=== PATIENT | female | born 2000 | race Caucasian/White ===

== ENCOUNTER 2024-01-19 11:20 | Outpatient (OUT) | payer MEDICAID, SELFPAY ==
--- NOTE | 2024-01-19 11:36 | XR_ITS ---
The [address] [address] Patient Name: ZAID MELLO MRN: [id number] date: 2000 Sex: F Assigned Patient Location: [facility] Current Patient Location: Accession/Order Number: [id number] Exam Date: 01/19/2024 11:40 Report Date: 01/20/2024 08:47 At the request of: ARABELLA FALK Procedure: XR tibia fibula RT 2V PROCEDURE: XR tibia fibula RT 2V HISTORY: Dunne Splints S86.899A COMPARISON: None. FINDINGS: BONES:No fracture, acute abnormality, or significant arthropathy. SOFT TISSUES:No visible soft tissue swelling. EFFUSION:None visible. OTHER: Negative. XR/XR tibia fibula RT 2V IMPRESSION: 1. No fracture or findings to suggest stress fracture. 2. No periosteal reaction or radiographic evidence of dunne splints. Electronically authenticated by: SANDHYA THOMAS Date: 01/20/2024 08:47
== END 2024-01-19 11:21 | disposition home or self-care (01) ==
LOC: RAD 11:25
PROVIDERS: PCP Family Medicine; Visit Provider Family Medicine
DX: S86.899A Other injury of other muscle(s) and tendon(s) at lower leg level, unspecified leg, initial encounter (principal)
CPT/HCPCS: 73590

== ENCOUNTER 2024-07-18 11:55 | Outpatient (OUT) | payer OTHER, MEDICAID, SELFPAY ==
--- NOTE | 2024-07-18 12:12 | XR_ITS ---
The [address] [address] Patient Name: ZAID MELLO MRN: [id number] date: 2000 Sex: F Assigned Patient Location: LAB Current Patient Location: Accession/Order Number: [id number] Exam Date: 07/18/2024 12:15 Report Date: 07/19/2024 10:23 At the request of: ARABELLA FALK Procedure: XR foot RT 2V PROCEDURE: XR foot RT 2V HISTORY: Right Foot Pain M79.671 COMPARISON: None. FINDINGS: BONES:No fracture, acute abnormality, or significant arthropathy. SOFT TISSUES:No visible soft tissue swelling. EFFUSION:None visible. OTHER: Negative. XR/XR foot RT 2V IMPRESSION: 1. No acute bone abnormality, or suspicious lesion, or significant degenerative joint disease. Electronically authenticated by: SANDHYA THOMAS Date: 07/19/2024 10:23
[2024-07-18 12:31] LABS: C Reactive Protein <0.50 mg/dL (<=0.50); Uric Acid 4.7 mg/dL (2.6-6.0)
[2024-07-18 12:38] LABS: Erythrocyte Sedimentation Rate 4 mm/hr (<=20)
[2024-07-19 04:08] LABS: Antistreptolysin O Ab 213.6 IU/mL (0.0-200.0); Rheumatoid Factor (RF) <10.0 IU/mL (<14.0)
[2024-07-20 11:09] LABS: Antinuclear Antibodies, IFA Negative (.)
== END 2024-07-18 11:56 | disposition home or self-care (01) ==
LOC: LAB 11:59
PROVIDERS: PCP Family Medicine; Visit Provider Family Medicine
DX: M79.671 Pain in right foot (principal)
CPT/HCPCS: 36415; 73620; 84550; 85652; 86038; 86060; 86140; 86431

== ENCOUNTER 2024-09-01 10:18 | Outpatient (OUT) | payer OTHER, MEDICAID, SELFPAY ==
--- OUTSIDE RECORDS SUMMARY | 2024-09-01 10:27 | XMS_ITS | CCD ---
Author Organization [facility] Care Team Providers Care Chief Librarian Branch Name Role Phone Unavailable Unavailable Unavailable Arabella Falk Primary Care Provider Alisia Gross Primary Care Provider [phone] CARIDAD KAPADIA Admitting UnavailCARIDAD Coats Attending UnavailALISIA Valdez Primary Care Unavailable Unavailable Primary Care Provider Unavailalexis villa Unavailable Primary Care Provider UnavailArabella Hart MD Primary Care Provider DR ARABELLA FALK Consulting Unavailable DEYA, DR BELL Primary Care Unavailable DEYA, DR BELL Admitting Unavailable DEYA, DR BELL Attending Unavailable HOUSTON, DR STEFAN Nagel Consulting Unavailable DEYA, DR BELL Primary Care Unavailable DEYA, DR BELL Admitting Unavailable DEYA, DR BELL Attending Unavailable DEYA, DR BELL Consulting Unavailable DEYA, DR BELL Consulting Unavailable DEYA, DR BELL Primary Care Unavailable DEYA, DR BELL Admitting Unavailable DEYA, DR BELL Attending Unavailable WILLIAM, DR SANDHYA Arango Consulting Unavailable Arabella Falk MD Primary Care Provider Arabella Falk Primary Care Physician Arabella Falk MD Primary Care Provider Arabella Falk MD Primary Care Provider Arabella Falk MD Primary Care Provider ARABELLA FALK Primary Care Unavailable ARABELLA FALK Primary Care Unavailable KALYN SHIN Attending Unavailable OSCAR US Referring Unavailable ARABELLA FALK Primary Care Unavailable ARABELLA FALK Primary Care Unavailable OSCAR US Attending Unavailable ARABELLA FALK Primary Care Unavailable KARLENE WESTFALL Attending Unavailable RAUL PINTO Referring Unavailable ARABELLA FALK Primary Care Unavailable Etienne THURMAN, Mary Joseph Attending Erickson Alexis PA-C, Sylvie Blake Attending Dread le Allergies Allergy Classification Reported Allergen(s) Allergy Type Date of Onset Reaction(s) Facility Nitroimidazoles (antibiotic) (6 sources) metroNIDAZOLE Drug Allergy 06-27-20 [facility] Penicillins (antibiotic) (12 sources) Amoxicillin Drug Allergy 01-11-20 Hives, Other (See Comments) [facility] (20 sources) Amoxicillin Drug Allergy 01-11-20 [facility], Other (See Comments) [place], [place] (20 sources) Penicillin G Drug Allergy 06-16-20 [place] (20 sources) metroNIDAZOLE; Translations: [metronidazole] Drug Allergy 06-27-20 Hives, [place]al (disorder) [place] (13 sources) Penicillins Propensity to adverse reactions to drug 07-03-20 [place] (2 sources) metroNIDAZOLE; Translations: [Flagyl] Drug Allergy 06-27-20 [facility] Repository (3 sources) Penicillin; Translations: [penicillin] Drug Allergy 06-27-20 Weal (disorder) [facility] Repository (6 sources) Penicillins Propensity to adverse reactions to drug 07-03-20 AASHISH MARVIN [facility] Work Phone: Medications Current Medications Medication Drug Class(es) Dates Sig (Normalized) Sig (Original) acetaminophen 325 mg / HYDROcodone bitartrate 5 mg oral tablet (3 sources) Opioid Agonist Start: 11-20-2022 End: 11-25-2022 HYDROcodone-acet aminophen (NORCO) 5-325 MG per tablet Indications: Post-op pain Take 1 tablet by mouth every 6 hours as needed for Pain for up to 5 days. Intended supply: 5 days. Take lowest dose possible to manage pain Max Daily Amount: 4 tablets 8 tablet 0 11/20/2022 11/25/2022 Active benzocaine 200 mg/ml / menthol 5 mg/ml topical spray (1 source) Standardized Chemical Allergen Start: 09-20-2020 apply 1 dose topically twice daily Topical, 2 TIMES DAILY, First dose on Wed09/20/20 at 2100 Apply to perineal area. Patient is capable and may self administer at bedside. brexpiprazole 1 mg oral tablet (2 sources) Atypical Antipsychotic Start: 03-26-2021 REXULTI 1 MG TABS tablet Start: 01-02-2021 take 1 tablet by lary th once daily REXULTI 0.5 MG TABS tablet take 1 tablet by mouth once daily 0 01/02/2021 Active Calcium Carbonate Antacid (T UMS PO) (2 sources) Calcium Carbonat e Antacid (TUMS PO) Take by mouth 0 Active calcium chloride 0.0014 meq/ ml / potassium chloride 0.004 meq/ml / sodium chloride 0.103 meq/ml / sodium lactate 0.028 meq/ml injectable solution (2 sources) Start: 11-20-2022 lactated ringe rs infusion Start: 09-20-2020 End: 09-20-2020 lactated ringers infusion 1 ml carboprost 0.25 mg/ml injection (1 source) Prostaglandin Analog Start: 09-20-2020 carboprost (HEMABATE) injection 250 mcg ciprofloxacin 500 mg oral tablet (1 source) Quinolone Antimicrobial Start: 04-09-2021 End: 04-19-2021 take 1 tablet by mouth twice daily ciprofloxacin (CIPRO) 500 MG tablet Take 1 tablet by mouth 2 times daily for 10 days 20 tablet 0 04/09/2021 04/19/2021 Active clindamycin 20 mg/ml vaginal cream (2 sources) Lincosamide Antibacterial Start: 01-01-2022 clindamycin (CLEOCIN) 2 % vaginal cream Indications: Acute vaginitis Place vaginally nightly. For 7 nights 40 g 0 01/01/2022 Active Start: 09-30-2020 End: 10-10-2020 take 2 capsules by mouth four times daily clindamycin (CLEOCIN) 300 MG capsule Indications: Pelvic pain Take 2 capsules by mouth 4 times daily for 10 days 80 capsule 0 09/30/2020 10/10/2020 Active docusate sodium 100 mg oral capsule (1 source) Start: 09-20-2020 take 100 mg by mouth twice daily as needed for constipation 100 mg, Oral, 2 TIMES DAILY PRN, Constipation, Starting Wed09/20/20 at 1907 Do not crush or break. Doxylamine Succinate, Sleep, (UNISOM SLEEPTABS PO) (3 sources) Doxylamine Succinate, Sleep, (UNISOM SLEEPTABS PO) Take by mouth 0 Active hydrocortisone 5 mg/ml topical cream (2 sources) Corticosteroid Start: 06-20-2020 hydrocortisone 0.5 % cream Apply topically 2 times daily for 7 days 15 g 0 06/20/2020 Active ibuprofen 800 mg oral tablet (1 source) Nonsteroidal Anti-inflammatory Drug Start: 09-20-2020 take 800 mg by mouth every eight hours 800 mg, Oral, EVERY 8 HOURS, First dose on Wed09/20/20 at 1930 Do not crush or break. ketorolac tromethamine 10 mg oral tablet (3 sources) Nonsteroidal Anti-inflammatory Drug, Cyclooxygenase Inhibitor Start: 11-20-2022 End: 11-20-2023 take 1 tablet by mouth every six hours as needed for pain ketorolac (TORADOL) 10 MG tablet Take 1 tablet by mouth every 6 hours as needed for Pain 20 tablet 0 11/20/2022 11/20/2023 Active Start: 04-09-2021 End: 04-09-2021 ketorolac (TORADOL) injectio n 15 mg lansinoh lanolin ointment (1 source) Start: 09-20-2020 Topical, PRN, Dry Skin, nipple discomfort, Starting Wed09/20/20 at 1907, 2 ml metoclopramide 5 mg/ml prefilled syringe (1 source) Dopamine-2 Receptor Antagonist Start: 11-20-2022 End: 11-21-2022 10 mg, IntraVENous, ONCE PRN, 1 dose, Starting on Wed11/20/22 at 0923, Until 11/21/22 at 0923, Nausea Initial antiemetic therapy. PACU only miSOPROStol 0.1 mg oral tablet (1 source) Prostaglandin E1 Analog Start: 09-20-2020 miSOPROStol (CYTOTEC) tablet 900 mcg nitrofurantoin, macrocrystals 25 mg / nitrofurantoin, monohydrate 75 mg oral capsule (1 source) Nitrofuran Antibacterial Start: 09-02-2020 End: 09-07-2020 take 1 capsule by mouth twice daily nitrofurantoin, macrocrystal-mono hydrate, (MACROBID) 100 MG capsule Indications: Urgency of urination Take 1 capsule by mouth 2 times daily for 5 days 10 capsule 0 09/02/2020 09/07/2020 Active MV & Min w/FA-DHA ([facility] GUMMY PO) (5 sources) take 1 tablet by mouth once daily MV & Min w/FA-DHA ([facility] GUMMY PO) Take 1 tablet by mouth daily 0 Active Vit-Fe Fumarate-FA ( VITAMIN PO) (10 sources) Vit-Fe Fumarate-FA ( VITAMIN PO) Take by mouth 0 Active traMADol hydrochloride 50 mg oral tablet (1 source) Opioid Agonist Start: 04-09-2021 End: 04-14-2021 take 1 tablet by mouth every four hours as needed for pain traMADol (ULTRAM) 50 MG tablet Indications: Acute cystitis without hematuria Take 1 tablet by mouth every 4 hours as needed for Pain for up to 5 days. 20 tablet 0 04/09/2021 04/14/2021 Active vilazodone hydrochloride 40 mg oral tablet (3 sources) Start: 03-27-2021 VILAZODONE HCL 40 MG Tablet Start: 01-20-2021 take 350-500 tablets by mouth once daily VILAZODONE HCL 20 MG Tablet take 1/2 tablet by mouth daily for 7 days then 1 tablet by mouth daily WITH 350 - 500 CALORIES 0 01/20/2021 Active witch nils 500 mg/ml medicated pad (1 source) Start: 09-20-2020 apply 1 dose topically twice daily Topical, 2 TIMES DAILY, First dose on Wed09/20/20 at 2100 Apply to perineal area. Patient is capable and may self administer at bedside. Completed/Discontinued Medications Medication Drug Class(es) Dates Sig (Normalized) Sig (Original) acetaminophen 325 mg oral tablet (3 sources) Start: 11-20-2022 End: 11-20-2022 acetaminophen (TYLENOL) tablet 650 mg Start: 06-11-2022 End: 06-11-2022 acetaminophen (TYLENOL) tabl et 1,000 mg Start: 09-20-2020 take 650 mg by mouth every four hours as needed for fever, then take 4000 mg by mouth every twenty-four hours as needed for fever 650 mg, Oral, EVERY 4 HOURS PRN, Fever, Fever >100.5 F (38 C) or pain 1-10, Starting Wed09/20/20 at 1907 Maximum dose of acetaminophen is 4000 mg from all sources in 24 hours. ARIPiprazole 10 mg oral tablet (8 sources) Atypical Antipsychotic Start: 05-25-2019 take 10 mg by mouth once daily at bedtime Aripiprazole 10 MG Oral Daily at bedtime May 25, 2019 Active Start: 05-22-2019 End: 05-25-2019 take 5 mg by mouth once daily Aripiprazole 5 MG Oral D aily May 22, 2019 May 25, 2019 Discontinued bebtelovimab 175 mg injection (1 source) Start: 06-12-2022 End: 06-12-2022 bebtelovimab 175 mg injection ceFAZolin (ANCEF) 2000 mg in dextrose 5 % 100 mL IVPB (1 source) Start: 11-20-2022 End: 11-20-2022 ceFAZolin (ANCEF) 2000 mg in dextrose 5 % 100 mL IVPB citalopram 20 mg oral tablet (4 sources) Serotonin Reuptake Inhibitor Start: 05-25-2019 take 20 mg by mouth once daily at bedtime Citalopram 20 MG Oral Daily at bedtime May 25, 2019 Active dimenhyDRINATE 50 mg oral tablet (1 source) Start: 11-20-2022 End: 11-20-2022 dimenhyDRINATE (DRAMAMINE) tablet 50 mg Start: 11-20-2022 End: 11-20-2022 dimenhyDRINATE (DRAMAMINE) t ablet 50 mg Doxylamine Succinate, Sleep, (UNISOM PO) (3 sources) End: 09-21-2020 Doxylamine Succinate, Sleep, (UNISOM PO) Take by mouth 0 09/21/2020 Discontinued (Stop Taking at Discharge) Doxylamine Succi terry, Sleep, (UNISOM PO) Take by mouth 0 Active elagolix 150 mg oral tablet (2 sources) Start: 12-09-2022 End: 04-13-2023 take 1 tablet by mouth once daily Elagolix Sodium 150 MG TABS Take 1 tablet by mouth daily 30 tablet 5 12/09/2022 04/13/2023 Discontinued (LIST CLEANUP) 0.8 ml enoxaparin sodium 100 mg/ml prefilled syringe (1 source) Low Molecular Weight Heparin Start: 04-13-2023 End: 04-13-2023 enoxaparin (LOVENOX) injection 70 mg Start: 04-13-2023 End: 04-13-2023 enoxaparin (LOVENOX) injecti on 70 mg escitalopram 20 mg oral tablet (1 source) Serotonin Reuptake Inhibitor Start: 08-04-2022 End: 11-06-2022 take 1 tablet by mouth once daily escitalopram (LEXAPRO) 20 MG tablet Take 1 tablet by mouth daily 30 tablet 3 08/04/2022 11/06/2022 Discontinued (Therapy completed) Ethinyl Estradiol / norgestimate (4 sources) Progestin, Estrogen Start: 05-22-2019 Norgestimate-Ethiny l Estradiol May 22, 2019 Active 2 ml fentaNYL 0.05 mg/ml injection (1 source) Opioid Agonist Start: 11-20-2022 50 mcg, IntraVENous, EVERY 5 MIN PRN, 2 doses, Starting on Wed11/20/22 at 0923, Until Discontinued, Pain Moderate (4-6), Pain Severe (7-10) For Phase I. If Phase II oral narcotics have been administered in the last 60 minutes, do not administer IV narcotics unless specifically approved by provider. PACU only iopamidol (ISOVUE-370) 76 % injection 75 mL (1 source) Start: 04-09-2021 End: 04-09-2021 iopamidol (ISOVUE-370) 76 % injection 75 mL levonorgestrel [id number] mg/hr intrauterine system (2 sources) Progestin, Progestin-containi ng Intrauterine Device Start: 02-26-2021 Levonorgestrel (KYLEENA) IUD 19.5 mg 1 each by Intrauterine route once for 1 dose Lot [id number] Expires 04/2022 [facility] 83167-547-79 1 each 0 02/26/2021 Active methylergonovine maleate 0.2 mg oral tablet (2 sources) Ergot Derivative Start: 09-20-2020 End: 09-21-2020 take 1 dose by mouth four times daily 200 mcg, Oral, EVERY 6 HOURS SCHEDULED (4 times per day), First dose on Wed09/20/20 at 1930, For 4 doses Start: 09-20-2020 methylergonovi ne (METHERGINE) injection 200 mcg 1 ml morphine sulfate 4 mg/ml cartridge (1 source) Opioid Agonist Start: 04-09-2021 End: 04-09-2021 morphine injection 4 mg 2 ml ondansetron 2 mg/ml injection (2 sources) Serotonin-3 Receptor Antagonist Start: 09-20-2020 End: 09-20-2020 ondansetron (ZOFRAN) injection 4 mg Start: 08-13-2020 End: 08-13-2020 ondansetron (ZOFRAN) tablet 4 mg oxytocin (PITOCIN) 30 Units in sodium chloride 0.9 % 500 mL infusion (1 source) Start: 09-20-2020 End: 09-20-2020 oxytocin (PITOCIN) 30 Units in sodium chloride 0.9 % 500 mL infusion 1 ml promethazine hydrochloride 25 mg/ml injection (1 source) Phenothiazine Start: 04-09-2021 End: 04-09-2021 promethazine (PHENERGAN) injection 12.5 mg 50 ml sodium chloride 9 mg/ml injection (10 sources) Start: 04-01-2024 End: 04-01-2024 sodium chloride 0.9 % bolus 1,000 mL Start: 11-20-2022 IntraVENous, a t 5-250 mL/hr, PRN, if patient receiving piggyback infusions and maintenance fluids are not ordered OR KVO fluids to protect IV site / prevent frequent line interruptions/ long duration, Starting on Wed11/20/22 at 0923 For piggyback infusion, administer at same rate as piggyback for a total of 25 mL. Enter 25 mL into dose field and piggyback rate into rate field of order. If piggyback is infusing at a rate less than 100 mL/hr, enter 25 mL into dose field and 100 mL/hr into rate field of order. For KVO fluids, enter rate of 20 mL/hr or less into rate field of order. PACU only Start: 11-20-2022 take 1 dose intraven ously twice daily 5-40 mL, IntraVENous, EVERY 12 HOURS SCHEDULED (2 times per day), First dose on Wed11/20/22 at 0945, Until Discontinued For Line Patency: Peripheral IV = 5 mL; Midline or Central Line = 10 mL/lumen. If following IV push medication, administer flush at same rate as the IV push. Flush volume is determined by type of infusion therapy being given. For non-viscous solutions use: Peripheral IV = 5 mL Midline or Central Line = 10 mL/lumen For viscous solutions (i.e. blood components, parenteral nutrition, contrast media, or after obtaining blood sample) use: Peripheral IV = 10 mL Midline or Central Line = 20 mL/lumen PACU only Start: 11-20-2022 take 5-40 mL intrave nously once as needed 5-40 mL, IntraVENous, PRN, Starting on Wed11/20/22 at 0923, Until Discontinued, Line Care, After every IV line use For Line Patency: Peripheral IV = 5 mL; Midline or Central Line = 10 mL/lumen. If following IV push medication, administer flush at same rate as the IV push. Flush volume is determined by type of infusion therapy being given. For non-viscous solutions use: Peripheral IV = 5 mL Midline or Central Line = 10 mL/lumen For viscous solutions (i.e. blood components, parenteral nutrition, contrast media, or after obtaining blood sample) use: Peripheral IV = 10 mL Midline or Central Line = 20 mL/lumen PACU only Start: 11-20-2022 0.9 % sodium c hloride infusion Start: 11-20-2022 sodium chlorid e flush 0.9 % injection 5-40 mL Start: 04-09-2021 End: 04-09-2021 0.9 % NaCl bolus Start: 09-20-2020 10 mL, Intrave nous, EVERY 12 HOURS SCHEDULED (2 times per day), First dose on Wed09/20/20 at 2100, Start: 09-20-2020 take 10 mL intravenous route o nce 10 mL, Intravenous, PRN, Line Care, Starting Wed09/20/20 at 1907 After every IV line use Problems Active Problems Problem Classification Problem Date Documented Da te Episodic/Chronic Abdominal pain (11 sources) Abdominal tenderness; Translations: [Pain in pelvis] Onset: 2021 Episodic Cardiac dysrhythmias (1 source) Sinus tachycardia 10-21-2020 Episodic Endometriosis (1 source) Endometriosis (clinical); Translations: [Endometriosis, unspecified] Chronic External cause codes: Fall (8 sources) Fall in home; Translations: [Fall at home, initial encounter] Onset: 06-16-2020 06-16-2020 Fluid and electrolyte disorders (1 source) Dehydration; Translations: [DEHYDRATION] Onset: 09-11-2021 Episodic Gastrointestinal hemorrhage (1 source) Rectal hemorrhage 10-29-2020 Episodic Genitourinary symptoms and ill-defined conditions (5 sources) Urgent desire to urinate; Translations: [Increased frequency of urination] Episodic Immunizations and screening for infectious disease (1 source) Patient encounter status; Translations: [Encounter for screening for infections with a predominantly sexual mode of transmission] Episodic Inflammatory diseases of female pelvic organs (7 sources) Acute vaginitis; Translations: [Subacute vaginitis] Onset: 05-24-2024 Episodic Menstrual disorders (1 source) Secondary amenorrhea; 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] Chronic Mood disorders (20 sources) Major depressive disorder; Translations: [Major depressive disorder, single episode, unspecified] Onset: 07-31-2020 07-31-2020 Chronic Nausea and vomiting (1 source) Vomiting, unspecified; Translations: [VOMITING UNSPECIFIED] Onset: 09-11-2021 Episodic Open wounds of extremities (2 sources) Laceration of wrist Episodic Other connective tissue disease (1 source) Swelling of lower limb; Translations: [Other specified soft tissue disorders] Episodic Other diseases of kidney and ureters (1 source) Unspecified hydronephrosis; Translations: [UNSPECIFIED HYDRONEPHROSIS] Onset: 09-11-2021 Episodic Other female genital disorders (1 source) History of endometriosis; Translations: [Personal history of other diseases of the female genital tract] Episodic Other gastrointestinal disorders (1 source) Alteration in bowel elimination 10-29-2020 Episodic Other gastrointestinal disorders (1 source) Loose stool 10-29-2020 Episodic Other gastrointestinal disorders (1 source) Mucus in stool 10-29-2020 Episodic Other nervous system disorders (1 source) Postoperative pain ; Translations: [Other acute postprocedural pain] Episodic Other upper respiratory disease (1 source) Allergic rhinitis 10-21-2020 Chronic Ovarian cyst (5 sources) Other ovarian cyst, right side; Translations: [Cyst of ovary] Onset: 04-24-2021 Episodic Demetri-; endo-; and myocarditis; cardiomyopathy (except that caused by tuberculosis or sexually transmitted disease) (1 source) 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 Residual codes; unclassified (1 source) Gestation period, 36 weeks; Translations: [36 weeks gestation of ] Episodic Spondylosis; intervertebral disc disorders; other back problems (1 source) Low back pain; Translations: [Bilateral low back pain without sciatica, unspecified chronicity] Episodic Suicide and intentional self-inflicted injury (2 sources) Intentional self-harm by unspecified sharp object, initial encounter Syncope (2 sources) Syncope; Translations: [Syncope and collapse] Onset: 04-01-2024 04-01-2024 Episodic Unclassified (3 sources) Patient encounter status; Translations: [Encounter for induction of labor] Onset: 09-20-2020 09-20-2020 Unclassified (1 source) CONTACT W/AND (SUSP) EXPOS COVID-19; Translations: [CONTACT W/AND (SUSP) EXPOS COVID-19] Onset: 09-11-2021 Urinary tract infections (1 source) Acute cystitis; Translations: [Acute cystitis without hematuria] Episodic Past or Other Problems Problem Classification Problem Date Documented Da te Episodic/Chronic Allergic reactions (5 sources) Contact dermatitis; Translations: [Vesicular eczema] Onset: 04-10-2023 10-21-2020 Episodic E Codes: Fall (17 sources) Fall in home; Translations: [Unspecified fall, initial encounter] Onset: 06-16-2020 06-16-2020 Episodic Other connective tissue disease (1 source) Other specified soft tissue disorders; Translations: [Other specified soft tissue disorders] Onset: 04-13-2023 Episodic Other injuries and conditions due to external causes (20 sources) Self inflicted injury; Translations: [Intentional self-harm by unspecified sharp object, initial encounter] Onset: 07-31-2020 07-31-2020 Episodic Other and delivery including normal (20 sources) Normal ; Translations: [Patient encounter status] Onset: 09-20-2020 Resolved: 06-23-2022 09-20-2020 Episodic Residual codes; unclassified (20 sources) Gestation period, 39 weeks; Translations: [39 weeks gestation of ] Resolved: 06-23-2022 09-20-2020 Episodic Viral infection (10 sources) Disease caused by 2019-nCoV; Translations: [COVID-19] Onset: 06-12-2022 Episodic Results Test Name Value Interpretation Reference Range Facility ED Clinical Summaryon 2023 ED Clinical Summary [address] [address] ED Clinical Summary Person Information [facility] Age: 24 Years : 2000 Sex: Female PCP: Marital Status: Single Phone: Race: White Ethnicity: Not or Language: [place] Visit Reason: Neck pain; medical screening Acuity: 4 Enc Type: Emergency Med Service: Emergency Medicine Arrival: 07/08/2024 20:15:31 Discharge: 07/08/2024 21:50:00 LOS: 000 01:35 Checkin: 07/08/2024 20:15:31 Checkout: 07/08/2024 21:50:00 Dispo Type: Home or Self Care Address: [address] [place] [address] [phone] Provider Notes: Diagnosis: 1:Medication side effect Problems No Problems Documented Smoking Status: Smoking Status Never (less than 100 in lifetime) Functional Status: Sensory Deficits: History of Falls: Mobility Assistance Prior to Admission: ADLs: Current Level of Assistance for Self-Care/Mobility: Cognitive Status: Allergies penicillin (Hives) Flagyl (Hives) Laboratory or Other Results This Visit (last charted value for your 07/08/2024 visit) No Laboratory or Other Results This Visit Measurements: Height: Weight: 79.6 kg Blood Pressure: /87 mmHg BMI: Procedures No Procedures Documented Immunizations No Immunizations Documented This Visit Final Med List: Medications that have not changed Other Medications pantoprazole (Protonix 40 mg oral delayed release tablet) 2 Tabs Oral (given by mouth) every day. Refills: 0. Last Dose: promethazine (Phenergan 25 mg rectal suppository) 1 Suppositories Per rectum (in the rectum) once a day (at bedtime). Refills: 0. Last Dose: promethazine (promethazine 25 mg oral tablet) 1 Tabs Oral (given by mouth) 2 times a day. Refills: 0. Last Dose: sucralfate (Carafate 1 g/10 mL oral suspension) 10 Milliliter Oral (given by mouth) four times a day (before meals and at bedtime). Refills: 0. Last Dose: Other Medications pantoprazole (Protonix 40 mg oral delayed release tablet) 2 Tabs Oral (given by mouth) every day. Refills: 0. promethazine (Phenergan 25 mg rectal suppository) 1 Suppositories Per rectum (in the rectum) once a day (at bedtime). Refills: 0. promethazine (promethazine 25 mg oral tablet) 1 Tabs Oral (given by mouth) 2 times a day. Refills: 0. sucralfate (Carafate 1 g/10 mL oral suspension) 10 Milliliter Oral (given by mouth) four times a day (before meals and at bedtime). Refills: 0. Care Team Members: Attending Physician: Sylvie Alexis PA-C Consulting Physician: Referring Physician: Provider Role Assigned Unassigned Sylvie Alexis PA-C ED MidLevel 07/08/2024 21:01:43 Follow up: With: Address: When: Family Doctor Comments: Please follow-up with your doctor Wednesday morning for continued care and evaluation of your condition. With: Address: When: Emergency Department Comments: Return to emergency department immediately for any new or worsening symptoms or if symptoms last longer than discussed. Discharge Orders: Discharge Patient 07/08/24 21:43:00 EDT, Discharge to Home, Self, Medication side effect Patient Education Information: Amphetamine/Dextroam phetamine Oral Tablet [facility] Poison Help line: . [facility] Hotline: [place] Tobacco Quit Line: [place], [place]) [address]: [phone] [place], [place]) [address]: [phone] [facility] [address] [place], [place]: [phone] Normal [facility] ED Note-Physicianon 07-08-20 ED Note-Physician Chief Complaint neck pain, one side started a few days ago, other side started today, headache started this afternoon. Concerned it has to do with starting Adderall a week ago. History of Present Illness 24-year-old female presenting for concerns of a reaction to her Adderall. Per patient 3 days after she started taking Adderall she started experiencing increased anxiety, headaches and difficulty sleeping. She noticed that approximately half hour after she takes her Adderall she receives mental clarity associated with it but then approximately 30 minutes after that she also gets headache and anxiety. Towards the end of the day when her Adderall wears off her symptoms start to get better. No chest pain or shortness of breath. Review of Systems As reviewed in the HPI. All other systems reviewed are negative or normal. Physical Exam CONSTITUTIONAL: [well appearing in no acute distress] SKIN: [Warm, dry, and intact without rash] EYES: [extraocular movements are grossly intact, clear conjunctiva] HENT: [Normocephalic, atraumatic, moist mucus membranes] NECK: [no obvious swelling, normal range of motion] PULMONARY: [normal chest rise and fall, no respiratory distress or stridor CARDIOVASCULAR: [regular rate, distal extremities are warm and well perfused] GASTROINSTESTINAL: [nondistended, non-tender] GENITOURINARY: [deferred] NEUROLOGIC: [normal speech, moves all extremities] MUSCULOSKELETAL: [no gross deformities, atraumatic] PSYCHIATRIC: [normal mood and affect] Vitals & Measurements T: 37 ?C (Oral) HR: 68 (Peripheral) RR: 16 BP: 124/87 SpO2: 99% HT: 160.0 cm WT: 79.6 kg (Dosing) Additional Vitals No qualifying data available. Procedure No qualifying data available. ASA Documentation Medical Decision Making This report has been created using voice recognition software. It may contain minor errors which are inherent in voice recognition technology. 24-year-old female presenting for concerns of a reaction to her Adderall. Per patient 3 days after she started taking Adderall she started experiencing increased anxiety, headaches and difficulty sleeping. She noticed that approximately half hour after she takes her Adderall she receives mental clarity associated with it but then approximately 30 minutes after that she also gets headache and anxiety. Towards the end of the day when her Adderall wears off her symptoms start to get better. No chest pain or shortness of breath. Vital signs and physical exam reassuring. I did discuss side effects of taking a stimulant with the patient. Patient is currently taking 10 mg of Adderall daily, she will start taking 5 mg and will follow-up with her prescribing physician Wednesday to discuss side effects. Instructed to follow up with PCP. Strict return precautions discussed. Discharged home in stable condition and neurovascularly intact. Differential Diagnosis (including but not limited to): ACS, anxiety attack, medication side effect, intracranial hemorrhage, headache, viral URI Data and analysis: ? Patients chart reviewed historically as needed ED Course / Patient Re-evaluation: ? Time: Resting comfortably, vitals stable, neurovascularly intact, nontoxic ? Social determinants of health that impacts treatment or disposition Disposition ? Shared decision making The results of pertinent diagnostic studies and exam findings were discussed. The patient?s provisional diagnosis and plan of care were discussed with the patient and present family. The patient and/or present family expressed understanding of the diagnosis and plan. The nurse was instructed to provide written instructions and appropriate follow-up information. The patient understands their need and responsibility to obtain additional follow-up as instructed. The risks of medications administered and prescribed were discussed with the patient and family present. Reexamination/Reeval uation Resting comfortably, vitals stable, neurovascularly intact, nontoxic Assessment/Plan 1. Medication side effect Ordered: Discharge Patient Refresh vitals and sections below: Problem List/Past Medical History Ongoing No qualifying data Historical No qualifying data Medications Inpatient No active inpatient medications Home Carafate 1 g/10 mL oral suspension, 1 g= 10 mL, Oral, ACHS Phenergan 25 mg rectal suppository, 25 mg= 1 supp, Rectal, HS (at bedtime) promethazine 25 mg oral tablet, 25 mg= 1 tabs, Oral, BID Protonix 40 mg oral delayed release tablet, 80 mg= 2 tabs, Oral, Daily Allergies penicillin (Hives) Flagyl (Hives) Social History Alcohol Never Substance Abuse Denies All Tobacco Never (less than 100 in lifetime) Use:. Diagnostic Results Electronically signed by Vanesa WHITLOCKSylvie 07/10/24 00:02 EDT Normal [facility] Vaginitis DNA Probeon 2023 Deepti Positive Abnormal NEG [facility] Comment on above: Result Comment: for Deepti sp. Method of testing is a DNA probe intended for detection and identification of Deepti species, Gardnerella vaginalis, and Trichomonas vaginalis nucleic acid in vaginal fluid specimens from patients with symptoms of vaginitis/vaginosis. Performed By: #### V AGP #### [facility] [address] [place] [address] [id number] Computer Methods Analyst: Addison Landeros MD Gardnerella Negative Normal NEG [facility] Comment on above: Result Comment: for Gardnerella vaginalis Performed By: #### V AGP #### [employer] [address] [place] [id number] Computer Methods Analyst: Addison Landeros MD Trichomonas Negative Normal NEG [facility] Comment on above: Result Comment: for Trichomonas Vaginalis Performed By: #### V AGP #### [facility] [employer] [address] [place] [id number] Computer Methods Analyst: Addison Landeros MD Vaginitis DNA Probeon 2023 Source .VAGINAL SWAB Normal [facility] Comment on above: Performed By: #### V AGP #### [employer] [address] [place] [id number] Computer Methods Analyst: Addison Landeros MD Basic Metabolic Panelon 05-2 Anion gap [Moles/Vol] 9 mmol/L 9 - 17 mmol/L [facility] Calcium [Mass/Vol] 9.1 mg/dL 8.6 - 10. 4 mg/dL [facility] Chloride [Moles/Vol] 104 mmol/L 98 - 10 7 mmol/L [facility] CO2 [Moles/Vol] 25 mmol/L 20 - 31 mmol/L [facility] Creatinine [Mass/Vol] 0.7 mg/dL 0.5 - 0.9 mg/dL [facility] Dioni Negrete Rate - PINF [facility] Comment on above: These results are not intended for use in patients <18 years of age. eGFR results are calculated without a race factor using the 2020 CKD-EPI equation. Careful clinical correlation is recommended, particularly when comparing to results calculated using previous equations. The CKD-EPI equation is less accurate in patients with extremes of muscle mass, extra-renal metabolism of creatine, excessive creatine ingestion, or following therapy that affects renal tubular secretion. Glucose [Mass/Vol] 87 mg/dL 70 - 99 mg/dL [facility] Potassium [Moles/Vol] 4.2 mmol/L 3.7 - 5.3 mmol/L [facility] Sodium [Moles/Vol] 138 mmol/L 135 - 144 mmol/L [facility] Urea nitrogen [Mass/Vol] 14 mg/dL 6 - 20 mg/dL [facility] Urea nitrogen/Creatinine [Mass ratio] 20 mg/mg 9 - 20 [facility] Basic Metabolic Profon 04-01 Anion gap [Moles/Vol] 9 mmol/L Normal 9-17 [facility] Comment on above: Performed By: #### T ORTIZ JAIME BMP #### [facility] [address] [place] [address] Computer Methods Analyst: Stefan Mcnair MD BUN/CRE Ratio 20 Normal 9-20 [facility] Comment on above: Performed By: #### T ORTIZ JAIME BMP #### [facility] [address] [place] [address] Computer Methods Analyst: Stefan Mcnair MD Calcium [Mass/Vol] 9.1 mg/dL Normal 8.6-10.4 [facility] Comment on above: Performed By: #### T ORTIZ JAIME, BMP #### [facility] [address] [place], [place] [phone] Computer Methods Analyst: Stefan Mcnair MD Chloride [Moles/Vol] 104 mmol/L Normal 98-107 [facility] Comment on above: Performed By: #### T ORTIZ JAIME, BMP #### [facility] [address] [place], [place] [phone] Computer Methods Analyst: Stefan Mcnair MD CO2 [Moles/Vol] 25 mmol/L Normal 20-31 [facility] Comment on above: Performed By: #### T ORTIZ JAIME, BMP #### [facility] [address] [place], [place] [id number] Computer Methods Analyst: Stefan Mcnair MD Creatinine [Mass/Vol] 0.7 mg/dL Normal 0.5-0.9 [facility] Comment on above: Performed By: #### ORTIZ DURAN, BMP #### [facility] [address] [place], [place] [phone] Computer Methods Analyst: Stefan Mcnair MD GFR/1.73 sq M.predicted among non-blacks MDRD (S/P/Bld) [Vol rate/Area] mL/min/{1.73_m2} Normal >60 [facility] Comment on above: Result Comment: These results are not intended for use in patients <18 years of age. eGFR results are calculated without a race factor using the 2020 CKD-EPI equation. Careful clinical correlation is recommended, particularly when comparing to results calculated using previous equations. The CKD-EPI equation is less accurate in patients with extremes of muscle mass, extra-renal metabolism of creatine, excessive creatine ingestion, or following therapy that affects renal tubular secretion. Performed By: #### T ORTIZ JAIME, BMP #### [facility] [address] [place] [address] Computer Methods Analyst: Stefan Mcnair MD Glucose [Mass/Vol] 87 mg/dL Normal 70-99 [facility] Comment on above: Performed By: #### ORTIZ DURAN, BMP #### [facility] [address] [place] [address] Computer Methods Analyst: Stefan Mcnair MD Potassium [Moles/Vol] 4.2 mmol/L Normal 3.7-5.3 [facility] Comment on above: Performed By: #### ORTIZ DURAN, BMP #### [facility] [address] [place], [place] [id number] Computer Methods Analyst: Stefan Mcnair MD Sodium [Moles/Vol] 138 mmol/L Normal 135-144 [facility] Comment on above: Performed By: #### ORTIZ DURAN, BMP #### [facility] [address] [place], [place] [phone] Computer Methods Analyst: Stefan Mcnair MD Urea nitrogen [Mass/Vol] 14 mg/dL Normal 6-20 [facility] Comment on above: Performed By: #### ORTIZ DURAN, BMP #### [facility] [address] [place] [address] Computer Methods Analyst: Stefan Mcnair MD CBC with Auto Differentialon 04-01-2024 Basophils (Bld) [#/Vol] 0.05 10*3/uL [facility] Basophils/100 WBC (Bld) 1 % 0 - 2 % [facility] Eosinophils (Bld) [#/Vol] 0.13 10*3/uL [facility] Eosinophils/100 WBC (Bld) 2 % 1 - 4 % [facility] Erythrocyte distribution width (RBC) [Ratio] 11.5 % Low 11.8 - 14.4 % [facility] Hematocrit (Bld) [Volume fraction] 42.6 % 36.3 - 47.1 % [facility] Hemoglobin (Bld) [Mass/Vol] 14.6 g/dL 11.9 - 15.1 g/dL [facility] Immature granulocytes (Bld) [#/Vol] [facility] Immature granulocytes/100 WBC (Bld) 0 % 0 [facility] Interpretation and review of laboratory results Abnormal [facility] Lymphocytes/100 WBC (Bld) 27 % 24 - 43 % [facility] Lymphocytes/100 WBC (Bld) 1.99 % [facility] MCH (RBC) [Entitic mass] 30.7 pg 25.2 - 33.5 pg [facility] MCHC (RBC) [Mass/Vol] 34.3 g/dL 28.4 - 34.8 g/dL [facility] MCV (RBC) [Entitic vol] 89.7 fL 82.6 - 102.9 fL [facility] Monocytes/100 WBC (Bld) 7 % 3 - 12 % [facility] Monocytes/100 WBC (Bld) 0.52 % [facility] Neutrophils/100 WBC (Bld) 63 % 36 - 65 % [facility] Nucleated RBC/100 WBC (Bld) [Ratio] 0.0 % 0.0 per 100 WBC [facility] Platelet mean volume (Bld) [Entitic vol] 10.1 fL 8.1 - 13.5 fL [facility] Platelets (Bld) [#/Vol] 271 10*3/uL [facility] RBC (Bld) [#/Vol] 4.75 10*6/uL 3.95 - 5.1 1 m/uL [facility] Segmented neutrophils/100 WBC (Bld) 4.72 % [facility] WBC other (Bld) [#/Vol] 7.4 [facility] CBC with Diffon 04-01-2024 Abs. Basophil 0.05 k/uL Normal 0.00-0.20 [facility] Comment on above: Performed By: #### T ORTIZ JAIME BMP #### [facility] [address] [place] [address] Computer Methods Analyst: Stefan Mcnair MD Abs.Imm.Granulocyte <0.03 Normal 0.00-0.30 [facility] Comment on above: Performed By: #### T ORTIZ JAIME BMP #### [facility] [address] [place], [facility]83 Computer Methods Analyst: Stefan Mcnair MD Abs.Neutrophil (Seg) 4.72 k/uL Normal 1.50-8.10 [facility] Comment on above: Performed By: #### ORTIZ DURAN, BMP #### [address] [place] [id number] Computer Methods Analyst: Stefan Mcnair MD Basophils/100 WBC (Bld) 1 % Normal 0-2 [facility] Comment on above: Performed By: #### ORTIZ DURAN, BMP #### [address] [place] [phone] Computer Methods Analyst: Stefan Mcnair MD Eosinophils (Bld) [#/Vol] 0.13 10*3/uL Normal 0.00-0.44 [facility] Comment on above: Performed By: #### ORTIZ DURAN, BMP #### [address] [place], [facility]83 Computer Methods Analyst: Stefan Mcnair MD Eosinophils/100 WBC (Bld) 2 % Normal 1-4 [facility] Comment on above: Performed By: #### ORTIZ DURAN, BMP #### [address] [place] [phone] Computer Methods Analyst: Stefan Mcnair MD Erythrocyte distribution width (RBC) [Ratio] 11.5 % Low 11.8-14.4 [facility] Comment on above: Performed By: #### ORTIZ DURAN, BMP #### [address] [place] [id number] Computer Methods Analyst: Stefan Mcnair MD Hematocrit (Bld) [Volume fraction] 42.6 % Normal 36.3-47.1 [facility] Comment on above: Performed By: #### ORTIZ DURAN, BMP #### [address] [place] [facility]83 Computer Methods Analyst: Stefan Mcnair MD Hemoglobin (Bld) [Mass/Vol] 14.6 g/dL Normal 11.9-15.1 [facility] Comment on above: Performed By: #### ORTIZ DURAN, BMP #### [facility] [address] [place], [place] [phone] Computer Methods Analyst: Stefan Mcnair MD Immature granulocytes/100 WBC (Bld) 0 % Normal 0 [facility] Comment on above: Performed By: #### ORTIZ DURAN, BMP #### [facility] [address] [place] [address] Computer Methods Analyst: Stefan Mcnair MD Lymphocytes (Bld) [#/Vol] 1.99 10*3/uL Normal 1.10-3.70 [facility] Comment on above: Performed By: #### ORTIZ DURAN, BMP #### [address] [place], [facility]83 Computer Methods Analyst: Stefan Mcnair MD Lymphocytes/100 WBC (Bld) 27 % Normal 24-43 [facility] Comment on above: Performed By: #### ORTIZ DURAN, BMP #### [address] [place], [facility]83 Computer Methods Analyst: Stefan Mcnair MD MCH (RBC) [Entitic mass] 30.7 pg Normal 25.2-33.5 [facility] Comment on above: Performed By: #### ORTIZ DURAN, BMP #### [address] [place], [place] [id number] Computer Methods Analyst: Stefan Mcnair MD MCHC (RBC) [Mass/Vol] 34.3 g/dL Normal 28.4-34.8 [facility] Comment on above: Performed By: #### ORTIZ DURAN, BMP #### [address] [place] [id number] Computer Methods Analyst: Stefan Mcnair MD MCV (RBC) [Entitic vol] 89.7 fL Normal 82.6-102.9 [facility] Comment on above: Performed By: #### ORTIZ DURAN, BMP #### [facility] [address] [place], [facility]83 Computer Methods Analyst: Stefan Mcnair MD Monocytes (Bld) [#/Vol] 0.52 10*3/uL Normal 0.10-1.20 [facility] Comment on above: Performed By: #### ORTIZ DURAN, BMP #### [address] [place] [address] Computer Methods Analyst: Stefan Mcnair MD Monocytes/100 WBC (Bld) 7 % Normal 3-12 [facility] Comment on above: Performed By: #### ORTIZ DURAN, BMP #### [address] [place] [address] Computer Methods Analyst: Stefan Mcnair MD Neutrophil (Seg) 63 % Normal 36-65 [facility] Comment on above: Performed By: #### ORTIZ DURAN, BMP #### [address] [place], [facility]83 Computer Methods Analyst: Stefan Mcnair MD NRBC Automated 0.0 per 100 WBC Normal 0.0 [facility] Comment on above: Performed By: #### ORTIZ DURAN, BMP #### [address] [place], [facility]83 Computer Methods Analyst: Stefan Mcnair MD Platelet mean volume (Bld) [Entitic vol] 10.1 fL Normal 8.1-13.5 [facility] Comment on above: Performed By: #### ORTIZ DURAN, BMP #### [address] [place] [address] Computer Methods Analyst: Stefan Mcnair MD Platelets (Bld) [#/Vol] 271 10*3/uL Normal 138-453 [facility] Comment on above: Performed By: #### T ORTIZ JAIME, BMP #### [facility] [address] [place], [place] [id number] Computer Methods Analyst: Stefan Mcnair MD RBC (Bld) [#/Vol] 4.75 10*6/uL Normal 3.95-5.11 [facility] Comment on above: Performed By: #### T ORTIZ JAIME, BMP #### [facility] [address] [place], [place] [phone] Computer Methods Analyst: Stefan Mcnair MD WBC (Bld) [#/Vol] 7.4 10*3/uL Normal 3.5-11.3 [facility] Comment on above: Performed By: #### T ORTIZ JAIME, BMP #### [facility] [address] [place], [place] [phone] Computer Methods Analyst: Stefan Mcnair MD CT HEAD WO CONTRASTon 2023 CT HEAD WO CONTRAST EXAMINATION: CT OF THE HEAD WITHOUT CONTRAST 04/01/2024 3:20 pm TECHNIQUE: CT of the head was performed without the administration of intravenous contrast. Automated exposure control, iterative reconstruction, and/or weight based adjustment of the mA/kV was utilized to reduce the radiation dose to as low as reasonably achievable. COMPARISON: 24 July 2022 HISTORY: ORDERING SYSTEM PROVIDED HISTORY: syncopal episode TECHNOLOGIST PROVIDED HISTORY: syncopal episode Decision Support Exception - unselect if not a suspected or confirmed emergency medical condition->Emergency Medical Condition (MA) Is the patient ?->Yes FINDINGS: BRAIN/VENTRICLES: There is no acute intracranial hemorrhage, mass effect or midline shift. No abnormal extra-axial fluid collection. The casey-white differentiation is maintained without evidence of an acute infarct. There is no evidence of hydrocephalus. ORBITS: The visualized portion of the orbits demonstrate no acute abnormality. SINUSES: The visualized paranasal sinuses and mastoid air cells demonstrate no acute abnormality. SOFT TISSUES/SKULL: No acute abnormality of the visualized skull or soft tissues. IMPRESSION: No acute intracranial abnormality. Interpreted by: Sylvie Campbell MD Signed by: Sylvie Campbell MD 04/01/24 Final result Normal [facility] CT Head WO contraston 2023 No acute intracranial abnormality. [facility] EXAMINATION: CT OF THE HEAD WITHOUT CONTRAST 04/01/2024 3:20 pm TECHNIQUE: CT of the head was performed without the administration of intravenous contrast. Automated exposure control, iterative reconstruction, and/or weight based adjustment of the mA/kV was utilized to reduce the radiation dose to as low as reasonably achievable. COMPARISON: 24 July 2022 HISTORY: ORDERING SYSTEM PROVIDED HISTORY: syncopal episode TECHNOLOGIST PROVIDED HISTORY: syncopal episode Decision Support Exception - unselect if not a suspected or confirmed emergency medical condition->Emergency Medical Condition (MA) Is the patient ?->Yes FINDINGS: BRAIN/VENTRICLES: There is no acute intracranial hemorrhage, mass effect or midline shift. No abnormal extra-axial fluid collection. The casey-white differentiation is maintained without evidence of an acute infarct. There is no evidence of hydrocephalus. ORBITS: The visualized portion of the orbits demonstrate no acute abnormality. SINUSES: The visualized paranasal sinuses and mastoid air cells demonstrate no acute abnormality. SOFT TISSUES/SKULL: No acute abnormality of the visualized skull or soft tissues. [facility] Sylvie Campbell MD - 04/01/2024 EXAMINATION: CT OF THE HEAD WITHOUT CONTRAST 04/01/2024 3:20 pm TECHNIQUE: CT of the head was performed without the administration of intravenous contrast. Automated exposure control, iterative reconstruction, and/or weight based adjustment of the mA/kV was utilized to reduce the radiation dose to as low as reasonably achievable. COMPARISON: 24 July 2022 HISTORY: ORDERING SYSTEM PROVIDED HISTORY: syncopal episode TECHNOLOGIST PROVIDED HISTORY: syncopal episode Decision Support Exception - unselect if not a suspected or confirmed emergency medical condition->Emergency Medical Condition (MA) Is the patient ?->Yes FINDINGS: BRAIN/VENTRICLES: There is no acute intracranial hemorrhage, mass effect or midline shift. No abnormal extra-axial fluid collection. The casey-white differentiation is maintained without evidence of an acute infarct. There is no evidence of hydrocephalus. ORBITS: The visualized portion of the orbits demonstrate no acute abnormality. SINUSES: The visualized paranasal sinuses and mastoid air cells demonstrate no acute abnormality. SOFT TISSUES/SKULL: No acute abnormality of the visualized skull or soft tissues. IMPRESSION: No acute intracranial abnormality. [facility] Radiology Study observation (narrative) [facility] CT Head WO contrastOrdered B y: Sylvie Campbell on 04-01-2024 [facility] Work Phone: Glucose, Whole Bloodon 04-01 Glucose [Mass/Vol] 81 mg/dL Normal 74-100 [facility] Glucose [Mass/Vol] 81 mg/dL 74 - 100 mg/dL [facility] HCG, ,Urineon 04-01 Beta HCG ( test) Ql (U) Negative Normal NEG [facility] Comment on above: Result Comment: Spec imens with hCG levels near the threshold of the test (25 mIU/mL) may give a negative or indeterminate result. In such cases, another test should be performed with a new specimen in 48-72 hours. If early is suspected clinically in this setting, correlation with quantitative serum b-hCG level is suggested. [facility] [email or web address] has confirmed the use of plasma for this test. This has not been cleared or approved by the U.S. Food and Drug Administration. The FDA has determined that such clearance is not necessary. Performed By: #### U HCG, UAMIC #### [facility] [address] [place] [address] [place] [address] Computer Methods Analyst: Stefan Mcnair MD Portable XR Chest AP single viewon 04-01-2024 EXAMINATION: ONE XRAY VIEW OF THE CHEST 04/01/2024 2:37 pm COMPARISON: 06/11/2022 chest plain film. HISTORY: ORDERING SYSTEM PROVIDED HISTORY: syncope TECHNOLOGIST PROVIDED HISTORY: syncope FINDINGS & IMPRESSION: No significant pleural effusion. No significant pulmonary vascular congestion. No visible pneumothorax. Cardiac silhouette normal in size. [facility] Juan Hernandez MD - 04/01/2024 EXAMINATION: ONE XRAY VIEW OF THE CHEST 04/01/2024 2:37 pm COMPARISON: 06/11/2022 chest plain film. HISTORY: ORDERING SYSTEM PROVIDED HISTORY: syncope TECHNOLOGIST PROVIDED HISTORY: syncope FINDINGS & IMPRESSION: No significant pleural effusion. No significant pulmonary vascular congestion. No visible pneumothorax. Cardiac silhouette normal in size. [facility] Radiology Study observation (narrative) [facility] Portable XR Chest AP single viewOrdered By: Juan Thomas on 04-01-2024 [facility] Work Phone: , Urineon HCG ( test) Ql (U) Negative NEGATIVE [facility] Comment on above: Specimens with hCG l evels near the threshold of the test (25 mIU/mL) may give a negative or indeterminate result. In such cases, another test should be performed with a new specimen in 48-72 hours. If early is suspected clinically in this setting, correlation with quantitative serum b-hCG level is suggested. [facility] has confirmed the use of plasma for this test. This has not been cleared or approved by the U.S. Food and Drug Administration. The FDA has determined that such clearance is not necessary. [facility] Troponinon 04-01-2024 Troponin, High Sens <6 Normal 0-14 [facility] Comment on above: Result Comment: High Sensitivity Troponin values cannot be compared with other Troponin methodologies. Performed By: #### T ADDISON, CDP, BMP #### [facility] [address] [place] [address] Computer Methods Analyst: Stefan Mcnair MD Troponin I.cardiac High sensitivity method [Mass/Vol] ng/L 0 - 14 ng/L [facility] Comment on above: High Sensitivity Tro ponin values cannot be compared with other Troponin methodologies. [facility] Urinalysis w/ Microon 2023 Bacteria 1+ Abnormal NONE [facility] Comment on above: Performed By: #### U HCG, UAMIC #### [facility] [address] [place] [address] Computer Methods Analyst: Stefan Mcnair MD Bilirubin, SemiQt,Ur SMALL Abnormal NEG [facility] Comment on above: Performed By: #### U HCG, UAMIC #### [facility] [address] [place] [address] Computer Methods Analyst: Stefan Mcnair MD Blood, Urine 3+ Abnormal NEG [facility] Comment on above: Performed By: #### U HCG, UAMIC #### [facility] [address] [place], [place] [id number] Computer Methods Analyst: Stefan Mcnair MD Epithelial cells LM Ql (Urine sed) 0 TO 2 Normal 0-25 [facility] Comment on above: Performed By: #### U HCG, UAMIC #### [facility] [address] [place], [place] [id number] Computer Methods Analyst: Stefan Mcnair MD Glucose Ql (U) Negative Normal NEG [facility] in [facility] Comment on above: Performed By: #### U HCG, UAMIC #### [facility] [address] [place], [place] [id number] Computer Methods Analyst: Stefan Mcnair MD Ketones Ql (U) Negative Normal NEG [facility] Comment on above: Performed By: #### U HCG, UAMIC #### [facility] [address] [place], [place] [id number] Computer Methods Analyst: Stefan Mcnair MD Mucus Strands TRACE Abnormal NONE [facility] Comment on above: Performed By: #### U HCG, UAMIC #### [facility] [address] [place], [place] [id number] Computer Methods Analyst: Stefan Mcnair MD Nitrite,Ur Negative Normal NEG [facility] Comment on above: Performed By: #### U HCG, UAMIC #### [facility] [address] [place], [place] [address] Computer Methods Analyst: Stefan Mcnair MD PH,Ur 6.0 Normal 5.0-9.0 [facility] Comment on above: Performed By: #### U HCG, UAMIC #### [facility] [address] [place], [place] [phone] Computer Methods Analyst: Stefan Mcnair MD Protein Ql (U) Negative Normal NEG [facility] Comment on above: Performed By: #### U HCG, UAMIC #### [facility] [address] [place], [place] [phone] Computer Methods Analyst: Stefan Mcnair MD Spec. [place],Ur 1.025 High 1.010-1.020 [facility] Comment on above: Performed By: #### U HCG, UAMIC #### [facility] [address] [place] [address] Computer Methods Analyst: Stefan Mcnair MD Urine RBC's GREATER THAN 100 Normal 0-2 [facility] Comment on above: Performed By: #### U HCG, UAMIC #### [facility] [address] [place], [place] [phone] Computer Methods Analyst: Stefan Mcnair MD Urine WBC's 5 TO 10 Normal 0-5 [facility] Comment on above: Performed By: #### U HCG, UAMIC #### [facility] [address] [place], [place] [id number] Computer Methods Analyst: Stefan Mcnair MD Urobilinogen,Ur Normal Normal 0.0-1.0 [facility] Comment on above: Performed By: #### U HCG, UAMIC #### [facility] [address] [place], [place] [phone] Computer Methods Analyst: Stefan Mcnair MD Clarity (U) SLIGHTLY CLOUDY Abnormal [facility] Comment on above: Performed By: #### U HCG, UAMIC #### [facility] [address] [place], [place] [phone] Computer Methods Analyst: Stefan Mcnair MD Color (U) Yellow Normal [facility] Comment on above: Performed By: #### U HCG, UAMIC #### [facility] [address] [place], [place] [id number] Computer Methods Analyst: Stefan Mcnair MD Leukocyte esterase Test strip Ql (U) TRACE Abnormal NEG [facility] Comment on above: Performed By: #### U HCG, UAMIC #### [facility] [address] [place] [address] Computer Methods Analyst: Stefan Mcnair MD Urinalysis with Microscopico n 04-01-2024 Bacteria LM Ql (Urine sed) 1+ Abnormal None [facility] Bilirubin Ql (U) SMALL Abnormal NEGATIVE [facility] Epithelial cells LM.HPF (Urine sed) [#/Area] 0 TO 2 [facility] Glucose Test strip (U) [Mass/Vol] Negative NEGATIVE mg/dL [facility] Hemoglobin Auto test strip Ql (U) 3+ Abnormal NEGATIVE [facility] Interpretation and review of laboratory results Abnormal [facility] Ketones (U) [Mass/Vol] Negative NEGATIVE mg/d L [facility] Mucus Ql (Urine sed) TRACE Abnormal None [facility] Nitrite Ql (U) Negative NEGATIVE [facility] pH (U) 6.0 [pH] 5.0 - 9.0 [facility] Protein (U) [Mass/Vol] Negative NEGATIVE mg/d L [facility] RBC LM.HPF (Urine sed) [#/Area] 100 /[HPF] [facility] Specific gravity (U) [Rel density] 1.025 High 1.010 - 1.020 [facility] Urobilinogen Qn (U) Normal 0.0 - 1. 0 EU/dL [facility] WBC LM.HPF (Urine sed) [#/Area] 5 TO 10 [facility] XR CHEST PORTABLEon 04-01-20 24 XR CHEST PORTABLE EXAMINATION: ONE XRAY VIEW OF THE CHEST 04/01/2024 2:37 pm COMPARISON: 06/11/2022 chest plain film. HISTORY: ORDERING SYSTEM PROVIDED HISTORY: syncope TECHNOLOGIST PROVIDED HISTORY: syncope FINDINGS AND IMPRESSION: No significant pleural effusion. No significant pulmonary vascular congestion. No visible pneumothorax. Cardiac silhouette normal in size. Interpreted by: Juan Thomas MD Signed by: Juan Thomas MD 04/01/24 Final result Normal [facility] C Urineon 01-11-2024 C Urine ------- Final 20-30,000 cfu/ml Mixed gram positive kayla isolated. . This urine contains 3 or more organisms which is inconsistent with clean catch collection. Consider the possibility of contamination during collection. No identification or susceptibility performed as results would be misleading Normal [facility] Comment on above: Performed By: #### U RC #### [place] [address] .UA Microscp Aon 01-09-2024 UA RBC Quant 2 /HPF Normal 0-5 [facility] Comment on above: Performed By: #### L IVER #### [place] [address] UA Squepi Cells Quant 5 /HPF Normal 0-29 [facility] Comment on above: Performed By: #### L IVER #### [place] [address] UA WBC Quant 0 /HPF Normal 0-5 [facility] Comment on above: Performed By: #### L IVER #### [place] [address] .eGFRon 01-09-2024 GFR/1.73 sq M.predicted MDRD (S/P/Bld) [Vol rate/Area] mL/min/{1.73_m2} Normal >=60 [facility] Comment on above: Result Comment: [facility] have implemented the eGFR calculation approach that does not have a coefficient for race and that conforms to the NKF-ASN Task Force Recommendations. Stages of Chronic Kidney Disease GFR Stage 3a Mild to moderate loss of kidney function 59 to 45 Stage 3b Moderate to severe loss of kidney function 44 to 33 Stage 4 Severe loss of kidney function 29 to 15 Stage 5 Kidney failure Less than 15 GFR calculated using the CKD-Epi Creatinine Equation (2020): eGFR = 142 X min(SCr/?, 1)? X max(SCr /?, 1)-1.200 X 0.9938Age X 1.012 [if female] Abbreviations/Units: eGFR (estimated glomerular filtration rate) = mL/min/1.73 m2 SCr (standardized serum creatinine) = mg/dL ? = 0.7 (females) or 0.9 (males) ? = -0.241 (females) or -0.302 (males) min = indicates the minimum of SCr/? or 1 max = indicates the maximum of SCr/? or 1 Age = years Performed By: #### E GFR #### [address] [address] Basic Metabolic Profileon Anion gap [Moles/Vol] 13 mmol/L Normal 7-17 [facility] Comment on above: Performed By: #### C [id number] #### [address] [address] Calcium [Mass/Vol] 9.4 mg/dL Normal 8.5-10.3 [facility] Comment on above: Performed By: #### C [id number] #### [address] [address] Chloride [Moles/Vol] 105 mmol/L Normal 98-110 [facility] Comment on above: Performed By: #### C [id number] #### [address] [address] CO2 [Moles/Vol] 23 mmol/L Normal 22-32 [facility] Comment on above: Performed By: #### C [id number] #### [address] [address] Creatinine [Mass/Vol] 0.75 mg/dL Normal 0.44-1.03 [facility] Comment on above: Performed By: #### C [id number] #### [address] [address] Glucose [Mass/Vol] 80 mg/dL Normal 70-99 [facility] Comment on above: Performed By: #### C [id number] #### [address] [address] Potassium [Moles/Vol] 3.8 mmol/L Normal 3.4-4.8 [facility] Comment on above: Performed By: #### C [id number] #### [address] [address] Sodium [Moles/Vol] 137 mmol/L Normal 133-142 [facility] Comment on above: Performed By: #### C [id number] #### [address] [address] Urea nitrogen [Mass/Vol] 18 mg/dL Normal 8-26 [facility] Comment on above: Performed By: #### C [id number] #### [address] [address] Urea nitrogen/Creatinine [Mass ratio] 24.0 mg/mg High 10.0-20.0 [facility] Comment on above: Performed By: #### C [id number] #### [address] [address] CBC w/ Diffon 01-09-2024 Erythrocyte distribution width (RBC) [Ratio] 12.6 % Normal 11.6-14.8 [facility] Comment on above: Performed By: #### L IVER #### [address] [address] Hematocrit (Bld) [Volume fraction] 40.8 % Normal 36.0-46.0 [facility] Comment on above: Performed By: #### L IVER #### [address] [address] Hemoglobin (Bld) [Mass/Vol] 14.0 g/dL Normal 12.0-16.0 [facility] Comment on above: Performed By: #### L IVER #### [address] [address] MCH (RBC) [Entitic mass] 30.8 pg Normal 27.0-35.0 [facility] Comment on above: Performed By: #### L IVER #### [place] [id number] MCHC 34.4 % Normal 31.0-37.0 [facility] Comment on above: Performed By: #### L IVER #### [place] [id number] MCV (RBC) [Entitic vol] 89.5 fL Normal 80.0-100.0 [facility] Comment on above: Performed By: #### L IVER #### [place] [id number] Platelet 283 x10*3/mcL Normal 150-450 [facility] Comment on above: Performed By: #### L IVER #### [place] [id number] Platelet mean volume (Bld) [Entitic vol] 8.3 fL Normal 6.7-10.6 [facility] Comment on above: Performed By: #### L IVER #### [place] [id number] RBC 4.56 x10*6/mcL Normal 3.80-5.20 [facility] Comment on above: Performed By: #### L IVER #### [place] [id number] WBC 9.1 x10*3/mcL Normal 4.5-11.0 [facility] Comment on above: Performed By: #### L IVER #### [place] [id number] CT Abdomen Pelvis w/ IV Cont alfred 01-09-2024 CT Abdomen Pelvis w/ IV Contrast EXAM: CT Abdomen Pelvis w/ IV Contrast HISTORY: Abdominal pain, left lower quadrant, COMPARISON: 09/09/2021 TECHNIQUE: Axial CT imaging was performed through the abdomen and pelvis with intravenous contrast. Multiplanar reformats were performed. Dose reduction techniques were achieved by using automated exposure control and/or adjustment of mA and/or kV according to patient size and/or use of iterative reconstruction technique. FINDINGS: Lung bases: Lung bases are clear. No pleural effusion. Pectus excavatum. GI upper: Unremarkable. Liver: Normal size and contour. Gallbladder: No significant abnormality. No cholelithiasis. Biliary system: No intra or extrahepatic biliary ductal dilatation. Spleen: Normal size. Pancreas: Unremarkable. Adrenal glands: Normal adrenal glands. Kidneys/ureters: Normal contours. No hydronephrosis. No nephrolithiasis or ureterolithiasis. Vessels: No aneurysm. Lymph Nodes: No lymphadenopathy. Small bowel: No wall thickening or dilatation. Colon: No wall thickening or dilatation. Appendix: No findings of appendicitis. Peritoneal cavity: No free fluid or pneumoperitoneum. Lower : Unremarkable. Bones: No acute bony abnormality. Soft tissues: No acute finding. Additional findings: None. IMPRESSION: Unremarkable CT of the abdomen and pelvis. No acute abnormality. Final Dictated by: Shasta Lemus MD Dictated DT/TM: 01.09.2024 4:45 pm Signed by: Shasta Lemus MD Signed (Electronic Signature): 01.09.2024 4:47 pm (If Report Is Signed, Electronically Signed in Other Vendor System) Normal [facility] Diff Autoon 01-09-2024 Baso Absolute 0.1 x10*3/mcL Normal 0.0-0.2 [facility] Comment on above: Performed By: #### . Automated Diff #### [address] [address] Basophils/100 WBC (Bld) 0.6 % Normal 0.0-1.5 [facility] Comment on above: Performed By: #### . Automated Diff #### [address] [address] Eos Absolute 0.1 x10*3/mcL Normal 0.0-0.4 [facility] Comment on above: Performed By: #### . Automated Diff #### [address] [address] Eosinophils/100 WBC (Bld) 0.9 % Normal 0.0-5.4 [facility] Comment on above: Performed By: #### . Automated Diff #### [address] [address] Lymph Absolute 2.6 x10*3/mcL Normal 1.0-4.8 [facility] Comment on above: Performed By: #### . Automated Diff #### [place] [id number] Lymphocytes/100 WBC (Bld) 28.0 % Normal 27.2-40.8 [facility] Comment on above: Performed By: #### . Automated Diff #### [place] [id number] Clare Absolute 0.6 x10*3/mcL Normal 0.1-1.1 [facility] Comment on above: Performed By: #### . Automated Diff #### [address] [address] Monocytes/100 WBC (Bld) 6.4 % Normal 3.7-11.9 [facility] Comment on above: Performed By: #### . Automated Diff #### [address] [address] Neutro Absolute 5.8 x10*3/mcL Normal 1.8-7.7 [facility] Comment on above: Performed By: #### . Automated Diff #### [place] [id number] Neutro Auto 64.1 % Normal 47.2-70.8 [facility] Comment on above: Performed By: #### . Automated Diff #### [address] [address] ED Clinical Summaryon 2023 ED Clinical Summary [address] [address] ED Clinical Summary Person Information Name: Gayle Lunaaide Cullen/[facility] Age: 23 Years : 2000 Sex: Female PCP: Marital Status: Single Phone: Race: White Ethnicity: Not or Language: [place] Visit Reason: Flank pain; flank pain Acuity: 3 Enc Type: Emergency Med Service: Emergency Medicine Arrival: 01/09/2024 13:43:34 Discharge: 01/09/2024 19:40:00 LOS: 000 05:57 Checkin: 01/09/2024 13:43:34 Checkout: 01/09/2024 19:40:00 Dispo Type: Home or Self Care Address: [address] [place] [id number] Provider Notes: Diagnosis: 1:Abdominal pain Problems No Problems Documented Smoking Status: Smoking Status Never (less than 100 in lifetime) Functional Status: Sensory Deficits: History of Falls: Mobility Assistance Prior to Admission: ADLs: Current Level of Assistance for Self-Care/Mobility: Cognitive Status: Allergies penicillin (Hives) Flagyl (Hives) Laboratory or Other Results This Visit (last charted value for your 01/09/2024 visit) Hematology 01/09/2024 2:10 PM WBC: 9.1 x10 RBC: 4.56 x10 Neutro Auto: 64.1 % -- Normal range between ( 47.2 and 70.8 ) Lymph Auto: 28.0 % -- Normal range between ( 27.2 and 40.8 ) Clare Auto: 6.4 % -- Normal range between ( 3.7 and 11.9 ) Eos Auto: 0.9 % -- Normal range between ( 0.0 and 5.4 ) Basophil Auto: 0.6 % -- Normal range between ( 0.0 and 1.5 ) Baso Absolute: 0.1 x10 MCV: 89.5 fL -- Normal range between ( 80.0 and 100.0 ) MCHC: 34.4 % -- Normal range between ( 31.0 and 37.0 ) Lymph Absolute: 2.6 x10 Hct: 40.8 % -- Normal range between ( 36.0 and 46.0 ) Clare Absolute: 0.6 x10 MCH: 30.8 pg -- Normal range between ( 27.0 and 35.0 ) Neutro Absolute: 5.8 x10 Hgb: 14.0 g/dL -- Normal range between ( 12.0 and 16.0 ) Mean Platelet Volume: 8.3 fL -- Normal range between ( 6.7 and 10.6 ) Platelet: 283 x10 Eos Absolute: 0.1 x10 RDW: 12.6 % -- Normal range between ( 11.6 and 14.8 ) Urinalysis 01/09/2024 2:10 PM UA Color: Light-Yellow UA Urobilinogen: Normal mg/dL UA Bili: Negative UA Ketones: Negative mg/dL UA Leukocyte Esterase: Negative UA Nitrite: Negative UA Glucose: Normal mg/dL UA Protein: Negative mg/dL UA Blood: Negative UA Spec Grav: 1.023 -- Normal range between ( 1.003 and 1.035 ) UA pH: 5.5 UA Clarity: Clear UA Source: Clean Catch UA WBC Quant: 0 /HPF -- Normal range between ( 0 and 5 ) UA RBC Quant: 2 /HPF -- Normal range between ( 0 and 5 ) UA Squepi Cells Quant: 5 /HPF -- Normal range between ( 0 and 29 ) Chemistry 01/09/2024 2:10 PM Creatinine Lvl: 0.75 mg/dL -- Normal range between ( 0.44 and 1.03 ) BUN: 18 mg/dL -- Normal range between ( 8 and 26 ) Glucose Lvl: 80 mg/dL -- Normal range between ( 70 and 99 ) Potassium Lvl: 3.8 mmol/L -- Normal range between ( 3.4 and 4.8 ) AST: 25 IU/L -- Normal range between ( 15 and 41 ) ALT: 15 IU/L -- Normal range between ( 14 and 54 ) Sodium Lvl: 137 mmol/L -- Normal range between ( 133 and 142 ) Lipase Lvl: 43 IU/L -- Normal range between ( 22 and 51 ) Bili Indirect: 0.8 mg/dL -- Normal range between ( 0.0 and 1.0 ) Calcium Lvl: 9.4 mg/dL -- Normal range between ( 8.5 and 10.3 ) Albumin Lvl: 4.5 g/dL -- Normal range between ( 3.2 and 4.9 ) Total Protein: 7.7 g/dL -- Normal range between ( 6.5 and 8.1 ) Bili Total: 1.0 mg/dL -- Normal range between ( 0.3 and 1.2 ) Alk Phos: 45 IU/L -- Normal range between ( 32 and 91 ) Bili Direct: 0.2 mg/dL -- Normal range between ( 0.1 and 0.5 ) Chloride: 105 mmol/L -- Normal range between ( 98 and 110 ) CO2: 23 mmol/L -- Normal range between ( 22 and 32 ) Anion Gap: 13 -- Normal range between ( 7 and 17 ) Estimated GFR: >60 mL/min/1.73m? BUN Crea Ratio: 24.0 -- Normal range between ( 10.0 and 20.0 ) Serum Preg: Negative Computed Tomography 01/09/2024 4:[address] Abdomen Pelvis w/ IV Contrast: CT Abdomen Pelvis w/ IV Contrast Ultrasound 01/09/2024 6:15 PM US Transvaginal w/ Duplex: US Transvaginal w/ Duplex Measurements: Height: Weight: 80 kg Blood Pressure: /65 mmHg BMI: Procedures No Procedures Documented Immunizations No Immunizations Documented This Visit Final Med List: New Medications [id number], [address], [place] [id number], [phone] ondansetron (Zofran ODT 4 mg oral tablet, disintegrating) 1 Tabs Oral (given by mouth) every 8 hours as needed as needed for nausea/vomiting for 7 Days. Refills: 0. Last Dose: Medications that have not changed Other Medications pantoprazole (Protonix 40 mg oral delayed release tablet) 2 Tabs Oral (given by mouth) every day. Refills: 0. Last Dose: promethazine (Phenergan 25 mg rectal suppository) 1 Suppositories Per rectum (in the rectum) once a day (at bedtime). Refills: 0. Last Do (more content not included)... Normal [facility] ED Note-Physicianon 01-09-20 ED Note-Physician Chief Complaint Patient here with complaints of left flank/lower back pain. History of Present Illness 23 year old presenting with abdominal pain and nausea. The patient reports her symptoms started two days ago with generalized abdominal discomfort and nausea. She had one episode of emesis last night and today the abdominal pain localized to the left lower side. The abdominal pain is now sharp in nature. The patient states she has left lower back pain. She has been taking ibuprofen and tylenol at home with no relief. She has some associated urinary frequency but no hematuria or dysuria. The patient has a history of kidney stones in the past. She had tubal ligation in the past, last menstrual cycle was 12/27. Review of Systems As reviewed in the HPI. All other systems reviewed are negative or normal. Physical Exam CONSTITUTIONAL: [well appearing in no acute distress] SKIN: [Warm, dry, and intact without rash] EYES: [extraocular movements are grossly intact, clear conjunctiva] HENT: [Normocephalic, atraumatic, moist mucus membranes] NECK: [no obvious swelling, normal range of motion] PULMONARY: [normal chest rise and fall, no respiratory distress or stridor CARDIOVASCULAR: [regular rate, distal extremities are warm and well perfused] GASTROINSTESTINAL: [nondistended,signif icant TTP lower left quadrant] GENITOURINARY: [deferred] NEUROLOGIC: [normal speech, moves all extremities] MUSCULOSKELETAL: [no gross deformities, atraumatic] PSYCHIATRIC: [normal mood and affect] Vitals & Measurements T: 37 ?C (Oral) HR: 81 (Peripheral) RR: 16 BP: 110/77 SpO2: 95% WT: 80 kg (Dosing) Additional Vitals No qualifying data available. Procedure No qualifying data available. ASA Documentation Medical Decision Making MEDICAL DECISION MAKING Number and Complexity of Problems Differential Diagnosis: _Pyelonephritis, simple UTI, diverticulitis, nephrolithiasis, ovarian torsion, MDM Data External documents reviewed: _ My EKG interpretation: _ My CT interpretation: _No obvious obstruction or free air My X-ray interpretation: _ My Ultrasound interpretation: _ Decision rules/scores evaluated: _ Discussed with: _ Decision rules/scores evaluated: _ ? HEART Score: Not Completed ? PERC Rule: _ ? NEXUS C-spine Criteria: _ ? [place] Ankle Rule: _ ? [place] Knee Rule: _ ? Wells Criteria for DVT: _ ? [place] Criteria for PE: _ Discussed with: _ Treatment and Disposition ED Course: 23-year-old female presenting with left-sided abdominal pain. Patient was afebrile on arrival, vital signs stable. She was overall nontoxic in appearance. She did have left lower abdominal tenderness to palpation. Patient's lab work showed no significant leukocytosis, electrolytes were within normal limits. Urinalysis negative for any signs of infection, did send for culture. Her CT scan of the abdomen showed no acute pathology. Did order transvaginal ultrasound to assess for possible torsion which was negative. Discussed labwork and imaging with patient. She was instructed to follow-up with her primary care physician for further management. She was given strict return precautions for any worsening symptoms. The patient expressed understanding and she was discharged in stable condition. Shared decision making: _ Code status: _ Assessment/Plan 1. Abdominal pain Ordered: ondansetron, 1 tabs, Oral, q8hr, PRN, X 7 days, # 20 tabs, 0 Refill(s), 01/16/24 18:47:00 EDT, Pharmacy: [id number] Orders: Culture Urine Discharge Patient Refresh vitals and sections below: Problem List/Past Medical History Ongoing No qualifying data Historical No qualifying data Medications Inpatient Normal Saline Flush 0.9% injectable solution, 10 mL, IV Push, As Indicated, PRN Sodium Chloride 0.9% intravenous solution 1,000 mL, 1000 mL, IV Home Carafate 1 g/10 mL oral suspension, 1 g= 10 mL, Oral, ACHS Phenergan 25 mg rectal suppository, 25 mg= 1 supp, Rectal, HS (at bedtime) promethazine 25 mg oral tablet, 25 mg= 1 tabs, Oral, BID Protonix 40 mg oral delayed release tablet, 80 mg= 2 tabs, Oral, Daily Allergies penicillin (Hives) Flagyl (Hives) Social History Alcohol Never Substance Abuse Denies All Tobacco Never (less than 100 in lifetime) Use:. Lab Results Automated Hematology LATEST RESULTS HISTORICAL RESULTS WBC 01/09/24 14:10 9.1 07/17/23 6.1 RBC 01/09/24 14:10 4.56 07/17/23 4.66 Hgb 01/09/24 14:10 14.0 07/17/23 14.3 Hct 01/09/24 14:10 40.8 07/17/23 41.6 MCV 01/09/24 14:10 89.5 07/17/23 89.2 MCH 01/09/24 14:10 30.8 07/17/23 30.8 MCHC 01/09/24 14:10 34.4 07/17/23 34.5 RDW 01/09/24 14:10 12.6 07/17/23 12.3 Platelet 01/09/24 14:10 283 07/17/23 220 Mean Platelet Volume 01/09/24 14:10 8.3 07/17/23 8.5 Neutro Auto 01/09/24 14:10 64.1 07/17/23 60.4 Lymph Auto 01/09/24 14:10 28.0 07/17/23 28.9 Mon (more content not included)... Normal [facility] Hep Func Panelon 01-09-2024 Albumin [Mass/Vol] 4.5 g/dL Normal 3.2-4.9 [facility] Comment on above: Performed By: #### L IVER #### [address] [address] Alk Phos 45 IU/L Normal 32-91 [facility] Comment on above: Performed By: #### L IVER #### [address] [address] ALT [Catalytic activity/Vol] 15 U/L Normal 14-54 [facility] Comment on above: Performed By: #### L IVER #### [address] [address] AST [Catalytic activity/Vol] 25 U/L Normal 15-41 [facility] Comment on above: Performed By: #### L IVER #### [address] [address] Bili Direct 0.2 mg/dL Normal 0.1-0.5 [facility] Comment on above: Performed By: #### L IVER #### [address] [address] Bili Indirect 0.8 mg/dL Normal 0.0-1.0 [facility] Comment on above: Performed By: #### L IVER #### [address] [address] Bili Total 1.0 mg/dL Normal 0.3-1.2 [facility] Comment on above: Performed By: #### L IVER #### [address] [address] Protein [Mass/Vol] 7.7 g/dL Normal 6.5-8.1 [facility] Comment on above: Performed By: #### L IVER #### [address] [address] Lipaseon 01-09-2024 Lipase Lvl 43 IU/L Normal 22-51 [facility] Comment on above: Performed By: #### L IP #### [address] [address] S Preg Qlon 01-09-2024 Serum Preg Negative Normal [facility] Comment on above: Result Comment: The hCG Combo Rapid Test has a sensitivity of 10 mIU/mL in serum and is capable of detecting as early as 1 day after the first missed menses. Performed By: #### S PTQ #### [address] [address] UA w Culture if Indon 2023 Color (U) Light-Yellow Normal Yellow [facility] Comment on above: Performed By: #### U CI #### [address] [address] Ketones Ql (U) Negative Normal Negative [facility] Comment on above: Performed By: #### U CI #### [address] [address] UA Blood Negative Normal Negative [facility] Comment on above: Performed By: #### U CI #### [address] [address] UA Clarity Clear Normal Clear [facility] Comment on above: Performed By: #### U CI #### [address] [address] UA Glucose Normal Normal Negative [facility] Comment on above: Performed By: #### U CI #### [address] [address] UA Leukocyte Esterase Negative Normal Negative [facility] Comment on above: Performed By: #### U CI #### [address] [address] UA Nitrite Negative Normal Negative [facility] Comment on above: Performed By: #### U CI #### [address] [address] UA pH 5.5 Normal 4.5 - 7.8 [facility] Comment on above: Performed By: #### U CI #### [address] [place] [address] UA Protein Negative Normal Negative [facility] Comment on above: Performed By: #### U CI #### [address] [address] UA Source Clean Catch Normal [facility] Comment on above: Performed By: #### U CI #### [address] [address] UA Spec Grav 1.023 Normal 1.003-1.035 [facility] Comment on above: Performed By: #### U CI #### [address] [address] UA Urobilinogen Normal Normal 0.2 - 1.0 [facility] Comment on above: Performed By: #### U CI #### [address] [address] Urobilinogen (U) [Mass/Vol] Negative Normal Negative [facility] Comment on above: Performed By: #### U CI #### [address] [address] D-Dimer Teston 04-13-2023 D-Dimer Test 2.86 ug/mL FEU High 0.00-0.59 [facility] Comment on above: Result Comment: When combined with a low clinical probability, a D dimer value of <0.50 ug/mL FEU is considered negative for DVT and PE (negative predictive value of 98%, sensitivity of 97%). If this test is not being used to help rule out DVT and PE, then the following reference range should be utilized: 0.00 - 0.59 ug/mL FEU. The D-Dimer assay is intended for use as an aid in the diagnosis of venous thromboembolism (DVT and PE) and the results should be interpreted in conjunction with the patient's medical history, clinical presentation, and other findings. Elevated levels of D-dimer activity can be seen in any state of coagulation activation and is not recommended in patients with therapeutic dose anticoagulant therapy for >24 hours, fibrinolytic therapy within the previous 7 days, trauma or surgery within the previous 4 weeks, disseminated malignancies, aortic aneurysm, sepsis, severe infections, pneumonia, severe skin infections, liver cirrhosis, advanced age, coronary disease, diabetes, and . A very low percentage of patients with DVT may yield D-dimer results below the cutoff of 0.5 ug/mL FEU. This is known to be more prevalent in patients with distal DVT. Performed By: #### D LORENA #### [facility] [address] [place] [address] Computer Methods Analyst: Stefan Mcnair MD D-Dimer, Quantitativeon 06-0 Fibrin D-dimer FEU (PPP) [Mass/Vol] 2.86 [facility] Comment on above: When combined with a low clinical probability, a D dimer value of <0.50 ug/mL FEU is considered negative for DVT and PE (negative predictive value of 98%, sensitivity of 97%). If this test is not being used to help rule out DVT and PE, then the following reference range should be utilized: 0.00 - 0.59 ug/mL FEU. The D-Dimer assay is intended for use as an aid in the diagnosis of venous thromboembolism (DVT and PE) and the results should be interpreted in conjunction with the patient's medical history, clinical presentation, and other findings. Elevated levels of D-dimer activity can be seen in any state of coagulation activation and is not recommended in patients with therapeutic dose anticoagulant therapy for >24 hours, fibrinolytic therapy within the previous 7 days, trauma or surgery within the previous 4 weeks, disseminated malignancies, aortic aneurysm, sepsis, severe infections, pneumonia, severe skin infections, liver cirrhosis, advanced age, coronary disease, diabetes, and . A very low percentage of patients with DVT may yield D-dimer results below the cutoff of 0.5 ug/mL FEU. This is known to be more prevalent in patients with distal DVT. Interpretation and review of laboratory results Abnormal [facility] CBC with Auto Differentialon 11-18-2022 Absolute Eos # 0.10 [facility] SECOUR S [facility] Absolute Immature Granulocyte [facility] Absolute Lymph # 1.92 [facility] SECO URS [facility] Absolute Clare # 0.50 [facility] Basophils (Bld) [#/Vol] 0.04 10*3/uL [facility] Basophils/100 WBC (Bld) 1 % 0 - 2 % [facility] Eosinophils/100 WBC (Bld) 2 % 1 - 4 % [facility] Hematocrit (Bld) [Volume fraction] 44.8 % 36.3 - 47.1 % [facility] Hemoglobin (Bld) [Mass/Vol] 14.4 g/dL 11.9 - 15.1 g/dL [facility] Immature granulocytes/100 WBC (Bld) 0 % 0 [facility] Lymphocytes/100 WBC (Bld) 28 % 25 - 45 % [facility] MCH (RBC) [Entitic mass] 29.4 pg 25.2 - 33.5 pg [facility] MCHC (RBC) [Mass/Vol] 32.1 g/dL 28.4 - 34.8 g/dL [facility] MCV (RBC) [Entitic vol] 91.6 fL 82.6 - 102.9 fL [facility] Monocytes/100 WBC (Bld) 7 % 2 - 8 % [facility] NRBC Automated 0.0 0.0 per 100 WBC [facility] Platelet distribution width (Bld) [Ratio] 12.3 % 11.8 - 14.4 % [facility] Platelet mean volume (Bld) [Entitic vol] 10.7 fL 8.1 - 13.5 fL [facility] Platelets (Bld) [#/Vol] 278 10*3/uL [facility] RBC (Bld) [#/Vol] 4.89 10*6/uL 3.95 - 5.1 1 m/uL [facility] Segmented neutrophils/100 WBC (Bld) 62 % 34 - 64 % [facility] Segs Absolute 4.27 [facility] WBC (Bld) [#/Vol] 6.8 10*3/uL [facility] hCG, Serum, Qualitativeon hCG Qual Negative NEGATIVE [facility] Comment on above: Specimens with hCG l evels near the threshold of the test (25 mIU/mL) may give a negative or indeterminate result. In such cases, another test should be performed with a new specimen in 48-72 hours. If early is suspected clinically in this setting, correlation with quantitative serum b-hCG level is suggested. [facility] has confirmed the use of plasma for this test. This has not been cleared or approved by the U.S. Food and Drug Administration. The FDA has determined that such clearance is not necessary. [facility] Vaginitis DNA Probeon 2021 DEEPTI SPECIES, DNA PROBE Negative NEGATIVE [facility] Comment on above: for Deepti sp. Method of testing is a DNA probe intended for detection and identification of Deepti species, Gardnerella vaginalis, and Trichomonas vaginalis nucleic acid in vaginal fluid specimens from patients with symptoms of vaginitis/vaginosis. GARDNERELLA VAGINALIS, DNA PROBE Positive Abnormal NEGATIVE [facility] Comment on above: for Gardnerella vagi nalis Interpretation and review of laboratory results Abnormal [facility] Source .VAGINAL SWAB [facility] Trichomonas Vaginalis DNA Negative NEGATIVE [facility] Comment on above: for Trichomonas Vagi nalis [facility] COVID-19, Rapidon 06-11-2022 Interpretation and review of laboratory results Abnormal [facility] SARS-CoV-2 (COVID-19) RNA DOUG+probe Ql (Unsp spec) Detected Abnormal Not Detected [facility] Comment on above: Rapid NAAT: The specimen is POSITIVE for SARS-Cov-2, the novel coronavirus associated with COVID-19. This test has been authorized by the FDA under an Emergency Use Authorization (EUA) for use by authorized laboratories. The ID NOW COVID-19 assay is designed to detect the virus that causes COVID-19 in patients with signs and symptoms of infection who are suspected of COVID-19. An individual without symptoms of COVID-19 and who is not shedding SARS-CoV-2 virus would expect to have a negative (not detected) result in this assay. Fact sheet for Healthcare Providers: https://www.fda.gov/media/447228/download Fact sheet for Patients: https://www.fda.gov/media/854600/download Methodology: Isothermal Nucleic Acid Amplification Results reported to the appropriate Health Department Specimen Description .NASOPHARYNGEAL SWAB [facility] [employer] [facility] [employer] XR CHEST PORTABLEon 06-11-20 Suggestion of peribronchial cuffing, which can be seen in a setting of reactive air disease or viral infection without confluent airspace opacity seen [facility] CONSOLIDATED EXAMINATION: ONE XRAY VIEW OF THE CHEST 06/11/2022 8:00 pm COMPARISON: 04/09/2021. HISTORY: ORDERING SYSTEM PROVIDED HISTORY: Covid (+) TECHNOLOGIST PROVIDED HISTORY: Covid (+) FINDINGS: The cardiac silhouette appears within normal limits. There is suggestion of peribronchial cuffing, which can be seen in a setting of reactive airway disease or viral infection without confluent airspace opacity seen. No evidence of pleural effusion or pneumothorax is seen. [facility] CONSOLIDATED Pedro Han J - 06/11/2022 EXAMINATION: ONE XRAY VIEW OF THE CHEST 06/11/2022 8:00 pm COMPARISON: 04/09/2021. HISTORY: ORDERING SYSTEM PROVIDED HISTORY: Covid (+) TECHNOLOGIST PROVIDED HISTORY: Covid (+) FINDINGS: The cardiac silhouette appears within normal limits. There is suggestion of peribronchial cuffing, which can be seen in a setting of reactive airway disease or viral infection without confluent airspace opacity seen. No evidence of pleural effusion or pneumothorax is seen. IMPRESSION: Suggestion of peribronchial cuffing, which can be seen in a setting of reactive air disease or viral infection without confluent airspace opacity seen [employer] Phone: Radiology Study observation (narrative) [employer] Phone: XR CHEST PORTABLEOrdered By: Pedro Han on 06-11-2022 [employer] Phone: Vaginitis DNA Probeon 2021 DEEPTI SPECIES, DNA PROBE Negative NEGATIVE [facility] Comment on above: for Deepti sp. Method of testing is a DNA probe intended for detection and identification of Deepti species, Gardnerella vaginalis, and Trichomonas vaginalis nucleic acid in vaginal fluid specimens from patients with symptoms of vaginitis/vaginosis. GARDNERELLA VAGINALIS, DNA PROBE Negative NEGATIVE [facility] Comment on above: for Gardnerella vagi nalis Source .VAGINAL SWAB [facility] Trichomonas Vaginalis DNA Negative NEGATIVE [facility] Comment on above: for Trichomonas Vagi nalis [facility] HIV Screenon 12-15-2021 HIV Ag/Ab Non-Reactive NONREACTIVE [facility] Comment on above: No laboratory eviden ce of HIV infection. If acute HIV infection is suspected, consider testing for HIV-1 RNA. [facility] Hepatitis C Antibodyon 12-15 Hepatitis C Ab Non-Reactive NONREACTIVE [facility] Comment on above: The hepatitis C procedure used in our laboratory is a Chemiluminescent test specific for three recombinant HCV antigens. A negative anti-HCV result indicates that the antibodies to hepatitis C virus are not present at this time. Individuals with reactive anti-HCV should be considered infected and infectious until proven otherwise. Confirmation of all equivocal or reactive results is recommended by ordering HCV RNA by PCR. No Panel Informationon 12-15 [facility] PROFILE Ion 022 Absolute Eos # 0.05 [facility] th Absolute Immature Granulocyte 0.04 [facility] Absolute Lymph # 1.28 [facility] alth Absolute Clare # 0.45 [facility] lt Basophils (Bld) [#/Vol] 0.03 10*3/uL [facility] Basophils/100 WBC (Bld) 0 % 0 - 2 % [facility] Differential Type NOT REPORTED [facility] Eosinophils/100 WBC (Bld) 1 % 1 - 4 % [facility] Hematocrit (Bld) [Volume fraction] 41.5 % 36.3 - 47.1 % [facility] Hemoglobin.gastrointes tinal spec 1 Ql (Stl) 13.9 g/dL 11.9 - 15.1 g/dL [facility] Hepatitis B Surface Ag Non-Reactive NONREACTIVE [facility] Immature granulocytes/100 WBC (Bld) 0 % 0 [facility] Interpretation and review of laboratory results Abnormal [facility] Lymphocytes/100 WBC (Bld) 12 % Low 25 - 45 % [facility] MCH (RBC) [Entitic mass] 30.3 pg 25.2 - 33.5 pg [facility] MCHC (RBC) [Mass/Vol] 33.5 g/dL 28.4 - 34.8 g/dL [facility] MCV (RBC) [Entitic vol] 90.6 fL 82.6 - 102.9 fL [facility] Monocytes/100 WBC (Bld) 4 % 2 - 8 % [facility] NRBC Automated 0.0 0.0 per 100 WBC [facility] Platelet distribution width (Bld) [Ratio] 12.2 % 11.8 - 14.4 % [facility] Platelet Estimate NOT REPORTED [facility] Platelet mean volume (Bld) [Entitic vol] 11.0 fL 8.1 - 13.5 fL [facility] Platelets (Bld) [#/Vol] 234 10*3/uL [facility] RBC (Bld) [#/Vol] 4.58 10*6/uL 3.95 - 5.1 1 m/uL [facility] RBC (Bld) [#/Vol] NOT REPORTED [facility] Rubella virus IgG Ql (S) 57.6 IU/mL [facility] Comment on above: REFERENCE RANGE: <5.0 NON-REACTIVE (non-immune) 5.0 TO 9.9 EQUIVOCAL >=10.0 REACTIVE (immune) Segmented neutrophils/100 WBC (Bld) 83 % High 34 - 64 % [facility] Segs Absolute 9.17 [facility]um, IgG Non-Reactive NONREACTIVE [facility] Comment on above: T. pallidum antibodies are not detected. There is no serological evidence of infection with T. pallidum (early primary syphilis cannot be excluded). Retest in 2-4 weeks if syphilis is clinically suspect. WBC (Bld) [#/Vol] 11.0 10*3/uL [facility] WBC (Bld) [#/Vol] NOT REPORTED [facility] TYPE AND SCREENon 0 12-15-2021 ABO/Rh Positive [facility] Urinalysison 12-15-2021 Bilirubin Urine Negative NEGATIVE [facility] Color, UA Yellow Yellow [facility] Glucose, Ur Negative NEGATIVE [facility] Ketones Ql (U) Negative NEGATIVE [facility] Leukocyte esterase Test strip Ql (U) Negative NEGATIVE [facility] Nitrite, Urine Negative NEGATIVE [facility] pH, UA 7.0 [facility] Protein, UA Negative NEGATIVE [facility] Specific [place], UA 1.026 [facility] Turbidity UA Clear Clear [facility] Urinalysis Comments Microscopic exam not performed based on chemical results unless requested in original order. [facility] Urine Hgb Negative NEGATIVE [facility] Urobilinogen, Urine Normal Normal [facility] Urine Drug Screenon 12-15-19 Amphetamine Screen, Ur Negative NEGATIVE [facility] Comment on above: (Positive cutoff 1000 ng/mL) Barbiturate Screen, Ur Negative NEGATIVE [facility] Comment on above: (Positive cutoff 200 ng/mL) Benzodiazepine Screen, Urine Negative NEGATIVE [facility] Comment on above: (Positive cutoff 200 ng/mL) Buprenorphine Urine NOT REPORTED NEGATIVE [facility] Cannabinoid Scrn, Ur Negative [facility]GATIVE [facility] Comment on above: (Positive cutoff 50 ng/mL) Cocaine Metabolite, Urine Negative NEGATIVE [facility] Comment on above: (Positive cutoff 300 ng/mL) MDMA, Urine NOT REPORTED NEGATIVE [facility] Methadone Screen, Urine Negative NEGATIVE [facility] Comment on above: (Positive cutoff 300 ng/mL) Methamphetamine, Urine NOT REPORTED NEGATIVE [facility] Opiates, Urine Negative NEGATIVE [facility] Comment on above: (Positive cutoff 300 ng/mL) Oxycodone Screen, Ur Negative NEGATIVE [facility] Comment on above: (Positive cutoff 100 ng/mL) Phencyclidine, Urine Negative NEGATIVE [facility] Comment on above: (Positive cutoff 25 ng/mL) Propoxyphene, Urine NOT REPORTED NEGATIVE [facility] [email or web address] Test Information Assay provides medical screening only. The absence of expected drug(s) and/or metabolite(s) may indicate diluted or adulterated urine, limitations of testing or timing of collection. [facility] Comment on above: Testing for legal pu rposes should be confirmed by another method. To request confirmation of test result, please call the lab within 7 days of sample submission. Tricyclic Antidepressants, Urine NOT REPORTED NEGATIVE [facility] CBC AUTO DIFFon 09-09-2021 BASO # 0.0 103/ul Normal 0.0-0.1 [facility] Comment on above: Performed By: #### C BC #### [facility] [address] [place] [address] Dr. Etta Nolasco Basophils/100 WBC (Bld) 0.3 % Normal 0.2-2.0 [facility] Comment on above: Performed By: #### C BC #### [facility] [address] [place] [address] Dr. Etta Nolasco EO # 0.1 103/ul Normal 0.0-0.7 [facility] Comment on above: Performed By: #### C BC #### [facility] [address] [place] [address] Dr. tEta Nolasco Eosinophils/100 WBC (Bld) 1.9 % Normal 0.9-7.0 [facility] Comment on above: Performed By: #### C BC #### [facility] [address] [place] [address] Dr. Etta Nolasco Erythrocyte distribution width (RBC) [Ratio] 11.6 % Normal 11.0-15.0 [facility] Comment on above: Performed By: #### C BC #### [facility] [address] [place] [address] Dr. Etta Nolasco Hematocrit (Bld) [Volume fraction] 37.0 % Normal 36.0-48.0 [facility] Comment on above: Performed By: #### C BC #### [facility] [address] [place] [address] Dr. Etta Nolasco Hemoglobin (Bld) [Mass/Vol] 12.3 g/dL Normal 12.0-16.0 [facility] Comment on above: Performed By: #### C BC #### [facility] [address] [place] [address] Dr. Etta Nolasco IG # 0.01 10e3/ul Normal 0.00-0.03 [facility] Comment on above: Performed By: #### C BC #### [facility] [address] [place] [address] Dr. Etta Nolasco IG % 0.2 % Normal 0.0-0.5 [facility] Comment on above: Performed By: #### C BC #### [facility] [address] [place] [address] Dr. Etta Nolasco LYMPH # 2.3 103/ul Normal 1.2-3.8 [facility] Comment on above: Performed By: #### C BC #### [facility] [address] [place] [address] Dr. Etta Nolasco Lymphocytes/100 WBC (Bld) 40.3 % Normal 20.5-60.0 [facility] Comment on above: Performed By: #### C BC #### [facility] [address] [place] [address] Dr. Etta Nolasco MANUAL DIFF REQ NO Normal [facility] Comment on above: Performed By: #### C BC #### [facility] [address] [place] [address] Dr. Etta Nolasco MCH (RBC) [Entitic mass] 30.5 pg Normal 26.7-34.0 [facility] Comment on above: Performed By: #### C BC #### [facility] [address] [place] [address] Dr. Etta Nolasco MCHC (RBC) [Mass/Vol] 33.2 g/dL Normal 29.9-35.2 [facility] Comment on above: Performed By: #### C BC #### [facility] [address] [place] [address] Dr. Etta Nolasco MCV (RBC) [Entitic vol] 91.8 fL Normal 81.0-99.0 [facility] Comment on above: Performed By: #### C BC #### [facility] [address] [place] [address] Dr. Etta Nolasco MONO # 0.4 103/ul Normal 0.3-0.8 [facility] Comment on above: Performed By: #### C BC #### [facility] [address] [place] [address] Dr. Etta Nolasco Monocytes/100 WBC (Bld) 6.2 % Normal 1.7-12.0 [facility] Comment on above: Performed By: #### C BC #### [facility] [address] [address] [address] Etta Nolasco NEUT # 3.0 103/ul Normal 1.4-6.5 [facility] Comment on above: Performed By: #### C BC #### [facility] [address] [address] [address] Etta Nolasco Neutrophils/100 WBC (Bld) 51.1 % Normal 43.0-75.0 [facility] Comment on above: Performed By: #### C BC #### [facility] [address] [address] [address] Etta Nolasco Platelet mean volume (Bld) [Entitic vol] 10.7 fL Normal 9.5-13.5 [facility] Comment on above: Performed By: #### C BC #### [facility] [address] [place] [address] Dr. Etta Nolasco PLT 236 103/ul Normal 150-450 [facility] Comment on above: Performed By: #### C BC #### [facility] [address] [address] [address] Etta Nolasco RBC 4.03 106/ul Critically low 4.20-5.40 [facility] Comment on above: Performed By: #### C BC #### [facility] [address] [place] [address] Dr. Etta Nolasco WBC 5.8 103/ul Normal 4.0-11.0 [facility] Comment on above: Performed By: #### C BC #### [facility] [address] [place] [address] ABD/PELVIS WO CONon 09-09 CT ABD/PELVIS WO CON EXAMINATION: CT ABD/PELVIS WO CON, 09/09/2021 7:31 AM EDT HISTORY: CALCULUS OF KIDNEY , urinary tract infection, right upper quadrant pain COMPARISON: 09/06/2019. TECHNIQUE: CT scan of the abdomen and pelvis was performed without IV contrast. CT dose reduction technique was used, including Automated Exposure Control. FINDINGS: LUNG BASES: No visible pulmonary or pleural disease. LIVER: No enlargement, atrophy, abnormal density, or significant focal lesion. BILIARY: Layering hyperdensity possibly debris PANCREAS: No lesion, fluid collection, ductal dilatation, or atrophy. SPLEEN: No enlargement or focal lesion. ADRENALS: No mass or enlargement. KIDNEYS: No mass, obstruction, or calcification. BOWEL/MESENTERY: No visible mass, obstruction, or bowel wall thickening. AORTA/VASCULAR: No aortic aneurysm RETROPERITONEUM: No mass or adenopathy. LYMPH NODES: No adenopathy. URINARY BLADDER: No visible focal wall thickening, lesion, or calculus. PELVIC ORGANS: No visible mass. Pelvic organs appropriate for patient age. ABDOMINAL WALL: No mass or hernia. BONES: No bony lesion or fracture. Suspected pectus excavatum OTHER: Negative. IMPRESSION: No obstructive uropathy Electronically authenticated by: STEFAN ASTORGA Date: 2021-09-09 08:50 Normal [facility] PROF 14(COMP METB)on 021 Albumin [Mass/Vol] 3.1 g/dL Critically low 3.5-5.0 [facility] Comment on above: Performed By: #### C MP #### [facility] [address] [place] [address] Dr. Etta Nolasco Albumin/Globulin [Mass ratio] 1.1 {ratio} Normal [facility] Comment on above: Performed By: #### C MP #### [facility] [address] [place] [address] Dr. Etta Nolasco ALP [Catalytic activity/Vol] 41 U/L Normal 38-126 [facility] Comment on above: Performed By: #### C MP #### [facility] [address] [place] [address] Dr. Etta Nolasco ALT [Catalytic activity/Vol] 9 U/L Normal 9-52 [facility] Comment on above: Performed By: #### C MP #### [facility] [address] [place] [address] Dr. Etta Nolasco Anion gap [Moles/Vol] 12.0 mmol/L Normal [facility] Comment on above: Performed By: #### C MP #### [facility] [address] [place] [address] Dr. Etta Nolasco AST [Catalytic activity/Vol] 14 U/L Normal 14-36 [facility] Comment on above: Performed By: #### C MP #### [facility] [address] [address] [address] Etta Nolasco Bilirubin [Mass/Vol] 0.6 mg/dL Normal 0.2-1.3 [facility] Comment on above: Performed By: #### C MP #### [facility] [address] [address] [address] Etta Nolasco Calcium [Mass/Vol] 8.3 mg/dL Critically low 8.4-10.2 [facility] Comment on above: Performed By: #### C MP #### [facility] [address] [address] [address] Etta Nolasco Chloride [Moles/Vol] 107 mmol/L Normal 98-107 [facility] Comment on above: Performed By: #### C MP #### [facility] [address] [address] [address] Etta Nolasco CO2 [Moles/Vol] 25.0 mmol/L Normal 22.0-30.[address] [facility] Comment on above: Performed By: #### C MP #### [facility] [address] [address] [address] Etta Nolasco Creatinine [Mass/Vol] 0.78 mg/dL Normal 0.52-1.04 [facility] Comment on above: Performed By: #### C MP #### [facility] [address] [address] [address] Etta Nolasco EGFR-AF GABONESE >60 Normal >=[address] [facility] Comment on above: Performed By: #### C MP #### [facility] [address] [address] [address] Etta Nolasco EGFR-NON AF GABONESE >60 Normal >=60 [facility] Comment on above: Performed By: #### C MP #### [facility] [address] [address] [address] Etta Nolasco Globulin (S) [Mass/Vol] 2.7 g/dL Normal [facility] Comment on above: Performed By: #### C MP #### [facility] [address] [address] [address] Etta Nolasco Glucose [Mass/Vol] 84 mg/dL Normal 74-[address] [facility] Comment on above: Performed By: #### C MP #### [facility] [address] [address] [address] Etta Nolasco Potassium [Moles/Vol] 4.0 mmol/L Normal 3.4-5.0 [facility] Comment on above: Performed By: #### C MP #### [facility] [address] [address] [address] Etta Nolasco Protein [Mass/Vol] 5.8 g/dL Critically low 6.1-8.2 [facility] Comment on above: Performed By: #### C MP #### [facility] [address] [address] [address] Etta Nolasco Sodium [Moles/Vol] 140 mmol/L Normal 137-[address] [facility] Comment on above: Performed By: #### C MP #### [facility] [address] [address] [address] Etta Nolasco Urea nitrogen [Mass/Vol] 13.0 mg/dL Normal 7.0-17.0 [facility] Comment on above: Performed By: #### C MP #### [facility] [address] [address] [address] Etta Nolasco Urea nitrogen/Creatinine [Mass ratio] 16.7 mg/mg Normal [facility] Comment on above: Performed By: #### C MP #### [facility] [address] [address] [address] Etta Nolasco AMYLASEon 09-08-2021 Amylase [Catalytic activity/Vol] 55 U/L Normal 31-110 [facility] Comment on above: Performed By: #### L IPA, RU, CMP #### [facility] [address] [address] [address] Etta Nolasco CBC AUTO DIFFon 09-08-2021 BASO # 0.1 103/ul Normal 0.0-0.1 [facility] Comment on above: Performed By: #### C BC #### [facility] [address] [place] [address] Dr. Etta Nolasco Basophils/100 WBC (Bld) 0.7 % Normal 0.2-2.0 [facility] Comment on above: Performed By: #### C BC #### [facility] [address] [place] [address] Dr. Etta Nolasco EO # 0.1 103/ul Normal 0.0-0.7 [facility] Comment on above: Performed By: #### C BC #### [facility] [address] [place] [address] Dr. Etta Nolasco Eosinophils/100 WBC (Bld) 1.1 % Normal 0.9-7.0 [facility] Comment on above: Performed By: #### C BC #### [facility] [address] [place] [address] Dr. Etta Nolasco Erythrocyte distribution width (RBC) [Ratio] 11.6 % Normal 11.0-15.0 [facility] Comment on above: Performed By: #### C BC #### [facility] [address] [place] [address] Dr. Etta Nolasco Hematocrit (Bld) [Volume fraction] 40.6 % Normal 36.0-48.0 [facility] Comment on above: Performed By: #### C BC #### [facility] [address] [place] [address] Dr. Etta Nolasco Hemoglobin (Bld) [Mass/Vol] 13.6 g/dL Normal 12.0-16.0 [facility] Comment on above: Performed By: #### C BC #### [facility] [address] [place] [address] Dr. Etta Nolasco IG # 0.01 10e3/ul Normal 0.00-0.03 [facility] Comment on above: Performed By: #### C BC #### [facility] [address] [place] [address] Dr. Etta Nolasco IG % 0.1 % Normal 0.0-0.5 [facility] Comment on above: Performed By: #### C BC #### [facility] [address] [place] [address] Dr. Etta Nolasco LYMPH # 2.4 103/ul Normal 1.2-3.8 [facility] Comment on above: Performed By: #### C BC #### [facility] [address] [place] [address] Dr. Etta Nolasco Lymphocytes/100 WBC (Bld) 31.8 % Normal 20.5-60.0 [facility] Comment on above: Performed By: #### C BC #### [facility] [address] [place] [address] Dr. Etta Nolasco MANUAL DIFF REQ NO Normal [facility] Comment on above: Performed By: #### C BC #### [facility] [address] [place] [address] Dr. Etta Nolasco MCH (RBC) [Entitic mass] 30.3 pg Normal 26.7-34.0 [facility] Comment on above: Performed By: #### C BC #### [facility] [address] [place] [address] Dr. Etta Nolasco MCHC (RBC) [Mass/Vol] 33.5 g/dL Normal 29.9-35.2 [facility] Comment on above: Performed By: #### C BC #### [facility] [address] [place] [address] Dr. Etta Nolasco MCV (RBC) [Entitic vol] 90.4 fL Normal 81.0-99.0 [facility] Comment on above: Performed By: #### C BC #### [facility] [address] [place] [address] Dr. Etta Nolasco MONO # 0.4 103/ul Normal 0.3-0.8 [facility] Comment on above: Performed By: #### C BC #### [facility] [address] [place] [address] Dr. Etta Nolasco Monocytes/100 WBC (Bld) 5.4 % Normal 1.7-12.0 [facility] Comment on above: Performed By: #### C BC #### [facility] [address] [place] [address] Dr. Etta Nolasco NEUT # 4.6 103/ul Normal 1.4-6.5 [facility] Comment on above: Performed By: #### C BC #### [facility] [address] [place] [address] Dr. Etta Nolasco Neutrophils/100 WBC (Bld) 60.9 % Normal 43.0-75.0 [facility] Comment on above: Performed By: #### C BC #### [facility] [address] [place] [address] Dr. Etta Nolasco Platelet mean volume (Bld) [Entitic vol] 9.9 fL Normal 9.5-13.5 [facility] Comment on above: Performed By: #### C BC #### [facility] [address] [place] [address] Dr. Etta Nolasco PLT 261 103/ul Normal 150-450 [facility] Comment on above: Performed By: #### C BC #### [facility] [address] [place] [address] Dr. Etta Nolasco RBC 4.49 106/ul Normal 4.20-5.40 [facility] Comment on above: Performed By: #### C BC #### [facility] [address] [place] [address] Dr. Etta Nolasco WBC 7.6 103/ul Normal 4.0-11.0 [facility] Comment on above: Performed By: #### C BC #### [facility] [address] [place] [address] Dr. Etta Nolasco CULTURE BLOODon 09-08-2021 Microscopic examination of blood, culture Culture Observations: NO GROWTH AT 5 DAYS. Normal [facility] Comment on above: Performed By: #### C MP #### [facility] [address] [place] [address] Dr. Etta Nolasco Microscopic examination of blood, culture Culture Observations: NO GROWTH AT 5 DAYS. Normal [facility] Comment on above: Performed By: #### C MP #### [facility] [address] [place] [address] Dr. Etta Nolasco CULTURE URINEon 09-08-2021 CULTURE URINE Culture Observations: NO GROWTH. Normal [facility] Comment on above: Performed By: #### C MP #### [facility] [address] [place] [address] Dr. Etta Nolasco Covid-19 PCR ([facility])on SARS-CoV-2 (COVID-19) RNA DOUG+probe Ql (Unsp spec) Not detected Normal NOT DETECTED [facility] Comment on above: Result Comment: When diagnostic testing is negative, the possibility of a false negative should be considered in the context of a patient's recent exposures and the presence of clinical signs and symptoms consistent with SARS-CoV-2. Performed By: #### C VDTBH #### [facility] [address] [place] [address] Dr. Etta Nolasco H PYLORI ANTIBODYon 09-08-20 21 H PYLORI Negative Normal NEGATIVE [facility] Comment on above: Performed By: #### C MP #### [facility] [address] [place] [address] Dr. Etta Nolasco LACTATE/LACTIC ACIDon 2020 Lactate [Moles/Vol] 0.7 mmol/L Normal 0.7-2.0 [facility] Comment on above: Performed By: #### L ACT #### [facility] [address] [place] [address] Dr. Etta Nolasco LIPASEon 09-08-2021 Lipase [Catalytic activity/Vol] 178.0 U/L Normal 23.0-300.0 [facility] Comment on above: Performed By: #### L IPARU, CMP #### [facility] [address] [place] [address] Dr. Etta Nolasco PROF 14(COMP METB)on 021 Albumin [Mass/Vol] 4.1 g/dL Normal 3.5-5.[address] [facility] Comment on above: Performed By: #### L RU DOSHI, CMP #### [facility] [address] [place] [address] Dr. Etta Nolasco Albumin/Globulin [Mass ratio] 1.2 {ratio} Normal [facility] Comment on above: Performed By: #### L RU DOSHI, CMP #### [facility] [address] [address] [address] Etta Nolasco ALP [Catalytic activity/Vol] 58 U/L Normal 38-126 [facility] Comment on above: Performed By: #### L RU DOSHI, CMP #### [facility] [address] [address] [address] Etta Nolasco ALT [Catalytic activity/Vol] 14 U/L Normal 9-52 [facility] Comment on above: Performed By: #### L RU DOSHI, CMP #### [facility] [address] [place] [address] Dr. Etta Nolasco Anion gap [Moles/Vol] 8.2 mmol/L Normal [facility] Comment on above: Performed By: #### L RU DOSHI, CMP #### [facility] [address] [place] [address] Dr. Etta Nolasco AST [Catalytic activity/Vol] 10 U/L Critically low 14-36 [facility] Comment on above: Performed By: #### L RU DOSHI, CMP #### [facility] [address] [place] [address] Dr. Etta Nolasco Bilirubin [Mass/Vol] 0.5 mg/dL Normal 0.2-1.3 [facility] Comment on above: Performed By: #### L RU DOSHI, CMP #### [facility] [address] [place] [address] Dr. Etta Nolasco Calcium [Mass/Vol] 9.5 mg/dL Normal 8.4-10.2 [facility] Comment on above: Performed By: #### L RU DOSHI, CMP #### [facility] [address] [place] [address] Dr. Etta Nolasco Chloride [Moles/Vol] 103 mmol/L Normal 98-107 [facility] Comment on above: Performed By: #### L RU DOSHI, CMP #### [facility] [address] [address] [address] Etta Nolasco CO2 [Moles/Vol] 29.7 mmol/L Normal 22.0-30.[address] [facility] Comment on above: Performed By: #### L RU DOSHI, CMP #### [facility] [address] [address] [address] Etta Nolasco Creatinine [Mass/Vol] 0.85 mg/dL Normal 0.52-1.04 [facility] Comment on above: Performed By: #### L RU DOSHI, CMP #### [facility] [address] [address] [address] Etta Nolasco EGFR-AF GABONESE >60 Normal >=[address] [facility] Comment on above: Performed By: #### L RU DOSHI, CMP #### [facility] [address] [address] [address] Etta Nolasco EGFR-NON AF GABONESE >60 Normal >=60 [facility] Comment on above: Performed By: #### L RU DOSHI, CMP #### [facility] [address] [address] [address] Etta Nolasco Globulin (S) [Mass/Vol] 3.4 g/dL Normal [facility] Comment on above: Performed By: #### L RU DOSHI, CMP #### [facility] [address] [address] [address] Etta Nolasco Glucose [Mass/Vol] 81 mg/dL Normal 74-106 [facility] Comment on above: Performed By: #### L RU DOSHI, CMP #### [facility] [address] [address] [address] Etta Nolasco Potassium [Moles/Vol] 3.9 mmol/L Normal 3.4-5.0 [facility] Comment on above: Performed By: #### L RU DOSHI, CMP #### [facility] [address] [address] [address] Etta Nolasco Protein [Mass/Vol] 7.5 g/dL Normal 6.1-8.2 [facility] Comment on above: Performed By: #### L RU DOSHI, CMP #### [facility] [address] [place] [address] Dr. Etta Nolasco Sodium [Moles/Vol] 137 mmol/L Normal 137-[address] [facility] Comment on above: Performed By: #### L RU DOSHI, CMP #### [facility] [address] [place] [address] Dr. Etta Nolasco Urea nitrogen [Mass/Vol] 16.0 mg/dL Normal 7.0-17.0 [facility] Comment on above: Performed By: #### L RU DOSHI, CMP #### [facility] [address] [place] [address] Dr. Etta Nolasco Urea nitrogen/Creatinine [Mass ratio] 18.8 mg/mg Normal [facility] Comment on above: Performed By: #### L RU DOSHI, CMP #### [facility] [address] [place] [address] Dr. Etta Nolasco UA RANDOM W/MICROSCOPICon BACTERIA NONE SEEN Normal NONE SEEN [facility] Comment on above: Performed By: #### C MP #### [facility] [address] [place] [address] Dr. Etta Nolasco Bilirubin Ql (U) Negative Normal NEGATIVE [facility] Comment on above: Performed By: #### C MP #### [facility] [address] [place] [address] Dr. Etta Nolasco CAST NONE SEEN Normal NONE [facility] Comment on above: Performed By: #### C MP #### [facility] [address] [place] [address] Dr. Etta Nolasco Clarity (U) CLEAR Normal CLEAR [facility] Comment on above: Performed By: #### C MP #### [facility] [address] [place] [address] Dr. Etta Nolasco Color (U) LT. YELLOW Normal YELLOW [facility] Comment on above: Performed By: #### C MP #### [facility] [address] [place] [address] Dr. Etta Nolasco Crystals LM Nom (Urine sed) NONE SEEN Normal NONE SEEN [facility] Comment on above: Performed By: #### C MP #### [facility] [address] [address] [address] Etta Nolasco Epithelial cells LM Ql (Urine sed) FEW Abnormal NONE SEEN /RARE [facility] Comment on above: Performed By: #### C MP #### [facility] [address] [place] [address] Dr. Etta Nolasco Glucose Ql (U) Negative Normal NEGATIVE [facility] Comment on above: Performed By: #### C MP #### [facility] [address] [place] [address] Dr. Etta Nolasco Hemoglobin Ql (U) Negative Normal NEGATIVE [facility] Comment on above: Performed By: #### C MP #### [facility] [address] [place] [address] Dr. Etta Nolasco Ketones Ql (U) 15 mg/dl Abnormal NEGATIVE [facility] Comment on above: Performed By: #### C MP #### [facility] [address] [place] [address] Dr. Etta Nolasco LEUKOCYTES Negative Normal NEGATIVE [facility] Comment on above: Performed By: #### C MP #### [facility] [address] [place] [address] Dr. Etta Nolasco MUCOUS NONE SEEN Normal NONE SEEN [facility] Comment on above: Performed By: #### C MP #### [facility] [address] [place] [address] Dr. Etta Nolasco Nitrite Ql (U) Negative Normal NEGATIVE [facility] Comment on above: Performed By: #### C MP #### [facility] [address] [place] [address] Dr. Etta Nolasco pH (U) 7.0 [pH] Normal 5-9 [facility] Comment on above: Performed By: #### C MP #### [facility] [address] [place] [address] Dr. Etta Nolasco RBC 0-2 Normal 0-2 [facility] Comment on above: Performed By: #### C MP #### [facility] [address] [place] [address] Dr. Etta Nolasco SPEC GRAVITY 1.025 Normal 1.005-<=1.025 [facility] Comment on above: Performed By: #### C MP #### [facility] [address] [place] [address] Dr. Etta Nolasco UA PROTEIN Negative Normal NEGATIVE/ TRACE [facility] Comment on above: Performed By: #### C MP #### [facility] [address] [place] [address] Dr. Etta Nolasco Urobilinogen Qn (U) 0.2 {Alexander'U}/dL Normal 0.2 - 1. 0 [facility] Comment on above: Performed By: #### C MP #### [facility] [address] [place] [address] Dr. Etta Nolasco WBC NONE SEEN Normal NONE SEEN [facility] Comment on above: Performed By: #### C MP #### [facility] [address] [place] [address] Dr. Etta Nolasco hCG, Quantitative, Ordered By: Raul Pinto on 05-08-2021 hCG Quant <1 <5 IU/L [employer] Phone: Comment on above: Non-preg premeno <=5 Postmeno <=8 Male <=3 If HCG results do not concur with clinical observations, additional testing to confirm results is recommended. Elevated results not associated with may be found in patients with other diseases such as tumors of the germ cells (testis, ovaries, etc.), bladder, pancreas, stomach, lungs, and liver. [employer] Phone: US PELVIS AND TRANSVAGon US PELVIS AND TRANSVAG EXAMINATION: US PELVIS AND TRANSVAG HISTORY: Cyst of right ovary COMPARISON: No relevant comparison available. TECHNIQUE: Transabdominal and transvaginal sonographic examination. FINDINGS: UTERUS: Normal size and appearance. Uterus size: 8.0 x 3.2 x 5.6 cm ENDOMETRIUM: Normal homogeneous appearance. Endometrial thickness: 7 mm RIGHT OVARY: Contains a 1.7 cm benign-appearing cyst. Duplex Doppler demonstrates normal waveform and flow; resistive index 0.64. Ovary size: 3.6 x 2.3 x 2.6 cm LEFT OVARY: Normal size and appearance. Duplex Doppler demonstrates normal waveform and flow; resistive index 0.58. Ovary size: 2.9 x 1.7 x 1.6 cm CUL-DE-SAC: Unremarkable. No significant free fluid. BLADDER: Unremarkable. OTHER: None. IMPRESSION: 1. Right ovary contains a 1.7 cm nonspecific but benign-appearing cyst. 2. Prominent periuterine vessels; nonspecific but can be seen with pelvic vascular congestion. Electronically authenticated by: SANDHYA THOMAS Date: 2021-04-24 15:38 Normal [facility] PREG QUANT HCGon 2021 HCG QUANT <1 Normal [facility] Comment on above: Performed By: #### P REGQNT #### [facility] [address] [place], [place] [address] Urszula Garcia HCG RANGE SEE BELOW Normal [facility] Comment on above: Result Comment: 5-50 0-1 WEEK 40-300 1-2 WEEKS 100-1,000 2-3 WEEKS 500-6,000 3-4 WEEKS 5,000-200,000 1-2 MONTHS 10,000-100,000 2-3 MONTHS 3,000-50,000 2ND TRIMESTER 1,000-50,000 3RD TRIMESTER Performed By: #### P REGQNT #### [facility] [address] [place], [place] [address] Urszula Garcia Basic Metabolic PanelOrdered By: Karlene Ibarra on 04-09-2021 Anion gap [Moles/Vol] 8 mmol/L Low 9 - 17 mmol/L [employer] Phone: Calcium [Mass/Vol] 9.3 mg/dL 8.6 - 10. 4 mg/dL [employer] Phone: Chloride [Moles/Vol] 106 mmol/L 98 - 10 7 mmol/L [employer] Phone: CO2 [Moles/Vol] 25 mmol/L 20 - 31 mmol/L [employer] Phone: Creatinine [Mass/Vol] 0.7 mg/dL 0.50 - 0.90 mg/dL [employer] Phone: GFR NOT REPORTED >60 mL/min [facility] [email or web address] Work Phone: GFR Non- Pediatric GFR requires additional information. Refer to [facility]DEP website for calculator. >60 mL/min [facility] [email or web address] Work Phone: Glucose [Mass/Vol] 88 mg/dL 70 - 99 mg/dL [facility] Work Phone: Interpretation and review of laboratory results Abnormal [facility] [email or web address] Work Phone: Potassium [Moles/Vol] 3.9 mmol/L 3.7 - 5.3 mmol/L [facility] [employer] Phone: Sodium [Moles/Vol] 139 mmol/L 135 - 144 mmol/L [facility] [employer] Phone: Urea nitrogen (BldV) [Mass/Vol] 18 mg/dL 6 - 20 mg/dL [facility] [email or web address] Work Phone: Urea nitrogen/Creatinine (Bld) [Mass ratio] 26 High [facility] [email or web address] Work Phone: [facility] [email or web address] Work Phone: CBC Auto DifferentialOrdered By: Karlene Ibarra on 04-09-2021 Absolute Eos # 0.15 [facility] Work Phone: Absolute Immature Granulocyte <0.03 [facility] [email or web address] Work Phone: Absolute Lymph # 2.22 [facility] [employer] Work Phone: Absolute Clare # 0.55 [facility] Work Phone: Basophils (Bld) [#/Vol] 0.04 10*3/uL [facility] [email or web address] Work Phone: Basophils/100 WBC (Bld) 1 % 0 - 2 % [facility] [email or web address] Work Phone: Differential Type NOT REPORTED [facility] [employer] Phone: Eosinophils/100 WBC (Bld) 2 % 1 - 4 % [employer] Phone: Hematocrit (Bld) [Volume fraction] 41.4 % 36.3 - 47.1 % [employer] Phone: Hemoglobin.gastrointes tinal spec 1 Ql (Stl) 14.0 g/dL 11.9 - 15.1 g/dL [employer] Phone: Immature granulocytes/100 WBC (Bld) 0 % 0 [employer] Phone: Lymphocytes/100 WBC (Bld) 32 % 25 - 45 % [employer] Phone: MCH (RBC) [Entitic mass] 30.7 pg 25.2 - 33.5 pg [employer] Phone: MCHC (RBC) [Mass/Vol] 33.8 g/dL 28.4 - 34.8 g/dL [employer] Phone: MCV (RBC) [Entitic vol] 90.8 fL 82.6 - 102.9 fL [employer] Phone: Monocytes/100 WBC (Bld) 8 % 2 - 8 % [employer] Phone: NRBC Automated 0.0 0.0 per 100 WBC [employer] Phone: Platelet distribution width (Bld) [Ratio] 11.9 % 11.8 - 14.4 % [employer] Phone: Platelet Estimate NOT REPORTED [employer] Phone: Platelet mean volume (Bld) [Entitic vol] 10.3 fL 8.1 - 13.5 fL [employer] Phone: Platelets (Bld) [#/Vol] 229 10*3/uL [employer] Phone: RBC (Bld) [#/Vol] 4.56 10*6/uL 3.95 - 5.1 1 m/uL [employer] Phone: RBC (Bld) [#/Vol] NOT REPORTED [employer] Phone: Segmented neutrophils/100 WBC (Bld) 57 % 34 - 64 % [employer] Phone: Segs Absolute 3.93 [employer] Work Phone: WBC (Bld) [#/Vol] 6.9 10*3/uL [employer] Work Phone: WBC (Bld) [#/Vol] NOT REPORTED [employer] Phone: [employer] Phone: CT ABDOMEN PELVIS W IV CONTR AST Additional Contrast? NoneOrdered By: Karlene Ibarra on 04-09-2021 No acute abdominal or pelvic abnormality. [employer] Phone: EXAMINATION: CT OF THE ABDOMEN AND PELVIS WITH CONTRAST 04/09/2021 4:12 pm TECHNIQUE: CT of the abdomen and pelvis was performed with the administration of intravenous contrast. Multiplanar reformatted images are provided for review. Dose modulation, iterative reconstruction, and/or weight based adjustment of the mA/kV was utilized to reduce the radiation dose to as low as reasonably achievable. COMPARISON: None. HISTORY: ORDERING SYSTEM PROVIDED HISTORY: Right lower quadrant abdominal pain. Concern for appendicitis. TECHNOLOGIST PROVIDED HISTORY: Right lower quadrant abdominal pain. Concern for appendicitis. Decision Support Exception - unselect if not a suspected or confirmed emergency medical condition->Emergency Medical Condition (MA) FINDINGS: Lower Chest: The lung bases are without consolidation or effusion. The visualized cardiac structures are unremarkable. Organs: Liver and spleen are normal size and overall attenuation. The gallbladder, pancreas, and adrenal glands are unremarkable. The kidneys are without obstructive uropathy. The ureters are not dilated. The urinary bladder is unremarkable. GI/Bowel: The stomach is unremarkable. Loops of small bowel are normal in caliber without evidence for obstruction. The colon contains air and fecal residue and is otherwise unremarkable. The appendix is normal. There is no intraperitoneal free air or free fluid. Pelvis: The uterus is age-appropriate. Peritoneum/Retroperi toneum: The psoas muscles are symmetric. The abdominal aorta is normal in caliber. The inferior vena cava is unremarkable. There is no retroperitoneal or mesenteric adenopathy. Bones/Soft Tissues: The extra-abdominal soft tissues are unremarkable. There is no acute osseous abnormality. [employer] Phone: Kwesi, [facility] Incoming Radiant Results From [employer] - 04/09/2021 4:31 PM EDT EXAMINATION: CT OF THE ABDOMEN AND PELVIS WITH CONTRAST 04/09/2021 4:12 pm TECHNIQUE: CT of the abdomen and pelvis was performed with the administration of intravenous contrast. Multiplanar reformatted images are provided for review. Dose modulation, iterative reconstruction, and/or weight based adjustment of the mA/kV was utilized to reduce the radiation dose to as low as reasonably achievable. COMPARISON: None. HISTORY: ORDERING SYSTEM PROVIDED HISTORY: Right lower quadrant abdominal pain. Concern for appendicitis. TECHNOLOGIST PROVIDED HISTORY: Right lower quadrant abdominal pain. Concern for appendicitis. Decision Support Exception - unselect if not a suspected or confirmed emergency medical condition->Emergency Medical Condition (MA) FINDINGS: Lower Chest: The lung bases are without consolidation or effusion. The visualized cardiac structures are unremarkable. Organs: Liver and spleen are normal size and overall attenuation. The gallbladder, pancreas, and adrenal glands are unremarkable. The kidneys are without obstructive uropathy. The ureters are not dilated. The urinary bladder is unremarkable. GI/Bowel: The stomach is unremarkable. Loops of small bowel are normal in caliber without evidence for obstruction. The colon contains air and fecal residue and is otherwise unremarkable. The appendix is normal. There is no intraperitoneal free air or free fluid. Pelvis: The uterus is age-appropriate. Peritoneum/Retroperi toneum: The psoas muscles are symmetric. The abdominal aorta is normal in caliber. The inferior vena cava is unremarkable. There is no retroperitoneal or mesenteric adenopathy. Bones/Soft Tissues: The extra-abdominal soft tissues are unremarkable. There is no acute osseous abnormality. IMPRESSION: No acute abdominal or pelvic abnormality. [employer] Phone: [employer] Phone: HCG Qualitative, SerumOrdere d By: Karlene Ibarra on 04-09-2021 hCG Qual Negative NEGATIVE [employer] Phone: Comment on above: Specimens with hCG l evels near the threshold of the test (25 mIU/mL) may give a negative or indeterminate result. In such cases, another test should be performed with a new specimen in 48-72 hours. If early is suspected clinically in this setting, correlation with quantitative serum b-hCG level is suggested. [employer] has confirmed the use of plasma for this test. This has not been cleared or approved by the U.S. Food and Drug Administration. The FDA has determined that such clearance is not necessary. [employer] Phone: Laboratory - Chemistry and C hemistry - challengeOrdered By: Karlene Ibarra on 04-09-2021 GFR/1.73 sq M.predicted MDRD (S/P/Bld) [Vol rate/Area] [employer] Phone: Comment on above: Average GFR for <20 years old not available. Chronic Kidney Disease: <60 mL/min/1.73sq m Kidney failure: <15 mL/min/1.73sq m eGFR calculated using average adult body mass. Additional eGFR calculator available at: http://www.creditmontoring.com.STORYS.JP/multiple_crcl_2012.htm Stage 1: Some kidney damage normal GFR Stage 2: Mild kidney damage GFR 60-89 Stage 3: Moderate kidney damage GFR 30-59 Stage 4: Severe kidney damage GFR 15-29 Stage 5: Severe kidney damage GFR <15 ESRD - chronic treatment by dialysis or transplant Urinalysis with MicroscopicO rdered By: Karlene Ibarra on 04-09-2021 - [employer] Phone: Amorphous, UA NOT REPORTED None [facility] Work Phone: Bacteria, UA NOT REPORTED None [employer] [facility] Work Phone: Bilirubin Urine Negative NEGATIVE [employer] Work Phone: Casts UA NOT REPORTED /LPF [employer] Phone: Color, UA YELLOW YELLOW [employer] Phone: Crystals, UA NOT REPORTED None /HPF [facility] [employer] Work Phone: Epithelial Cells UA 10 TO 20 [facility] [email or web address] Work Phone: Glucose, Ur Negative NEGATIVE [facility] [email or web address] Work Phone: Interpretation and review of laboratory results Abnormal [facility] [email or web address] Work Phone: Ketones Ql (U) TRACE Abnormal NEGATIVE [facility] Work Phone: Leukocyte esterase Test strip Ql (U) SMALL Abnormal NEGATIVE [facility] [email or web address] Work Phone: Mucus, UA NOT REPORTED None [facility] [email or web address] Work Phone: Nitrite, Urine Negative NEGATIVE [facility] Work Phone: Other Observations UA NOT REPORTED NOT REQ. [facility] [email or web address] Work Phone: pH, UA 6.5 [facility] [email or web address] Work Phone: Protein, UA Negative NEGATIVE [facility] [email or web address] Work Phone: RBC, UA None [facility] [email or web address] Work Phone: Renal Epithelial, UA NOT REPORTED 0 /HPF [facility] [email or web address] Work Phone: Specific [place], UA 1.025 High [facility] [email or web address] Work Phone: Trichomonas, UA NOT REPORTED None [facility] Work Phone: Turbidity UA CLEAR CLEAR [facility] [email or web address] Work Phone: Urinalysis Comments NOT REPORTED [facility] [email or web address] Work Phone: Urine Hgb Negative NEGATIVE [facility] [email or web address] Work Phone: Urobilinogen, Urine Normal Normal [facility] [email or web address] Work Phone: WBC, UA 10 TO 20 [facility] [email or web address] Work Phone: Yeast, UA NOT REPORTED None [facility] [email or web address] Work Phone: [facility] [email or web address] Work Phone: XR CHEST 1 VIEWOrdered By: Jesus Ibarra on 04-09-2021 No acute process. [employer] Work Phone: EXAMINATION: ONE XRAY VIEW OF THE CHEST 04/09/2021 4:25 pm COMPARISON: None. HISTORY: ORDERING SYSTEM PROVIDED HISTORY: Preop TECHNOLOGIST PROVIDED HISTORY: Preop FINDINGS: Heart appears normal in size. No focal consolidation, pneumothorax, pleural effusion or free air. [employer] Phone: Kwesi, [facility] Incoming Radiant Results From [employer] - 04/09/2021 4:32 PM EDT EXAMINATION: ONE XRAY VIEW OF THE CHEST 04/09/2021 4:25 pm COMPARISON: None. HISTORY: ORDERING SYSTEM PROVIDED HISTORY: Preop TECHNOLOGIST PROVIDED HISTORY: Preop FINDINGS: Heart appears normal in size. No focal consolidation, pneumothorax, pleural effusion or free air. IMPRESSION: No acute process. [employer] Phone: [employer] Phone: Provider Letteron 01-30-2021 Provider Letter January 29, [address]NA [address] [place] [id number] ZAID LUNA 2000 Dear Zaid, This letter is to inform you that you have missed at least two appointments in our office within a twelve-month period which you did not cancel. According to our records those missed appointments were in October for presurgery testing and on January 29, [address] Lee for further evaluation. We make every effort to accommodate patients as quickly as possible. If we know you are not able to make an appointment, we can schedule another patient who needs care. Based on our office policy we ask that any future care be scheduled at an alternative facility. Please consult with your primary care physician for any further care or referral needs. Sincerely, [facility] General Surgery [facility] Provider Letter FTon 01-30 Provider Letter [facility] Arabella Falk, [facility] [place] [address] Re: ZAID LUNA Date of : 2000 January 29, [address] Falk, Thank you for your referral of Zaid Luna who was initially consulted in October for rectal bleeding. She was scheduled for a colonoscopy at [facility] and failed to keep her appointment for the required pretesting. The procedure was cancelled and our office was unable to contact her to schedule further care. Please note Ms. Luna was schedule on January 29, [address] appointment [address] Dr. Lee for further evaluation of her ongoing symptoms. She failed to keep the scheduled appointment and did not notify the office to cancel. Any future care will need to be scheduled at an alternative facility. Sincerely [facility] General Surgery [facility] Consent for Procedure/Surger yon 10-30-2020 Consent for Procedure/Surgery [id number] #1.00CD:127 [facility] Facesheeton 10-30-2020 Facesheet [id number] #1.00CD:127 [facility] Provider Letter FTMCon 10-30 Provider Letter [facility] Arabella Falk, [address] [place] [address] Re: ZAID LUNA Date of : 2000 Thank you for your referral of Zaid Luna who was seen on consultation on 10/29/2020 for intermittent rectal bleeding, lower abdominal pain and cramping with yellow mucus in stools. A colonoscopy is planned. I have enclosed my consultation notes for your review and will be happy to follow Zaid should her symptoms persist. Sincerely, Karlene Lee MD General Surgery [facility] Ambulatory Clinical Summaryo n 10-29-2020 Ambulatory Clinical Summary {[id number]}CD:[id number] [facility] General Surgery Office/Clini c Noteon 10-29-2020 General Surgery Office/Clinic Note Chief Complaint referral for rectal bleeding HPI Staff 20 year old female presents on consultation from Dr. Falk for intermittent rectal bleeding. Blood in toilet and with wiping. Complains of lower ABD pain and cramping with yellow mucus stools. Feels there is a heaviness or fullness in the rectum. Has decrease in appetite. Denies nausea. Some emesis when cramping is severe. Symptoms have been present for roughly 3-4 weeks. Father and paternal grandfather with Crohn's. History of Present Illness 20 yo female, 6 weeks , reports 1 month h/o bowel changes and crampy lower abdominal pain; looser, more frequent stools associated with abdominal cramping; pain lasts for several hours after bms, with associated tenesmus; some blood in toilet bowel, in mucous and with wiping; no hemorrhoid prolapse or anal pain; some nausea and emesis if cramps severe; no wt loss, poor appetite, but no change in symptoms with eating; had abd/pelvic ct scan 5 weeks ago for urinary retention, otherwise reportedly normal; no previous abdominal operations; denies asa or NSAID use; no SBE prophylaxis; fmhx of Crohn's disease in patient's father and grandfather, no fmhx of GI malignancy. no previous colonoscopy. no tobacco use. Review of Systems PHQ Score Initial Depression Screen Score: 0 ROS - Provider Constitutional: no fever, no sweats, no weight loss. Eyes: no glasses, no blurred vision, no visual loss. ENMT: no dentures, no hoarseness, no swallowing difficulties, no hearing loss, no ear infection(s), no nose bleeds. Cardiovascular: normal blood pressure, no chest pain, regular heartbeat, no heart murmur. Respiratory: no shortness of breath, no cough, no asthma, no wheezing. Gastrointestinal: no nausea, no vomiting, yes diarrhea, no constipation, no blood in stool, yes change in bowel habits, mild abdominal pain, no hepatitis. Genitourinary: no kidney stones, no urine infection, no dysuria. Musculoskeletal: no pain, no weakness. Skin: no changing moles, no rash, no skin lumps. Neurologic: no seizures, no epilepsy, no headache. Psychiatric: no emotional or psychiatric problem. Heme/Lymph: no bleeding problems, no anemia, no blood clots, no transfusions. Allergy/Immunologic: no swollen lymph nodes/glands, no IV drug abuse. Other: Additional ROS info: Except as noted in the above Review of Systems and in the History of Present Illness, all other systems have been reviewed and are negative or noncontributory. Physical Exam Vitals & Measurements T: 36.9 ?C (Tympanic) HR: 70(Peripheral) RR: 16 BP: 106/60 HT: 162.6 cm HT: 162.56 cm WT: 72.2 kg WT: 72.2 kg BMI: 27.32 HEENT: normal conjunctiva, sclera clear, no scleral icterus, EOM intact, PERRLA. oral mucosa moist without lesions Neck: trachea midline , no mass, symmetric, no thyromegaly or nodules. no adenopathy Respiratory: lungs CTA, respirations non labored. Cardiovascular: regular rate and rhythm, no murmur, , no pedal edema or varicosities. Gastrointestinal: soft, non distended, mild tenderness, lower abdominen, no peritoneal signs, no masses, no palpable hernias, diastasis recti no, no hepatosplenomegaly. normal bs Lymphatic: no cervical adenopathy, no axillary adenopathy, Musculoskeletal: normalgait, digits and nails without infection, nodes, cyanosis, clubbing. Skin: no rashes, no lesions, no ulcers, no subcutaneous nodules, induration. Psychiatric/Neuro: oriented to time, place, person, judgement normal, affect appropriate for age, insight intact, no focal deficits. Tests: , review of old records completed, Discussed surgical options, risks, and possible complications with patient. Assessment/Plan 1. Rectal bleeding (K62.5: Hemorrhage of anus and rectum) plan colonoscopy with anesthesia for further evaluation, informed consent obtained. 2. Bowel habit changes (R19.4: Change in bowel habit) see # 1 3. Mucous in stools, (R19.5: Other fecal abnormalities)Loose stools see # 1 Orders: Most recent diastolic blood pressure <80 mm Hg 3078F Systolic BP <130 mm Hg (Most Recent) 3074F Follow-up No qualifying data available Patient Education Colonoscopy, Care After Colonoscopy Exercise to Lose Weight, Xvob-ul-Oubv Problem List/Past Medical History Ongoing Allergic rhinitis Bowel habit changes Chronic rheumatic myopericarditis Dyshidrotic eczema Loose stools Mood disorder Mucous in stools Rectal bleeding Right ovarian cyst Sinus tachycardia Historical No qualifying data Procedure/Surgical History Tonsillectomy. Medications No active medications Allergies Flagyl (Hives) penicillin (Hives) Social History Alcohol - Denies Alcohol Use, 10/29/2020 Substance Abuse - Denies Substance Abuse, 10/29/2020 Tobacco Never (less than 100 in lifetime) Tobacco Use:., 10/29/2020 Family History Crohn's disease: Father. Hypertension: Father. Normal [facility] Comment on above: Result Comment: Elec tronically Signed By: KAYLEN THURMAN, Karlene Pope\Date and Time Signed: 10/29/20 14:52 EST Patient Educationon 10-29-20 20 Patient Education Colonoscopy Care After Read the instructions outlined below and refer to this sheet in the next few weeks. These discharge instructions provide you with general information on caring for yourself after you leave the hospital. Your doctor may also give you specific instructions. While your treatment has been planned according to the most current medical practices available, unavoidable complications occasionally occur. If you have any problems or questions after discharge, call your doctor. HOME CARE INSTRUCTIONS ACTIVITY: ? You may resume your regular activity, but move at a slower pace for the next 24 hours. ? Take frequent rest periods for the next 24 hours. ? Walking will help get rid of the air and reduce the bloated feeling in your belly (abdomen ). ? No driving for 24 hours (because of the medicine (anesthesia ) used during the test). ? You may shower. ? Do not sign any important legal documents or operate any machinery for 24 hours (because of the anesthesia used during the test). NUTRITION: ? Drink plenty of fluids. ? You may resume your normal diet as instructed by your doctor. ? Begin with a light meal and progress to your normal diet. Heavy or fried foods are harder to digest and may make you feel sick to your stomach (nauseated ). ? Avoid alcoholic beverages for 24 hours or as instructed. MEDICATIONS: ? You may resume your normal medications unless your doctor tells you otherwise. WHAT TO EXPECT TODAY: ? Some feelings of bloating in the abdomen. ? Passage of more gas than usual. ? Spotting of blood in your stool or on the toilet paper. IF YOU HAD POLYPS REMOVED DURING THE COLONOSCOPY: ? No aspirin products for 7 days or as instructed. ? No alcohol for 7 days or as instructed. ? Eat a soft diet for the next 24 hours. FINDING OUT THE RESULTS OF YOUR TEST Not all test results are available during your visit. If your test results are not back during the visit, make an appointment with your caregiver to find out the results. Do not assume everything is normal if you have not heard from your caregiver or the medical facility. It is important for you to follow up on all of your test results. SEEK IMMEDIATE MEDICAL CARE IF: ? You have more than a spotting of blood in your stool. ? Your belly is swollen (abdominal distention ). ? You are nauseated or vomiting. ? You have a fever. ? You have abdominal pain or discomfort that is severe or gets worse throughout the day. Document Released: 06/08/2005 Document Revised: 01/16/2013 Document Reviewed: 06/06/2009 ExitCare? Patient Information ?2013 [employer]. Colonoscopy A colonoscopy is an exam to evaluate your entire colon. In this exam, your colon is cleansed. A long fiberoptic tube is inserted through your rectum and into your colon. The fiberoptic scope (endoscope ) is a long bundle of enclosed and very flexible fibers. These fibers transmit light to the area examined and send images from that area to your caregiver. Discomfort is usually minimal. You may be given a drug to help you sleep (sedative ) during or prior to the procedure. This exam helps to detect lumps (tumors ), polyps, inflammation, and areas of bleeding. Your caregiver may also take a small piece of tissue (biopsy ) that will be examined under a microscope. LET YOUR CAREGIVER KNOW ABOUT: ? Allergies to food or medicine. ? Medicines taken, including vitamins, herbs, eyedrops, iblt-kxc-hljehnr medicines, and creams. ? Use of steroids (by mouth or creams). ? Previous problems with anesthetics or numbing medicines. ? History of bleeding problems or blood clots. ? Previous surgery. ? Other health problems, including diabetes and kidney problems. ? Possibility of , if this applies. BEFORE THE PROCEDURE ? A clear liquid diet may be required for 2 days before the exam. ? Ask your caregiver about changing or stopping your regular medications. ? Liquid injections (enemas ) or laxatives may be required. ? A large amount of electrolyte solution may be given to you to drink over a short period of time. This solution is used to clean out your colon. ? You should be present 60 minutes prior to your procedure or as directed by your caregiver. AFTER THE PROCEDURE ? If you received a sedative or pain relieving medication, you will need to arrange for someone to drive you home. ? Occasionally, there is a little blood passed with the first bowel movement. Do not be concerned. FINDING OUT THE RESULTS OF YOUR TEST Not all test results are available during your visit. If your test results are not back during the visit, make an appointment with your caregiver to find out the results. Do not assume everything is normal if you have not heard from your caregiver or the medical facility. It is important for you to follow up on all of your test results. HOME CARE INSTRUCTIONS ? It is not unusual to pass moderate amounts of gas and experience mild abdominal cramping following the procedure. This is due to air being used to inflate your colon during the exam. Walking or a warm pack on your belly (abdomen ) may help. ? You may resume all normal meals and activities after sedatives and medicines have worn off. ? Only take itkl-bdd-utkfhkj or prescription medicines for pain, discomfort, or fever as directed by your caregiver. Do not use aspirin or blood thinners if a biopsy was taken. Consult your caregiver for medicine usage if biopsies were taken. SEEK IMMEDIATE MEDICAL CARE IF: ? You have a fever. ? You pass large blood clots or fill a toilet with blood following the procedure. This may also occur 10 to 14 days following the procedure. This is more likely if a biopsy was taken. ? You develop abdominal pain that keeps getting worse and cannot be relieved with medicine. Document Released: 2001 Document Revised: 01/16/2013 Document Reviewed: 06/06/2009 ExitCare? Patient Information ?2013 [employer]. Exercise to Lose Weight Exercise and a healthy diet may help you lose weight. Your doctor may suggest specific exercises. EXERCISE IDEAS AND TIPS ? Choose low-cost things you enjoy doing, such as walking, bicycling, or exercising to workout videos. ? Take stairs instead of the elevator. ? Walk during your lunch break. ? Park your car further away from work or school. ? Go to a gym or an exercise class. ? Start with 5 to 10 minutes of exercise each day. Build up to 30 minutes of exercise 4 to 6 days a week. ? Wear shoes with good support and comfortable clothes. ? Stretch before and after working out. ? Work out until you breathe harder and your heart beats faster. ? Drink extra water when you exercise. ? Do not do so much that you hurt yourself, feel dizzy, or get very short of breath. Exercises that burn about 150 calories: ? Running 1 ? miles in 15 minutes. ? Playing volleyball for 45 to 60 minutes. ? Washing and waxing a car for 45 to 60 minutes. ? Playing touch football for 45 minutes. ? Walking 1 ? miles in 35 minutes. ? Pushing a stroller 1 ? miles in 30 minutes. ? Playing basketball for 30 minutes. ? Raking leaves for 30 minutes. ? Bicycling 5 miles in 30 minutes. ? Walking 2 miles in 30 minutes. ? Dancing for 30 minutes. ? Shoveling snow for 15 minutes. ? Swimming laps for 20 minutes. ? Walking up stairs for 15 minutes. ? Bicycling 4 miles in 15 minutes. ? Gardening for 30 to 45 minutes. ? Jumping rope for 15 minutes. ? Washing windows or floors for 45 to 60 minutes. Document Released: 11/27/2011 Document Revised: 01/16/2013 Document Reviewed: 11/27/2011 ExitCare? Patient Information ?2014 [employer]. Normal [facility] Physician Referralon 020 Physician Referral [phone] [id number] Normal [facility] CBC Auto Differentialon 09-09 Basophils (Bld) [#/Vol] 0.05 10*3/uL [place] Basophils/100 WBC (Bld) 1 % 0 - 2 % [place] Differential Type NOT REPORTED [place] Eosinophils (Bld) [#/Vol] 0.14 10*3/uL [place] Eosinophils/100 WBC (Bld) 2 % 1 - 4 % [place] Erythrocyte distribution width (RBC) [Ratio] 12.4 % 11.8 - 14.4 % [place] Hematocrit (Bld) [Volume fraction] 39.2 % 36.3 - 47.1 % [place] Hemoglobin (Bld) [Mass/Vol] 12.6 g/dL 11.9 - 15.1 g/dL [place] Immature granulocytes (Bld) [#/Vol] 0 % 0 [place] Immature granulocytes (Bld) [#/Vol] 10*3/uL [place] Lymphocytes (Bld) [#/Vol] 2.27 10*3/uL [place] Lymphocytes/100 WBC (Bld) 38 % 25 - 45 % [place] MCH (RBC) [Entitic mass] 30.4 pg 25.2 - 33.5 pg [place] MCHC (RBC) [Mass/Vol] 32.1 g/dL 28.4 - 34.8 g/dL [place] MCV (RBC) [Entitic vol] 94.5 fL 82.6 - 102.9 fL [place] Monocytes (Bld) [#/Vol] 0.34 10*3/uL [place] Monocytes/100 WBC (Bld) 6 % 2 - 8 % [place] Platelet mean volume (Bld) [Entitic vol] 10.7 fL 8.1 - 13.5 fL [place] Platelets (Bld) [#/Vol] NOT REPORTED [place] Platelets (Bld) [#/Vol] 355 10*3/uL [place] RBC (Bld) [#/Vol] 4.15 10*6/uL 3.95 - 5.1 1 m/uL [place] RBC morphology finding Nom (Bld) NOT REPORTED [place] Segmented neutrophils/100 WBC (Bld) 53 % 34 - 64 % [place] Segs Absolute 3.10 [place] WBC (Bld) [#/Vol] 0.0 10*3/uL 0.0 per 10 0 WBC [place] WBC (Bld) [#/Vol] 5.9 10*3/uL [place] WBC Morphology NOT REPORTED [place], [place] CBCon 09-21-2020 Erythrocyte distribution width (RBC) [Ratio] 12.8 % 11.8 - 14.4 % [place] Hematocrit (Bld) [Volume fraction] 35.2 % Low 36.3 - 47.1 % [place] Hemoglobin (Bld) [Mass/Vol] 11.3 g/dL Low 11.9 - 15.1 g/dL [place] Interpretation and review of laboratory results Abnormal [place] MCH (RBC) [Entitic mass] 30.1 pg 25.2 - 33.5 pg [place] MCHC (RBC) [Mass/Vol] 32.1 g/dL 28.4 - 34.8 g/dL [place] MCV (RBC) [Entitic vol] 93.9 fL 82.6 - 102.9 fL [place] Platelet mean volume (Bld) [Entitic vol] 12.3 fL 8.1 - 13.5 fL [place] Platelets (Bld) [#/Vol] 137 10*3/uL Low [place] RBC (Bld) [#/Vol] 3.75 10*6/uL Low 3.95 - 5.1 1 m/uL [place] WBC (Bld) [#/Vol] 0.0 10*3/uL 0.0 per 10 0 WBC [place] WBC (Bld) [#/Vol] 11.0 10*3/uL [place] CBC auto differentialon 09-08 Basophils (Bld) [#/Vol] 10*3/uL [place] Basophils/100 WBC (Bld) 0 % 0 - 2 % [place] Differential Type NOT REPORTED [place] Eosinophils (Bld) [#/Vol] 0.12 10*3/uL [place] Eosinophils/100 WBC (Bld) 2 % 1 - 4 % [place] Erythrocyte distribution width (RBC) [Ratio] 12.6 % 11.8 - 14.4 % [place] Hematocrit (Bld) [Volume fraction] 38.1 % 36.3 - 47.1 % [place] Hemoglobin (Bld) [Mass/Vol] 12.5 g/dL 11.9 - 15.1 g/dL [place] Immature granulocytes (Bld) [#/Vol] 0.03 10*3/uL [place] Immature granulocytes (Bld) [#/Vol] 0 % 0 [place] Interpretation and review of laboratory results Abnormal [place] Lymphocytes (Bld) [#/Vol] 1.88 10*3/uL [place] Lymphocytes/100 WBC (Bld) 24 % Low 25 - 45 % [place] MCH (RBC) [Entitic mass] 30.5 pg 25.2 - 33.5 pg [place] MCHC (RBC) [Mass/Vol] 32.8 g/dL 28.4 - 34.8 g/dL [place] MCV (RBC) [Entitic vol] 92.9 fL 82.6 - 102.9 fL [place] Monocytes (Bld) [#/Vol] 0.59 10*3/uL [place] Monocytes/100 WBC (Bld) 8 % 2 - 8 % [place] Platelet mean volume (Bld) [Entitic vol] 11.6 fL 8.1 - 13.5 fL [place] Platelets (Bld) [#/Vol] 170 10*3/uL [place] Platelets (Bld) [#/Vol] NOT REPORTED [place] RBC (Bld) [#/Vol] 4.10 10*6/uL 3.95 - 5.1 1 m/uL [place] RBC morphology finding Nom (Bld) NOT REPORTED [place] Segmented neutrophils/100 WBC (Bld) 66 % High 34 - 64 % [place] Segs Absolute 5.20 [place] WBC (Bld) [#/Vol] 0.0 10*3/uL 0.0 per 10 0 WBC [place] WBC (Bld) [#/Vol] 7.8 10*3/uL [place] WBC Morphology NOT REPORTED [place] DRUG SCREEN MULTI URINEon Amphetamine Screen, Ur Negative NEGATIVE [place] Barbiturate Screen, Ur Negative NEGATIVE [facility], [place] Benzodiazepine Screen, Urine Negative NEGATIVE [place] Buprenorphine Urine Negative NEGATIVE [place] Cannabinoid Scrn, Ur Negative NEGATIVE [place] Cocaine Metabolite, Urine Negative NEGATIVE [place] MDMA, Urine NOT REPORTED NEGATIVE [place] Methadone Screen, Urine Negative NEGATIVE [place] Methamphetamine, Urine Negative NEGATIVE [place] Opiates, Urine Negative NEGATIVE [place] Oxycodone Screen, Ur Negative NEGATIVE [place] Phencyclidine, Urine Negative NEGATIVE [place] Propoxyphene, Urine Negative NEGATIVE [place] Test Information NOT REPORTED [place] Tricyclic Antidepressants, Urine Negative NEGATIVE [place] Comment on above: Drug screen results are to be used for medical purposes only. All positive results are unconfirmed. Testing for employment or legal uses should be sent to a reference laboratory for confirmation. TYPE AND SCREENon 09-20-2020 ABO/Rh Positive [place], [place] Arm Band Number [id number] [place], [place] Expiration Date 09/23/2020,1133 [place], [place] Microscopic Urinalysison Amorphous, UA NOT REPORTED None [place] Bacteria, UA FEW Abnormal None [place] Casts UA NOT REPORTED [place] Crystals, UA NOT REPORTED None /HPF [place] Epithelial Cells UA 50 TO 100 [place] Interpretation and review of laboratory results Abnormal [place] Mucus, UA 1+ Abnormal None [place] Other Observations UA NOT REPORTED NOT REQ. [place] RBC (U) [#/Vol] 0 TO 2 [place] Renal Epithelial, UA NOT REPORTED 0 /HPF [place] Trichomonas, UA NOT REPORTED None [place] WBC, UA 0 TO 2 [place] Yeast, UA NOT REPORTED None [place] - [place] Urinalysis Reflex to Culture on 09-02-2020 Bilirubin Urine Negative NEGATIVE [place] Color, UA YELLOW YELLOW [place] Glucose, Ur Negative NEGATIVE [place] Interpretation and review of laboratory results Abnormal [place] Ketones Ql (U) Negative NEGATIVE [place] Leukocyte esterase Test strip Ql (U) TRACE Abnormal NEGATIVE [place] Nitrite, Urine Negative NEGATIVE [place] pH, UA 6.0 [place] Protein (U) [Mass/Vol] Negative NEGATIVE [place] Specific [place], UA 1.025 [place], [place] Turbidity UA CLOUDY Abnormal CLEAR [place] Urinalysis Comments NOT REPORTED [place], [place] Urine Hgb Negative NEGATIVE [place] Urobilinogen, Urine Normal Normal [place] Microscopic Urinalysison Amorphous, UA NOT REPORTED None [place] Bacteria, UA TRACE Abnormal None [place] Casts UA NOT REPORTED /LPF [place] Crystals, UA NOT REPORTED None /HPF [place] Epithelial Cells UA 5 TO 10 [place] Interpretation and review of laboratory results Abnormal [place] Mucus, UA NOT REPORTED None [place] Other Observations UA NOT REPORTED NOT REQ. [place] RBC (U) [#/Vol] 0 TO 2 [place] Renal Epithelial, UA NOT REPORTED 0 /HPF [place] Trichomonas, UA NOT REPORTED None [place] WBC, UA 5 TO 10 [place] Yeast, UA NOT REPORTED None [place] - [place] Urinalysison 08-13-2020 Bilirubin Urine Negative NEGATIVE [place] Color, UA YELLOW YELLOW [place] Glucose, Ur Negative NEGATIVE [place] Interpretation and review of laboratory results Abnormal [place] Ketones Ql (U) Negative NEGATIVE [place] Leukocyte esterase Test strip Ql (U) TRACE Abnormal NEGATIVE [place] Nitrite, Urine Negative NEGATIVE [place] pH, UA 7.5 [place] Protein (U) [Mass/Vol] Negative NEGATIVE [place] Specific [place], UA 1.025 [place] Turbidity UA CLEAR CLEAR [place] Urinalysis Comments NOT REPORTED [place], [place] Urine Hgb Negative NEGATIVE [place] Urobilinogen, Urine Normal Normal [place] Urinalysis, Routineon 2019 Acetoacetic Acid,Ur Negative Normal NEG [facility] Comment on above: Performed By: #### U A, UMICAO #### [facility] [address] [place] [address] [place] [address] Computer Methods Analyst: Russ Louie MD Bilirubin, SemiQt,Ur Negative Normal NEG [facility] Comment on above: Performed By: #### U A, UMICAO #### [address] [place] [address] Computer Methods Analyst: Russ Louie MD Color (U) YELLOW Normal L [facility] Comment on above: Performed By: #### U A, UMICAO #### [address] [place] [address] Computer Methods Analyst: Russ Louie MD Glucose Ql (U) Negative Normal NEG [facility] Comment on above: Performed By: #### U A, UMICAO #### [address] [place] [address] Computer Methods Analyst: Russ Louie MD Hemoglobin, Ur Negative Normal NEG [facility] Comment on above: Performed By: #### U A, UMICAO #### [address] [place], [place] [id number] Computer Methods Analyst: Russ Louie MD Leukocyte esterase Test strip Ql (U) TRACE Abnormal NEG [facility] Comment on above: Performed By: #### U A, UMICAO #### [facility] [address] [place], [place] [id number] Computer [employer] Analyst: Russ Louie MD Nitrite,Ur Negative Normal NEG [facility] Comment on above: Performed By: #### U A, UMICAO #### [facility] [address] [place], [place] [id number] Computer [employer] Analyst: Russ Louie MD pH (U) 7.5 [pH] Normal 5.0-9.0 [facility] Comment on above: Performed By: #### U A, UMICAO #### [address] [place], [place] [id number] Computer Methods Analyst: Russ Louie MD Protein Ql (U) Negative Normal NEG [facility] Comment on above: Performed By: #### U A, UMICAO #### [address] [place], [place] [id number] Computer Methods Analyst: Russ Louie MD Specific gravity (U) [Rel density] 1.025 High 1.010-1.020 [facility] Comment on above: Performed By: #### U A, UMICAO #### [facility] [address] [place] [address] Dr. [place], [place] [phone] Computer Methods Analyst: Russ Louie MD Turbidity CLEAR Normal CLEAR [facility] Comment on above: Performed By: #### U A, UMICAO #### [facility] [address] [place], [place] [phone] Computer Methods Analyst: Russ Louie MD Urobilinogen,Ur Normal Normal NORM [facility] [place] [facility] Comment on above: Performed By: #### U A, UMICAO #### [address] [place] [address] Computer Methods Analyst: Russ Louie MD Comment NOT REPORTED Normal [facility] Comment on above: Performed By: #### U A, UMICAO #### [address] [place] [address] Computer Methods Analyst: Russ Louie MD Urinalysis,Microon 0 ----- Normal [facility] Comment on above: Performed By: #### U A, UMICAO #### [address] [place] [id number] Computer Methods Analyst: Russ Louie MD Bacteria LM.HPF (Urine sed) [#/Area] TRACE Abnormal [facility] Comment on above: Performed By: #### U A, UMICAO #### [address] [place] [id number] Computer Methods Analyst: Russ Louie MD Epithelial cells LM.HPF (Urine sed) [#/Area] 5 TO 10 Normal 0-25 [facility] Comment on above: Performed By: #### U A, UMICAO #### [address] [place] [id number] Computer [employer] Analyst: Russ Louie MD RBC (U) [#/Vol] 0 TO 2 Normal 0-2 [facility] [place] [facility] Comment on above: Performed By: #### U A, UMICAO #### [address] [place] [id number] Computer Methods Analyst: Russ Louie MD WBC (U) [#/Vol] 5 TO 10 Normal 0-5 [facility] [place] [facility] Comment on above: Performed By: #### U A, UMICAO #### [address] [place] [id number] Computer Methods Analyst: Russ Louie MD Amorphous sediment LM Ql (Urine sed) NOT REPORTED Normal [facility] Comment on above: Performed By: #### U A, UMICAO #### [facility] [address] [place] [address] Computer Methods Analyst: Russ Louie MD Casts LM.LPF (Urine sed) [#/Area] NOT REPORTED Normal [facility] Comment on above: Performed By: #### U A, UMICAO #### [facility] [address] [place] [address] Computer Methods Analyst: Russ Louie MD Crystals LM Nom (Urine sed) NOT REPORTED Normal NONE [facility] Comment on above: Performed By: #### U A, UMICAO #### [facility] [address] [place] [address] Computer Methods Analyst: Russ Louie MD Epithelial, Renal NOT REPORTED Normal 0 [facility] Comment on above: Performed By: #### U A, UMICAO #### [facility] [address] [place], [facility] Computer Methods Analyst: Russ Louie MD Mucus Strands NOT REPORTED Normal NONE [facility] [place] [facility] Comment on above: Performed By: #### U A, UMICAO #### [facility] [address] [place] [address] Computer Methods Analyst: Russ Louie MD Other Observations NOT REPORTED Normal NREQ [facility] Comment on above: Performed By: #### U A, UMICAO #### [facility] [address] [place] [address] Computer Methods Analyst: Russ Louie MD Trichomonas NOT REPORTED Normal NONE [facility] Comment on above: Performed By: #### U A, UMICAO #### [facility] [address] [place] [address] Computer Methods Analyst: Russ Louie MD Yeast LM Ql (Urine sed) NOT REPORTED Normal [facility] Comment on above: Performed By: #### U A, UMICAO #### [facility] [address] [place] [address] Computer Methods Analyst: Russ Louie MD CBC Auto Differentialon 06-09 Basophils (Bld) [#/Vol] 0.03 10*3/uL [place] Basophils/100 WBC (Bld) 0 % 0 - 2 % [place] Differential Type NOT REPORTED [place] Eosinophils (Bld) [#/Vol] 0.65 10*3/uL [place] Eosinophils/100 WBC (Bld) 8 % High 1 - 4 % [place] Erythrocyte distribution width (RBC) [Ratio] 12.9 % 11.8 - 14.4 % [place] Hematocrit (Bld) [Volume fraction] 40.4 % 36.3 - 47.1 % [place] Hemoglobin (Bld) [Mass/Vol] 13.1 g/dL 11.9 - 15.1 g/dL [place] Immature granulocytes (Bld) [#/Vol] 0.07 10*3/uL [place] Immature granulocytes (Bld) [#/Vol] 1 % High 0 [place] Interpretation and review of laboratory results Abnormal [place] Lymphocytes (Bld) [#/Vol] 1.54 10*3/uL [place] Lymphocytes/100 WBC (Bld) 19 % Low 25 - 45 % [place] MCH (RBC) [Entitic mass] 31.0 pg 25.2 - 33.5 pg [place] MCHC (RBC) [Mass/Vol] 32.4 g/dL 28.4 - 34.8 g/dL [place] MCV (RBC) [Entitic vol] 95.7 fL 82.6 - 102.9 fL [place] Monocytes (Bld) [#/Vol] 0.59 10*3/uL [place] Monocytes/100 WBC (Bld) 7 % 2 - 8 % [place] Platelet mean volume (Bld) [Entitic vol] 11.2 fL 8.1 - 13.5 fL [place] Platelets (Bld) [#/Vol] 211 10*3/uL [place] Platelets (Bld) [#/Vol] NOT REPORTED [place] RBC (Bld) [#/Vol] 4.22 10*6/uL 3.95 - 5.1 1 m/uL [place] RBC morphology finding Nom (Bld) NOT REPORTED [place] Segmented neutrophils/100 WBC (Bld) 65 % High 34 - 64 % [place] Segs Absolute 5.40 [place] WBC (Bld) [#/Vol] 8.3 10*3/uL [place] WBC (Bld) [#/Vol] 0.0 10*3/uL 0.0 per 10 0 WBC [place] WBC Morphology NOT REPORTED [place] Comprehensive Metabolic Pane marlene 07-01-2020 Albumin [Mass/Vol] 3.5 g/dL 3.5 - 5.2 g/dL [place] Albumin/Globulin [Mass ratio] 1.3 {ratio} [place] ALP [Catalytic activity/Vol] 78 U/L 35 - 104 U/L [place] ALT [Catalytic activity/Vol] 9 U/L 5 - 33 U/L [place] Anion gap [Moles/Vol] 15 mmol/L 9 - 17 mmol/L [place] AST [Catalytic activity/Vol] 14 U/L <32 [place] Bilirubin Ql (U) 0.19 mg/dL Low 0.3 - 1.2 mg/dL [place] Bun/Cre Ratio NOT REPORTED [place] Calcium [Mass/Vol] 9.1 mg/dL 8.6 - 10. 4 mg/dL [place] Chloride [Moles/Vol] 108 mmol/L High 98 - 10 7 mmol/L [place] CO2 [Moles/Vol] 20 mmol/L 20 - 31 mmol/L [place] Creatinine [Mass/Vol] 0.44 mg/dL Low 0.5 - 0.9 mg/dL [place] GFR NOT REPORTED >60 mL/min [place] GFR Non- Pediatric GFR requires additional information. Refer to NKDEP website for calculator. >60 mL/min [place] GFR/1.73 sq M predicted among non-blacks MDRD (S/P/Bld) [Vol rate/Area] [place] Comment on above: Average GFR for <20 years old not available. Chronic Kidney Disease: <60 mL/min/1.73sq m Kidney failure: <15 mL/min/1.73sq m eGFR calculated using average adult body mass. Additional eGFR calculator available at: http://www.[employer]/multiple_crcl_2012.htm GFR/1.73 sq M predicted among non-blacks MDRD (S/P/Bld) [Vol rate/Area] NOT REPORTED [place] Glucose [Mass/Vol] 66 mg/dL Low 70 - 99 mg/dL [place] Interpretation and review of laboratory results Abnormal [place] Potassium [Moles/Vol] 3.3 mmol/L Low 3.7 - 5.3 mmol/L [place] Protein [Mass/Vol] 6.1 g/dL Low 6.4 - 8.3 g/dL [place] Sodium [Moles/Vol] 143 mmol/L 135 - 144 mmol/L [place] Urea nitrogen [Mass/Vol] 4 mg/dL Low 6 - 20 mg/dL [place] Glucose tolerance, 1 houron 07-01-2020 GLU ADMN Glucola [place] Glucose tolerance screen 50g 66 mg/dL Low 70 - 135 mg/dL [place] Interpretation and review of laboratory results Abnormal [place] Uric Acidon 07-01-2020 Urate [Mass/Vol] 4.3 mg/dL 2.4 - 5.7 mg/dL [place] Urinalysison 06-16-2020 Bilirubin Urine Negative NEGATIVE [place] Color, UA YELLOW YELLOW [place] Glucose, Ur Negative NEGATIVE [place] Interpretation and review of laboratory results Abnormal [place] Ketones Ql (U) Negative NEGATIVE [place] Leukocyte esterase Test strip Ql (U) Negative NEGATIVE [place] Nitrite, Urine Negative NEGATIVE [place] pH, UA 6.5 [place] Protein (U) [Mass/Vol] Negative NEGATIVE [place] Specific [place], UA >1.030 [place], [place] Turbidity UA CLEAR CLEAR [place] Urinalysis Comments NOT REPORTED [place], [place] Urine Hgb Negative NEGATIVE [place] Urobilinogen, Urine Normal Normal [place] AFB Cult and Stainon 020 AFB Cult and Stain Sp. Request/Comment: - Specimen received in sterile container. Smear Result - No acid fast bacilli seen by fluorochrome stain Culture Result - No Acid Fast Bacilli isolated after 47 days Normal [facility] Comment on above: Performed By: #### C BCDIF, CMP, MG1 #### [facility] [employer] [address] [place], [place] [id number] Blood Cultureon 01-12-2020 Bacteria identified Cx Nom (Bld) Sp. Request/Comment: - The blood culture bottles are underfilled. Adding volume lower or higher than the 8 to 10 mL per bottle, which is the manufacturers recommended volume, may adversely affect the recovery and/or detection of organisms. 8.0CC Culture Result - No growth 5 days Normal [facility] Comment on above: Performed By: #### C BCDIF, CMP, MG1 #### [facility] [employer] [address], [place] [address] CONSULT PROGon 01-12-2020 CONSULT PROG HNO ID: [id number] Author: Paul Park MD Service: Ophthalmology Author Type: Resident Type: Consult Progress Note Filed: 01/12/2020 10:56 AM Note Text: Spoke to ED attending this morning, Dr. Oscar Voss. I wanted to inquire into patient's vitals and stability in order to determine whether we can bring patient to the [facility] for exam with stationary slit lamp by attending physician snow ranger. He stated that patient remained highly tachycardic, and was planned for transfer within about an hour to [facility] in the [place] area for management of her systemic pathology. It thus seems as though it would be logistically impossible to have patient brought to [place] for this eye exam. I communicated my recommendation to Dr. Voss that patient have an inpatient ophtho consult upon arrival at [facility]. Paul Park MD PGY-3 Ophthalmology Resident Normal [facility] CT CHEST W IVCON PEon 2019 CT CHEST W IVCON PE * * *Final Report* * * DATE OF EXAM: Jan 11 2020 11:00PM [facility] 0540 - CT CHEST W IVCON PE / PROCEDURE REASON: PE suspected, high pretest prob * * * * Physician Interpretation * * * * EXAMINATION: CHEST CT WITH CONTRAST (PULMONARY EMBOLISM PROTOCOL) Clinical History: PE suspected, high pretest prob Technique: Spiral CT acquisition of the chest from the thoracic inlet to the upper abdomen following IV contrast. Axial 1 and 3 mm thick slices plus coronal and sagittal reformatted images. MQ: CTCP_5 Contrast: 111 mL Omnipaque [address] Dose-Length Product: 339 mGy*cm CT Dose Reduction Employed: Automated exposure control (AEC) Comparison: Same date chest radiograph. RESULT: Limitations: None. Evaluation for thromboembolic disease: - Right heart chambers: No thromboembolic disease. - Main pulmonary arteries: No thromboembolic disease. - Lobar pulmonary arteries: No thromboembolic disease. - Segmental pulmonary arteries: No thromboembolic disease. - Subsegmental pulmonary arteries: No thromboembolic disease. - Additional pulmonary artery findings: The main pulmonary artery is normal in caliber. Lines, tubes, and devices: None. Lung parenchyma and airways: No consolidation or acute airspace disease. There is a 2 mm juxtapleural nodule at the anterolateral right lower lobe (7: 184), doubtful significance. The central airways are patent. Pleural space: No pleural effusion. Lower neck, lymph nodes, and mediastinum: The imaged thyroid gland is normal. No lymphadenopathy in the supraclavicular, axillary, mediastinal, or hilar regions. Heart, pericardium, and thoracic vessels: The thoracic aorta is normal in caliber. The cardiac chambers are normal in size, noting mild compression on the right ventricle due to the pectus excavatum. No coronary artery atherosclerotic calcifications are noted. No pericardial effusion. Bones and soft tissues: There is pectus excavatum. No acute abnormality. Upper abdomen: No acute abnormality. IMPRESSION: No CT evidence of pulmonary embolism. No other acute process in the thorax. Electric Range Preparer: QUINTEN Transcribe Date/Time: Jan 11 2020 11:18P Dictated by : DIPIKA GAMBLE MD This examination was interpreted and the report reviewed and electronically signed by: CHRIS LOPEZ MD on Jan 11 2020 11:36PM EST [id number] Normal [facility] ED NOTEon 01-12-2020 ED NOTE HNO ID: [id number] Author: Melly CotaRn) JEWELS Olson Service: Emergency Medicine Author Type: Registered Nurse Type: ED Notes Filed: 01/12/2020 1:19 PM Note Text: [facility] arrived for pt transport to [facility]. On VS assessment, pt noted to be febrile. MD Voss called to bedside and ordered 1g PO tylenol. Pt tolerated PO medication with some pain but no other issues. AANDO, NAD, ABCs intact, SAUCEDA. All belongings with pt at time of ED departure. Normal [facility] ED NOTE HNO ID: [id number] Author: Melly Junior) JEWELS Olson Service: Emergency Medicine Author Type: Registered Nurse Type: ED Notes Filed: 01/12/2020 1:03 PM Note Text: Hand-off report to Lou DONIS for OBS 5 in [facility]. RN aware of transportation ETA of 1315. Lou DONIS for questions/updates: [phone] Normal [facility] ED NOTE HNO ID: [id number] Author: Saranya CotaRn) JEWELS Beaver Service: Emergency Medicine Author Type: Registered Nurse Type: ED Notes Filed: 01/12/2020 8:22 AM Note Text: Assumed care of pt. Pt presented to ED for syncope and eye complaint. Pt states I was going to my eye appointment and I just passed out . Pt states I don't remember what happened, I just woke up with people all around me . Pt ST on monitor. Pt is AANDOx3. Denies dizziness at this time. Safety checks completed. Will continue to monitor. Normal [facility] ED NOTE HNO ID: [id number] Author: Pedro Guajardo) DO Dk Service: Emergency Medicine Author Type: Resident Type: ED Notes Filed: 01/12/2020 6:41 PM Note Text: Patient care has been accepted from Dr. Adame as of 7:06 AM. We discussed the patient's course, condition, and plan. ED Course as of Jan 11 1839 Pedro () Dk's Documentation WedJan 12, 2020 0759 WNL TSH: 2.350 Others' Documentation Ainsley Jan 11, 2020 2230 EKG with sinus tachycardia with S1Q3T3, no DRU or depression or TWI [DK] 2307 Lungs and pleura: ?Mild right basilar atelectasis. ?No focal consolidation, pleural effusion or pneumothorax. XR CHEST 1V FRONTAL PORT [DK] 2345 Patient received in signout from colleague, available results reviewed. I will follow-up on patient disposition with assistance of resident physician. At time of transition of care, CT results pending, reassessment tachycardia pending, ophthalmology consult pending [JF] 2350 CT CHEST W IVCON PE [DK] [address] evidence of pulmonary embolism. No other acute process in the thorax. 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 EGC with sinsu tachycardia, S1Q3T3, no acute injury pattern Influenza screen negative CT chest with no PE, no other acute findings, no adenopathy or apical disease PLAN: Continue IV fluids, Ophthalmology eval per plan. Care endorsed to Dr. Salas at 2355 hrs. [SD] ED Course User Index [DK] Pedro (Res) DO Deep [JF] Oj Salas MD [SD] Sandhya Galvez MD Clinical Impressions as of Jan 11 1839 Sinus tachycardia Bronchitis Syncope and collapse SUMMARY: 19 year old female with Hx of pericarditis p/w syncope, URI symptoms, right eye pain. BP stable. HR improving with fluid. Afebrile here. CT PE negative. ophtho evaluated eye - nothing to treat. Admit for persistent tachy and syncope. Echo without effusion. TO DO: CTM INTERVAL PROGRESS: Patient remains tachycardic. Asking for transfer to [place] [facility] as no bed yet available. Has tonsillar erythema and exudate. Strep swab ordered and positive. Allergic to amoxicillin, azithromycin ordered. Ophthalmology OSH note concerned for corneal abrasion, artificial tears and gentamicin ordered. Patient accepted by Dr Rodriguez Thank you Pedro Root DO Emergency Medicine PGY-3 Normal [facility] PROGRESSon 01-12-2020 PROGRESS HNO ID: [id number] Author: Paul Park MD Service: ? Author Type: Resident Type: Progress Notes Filed: 01/16/2020 1:35 PM Note Text: 1. Decreased vision, right eye - Patient endorses recently feeling as though something flew into right eye (01/06) while at home--had good relief with washing eye out with water; subsequently seen in urgent care for increasing eye redness and eyelid swelling - Went to ED in [facility] the next day, was reportedly found to have corneal abrasion around 11 oclock (diagnosed by ED provider) - Seen by kiosk sales representative 01/[address] [facility] who noted very poor vision (reportedly 20/200); normal exam of retina, normal OCT - Cost Estimating Engineer also obtained hx concerning for possible TB infection, as per HPI - On my exam, visual acuity of 20/200, with pinholing to 20/70 (questionable effort) - Looked carefuly for APD, none discerned; red desaturation negative - No intraocular inflammation discerned - No OCT macula performed on-call as patient had one some hours ago, reportedly WNL - I was concerned for optic neuritis given kiosk sales representative's report of severely reduced vision in a young worman with pain with eye movements; however, I found no APD, no red desaturation, and eye movements did not appear painful to patient on my exam DDx: conjunctivitis (viral vs allergic); less likely scleritis (good blanching of injected vessels with dilating drops; patient appears relatively comfortable) Recommendations: - Inpatient admission for syncope workup, TB workup (to include quantiferon testing), and management of patient's tachycardia (HR still in the 120s-130s when I finished my encounter with the patient) - Exam with stationary slit lamp at the [facility] in the Same Day Access clinic upon stabilization of the patient (please page and input official consult order into EMR after 8 AM to trigger a call from our scheduling staff) Paul Park MD PGY-3 Ophthalmology Resident Deyanira Wu MD 01/16/2020 1:35 PM Normal [facility] PROGRESS HNO ID: [id number] Author: Saba () Hannah Alejandra Service: ? Author Type: Independent Producer Type: Progress Notes Filed: 01/11/2020 11:03 PM Note Text: Radiology Service Progress Note PATIENT NAME: Zaid Luna DATE OF SERVICE: January 11, 2020 TIME: 11:03 PM PATIENT IDENTITY VERIFICATION COMPLETED USING TWO (2) IDENTIFIERS: Name and Date of confirmed by patient verbally and Name and Date of confirmed by identification band. PATIENT GENDER DATA: Female. status: : No status: NO. PATIENT RELEVANT IMPLANT DATA REVIEWED: Yes RADIOLOGY DEPARTMENT: CT; Exam(s) Completed: PE Study PERIPHERAL IV DATA: Inpatient: see LDA documentation SIGNED BY: RT Patsy January 11, 2020 11:03 PM Normal [facility] TB by QuantiFERONon 01-12-20 20 Interpretation No evidence of current or previous infection with Mycobacterium tuberculosis. Normal [facility] Comment on above: Performed By: #### C BCDIFVEDA, MG1 #### [facility] [employer] [address] [place] [address] Mitogen minus Nil 8.06 [facility] Comment on above: Performed By: #### C BCDIFVEDA, MG1 #### [facility] [employer] [address] [place] [address] TB NIL 0.13 IU/mL Normal [facility] Comment on above: Performed By: #### C BCDIF CMP, MG1 #### [facility] [employer] [address] [place] [address] TB Result Negative Normal Negative [facility] Comment on above: Performed By: #### C BCDIF, CMP, MG1 #### [facility] [employer] [address] [place] [phone] TB1 Ag minus Nil 0.01 IU/mL Normal <0.35 [facility] [place] Comment on above: Performed By: #### C BCDIF, CMP, MG1 #### [facility] [employer] [address] [place] [phone] TB2 Ag minus Nil 0.05 IU/mL Normal <0.35 [facility] [place] Comment on above: Performed By: #### C BCDIF, CMP, MG1 #### [facility] [address] [place] [address] XR CHEST 1V FRONTAL PORTon 0 01-12-2020 XR CHEST 1V FRONTAL PORT * * *Final Report* * * DATE OF EXAM: Jan 11 2020 10:41PM EGX 5376 - XR CHEST 1V FRONTAL PORT / PROCEDURE REASON: Acute respiratory illness * * * * Physician Interpretation * * * * EXAMINATION: CHEST RADIOGRAPH (PORTABLE SINGLE VIEW AP) Exam Date/Time: 01/11/2020 10:41 PM Clinical History: Acute respiratory illness MQ: XCPMC_6 Comparison: None. RESULT: Lines, tubes, and devices: None. Lungs and pleura: Mild right basilar atelectasis. No focal consolidation, pleural effusion or pneumothorax. Cardiomediastinal silhouette: Normal cardiomediastinal silhouette. Other: No acute osseous abnormality. IMPRESSION: See result. Electric Range Preparer: PSCB Transcribe Date/Time: Jan 11 2020 11:00P Dictated by : DIPIKA GAMBLE MD This examination was interpreted and the report reviewed and electronically signed by: CHENTE SALAS MD on Jan 11 2020 11:02PM EST [id number] Normal [facility] Blood Cultureon 01-11-2020 Bacteria identified Cx Nom (Bld) Culture Result - No growth 5 days Normal [facility] Comment on above: Performed By: #### C BCDIF, CMP, MG1 #### [place] [id number] [place] [address] CBC and Differentialon 01-10 Abs Baso 0.03 k/uL Normal <0.11 [facility] Comment on above: Performed By: #### C BCDIF, CMP, MG1 #### [place] [id number] [place] [address] Abs Clare 1.21 k/uL High <0.87 [facility] Comment on above: Performed By: #### C BCDIF, CMP, MG1 #### [place] [phone] Abs Neut 7.63 k/uL High 1.45-7.50 [facility] Comment on above: Performed By: #### C BCDIF, CMP, MG1 #### [place] [phone] Absolute nRBC <0.01 Normal <0.01 [facility] Comment on above: Performed By: #### C BCDIF, CMP, MG1 #### [place] [phone] Basophils/100 WBC (Bld) 0.3 % Normal [facility] Comment on above: Performed By: #### C BCDIF, CMP, MG1 #### [place] [address] DTYPE Auto Diff Normal [facility] Comment on above: Performed By: #### C BCDIF, CMP, MG1 #### [place] [id number] [place] [phone] Eosinophils (Bld) [#/Vol] 10*3/uL Normal <0.46 [facility] Comment on above: Performed By: #### C BCDIF, CMP, MG1 #### [place] [phone] Eosinophils/100 WBC (Bld) 0.2 % Normal [facility] Comment on above: Performed By: #### C BCDIF, CMP, MG1 #### [facility] [address] [place], [place] [address] Erythrocyte distribution width (RBC) [Ratio] 11.4 % Low 11.5-15.0 [facility] Comment on above: Performed By: #### C BCDIF, CMP, MG1 #### [place] [id number] [place] [address] Hematocrit (Bld) [Volume fraction] 45.9 % Normal 36.0-46.0 [facility] Comment on above: Performed By: #### C BCDIF, CMP, MG1 #### [place] [address] [place] [id number] Hemoglobin (Bld) [Mass/Vol] 15.9 g/dL High 11.5-15.5 [facility] Comment on above: Performed By: #### C BCDIF, CMP, MG1 #### [place] [address] [place], [place] [address] Lymphocytes (Bld) [#/Vol] 1.66 10*3/uL Normal 1.00-4.00 [facility] Comment on above: Performed By: #### C BCDIF, CMP, MG1 #### [place] [address] [place], [place] [address] Lymphocytes/100 WBC (Bld) 15.7 % Normal [facility] Comment on above: Performed By: #### C BCDIF, CMP, MG1 #### [place] [id number] [place] [address] MCH (RBC) [Entitic mass] 30.6 pG Normal 26.0-34.0 [facility] Comment on above: Performed By: #### C BCDIF, CMP, MG1 #### [place] [address] [place] [address] MCHC (RBC) [Mass/Vol] 34.6 g/dL Normal 30.5-36.0 [facility] Comment on above: Performed By: #### C BCDIF, CMP, MG1 #### [facility] [address] [place] [address] MCV (RBC) [Entitic vol] 88.3 fL Normal 80.0-100.0 [facility] Comment on above: Performed By: #### C BCDIF, CMP, MG1 #### [place] [address] [place] [address] Monocytes/100 WBC (Bld) 11.5 % Normal [facility] Comment on above: Performed By: #### C BCDIF, CMP, MG1 #### [place] [address] [place] [address] Neutrophils/100 WBC (Bld) 72.3 % Normal [facility] Comment on above: Performed By: #### C BCDIF, CMP, MG1 #### [place] [address] [place] [address] NRBCs 0.0 /100 WBC Normal 0 [facility] Comment on above: Performed By: #### C BCDIF, CMP, MG1 #### [place] [address] [place] [address] Platelet mean volume (Bld) [Entitic vol] 10.6 fL Normal 9.0-12.7 [facility] Comment on above: Performed By: #### C BCDIF, CMP, MG1 #### [place] [id number] [place] [address] Platelets (Bld) [#/Vol] 240 10*3/uL Normal 150-400 [facility] Comment on above: Performed By: #### C BCDIF, CMP, MG1 #### [place] [address] [place] [address] RBC (Bld) [#/Vol] 5.20 10*6/uL Normal 3.90-5.20 [facility] Comment on above: Performed By: #### C BCDIF, CMP, MG1 #### [facility] [address] [place], [place] [address] WBC (Bld) [#/Vol] 10.55 10*3/uL Normal 3.70-11.00 [facility] Comment on above: Performed By: #### C BCDIF, CMP, MG1 #### [facility] [address] [place], [place] [address] Comp Metabolic Panelon 01-10 Albumin [Mass/Vol] 4.8 g/dL Normal 3.9-4.9 [facility] Comment on above: Performed By: #### C BCDIF, CMP, MG1 #### [facility] [address] [place], [place] [address] ALP [Catalytic activity/Vol] 71 U/L Normal 45-87 [facility] Comment on above: Result Comment: Refe rence ranges were not locally established for this patient's age group. The normal values are based on the following source: Rox ZUNIGA, Marilin AH, et al. CLSI based transference of the [facility] database of pediatric reference intervals from [place] to [place], Ortho, Alex, and Siemens Clinical Chemistry Assays: Direct validation using reference samples from the [facility] cohort. Clin Biochem. Performed By: #### C BCDIF, CMP, MG1 #### [facility] [address] [place], [place] [id number] ALT [Catalytic activity/Vol] 8 U/L Normal 7-38 [facility] Comment on above: Performed By: #### C BCDIF, CMP, MG1 #### [facility] [address] [place], [place] [address] Anion gap [Moles/Vol] 15 mmol/L Normal 9-18 [facility] Comment on above: Performed By: #### C BCDIF, CMP, MG1 #### [facility] [address] [place], [place] [address] AST [Catalytic activity/Vol] 15 U/L Normal 13-35 [facility] Comment on above: Performed By: #### C BCDIF, CMP, MG1 #### [facility] [address] [place], [place] [address] Bilirubin [Mass/Vol] 0.4 mg/dL Normal 0.2-1.3 [facility] Comment on above: Performed By: #### C BCDIF, CMP, MG1 #### [place] [address] [place] [address] Calcium [Mass/Vol] 10.2 mg/dL Normal 8.5-10.2 [facility] Comment on above: Performed By: #### C BCDIF, CMP, MG1 #### [place] [address] [place] [address] Chloride [Moles/Vol] 99 mmol/L Normal 97-105 [facility] Comment on above: Performed By: #### C BCDIF, CMP, MG1 #### [place] [address] [place], [place] [address] CO2 [Moles/Vol] 24 mmol/L Normal 22-30 [facility] Comment on above: Performed By: #### C BCDIF, CMP, MG1 #### [place] [address] [place], [place] [address] Creatinine [Mass/Vol] 0.78 mg/dL Normal 0.58-0.96 [facility] Comment on above: Performed By: #### C BCDIF, CMP, MG1 #### [facility] [address] [place], [place] [address] eGFR- Amer. >60 Normal [facility] Comment on above: Performed By: #### C BCDIF, CMP, MG1 #### [facility] [employer] [address] [place], [place] [id number] GFR/1.73 sq M predicted among non-blacks MDRD (S/P/Bld) [Vol rate/Area] mL/min/{1.73_m2} Normal [facility] Comment on above: Result Comment: eGFR (Estimated GFR) Units of measure: mL/min/1.73 meters squared eGFR is derived from the reexpressed MDRD Study equation using the following parameters: serum creatinine, age, gender and race. The creatinine assay has been calibrated to be traceable to IDMS. An eGFR <60 mL/min/1.73m2 for >3 months is consistent with chronic kidney disease. Refer to KDOQI guidelines for clinical interpretation. In patients with unstable renal function, e.g. those with acute kidney injury, the eGFR may not accurately reflect actual GFR. Performed By: #### C VEDA NELSON MG1 #### [facility] [employer] [address] [place], [place] [address] Glucose [Mass/Vol] 98 mg/dL Normal 74-99 [facility] Comment on above: Result Comment: The [place] Diabetes Association (ADA) provides guidance for cutoff values for fasting glucose and random glucose. The ADA defines fasting as no caloric intake for at least 8 hours. Fasting plasma glucose results between 100 to 125 mg/dL indicate increased risk for diabetes (prediabetes). Fasting plasma glucose results greater than or equal to 126 mg/dL meet the criteria for diagnosis of diabetes. In the absence of unequivocal hyperglycemia, results should be confirmed by repeat testing. In a patient with classic symptoms of hyperglycemia or hyperglycemic crisis, random plasma glucose results greater than or equal to 200 mg/dL meet the criteria for diagnosis of diabetes. Reference: Standards of Medical Care in Diabetes 2016, [place] Diabetes Association. Diabetes Care. 2016.39(Suppl 1). Performed By: #### C VEDA NELSON, MG1 #### [facility] [employer] [address], [place] [address] Potassium [Moles/Vol] 3.3 mmol/L Low 3.7-5.1 [facility] Comment on above: Performed By: #### C BCDIF, CMP, MG1 #### [facility] [address] [place], [place] [address] Protein [Mass/Vol] 8.1 g/dL High 6.3-8.0 [facility] Comment on above: Performed By: #### C BCDIF, CMP, MG1 #### [facility] [address] [place], [place] [address] Sodium [Moles/Vol] 138 mmol/L Normal 136-144 [facility] Comment on above: Performed By: #### C BCDIF, CMP, MG1 #### [facility] [address] [place], [place] [address] Urea nitrogen [Mass/Vol] 14 mg/dL Normal 7-21 [facility] Comment on above: Performed By: #### C BCDIF, CMP, MG1 #### [facility] [address] [place], [place] [address] ED NOTEon 01-11-2020 ED NOTE HNO ID: [id number] Author: Agusto (Rn) JEWELS Montes Service: Emergency Medicine Author Type: Registered Nurse Type: ED Notes Filed: 01/11/2020 9:37 PM Note Text: Labs in bin Normal [facility] ED PROV NOTEon 01-11-2020 ED PROV NOTE HNO ID: [id number] Author: Sandhya Galvez MD Service: Emergency Medicine Author Type: Physician Type: ED Provider Notes Filed: 01/12/2020 7:22 PM Note Text: ED Provider Note Patient Name: Zaid Luna SERVICE DATE: 01/11/20 History Patient presents with: Syncope: 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 Baltazaryaquelinaide pt endorses SOB at rest, HR 140-150s. States her PCP advised that she be tested for TB. Pt states since wednesday she has developed SOB, fever/chills/sweats and has coughed up blood x2 today. Works at [employer] with multiple +TB patients. Also has complaint of R eye pain/redness since wednesday as well. Shortness of Breath Eye Complaint HPI This is an 19-year-old female presenting to ED for 4 days of cough, syncope today, R eye pain. 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 Notes 4 days of productive cough, dyspnea, fever 100.6. Was seen 4 days ago for right corneal abrasion, and given ofloxacin drops, states her eye is more red. Notes teary drainage, no drainage. Notes some visual blurring when she is tearing, otherwise vision normal. Came to campus today for ophthalmology appointment, got out of her car, felt lightheaded after standing, and syncopized with quick return to baseline, no seizure-like activity, denies head trauma, boyfriend states he caught her on her way down. - She denies chest pain and leg, leg swelling, history of DVT or PE, or recent long travel. - States she has had recurrent episodes of pericarditis, chest pain, which usually resolves with symptomatic treatment Chart review: Pt seen multiple times in past one month. 01/07, seen for corneal abrasion 12/17, seen for chest pain URI symptoms, notes h/o pericarditis, did have TWI to Lead III noted, D dimer negative, CXR okay, d/c w/ NSAIDS, then seen again 12/18 with same complaints, troponin, EKG normal, treated symptomatically and DC No past medical history on file. No past surgical history on file. No family history on file. Social History Tobacco Use - Smoking status: Not on file Substance and Sexual Activity - Alcohol use: Not on file - Drug use: Not on file - Sexual activity: Not on file ALLERGIES Allergen Reactions - Amoxicillin Unknown Review of Systems Constitutional: Negative for chills and fever. HENT: Negative for congestion, sinus pain and sore throat. Eyes: Negative for visual disturbance. Respiratory: Negative for shortness of breath. Cardiovascular: Negative for chest pain and leg swelling. Gastrointestinal: Negative for abdominal pain, nausea and vomiting. Endocrine: Negative for polyuria. Genitourinary: Negative for dysuria and menstrual problem. Musculoskeletal: Negative for neck pain. Allergic/Immunologic : Negative for immunocompromised state. Neurological: Negative for dizziness and headaches. Hematological: Does not bruise/bleed easily. Psychiatric/Behavior al: Negative for confusion. Physical Exam BP 104/71 Pulse 133 Temp (Src) 99.6 (Oral) Resp 20 Wt 150 lb (68.0kg) SpO2 98% O2 Therapy: Room Air Physical Exam Vitals signs and nursing note reviewed. Constitutional: General: She is in acute distress (Mild, dry cough and room). Appearance: She is well-developed. HENT: Head: Normocephalic and atraumatic. Mouth/Throat: Pharynx: No oropharyngeal exudate. Eyes: Extraocular Movements: Extraocular movements intact. Conjunctiva/sclera: Conjunctivae normal. Pupils: Pupils are equal, round, and reactive to light. Comments: Right sclera very injected. No proptosis. Neck: Vascular: No JVD. Trachea: No tracheal deviation. Cardiovascular: Rate and Rhythm: Regular rhythm. Tachycardia present. Heart sounds: Normal heart sounds. No murmur. Pulmonary: Effort: Pulmonary effort is normal. No respiratory distress. Breath sounds: Examination of the right-upper field reveals decreased breath sounds. Examination of the right-middle field reveals decreased breath sounds. Decreased breath sounds present. No wheezing or rhonchi. Chest: Chest wall: No tenderness. Abdominal: General: Bowel sounds are normal. Palpations: Abdomen is soft. Tenderness: There is no abdominal tenderness. Musculoskeletal: General: No tenderness. Right lower leg: She exhibits no tenderness. No edema. Left lower leg: She exhibits no tenderness. No edema. Skin: General: Skin is warm and dry. Capillary Refill: Capillary refill takes less than 2 seconds. Findings: No rash. Neurological: Mental Status: She is alert and oriented to person, place, and time. DECISION SUPPORT - ED (all recorded) Pulmonary Embolism Row Name 01/11/20 2222 PERC Is pretest probability for PE > than 15% 1 Age > 50 0 HR >= 100 1 spO2 on room air < 95% 0 History of prior PE or DVT 0 Recent Trauma or Surgery 0 Hemoptysis? 1 Exogenous Estrogen? 0 Unilateral leg swelling 0 PERC Score = 3 If PERC Score > 0 - The PERC rule is not satisfied and cannot be used to rule out Pulmonary Embolism for this patient Proceed to [facility]' Clinical signs and symptoms of DVT 0 PE is #1 Diagnosis, or equally likely 3 Heart Rate is > 100 1.5 Immobilization at least 3 days or surgery in the previous 4 weeks 0 Previous objectively diagnosed PE or DVT 0 Hemoptysis 1 Malignancy with treatment within 6 months or palliative 0 Wells' Score = 5.5 Diagnostic Testing ED Labs Ordered and Reviewed COMP METABOLIC PANEL - Abnormal; Notable for the following components: Result Value Ref Range Protein, Total 8.1 (*) 6.3 - 8.0 g/dL Potassium 3.3 (*) 3.7 - 5.1 mmol/L All other components within normal limits CBC + DIFF - Abnormal; Notable for the following components: Hemoglobin 15.9 (*) 11.5 - 15.5 g/dL RDW-CV 11.4 (*) 11.5 - 15.0 % Abs Neut (ANC) 7.63 (*) 1.45 - 7.50 k/uL Abs Clare 1.21 (*) <0.87 k/uL All other components within normal limits MAGNESIUM BLD LACTATE - ED (POC) INFLUENZA AANDB MOLECULAR (ED-POC) ED BG VENOUS/LAB PANELS Narrative: Meter ID:ED Location:ED [facility], [address] [place] [address], [facility] INFLUENZA AANDB MOLECULAR (ED-POC) BLOOD TB SCREEN HCG URINE - ED(POC) BLOOD CULTURE DRAW BLOOD CULTURE DRAW AFB CULT + STAIN Procedures ED Course / Clinical Impression ED Course as of Jan 11 1921 Sandhya Galvez's Documentation [facility] Jan 12, 2020 0002 ED STAFF ATTENDING MDM 19 year old with syncopal event here on campus, came for Ophthalmology eval/referral for severe conjunctivitis OD, but also has recently had cough, productive of blood streaked sputum, shortness of breath, no chest pain 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 EGC with sinsu tachycardia, S1Q3T3, no acute injury pattern Influenza screen negative CT chest with no PE, no other acute findings, no adenopathy or apical disease PLAN: Continue IV fluids, Ophthalmology eval per plan. Care endorsed to Dr. Salas at 2355 hrs. Others' Documentation [facility] Jan 11, 2020 2230 EKG with sinus tachycardia with S1Q3T3, no DRU or depression or TWI [DK] 2307 Lungs and pleura: ?Mild right basilar atelectasis. ?No focal consolidation, pleural effusion or pneumothorax. XR CHEST 1V FRONTAL PORT [DK] 2345 Patient received in signout from colleague, available results reviewed. I will follow-up on patient disposition with assistance of resident physician. At time of transition of care, CT results pending, reassessment tachycardia pending, ophthalmology consult pending [JF] 2349 CT CHEST W IVCON PE [DK] [address] evidence of pulmonary embolism. No other acute process in the thorax. CT CHEST W IVCON PE [DK] WedJan 12, 2020 0759 WNL TSH: 2.350 [DS] ED Course User Index [DK] Pedro (Res) DO Deep [DS] Pedro (Do) DO Dk [JF] Oj Salas MD Clinical Impressions as of Jan 11 1921 Sinus tachycardia Bronchitis Syncope and collapse Limited Cardiac Ultrasound for Pericardial Effusion Indication ? Patient presents with chest pain. Procedure in Detail ? Using the phased array probe, the heart was imaged in a Parasternal-long view ? Pericardial Effusion was Absent. ? Left Ventricular Function demonstrated Normal Function. ? Right Ventricular Size was Normal. ? Still images or video images were saved for this of this exam: Yes Conclusion ? Pericardial Effusion was Absent. ? Other Pertinent Findings Included: Normal LVEF. This limited imaging study was performed by: Resident with Attending supervision. MDM / Disposition / Plan MDM Is an 19-year-old female with recurrent episodes of chest pain, history of pericarditis in the past presents to ED with 4 days of cough that has been productive of bloody sputum, also with right corneal abrasion. Patient presented to ED after going to ophthalmology [facility] for follow-up for corneal abrasion, had single episode after standing. 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 - Initial vitals patient tachycardic to 150, not hypotensive, is tachypneic, afebrile. EKG with sinus tachycardia, does have S1, 3, T3. Patient has coarse cough on exam, right sclera injected, nontoxic appearing, but patient looks uncomfortable. - Patient placed in TB airway precautions given possible recent exposure, with a sputum as well as quantiferon testing. CT PE ordered for concern for PE, CTPE negative and no acute pulmonary findings, so doubt acute tuberculosis infection. Flu/RSV negative. Pt taken off airway precautions. - Ophthalmology consulted as pt with decreased vision but otherwise normal eye exam by ophtho as OP today. They did note decreased vision to right eye, but no signs of optic neuritis, felt this most likely viral conjunctivitis or scleritis. Did not recommend further neuro imaging. - Patient remained tachycardic, though did have some improvement with 2 L of IV crystalloid. Given this and history of syncope, patient would likely benefit from observation as an inpatient. Patient admitted to Gen. medicine floor, report is called. Patient agrees with plan The patient was ADMITTED TO: Regular nursing floor. Condition at time of disposition: stable SIGNATURE: DO Pedro Prather (Res) DO Deep Resident 01/12/20 0338 Attending Note I evaluated the patient and personally participated in the ching components. I agree with the resident's findings and plan as documented and have discussed the case and management of the patient's care with the resident. SEE ABOVE ED STAFF ATTENDING MDM Signature: Sandhya Galvez MD Date: 01/12/2020 Time: 7:22 PM Sandhya Galvez MD 01/12/20 1922 Normal [facility] Magnesiumon 01-11-2020 Magnesium [Mass/Vol] 2.1 mg/dL Normal 1.7-2.3 [facility] Comment on above: Performed By: #### C BCDIF, CMP, MG1 #### [facility] [employer] [address], [place] [address] Clare Slide Teston 01-11-2020 Clare Slide Test Negative Normal Negative [facility] Comment on above: Performed By: #### M ONOLX #### [facility] [employer] [address], [place] [address] TSHon 01-11-2020 TSH Qn 2.350 uU/mL Normal 0.510-4.300 [facility] Comment on above: Result Comment: If t he patient is , TSH reference range varies by gestational period: First Trimester (weeks 9-12): 0.180-2.990 mcIU/mL Second Trimester: 0.110-3.980 mcIU/mL Third Trimester: 0.480-4.710 mcIU/mL Tr Angulo et al. A Practical Approach for the Verifications and Determination of Site- and Trimester-Specific Reference Intervals for Thyroid Function tests in . Thyroid, 2019:29:3:412-420. Ari E, et al. 2017 Guidelines of the [place] Thyroid Association for the Diagnosis and Management of Thyroid Disease during and the . Thyroid, 2017:27:3:315-389. Reference ranges were not locally established for this patient's age group. The normal values are based on the following source: Castro Mishra, Callum V. Reference Ranges for Adults and Children: Pre-analytical Considerations. [facility] Performed By: #### T #### [facility] [address] [address] Hepatic Panelon 10-17-2019 Albumin [Mass/Vol] 3.9 g/dL Normal 3.2-5.5 [facility] Comment on above: Performed By: #### H EPATIC, LIPID, TSH3 wRFLX, [id number] #### [address] Albumin/Globulin [Mass ratio] 1.7 {ratio} Normal [facility] Comment on above: Performed By: #### H EPATIC, LIPID, TSH3 wRFLX, [id number] #### [address] ALP [Catalytic activity/Vol] 43 U/L Normal 32-92 [facility] Comment on above: Performed By: #### H EPATIC, LIPID, TSH3 wRFLX, [id number] #### [facility] [address] ALT [Catalytic activity/Vol] 11 U/L Normal 10-60 [facility] Comment on above: Performed By: #### H EPATIC, LIPID, TSH3 wRFLX, [id number] #### [facility] [address] AST [Catalytic activity/Vol] 14 U/L Normal 10-42 [facility] Comment on above: Performed By: #### H EPATIC, LIPID, TSH3 wRFLX, [id number] #### [facility] [address] Bilirubin [Mass/Vol] 0.9 mg/dL Normal 0.3-1.2 [facility] Comment on above: Performed By: #### H EPATIC, LIPID, TSH3 wRFLX, [id number] #### [address] Bilirubin,Indirect 0.8 mg/dL Normal [facility] Comment on above: Performed By: #### H EPATIC, LIPID, TSH3 wRFLX, [id number] #### [address] Bilirubin.direct [Mass/Vol] 0.1 mg/dL Normal 0.0-0.4 [facility] Comment on above: Performed By: #### H EPATIC, LIPID, TSH3 wRFLX, [id number] #### [address] Globulin (S) [Mass/Vol] 2.3 g/dL Normal [facility] Comment on above: Performed By: #### H EPATIC, LIPID, TSH3 wRFLX, [id number] #### [address] Protein [Mass/Vol] 6.2 g/dL Normal 6.1-7.9 [facility] Comment on above: Performed By: #### H EPATIC, LIPID, TSH3 wRFLX, [id number] #### [facility] [address] [place] [address] Lipid Panelon 10-17-2019 Cholesterol [Mass/Vol] 118 mg/dL Low 140-200 [facility] Comment on above: Result Comment: Chol less than 200 mg/dl low risk Chol 201-239 mg/dl borderline risk Chol 240 mg/dl and greater high risk Performed By: #### H EPATIC, LIPID, TSH3 wRFLX, [id number] #### [address] Cholesterol in HDL [Mass/Vol] 38 mg/dL Normal 35-85 [facility] Comment on above: Result Comment: HDL CHOL ATP-III CLASSIFICATION Cardiovascular Risk HDL > or equal to 60 mg/dL LOW HDL < 40 mg/dL HIGH Performed By: #### H EPATIC, LIPID, TSH3 wRFLX, [id number] #### [facility] [address] Cholesterol.total/Chol esterol in HDL [Mass ratio] 3.1 {ratio} Normal <5.0 [facility] Comment on above: Performed By: #### H EPATIC, LIPID, TSH3 wRFLX, [id number] #### [facility] [address] LDL Cholesterol,Calculated 73 mg/dL Normal 0-100 [facility] Comment on above: Result Comment: LDL ATP III CLASSIFICATION LDL less than 100 mg/dL Optimal LDL 100-129 mg/dL Near or above optimal LDL 130-159 mg/dL Borderline high LDL 160-189 mg/dL High LDL greater than 189 mg/dL Very high Performed By: #### H EPATIC, LIPID, TSH3 wRFLX, [id number] #### [facility] [address] Triglyceride w/Reflex 36 mg/dL Normal 35-149 [facility] Comment on above: Result Comment: TRIG ATP III CLASSIFICATION TRIG less than 150 mg/dL Normal TRIG 150-199 mg/dL Borderline high TRIG 200-500 mg/dL High TRIG greater than 500 mg/dL Very high Standard traceable to the Center for Disease Conrtrol and Prevention (CDC) test method. Performed By: #### H EPATIC, LIPID, TSH3 wRFLX, [id number] #### [facility] [address] VLDL CHOLESTEROL 7 mg/dL Normal [facility] Comment on above: Performed By: #### H EPATIC, LIPID, TSH3 wRFLX, [id number] #### [facility] [address] [id number] [facility] Thyroid Stim Hormone w/Rflxo n 10-17-2019 Thyroid Stim Hormone w/Rflx 1.58 u[iU]/mL Normal 0.45-5.33 [facility] Comment on above: Performed By: #### H EPATIC, LIPID, TSH3 wRFLX, [id number] #### [facility] [address] [place] [address] Vitamin D 25 Hydroxy Totalon 10-17-2019 Vitamin D 25 Hydroxy Total 22.5 ng/mL Low 30-100 [facility] Comment on above: Result Comment: DEBBIE MIN D STATUS 25(OH)VITAMIN D RANGE (ng/mL) Deficient <20 Insufficient 20 to <30 Sufficient 30 to 100 Reference: Blake MF,Joce KLEIN, Zhou GARIBAY, et al. Evaluation,treatment, and prevention of vitamin D deficiency; an Endocrine Society clinical practice guideline. JCEM. 2010; 96(7):1911-30. PERFORMED BY: [place] [address] PATHOLOGIST [employer] SUPERVISOR RL QUIROGA M.D. Performed By: #### H EPATIC, LIPID, TSH3 wRFLX, [id number] #### [facility] [address] [place] [address] Hepatic Panelon 05-23-2019 Albumin [Mass/Vol] 3.9 g/dL Normal 3.2-5.5 [facility] Comment on above: Performed By: #### H EPATIC, LIPID, TSH3 wRFLX, [id number] #### [facility] [address] [place] [address] Albumin/Globulin [Mass ratio] 1.6 {ratio} Normal [facility] Comment on above: Performed By: #### H EPATIC, LIPID, TSH3 wRFLX, [id number] #### [facility] [address] [place] [address] ALP [Catalytic activity/Vol] 48 U/L Normal 32-92 [facility] Comment on above: Performed By: #### H EPATIC, LIPID, TSH3 wRFLX, [id number] #### [facility] [address] [place] [address] ALT [Catalytic activity/Vol] 9 U/L Low 10-60 [facility] Comment on above: Performed By: #### H EPATIC, LIPID, TSH3 wRFLX, [id number] #### [facility] [address] [place] [address] AST [Catalytic activity/Vol] 12 U/L Normal 10-42 [facility] Comment on above: Performed By: #### H EPATIC, LIPID, TSH3 wRFLX, [id number] #### [facility] [address] [place] [address] Bilirubin [Mass/Vol] 0.7 mg/dL Normal 0.3-1.2 [facility] Comment on above: Performed By: #### H EPATIC, LIPID, TSH3 wRFLX, [id number] #### [address] Bilirubin,Indirect 0.6 mg/dL Normal [facility] Comment on above: Performed By: #### H EPATIC, LIPID, TSH3 wRFLX, [id number] #### [address] Bilirubin.direct [Mass/Vol] 0.1 mg/dL Normal 0.0-0.4 [facility] Comment on above: Performed By: #### H EPATIC, LIPID, TSH3 wRFLX, [id number] #### [address] Globulin (S) [Mass/Vol] 2.4 g/dL Normal [facility] Comment on above: Performed By: #### H EPATIC, LIPID, TSH3 wRFLX, [id number] #### [address] Protein [Mass/Vol] 6.3 g/dL Normal 6.1-7.9 [facility] Comment on above: Performed By: #### H EPATIC, LIPID, TSH3 wRFLX, [id number] #### [address] Lipid Panelon 05-23-2019 Cholesterol [Mass/Vol] 115 mg/dL Low 140-200 [facility] Comment on above: Result Comment: Chol less than 200 mg/dl low risk Chol 201-239 mg/dl borderline risk Chol 240 mg/dl and greater high risk Performed By: #### H EPATIC, LIPID, TSH3 wRFLX, [id number] #### [facility] [address] Cholesterol in HDL [Mass/Vol] 29 mg/dL Low 35-85 [facility] Comment on above: Result Comment: HDL CHOL ATP-III CLASSIFICATION Cardiovascular Risk HDL > or equal to 60 mg/dL LOW HDL < 40 mg/dL HIGH Performed By: #### H EPATIC, LIPID, TSH3 wRFLX, [id number] #### [facility] [address] Cholesterol.total/Chol esterol in HDL [Mass ratio] 4.0 {ratio} Normal <5.0 [facility] Comment on above: Performed By: #### H EPATIC, LIPID, TSH3 wRFLX, [id number] #### [facility] [address] LDL Cholesterol,Calculated 73 mg/dL Normal 0-100 [facility] Comment on above: Result Comment: LDL ATP III CLASSIFICATION LDL less than 100 mg/dL Optimal LDL 100-129 mg/dL Near or above optimal LDL 130-159 mg/dL Borderline high LDL 160-189 mg/dL High LDL greater than 189 mg/dL Very high Performed By: #### H EPATIC, LIPID, TSH3 wRFLX, [id number] #### [facility] [address] Triglyceride w/Reflex 65 mg/dL Normal 35-149 [facility] Comment on above: Result Comment: TRIG ATP III CLASSIFICATION TRIG less than 150 mg/dL Normal TRIG 150-199 mg/dL Borderline high TRIG 200-500 mg/dL High TRIG greater than 500 mg/dL Very high Standard traceable to the Center for Disease Conrtrol and Prevention (CDC) test method. Performed By: #### H EPATIC, LIPID, TSH3 wRFLX, [id number] #### [facility] [address] VLDL CHOLESTEROL 13 mg/dL Normal [facility] Comment on above: Performed By: #### H EPATIC, LIPID, TSH3 wRFLX, [id number] #### [facility] [address] [place] [address] Thyroid Stim Hormone w/Rflxo n 05-23-2019 Thyroid Stim Hormone w/Rflx 0.63 u[iU]/mL Normal 0.45-5.33 [facility] Comment on above: Performed By: #### H EPATIC, LIPID, TSH3 wRFLX, [id number] #### [address] Vitamin D 25 Hydroxy Totalon 05-23-2019 Vitamin D 25 Hydroxy Total 28.1 ng/mL Low 30-100 [facility] Comment on above: Result Comment: DEBBIE MIN D STATUS 25(OH)VITAMIN D RANGE (ng/mL) Deficient <20 Insufficient 20 to <30 Sufficient 30 to 100 Reference: Blake MF,Joce [place], Zhou GARIBAY, et al. Evaluation,treatment, and prevention of vitamin D deficiency; an Endocrine Society clinical practice guideline. JCEM. 2010; 96(7):1911-30. PERFORMED BY: [place] [address] PATHOLOGIST [employer] SUPERVISOR RL QUIROGA M.D. Performed By: #### H EPATIC, LIPID, TSH3 wRFLX, [id number] #### [address] ECG 12 lead ECGon 05-22-2019 ECG 12 lead ECG [facility] [place] [address] Electrocardiograph Report Signed Patient: Zaid Luna MR#: [id number] : 2000 Acct:[id number] Age/Sex: 19 / F ADM Date: 05/22/19 Loc: Room: [address] [place] [address] Type: ADM IN Attending Dr: Domo Mayes MD Ordering Provider: Domo Mayes MD Date of Service: 05/22/19 ECG/ECG 12 lead ECG: abilify med baseline for antipsychotics and psychotropics Copies to: Test Reason : Blood Pressure : / mmHG Vent. Rate : 081 BPM Atrial Rate : 081 BPM P-R Int : 152 ms QRS Dur : 090 ms QT Int : 380 ms P-R-T Axes : 025 036 036 degrees QTc Int : 441 ms Normal sinus rhythm Normal ECG When compared with ECG of 22-MAY-2019 09:43, (Unconfirmed) No significant change was found Confirmed by REYES TOLBERT MD ([id number]) on 05/22/2019 2:28:38 PM Referred By: Electronically Signed By:REYES OTLBERT MD Transcribed By: MUS Dictated By: Reyes Tolbert MD 05/22/19 0946 Signed By: 05/22/19 1428 Normal [facility] FREE T4on 04-02-2019 Free T4 [Mass/Vol] 0.87 ng/dL Normal 0.71-1.85 [facility] Comment on above: Order Comment: This order is a replacement of the rejected order with accession number [id number]. Performed By: #### 3 1522, [address], [address]35[address] #### [facility] [address] [place] [address], [facility] TOX PANEL URINEon 04-02-2019 50 THC Negative Normal NEGATIVE [facility] Comment on above: Order Comment: No: D o not add to previous draw Performed By: #### 3 7479 #### [facility] [address] [place] [address], [facility] BARBITURATES Negative Normal NEGATIVE [facility] Comment on above: Order Comment: No: D o not add to previous draw Performed By: #### 3 1079 #### [facility] [address] [place] [address], [place] Benzodiazepines Ql (U) Negative Normal NEGATIVE [facility] Comment on above: Order Comment: No: D o not add to previous draw Performed By: #### 3 1079 #### [facility] [address] [place] [address], [place] Cocaine Ql (U) Negative Normal NEGATIVE [facility] Comment on above: Order Comment: No: D o not add to previous draw Performed By: #### 3 1079 #### [facility] [address] [place] [address], [facility] Methadone Ql (U) Negative Normal NEGATIVE [facility] Comment on above: Order Comment: No: D o not add to previous draw Performed By: #### 3 1079 #### [facility] [facility] [address] [place] [address], [facility] MONO AMPHET Negative Normal NEGATIVE The [facility] Comment on above: Order Comment: No: D o not add to previous draw Performed By: #### 3 1079 #### [facility] [address] [place] [address], [place] Opiates Ql (U) Negative Normal NEGATIVE The [facility] Comment on above: Order Comment: No: D o not add to previous draw Performed By: #### 3 1079 #### [facility] [address] [place] [address], [facility] Phencyclidine Ql (U) Negative Normal NEGATIVE The [facility] Comment on above: Order Comment: No: D o not add to previous draw Performed By: #### 3 1079 #### [facility] [address] [place] [address], [place] PROPOXYPHENE Negative Normal NEGATIVE The [facility] Comment on above: Order Comment: No: D o not add to previous draw Performed By: #### 3 1079 #### [facility] [address] [place] [address], [place] TRICYCLICS Negative Normal NEGATIVE The [facility] Comment on above: Order Comment: No: D o not add to previous draw Performed By: #### 3 1079 #### [facility] [address] [place] [address], [facility] TSH3on 04-02-2019 TSH 3RD GENERATION 1.14 uIU/mL Normal 0.34-5.60 The [facility] Comment on above: Order Comment: This order is a replacement of the rejected order with accession number [id number]. Performed By: #### 3 1522, [id number], [id number] #### [facility] [address] [place] [id number], [facility] URINALYSISon 04-02-2019 AMORPHOUS MANY Abnormal NONE SEEN The [facility] Comment on above: Order Comment: No: D o not add to previous draw Performed By: #### 1 0008 #### [facility] [address] [place] [address], [facility] Appearance (U) TURBID Abnormal CLEAR [facility] Comment on above: Order Comment: No: D o not add to previous draw Performed By: #### 1 0008 #### [facility] [address] [place] [address], [facility] Bilirubin [Mass/Vol] Negative Normal NEGATIVE The [facility] Comment on above: Order Comment: No: D o not add to previous draw Performed By: #### 1 0008 #### [facility] [address] [place] [address], [facility] BLOOD Negative Normal NEGATIVE The [facility] Comment on above: Order Comment: No: D o not add to previous draw Performed By: #### 1 0008 #### [facility] [address] [place] [address], [place] Color (U) YELLOW Normal YELLOW The [facility] Comment on above: Order Comment: No: D o not add to previous draw Performed By: #### 1 0008 #### [facility] [address] [place] [address], [place] EPIS NONE SEEN Normal FEW,OCC,NONE SEEN The [facility] Comment on above: Order Comment: No: D o not add to previous draw Performed By: #### 1 0008 #### [facility] [address] [place] [address], [place] Glucose [Mass/Vol] Negative Normal NEGATIVE The [facility] Comment on above: Order Comment: No: D o not add to previous draw Performed By: #### 1 0008 #### [facility] [address] [place] [address], [place] KETONE Negative Normal NEGATIVE The [facility] Comment on above: Order Comment: No: D o not add to previous draw Performed By: #### 1 0008 #### [facility] [address] [place] [address], [place] LEUK JENNIFER Negative Normal NEGATIVE The [facility] Comment on above: Order Comment: No: D o not add to previous draw Performed By: #### 1 0008 #### [facility] [address] [place] [address], [place] Nitrite Ql (U) Negative Normal NEGATIVE The [facility] Comment on above: Order Comment: No: D o not add to previous draw Performed By: #### 1 0008 #### [facility] [address] [place] [address], [place] pH (Bld) 5.0 Normal 5.0-8.0 The [facility] Comment on above: Order Comment: No: D o not add to previous draw Performed By: #### 1 0008 #### [facility] [address] [place] [address], [place] Protein (U) [Mass/Vol] Negative Normal NEGATIVE Th e [facility] Comment on above: Order Comment: No: D o not add to previous draw Performed By: #### 1 0008 #### [facility] [address] [place] [address], [place] RBC (U) [#/Vol] 0-2 Abnormal NONE SEEN The [facility] Comment on above: Order Comment: No: D o not add to previous draw Performed By: #### 1 0008 #### [facility] [address] SPEC GRAV 1.025 High 1.015-1.020 The [facility] Comment on above: Order Comment: No: D o not add to previous draw Performed By: #### 1 0008 #### [facility] [address] [facility]. [address] WBC UA 0-2 Abnormal NONE SEEN The [facility] Comment on above: Order Comment: No: D o not add to previous draw Performed By: #### 1 0008 #### [facility] [address] VITAMIN D 25-HYDROXYon 04-02 VITAMIN D 25-OH 36.8 ng/mL Normal 30.0-80.0 The [facility] Comment on above: Order Comment: This order is a replacement of the rejected order with accession number [id number]. Result Comment: >80. 0 Toxicity possible Performed By: #### 3 1522, [id number], 44066 #### [facility] [address] CBC W/DIFFon 04-01-2019 ABS BASOPHILS 0.1 10*3/uL Normal 0.0-0.2 [facility] Comment on above: Order Comment: Yes: Add to Previous draw if able Performed By: #### 5 0103 #### [facility] [address] ABS IMM GRANS 0.0 10*3/uL Normal 0.0-0.2 [facility] Comment on above: Order Comment: Yes: Add to Previous draw if able Performed By: #### 5 0103 #### [facility] [address] ABS NEUTROPHILS 3.8 10*3/uL Normal 1.6-7.6 The [facility] Comment on above: Order Comment: Yes: Add to Previous draw if able Performed By: #### 5 0103 #### [facility] [address] [place] [address], [facility] Basophils/100 WBC (Bld) 0.8 % Normal 0.0-1.0 The [facility] Comment on above: Order Comment: Yes: Add to Previous draw if able Performed By: #### 5 0103 #### [facility] [address] [place] [address], [facility] Eosinophils (Bld) [#/Vol] 0.2 10*3/uL Normal 0.0-0.5 The [facility] Comment on above: Order Comment: Yes: Add to Previous draw if able Performed By: #### 5 0103 #### [facility] [address] [place] [address], [facility] Eosinophils/100 WBC (Bld) 3.2 % Normal 0.0-6.0 The [facility] Comment on above: Order Comment: Yes: Add to Previous draw if able Performed By: #### 5 0103 #### [facility] [address] [place] [address], [facility] Erythrocyte distribution width (RBC) [Ratio] 11.3 % Low 11.5-15.0 The [facility] Comment on above: Order Comment: Yes: Add to Previous draw if able Performed By: #### 3 #### [facility] [address] [place] [address], [facility] Hematocrit (Bld) [Volume fraction] 43.4 % Normal 36.0-45.0 The [facility] Comment on above: Order Comment: Yes: Add to Previous draw if able Performed By: #### 5 0103 #### [facility] [address] [place] [address], [facility] Hemoglobin (Bld) [Mass/Vol] 14.5 g/dL Normal 12.0-15.0 The [facility] Comment on above: Order Comment: Yes: Add to Previous draw if able Performed By: #### 5 0103 #### [facility] [address] [place] [address], [facility] IMMATURE GRANS 0.3 % Normal 0.0-1.0 [facility] Comment on above: Order Comment: Yes: Add to Previous draw if able Performed By: #### 5 0103 #### [facility] [address] [place] [id number], [facility] Lymphocytes (Bld) [#/Vol] 2.4 10*3/uL Normal 1.2-4.0 The [facility] Comment on above: Order Comment: Yes: Add to Previous draw if able Performed By: #### 5 0103 #### [facility] [address] [facility] [place] [address], [facility] Lymphocytes/100 WBC (Bld) 34.1 % Normal 20.0-45.0 The [facility] Comment on above: Order Comment: Yes: Add to Previous draw if able Performed By: #### 5 0103 #### [facility] [address] [place] [address], [facility] MCH (RBC) [Entitic mass] 29.8 pg Normal 27.0-33.0 The [facility] Comment on above: Order Comment: Yes: Add to Previous draw if able Performed By: #### 5 0103 #### [facility] [address] [facility] [place] [address], [facility] MCHC (RBC) [Mass/Vol] 33.4 g/dL Normal 32.0-35.0 The [facility] Comment on above: Order Comment: Yes: Add to Previous draw if able Performed By: #### 5 0103 #### [facility] [address] [facility] [place] [id number], [facility] MCV (RBC) [Entitic vol] 89.1 fL Normal 82.0-98.0 The [facility] Comment on above: Order Comment: Yes: Add to Previous draw if able Performed By: #### 5 0103 #### [facility] [address] [place] [id number], [facility] Monocytes (Bld) [#/Vol] 0.5 10*3/uL Normal 0.1-1.0 The [facility] Comment on above: Order Comment: Yes: Add to Previous draw if able Performed By: #### 5 010 #### [facility] [address] [place] [address], [place] MONOS 7.6 % Normal 5.0-12.0 The [facility] Comment on above: Order Comment: Yes: Add to Previous draw if able Performed By: #### 5 0103 #### [facility] [address] [place] [id number], [place] Neutrophils/100 WBC (Bld) 54.0 % Normal 40.0-72.0 The [facility] Comment on above: Order Comment: Yes: Add to Previous draw if able Performed By: #### 5 3 #### [facility] [address] [place] [id number], [facility] Nucleated RBC/100 WBC (Bld) [Ratio] 0 % Normal 0-0 The [facility] Comment on above: Order Comment: Yes: Add to Previous draw if able Performed By: #### 5 0103 #### [facility] [address] [place] [address], [place] PLAT CNT 231 10*3/uL Normal 150-400 The [facility] Comment on above: Order Comment: Yes: Add to Previous draw if able Performed By: #### 5 0103 #### [facility] [address] [place] [address], [place] RBC (Bld) [#/Vol] 4.87 10*6/uL Normal 3.80-5.00 The [facility] Comment on above: Order Comment: Yes: Add to Previous draw if able Performed By: #### 5 3 #### [facility] [address] [place] [address], [place] WBC (Bld) [#/Vol] 7.09 10*3/uL Normal 4.00-10.60 The [facility] Comment on above: Order Comment: Yes: Add to Previous draw if able Performed By: #### 5 0103 #### [facility] [address] [place] [address], [facility] COMP METABOLIC PANELon 04-01 Albumin [Mass/Vol] 4.0 g/dL Normal 3.5-5.7 The [facility] Comment on above: Order Comment: Yes: Add to Previous draw if able Performed By: #### 0 0121, 14068 #### [facility] [address] [place] [address], [place] ALKALINE PHOSPH 52 IU/L Normal 40-460 The [facility] Comment on above: Order Comment: Yes: Add to Previous draw if able Performed By: #### 0 0121, 32867 #### [facility] [address] [place] [address], [place] ALT [Catalytic activity/Vol] 6 U/L Low 7-52 The [facility] Comment on above: Order Comment: Yes: Add to Previous draw if able Performed By: #### 0 0121, 18118 #### [facility] [address] [place] [address], [place] AST [Catalytic activity/Vol] 16 U/L Normal 13-39 The [facility] Comment on above: Order Comment: Yes: Add to Previous draw if able Performed By: #### 0 0121, 57397 #### [facility] [address] [place] [address], [place] Bilirubin [Mass/Vol] 0.5 mg/dL Normal 0.3-1.0 The [facility] Comment on above: Order Comment: Yes: Add to Previous draw if able Performed By: #### 0 0121, 57780 #### [facility] [address] [place] [address], [place] Calcium [Mass/Vol] 9.5 mg/dL Normal 8.6-10.3 [facility] Comment on above: Order Comment: Yes: Add to Previous draw if able Performed By: #### 0 0121, 14505 #### [facility] [address] [place] [address], [place] Chloride [Moles/Vol] 107 mmol/L Normal 98-107 The [facility] Comment on above: Order Comment: Yes: Add to Previous draw if able Performed By: #### 0 0121, 72925 #### [facility] [address] [place] [address], [place] CO2 [Moles/Vol] 19 mmol/L Low 21-31 The [facility] Comment on above: Order Comment: Yes: Add to Previous draw if able Performed By: #### 0 0121, 25745 #### [facility] [address] [place] [address], [place] Creatinine [Mass/Vol] 0.75 mg/dL Normal 0.60-1.20 The [facility] Comment on above: Order Comment: Yes: Add to Previous draw if able Performed By: #### 0 0121, 37727 #### [facility] [address] [place] [address], [place] GFR/1.73 sq M predicted among blacks MDRD (S/P/Bld) [Vol rate/Area] Calculation not validated for patients under 18 years Abnormal >60 The [facility] Comment on above: Order Comment: Yes: Add to Previous draw if able Performed By: #### 0 0121, 38049 #### [facility] [address] [place] [address], [place] GFR/1.73 sq M predicted among non-blacks MDRD (S/P/Bld) [Vol rate/Area] Calculation not validated for patients under 18 years Abnormal >60 The [facility] Comment on above: Order Comment: Yes: Add to Previous draw if able Performed By: #### 0 0121, 44018 #### [facility] [address] [place] [address], [place] Glucose [Mass/Vol] 92 mg/dL Normal 70-100 The [facility] Comment on above: Order Comment: Yes: Add to Previous draw if able Performed By: #### 0 0121, 15218 #### [facility] [address] [place] [address], [place] Potassium [Moles/Vol] 4.3 mmol/L Normal 3.5-5.1 The [facility] Comment on above: Order Comment: Yes: Add to Previous draw if able Performed By: #### 0 0121, 58923 #### [facility] [address] [place] [address], [place] Protein [Mass/Vol] 6.8 g/dL Normal 6.0-8.3 The [facility] Comment on above: Order Comment: Yes: Add to Previous draw if able Performed By: #### 0 0121, 11875 #### [facility] [address] [place] [address], [place] Sodium [Moles/Vol] 138 mmol/L Normal 136-145 The [facility] Comment on above: Order Comment: Yes: Add to Previous draw if able Performed By: #### 0 0121, 08394 #### [facility] [address] [place] [address], [place] Urea nitrogen [Mass/Vol] 14 mg/dL Normal 7-25 The [facility] Comment on above: Order Comment: Yes: Add to Previous draw if able Performed By: #### 0 0121, 19951 #### [facility] [address] [place] [address], [place] LIPID PROFILEon 04-01-2019 Cholesterol [Mass/Vol] 118 mg/dL Low 120-170 Th e [facility] Comment on above: Order Comment: Yes: Add to Previous draw if able Result Comment: CHOL ESTEROL REFERENCE RANGE: 20 YEARS AND OLDER CARDIOVASCULAR RISK Less than 200 mg/dl Low Risk 200 to 239 mg/dl Borderline Risk 240 mg/dl and greater High Risk Performed By: #### 0 0121, 29724 #### [facility] [address] [place] [address], [place] Cholesterol in HDL [Mass/Vol] 27 mg/dL Normal 23-92 The [facility] Comment on above: Order Comment: Yes: Add to Previous draw if able Result Comment: Slig ht variation in normal range could be due to gender and/or age. HDL CHOLESTEROL REFERENCE RANGE: 20 years and older Cardiovascular Risk > or =60 mg/dL Desirable 40 TO 59 mg/dL Low Risk <40 mg/dL High Risk Performed By: #### 0 0121, 79985 #### [facility] [address] [place] [address], [facility] Cholesterol in LDL [Mass/Vol] 71 mg/dL Normal 0-130 The [facility] Comment on above: Order Comment: Yes: Add to Previous draw if able Result Comment: LDL IS A CALCULATION LDL IS ONLY VALID IF THE TRIG IS LESS THAN 400. Performed By: #### 0 0121, 66224 #### [facility] [address] [place] [address], [facility] Cholesterol.total/Chol esterol in HDL [Mass ratio] 4.4 {ratio} Normal .0-4.5 The [facility] Comment on above: Order Comment: Yes: Add to Previous draw if able Performed By: #### 0 0121, 42292 #### [facility] [address] [place] [address], [place] NON-HDL CHOLESTEROL 91 mg/dL Normal [facility] Comment on above: Order Comment: Yes: Add to Previous draw if able Performed By: #### 0 0121, 65435 #### [facility] [address] [place] [address], [place] Triglyceride [Mass/Vol] 99 mg/dL Normal 37-148 The [facility] Comment on above: Order Comment: Yes: Add to Previous draw if able Result Comment: TRIG LYCERIDE REFERENCE RANGE: 20 YEARS AND OLDER CARDIOVASCULAR RISK LESS THAN 150 mg/dl LOW RISK 150 TO 199 mg/dl BORDERLINE RISK 200 mg/dl AND GREATER HIGH RISK Performed By: #### 0 0121, 87615 #### [facility] [address] [place] [address], [facility] VLDL CHOL 20 mg/dL Normal 0-40 The [facility] Comment on above: Order Comment: Yes: Add to Previous draw if able Performed By: #### 0 0121, 93915 #### [facility] [address] [place] [address], [facility] SERUM TESTon 04-01 TEST Negative Normal [facility] Comment on above: Order Comment: Yes: Add to Previous draw if able Performed By: #### 4 6473 #### [facility] [address] Vital Signs Date Time Vital Sign Value Performing Clinician Facility 04-01-2024 16:25-0400 Heart rate 61 /min Kalyn Shin DO Work Phone: [facility] 04-01-2024 16:25-0400 Respiratory rate 15 /min Kalyn Shin DO Work Phone: [employer] 04-01-2024 16:25-0400 SaO2% (BldA) [Mass fraction] 96 % Kalyn Shin DO Work Phone: [employer] 04-01-2024 15:55-0400 Diastolic blood pressure 68 mm[Hg] Kalyn Shin DO Work Phone: [employer] 04-01-2024 15:55-0400 Systolic blood pressure 103 mm[Hg] Kalyn Shin DO Work Phone: [employer] 04-01-2024 14:11-0400 Body temperature 98.4 [degF] Kalyn Shin DO Work Phone: [facility] 04-13-2023 20:56-0400 Heart rate 100 /min Oscar Us [facility] 04-13-2023 20:53-0400 Body mass index (BMI) [Ratio] 29.23 kg/m2 Oscar Us [facility] 04-13-2023 20:53-0400 Body temperature 97.3 [degF] Oscar Us MD [facility] 04-13-2023 20:53-0400 Body weight 74.84 kg Oscar Us MD [facility] 04-13-2023 20:53-0400 Diastolic blood pressure 76 mm[Hg] Oscar Us MD [facility] [employer] 04-13-2023 20:53-0400 Respiratory rate 16 /min Oscar Us [facility] 04-13-2023 20:53-0400 SaO2% (BldA) [Mass fraction] 100 % Oscar Us MD [facility] [employer] 04-13-2023 20:53-0400 Systolic blood pressure 131 mm[Hg] Oscar Us MD [facility] 04-10-2023 16:35-0400 Body temperature 99 [degF] Arabella Falk MD Work Phone: [facility] [employer] 04-10-2023 16:35-0400 Diastolic blood pressure 61 mm[Hg] Arabella Falk MD Work Phone: [facility] [employer] 04-10-2023 16:35-0400 Heart rate 96 /min Arabella Falk MD Work Phone: [facility] 04-10-2023 16:35-0400 Respiratory rate 18 /min Arabella Falk MD Work Phone: [facility] 04-10-2023 16:35-0400 SaO2% (BldA) [Mass fraction] 98 % Arabella Falk MD Work Phone: [facility] [employer] 04-10-2023 16:35-0400 Systolic blood pressure 115 mm[Hg] Arabella Falk MD Work Phone: [facility] [employer] 11-20-2022 10:45-0500 Diastolic blood pressure 64 mm[Hg] Bridget Brunner DO Work Phone: [facility] [employer] 11-20-2022 10:45-0500 Heart rate 62 /min Bridget Nguyeng DO Work Phone: [facility] [employer] 11-20-2022 10:45-0500 Respiratory rate 16 /min Bridget Brunner DO Work Phone: [facility] [employer] 11-20-2022 10:45-0500 SaO2% (BldA) [Mass fraction] 97 % Bridget Brunner DO Work Phone: [facility] [employer] 11-20-2022 10:45-0500 Systolic blood pressure 102 mm[Hg] Bridget Brunner DO Work Phone: [facility] [employer] 11-20-2022 10:02-0500 Body temperature 97.5 [degF] Bridget Brunner DO Work Phone: [facility] [employer] 11-20-2022 07:17-0500 Body height 160 cm Bridget Brunner DO Work Phone: [facility] [employer] 11-20-2022 07:17-0500 Body mass index (BMI) [Ratio] 28.77 kg/m2 Bridget Brunner DO Work Phone: [facility] [employer] 11-20-2022 07:17-0500 Body weight 73.66 kg Bridget Brunner DO Work Phone: [employer] 06-12-2022 13:30-0400 Diastolic blood pressure 74 mm[Hg] [facility] 03 [employer] 06-12-2022 13:30-0400 Heart rate 103 /min [facility] 03 [employer] 06-12-2022 13:30-0400 Respiratory rate 19 /min [facility] 03 [employer] 06-12-2022 13:30-0400 SaO2% (BldA) [Mass fraction] 98 % [facility] [facility] [employer] 06-12-2022 13:30-0400 Systolic blood pressure 103 mm[Hg] [facility] [employer] 06-12-2022 12:35-0400 Body temperature 96.69 [degF] [facility] 03 [facility] [employer] 06-11-2022 20:30-0400 SaO2% (BldA) [Mass fraction] 96 % Arabella Falk MD Work Phone: [facility] [employer] 06-11-2022 20:00-0400 Diastolic blood pressure 52 mm[Hg] Arabella Falk MD Work Phone: [facility] [employer] 06-11-2022 20:00-0400 Heart rate 119 /min Arabella Falk MD Work Phone: [facility] [employer] 06-11-2022 20:00-0400 Respiratory rate 17 /min Arabella Falk MD Work Phone: [facility] [employer] 06-11-2022 20:00-0400 Systolic blood pressure 121 mm[Hg] Arabella Falk MD Work Phone: [facility] [employer] 06-11-2022 18:32-0400 Body temperature 97.5 [degF] Arabella Falk MD Work Phone: [facility] [employer] 04-09-2021 17:00-0400 Diastolic blood pressure 77 mm[Hg] Karlene Ibarra MD [employer] Work Phone: 04-09-2021 17:00-0400 Heart rate 65 /min Karlene Ibarra MD [employer] Work Phone: 04-09-2021 17:00-0400 Respiratory rate 18 /min Karlene Ibarra MD [employer] Work Phone: 04-09-2021 17:00-0400 SaO2% (BldA) [Mass fraction] 98 % Karlene Ibarra MD [employer] Work Phone: 04-09-2021 17:00-0400 Systolic blood pressure 110 mm[Hg] Karlene Ibarra MD [facility] [email or web address] Work Phone: 04-09-2021 14:35-0400 Body temperature 98.01 [degF] Karlene Ibarra MD [facility] [email or web address] Work Phone: 09-21-2020 16:38-0500 Body Temperature 98.29 [degF] [facility] [place] 09-[facility]-2020 16:38-0500 BP Diastolic 71 mm[Hg] [facility] [place] 09-21-2020 16:38-0500 BP Systolic 119 mm[Hg] [facility] [place] 09-21-2020 16:38-0500 Pulse (Heart Rate) 85 /min [facility] [place] 09-21-2020 16:38-0500 Respiratory Rate 16 /min [facility]idget [facility] [place] 09-20-2020 16:46-0500 Pulse Oximetry 99 % [facility] [place] 09-20-2020 06:14-0500 BMI (Body Mass Index) 31.89 kg/m2 [facility] [place] 09-20-2020 06:14-0500 Body weight 81.65 kg [facility] [place] 09-20-2020 06:14-0500 Height 160 cm [facility] [place] 08-13-2020 19:05-0400 BP Diastolic 64 mm[Hg] Caridad Kapadia [facility] 08-13-2020 19:05-0400 BP Systolic 113 mm[Hg] Caridad Kapadia [facility] 08-13-2020 19:05-0400 Pulse (Heart Rate) 99 /min Caridad Kapadia [facility] 08-13-2020 19:03-0400 BMI (Body Mass Index) 29.23 kg/m2 Caridad Kapadia [facility] 08-13-2020 19:03-0400 Body Temperature 98.29 [degF] Caridad Kapadia [facility] 08-13-2020 19:03-0400 Body weight 74.84 kg Caridad Kapadia [facility] 08-13-2020 19:03-0400 Height 160 cm Caridad Kapadia [facility] 08-13-2020 19:03-0400 Respiratory Rate 18 /min Caridad Kapadia [facility] 06-20-2020 20:35-0400 BMI (Body Mass Index) 28.7 kg/m2 [facility] 06-20-2020 20:35-0400 Body Temperature 98.49 [degF] [facility] 06-20-2020 20:35-0400 Body weight 73.[address] [facility] 06-20-2020 20:35-0400 BP Diastolic 62 mm[Hg] [facility] 06-20-2020 20:35-0400 BP Systolic 105 mm[Hg] [facility] 06-20-2020 20:35-[address] [facility] 06-20-2020 20:35-0400 Pulse (Heart Rate) 113 /min [facility] 06-20-2020 20:35-0400 Pulse Oximetry 97 % [facility] 06-20-2020 20:35-0400 Respiratory Rate 20 /min [facility] 06-16-2020 20:33-0400 BP Diastolic 68 mm[Hg] [facility] 06-16-2020 20:33-0400 BP Systolic 122 mm[Hg] [facility] 06-16-2020 20:33-0400 Pulse (Heart Rate) 88 /min [facility] 06-16-2020 20:28-0400 Body Temperature 98.49 [degF] [facility] 06-16-2020 20:28-0400 Respiratory Rate 18 /min Alisia Pool [facility] [place], [place] NEGATED: Highlighted row BMI (Body Mass Index) [facility] NEGATED: Highlighted row BMI (Body Mass Index) [facility] NEGATED: Highlighted row Body Temperature [facility] NEGATED: Highlighted row Body Temperature [facility] NEGATED: Highlighted row Body weight [facility] NEGATED: Highlighted row Body weight [facility] NEGATED: Highlighted row BP Diastolic [facility] NEGATED: Highlighted row BP Diastolic [facility] NEGATED: Highlighted row BP Systolic [facility] NEGATED: Highlighted row BP Systolic [facility] NEGATED: Highlighted row Height [facility] NEGATED: Highlighted row Height [facility] NEGATED: Highlighted row Pulse (Heart Rate) [facility] NEGATED: Highlighted row Pulse (Heart Rate) [facility] NEGATED: Highlighted row Pulse Oximetry [facility] NEGATED: Highlighted row Pulse Oximetry [facility] NEGATED: Highlighted row Respiratory Rate [facility] NEGATED: Highlighted row Respiratory Rate [facility] Encounters Encounter Date Encounter Type Care Provider Facility Start: 07-08-2024 End: 07-08-2024 Emergency department patient visit Sylvie Alexis PA-C Facility:[facility] Start: 05-24-2024 End: 05-24-2024 ambulatory [facility] Start: 05-24-2024 End: 05-24-2024 Subsequent hospital visit by physician Arabella Falk MD Work Phone: [facility] Comment on above: Acute vaginitis Start: 04-01-2024 End: 04-01-2024 Emergency department patient visit [facility] Start: 04-01-2024 End: 04-01-2024 Emergency department patient visit Kalyn Shin DO Work Phone: [facility] ED Comment on above: Syncope, unspecified syncope type (Primary Dx) Start: 01-09-2024 End: 01-09-2024 Emergency department patient visit Mary Clifton MD Facility:[facility] Start: 04-18-2023 End: 04-18-2023 Emergency department patient visit [facility] Start: 04-14-2023 End: 04-17-2023 ambulatory OSCAR ANJUM [facility] Start: 04-13-2023 End: 04-13-2023 Emergency department patient visit [facility] Start: 04-13-2023 End: 04-13-2023 Emergency department patient visit Oscar Us MD [facility] ED Comment on above: Leg swelling (Primar y Dx) Start: 04-10-2023 End: 04-10-2023 Emergency department patient visit [facility] Start: 04-10-2023 End: 04-10-2023 Emergency department patient visit Arabella Falk MD Work Phone: [facility] ED Comment on above: Poison lise dermatiti s (Primary Dx) Start: 11-20-2022 End: 11-20-2022 Subsequent hospital visit by physician Bridget Brunner DO Work Phone: [facility] Comment on above: Post-op pain (Primar y Dx); Endometriosis Start: 11-18-2022 End: 11-18-2022 Patient encounter status Arabella Falk MD Work Phone: [facility] [facility] [employer] Start: 11-18-2022 End: 11-18-2022 Subsequent hospital visit by physician Arabella Falk MD Work Phone: [facility] [place] [facility] [facility] [employer] Comment on above: History of endometri osis; Pelvic and perineal pain; Pre-op testing Start: 07-17-2022 End: 07-17-2022 Patient encounter procedure Paolo CALDERON [facility] Start: 07-14-2022 End: 07-14-2022 Subsequent hospital visit by physician Arabella Falk MD Work Phone: [facility] Comment on above: Dysuria; Acute vaginitis Start: 06-12-2022 End: 06-12-2022 Subsequent hospital visit by physician Mth Op Treatment Rm 03 [facility] Comment on above: COVID-19 (Primary Dx ) Start: 06-11-2022 End: 06-11-2022 Emergency department patient visit Arabella Falk MD Work Phone: [facility] ED Comment on above: COVID-19 (Primary Dx ) Start: 06-09-2022 End: 06-09-2022 Subsequent hospital visit by physician Arabella Falk MD Work Phone: [facility] [place] [facility] Comment on above: Incomplete emptying of bladder Start: 06-03-2022 End: 06-03-2022 Subsequent hospital visit by physician Arabella Falk MD Work Phone: [facility] Comment on above: 36 weeks gestation o f Start: 04-15-2022 End: 04-15-2022 Subsequent hospital visit by physician Arabella Falk MD Work Phone: [facility] Comment on above: Acute vaginitis; Urinary frequency; Bilateral low back pain without sciatica, unspecified chronicity Start: 01-01-2022 End: 01-01-2022 Subsequent hospital visit by physician Arabella Falk MD Work Phone: [facility] [place] [facility] Comment on above: Acute vaginitis Start: 12-15-2021 End: 12-15-2021 Subsequent hospital visit by physician Arabella Falk MD Work Phone: [facility] [facility] [employer] Comment on above: Encounter for superv ision of other normal in first trimester Start: 09-08-2021 End: 09-09-[address] ARABELLA FALK Facility:[facility] Start: 05-08-2021 End: 05-08-2021 Subsequent hospital visit by physician Arabella Falk MD Work Phone: [facility] [facility] [facility] Comment on above: Amenorrhea, secondar y Start: 04-24-2021 End: 04-25-[address] ARABELLA FALK Facility:[facility] Start: 2021 End: 04-22-[address] ARABELLA FALK Facility:[facility] Start: 04-09-2021 End: 04-09-2021 Emergency department patient visit Karlene Ibarra MD [facility] ED Comment on above: Acute cystitis witho ut hematuria (Primary Dx) Start: 02-26-2021 End: 02-26-2021 Subsequent hospital visit by physician [facility] RAI DOCTOR Comment on above: Subacute vaginitis; Screening examination for venereal disease Start: 09-30-2020 End: 09-30-2020 Subsequent hospital visit by physician CYN[facility]IA [facility] Comment on above: Lower abdominal tend erness; Frequency of micturition; Pelvic pain Start: 09-20-2020 End: 09-21-2020 Evaluation and management of inpatient Bridget Brunner Work Phone: [facility] Labor and Delivery Start: 09-02-2020 End: 09-02-2020 Subsequent hospital visit by physician Alisia [facility] Comment on above: Acute vaginitis; Urgency of urination Start: 08-29-2020 End: 08-29-2020 Subsequent hospital visit by physician Alisia RAI DOCTOR Comment on above: Encounter for superv ision of other normal in third trimester Start: 08-13-2020 End: 08-13-2020 Patient encounter procedure CARIDAD KAPADIA [facility] Start: 08-13-2020 End: 08-13-2020 Subsequent hospital visit by physician Caridad Kapadia Work Phone: [facility] Labor and Delivery Start: 07-01-2020 End: 07-01-2020 Subsequent hospital visit by physician Arabella [facility] Start: 06-20-2020 End: 06-20-2020 Emergency department patient visit Brian Santana Work Phone: [facility] ED Comment on above: Contact dermatitis, unspecified contact dermatitis type, unspecified trigger (Primary Dx) Start: 06-16-2020 End: 06-16-2020 Subsequent hospital visit by physician Alisia Gross Work Phone: [facility] Labor and Delivery Procedures Date Procedure Procedure Detail Performing Clinician Start: 04-01-2024 Ct head/brain w/o co ntrast material Kalyn Shin DO Work Phone: Start: 04-01-2024 GLUCOSE, WHOLE BLOOD Jose R Alcocer Shin DO Work Phone: Start: 04-01-2024 Radiologic exam ches t single view Kalyn Alcocer Shin DO Work Phone: Start: 04-01-2024 Basic metabolic pane l calcium total Kalyn Alcocer Shin DO Work Phone: Start: 04-01-2024 Ecg routine ecg w/le ast 12 lds w/i&r Kalyn Alcocer Shin DO Work Phone: Start: 04-01-2024 Urine test visual color cmprsn meths Kalyn Alcocer Shin DO Work Phone: Start: 04-01-2024 Urnls dip stick/tabl et reagent auto microscopy Kalyn Alcocer Shin DO Work Phone: Start: 04-13-2023 Fibrin dgradj produc ts d-dimer quantitative Oscar Us MD Start: 11-18-2022 Gonadotropin chorion ic qualitative Georgia Smith CIVIL DESIGNER - CNM Work Phone: Start: 07-14-2022 Iadna deepti specie s direct probe tq Ruby WRAYC Work Phone: Start: 06-11-2022 Radiologic exam ches t single view Vu Calle PA-C Work Phone: Start: 06-11-2022 Ecg routine ecg w/le ast 12 lds w/i&r Vu Calle PA-C Work Phone: Start: 06-11-2022 COVID-19, RAPID Oscar noble MD Start: 04-15-2022 Iadna deepti specie s direct probe tq Raul Pinto CIVIL DESIGNER - VOLUNTEER PATIENT REPRESENTATIVE Work Phone: Start: 12-15-2021 Drug screen class list a Raul Pinto CIVIL DESIGNER - VOLUNTEER PATIENT REPRESENTATIVE Work Phone: Start: 12-15-2021 Urnls dip stick/tabl et rgnt auto w/o microscopy Raul Pinto CIVIL DESIGNER - VOLUNTEER PATIENT REPRESENTATIVE Work Phone: Start: 12-15-2021 Antibody screen Arabella Falk MD Work Phone: Start: 12-15-2021 Antibody hiv-1&hiv-2 single result Raul Santiagokrys CIVIL DESIGNER - VOLUNTEER PATIENT REPRESENTATIVE Work Phone: Start: 05-08-2021 Gonadotropin chorion ic quantitative Raul Raheelnella CIVIL DESIGNER - VOLUNTEER PATIENT REPRESENTATIVE Work Phone: Start: 04-09-2021 Radiologic exam ches t single view Karlene Ibarra MD Start: 04-09-2021 Ct abdomen & pelvis w/contrast material Karlene Ibarra MD Start: 04-09-2021 Urnls dip stick/tabl et reagent auto microscopy Karlene Ibarra MD Start: 04-09-2021 Basic metabolic pane l calcium total Karlene Ibarra MD Start: 09-30-2020 Blood count complete auto&auto difrntl wbc Raul Raheelnella Work Phone: Start: 09-21-2020 Blood count complete automated Bridget Brunner Work Phone: Start: 09-20-2020 Antibody screen Bridget Natalya Brunner Start: 09-20-2020 Drug screen class list a Bridgetashlee Brunner Work Phone: Start: 09-20-2020 Blood typing serologic abo Bridget Nelsontrong Work Phone: Start: 09-20-2020 Blood count complete auto&auto difrntl wbc Bridgetashlee Nelsontrong Work Phone: Start: 09-02-2020 Urinalysis microscop ic only Raul Pickeringnella Work Phone: Start: 09-02-2020 Urnls dip stick/tabl et rgnt auto w/o microscopy Raul Jackkrys Work Phone: Start: 08-13-2020 DISCHARGE PATIENT CARIDAD WILLARD Start: 08-13-2020 NURSING COMMUNICATION S CARIDAD KAPADIA Start: 08-13-2020 DIET CLEAR LIQUID CARIDAD KAPADIA Start: 08-13-2020 ASSESS HEART TONES CARIDAD KAPADIA Start: 08-13-2020 CONTRACTION -MONITORING CARIDAD KAPADIA Start: 08-13-2020 Culture bacterial quanttative colony count urine CARIDAD KAPADIA Start: 08-13-2020 FULL CODE CARIDAD Barksdale Start: 08-13-2020 Gluc bld gluc mntr d ev cleared fda spec home use CARIDAD KAPADIA Start: 08-13-2020 MONITOR HEART TONES CARIDAD KAPADIA Start: 08-13-2020 NOTIFY PHYSICIAN (SPECIFY) CARIDAD KAPADIA Start: 08-13-2020 VITAL SIGNS CARIDAD Barksdale Start: 08-13-2020 Urinalysis microscop ic only CARIDAD KAPADIA Start: 08-13-2020 Urnls dip stick/tabl et rgnt auto w/o microscopy CARIDAD KAPADIA Start: 08-13-2020 Urinalysis microscop ic only Caridad Kapadia Work Phone: Start: 08-13-2020 Urnls dip stick/tabl et rgnt auto w/o microscopy Caridad Kapadia Work Phone: Start: 07-01-2020 Assay of blood/uric acid Georgia Smith Work Phone: Start: 07-01-2020 Blood count complete auto&auto difrntl wbc Georgia Smith Work Phone: Start: 07-01-2020 Comprehensive metabo lic panel Georgia Smith Work Phone: Start: 07-01-[address] gtt 3 specimens Georgia Smith Work Phone: Start: 06-16-2020 Urnls dip stick/tabl et rgnt auto w/o microscopy Alisia Gross Work Phone: Tonsillectomy Paolo KVNG Plan of Treatment Date Care Activity Detail Author Start: 2032 DTaP/Tdap/Td vaccine (9 - Td or Tdap) DTaP/Tdap/Td vaccine (9 - Td or Tdap) [facility] Start: 07-31-2030 DTaP/Tdap/Td vaccine (8 - Td or Tdap) DTaP/Tdap/Td vaccine (8 - Td or Tdap) [facility] Start: 07-31-2030 DTaP/Tdap/Td vaccine (8 - Td) DTaP/Tdap/Td vaccine (8 - Td) [facility] [place], [place] Start: 06-12-2024 End: 06-12-2024 Patient encounter procedure 06/12/2024 10:00 AM EDT Office Visit [facility] Obstetrics & Gynecology [address] [facility], [address] [place] [address] Raul Pinto APRN - NP [address] [facility] [address] [place] [address] annual [facility] Comment on above: annual Start: 06-08-2024 Influenza vaccination B ON [facility] Start: 06-29-2023 End: 06-29-2023 Patient encounter procedure 06/29/2023 Office Visit Obstetrics and Gynecology Georgia Smith, CIVIL DESIGNER - CNM [address] [place] [address] [facility] Start: 06-08-2023 Influenza vaccination Flu vacc ine (Season Ended) [facility] Start: 04-14-2023 End: 04-14-2023 Patient encounter procedure 04/14/2023 Appointment Vascular Lab [facility] Vascular Lab Start: 12-15-2022 Screening for Chlamy german trachomatis [facility] Start: 12-09-2022 End: 12-09-2022 Patient encounter procedure 12/09/2022 Office Visit Obstetrics and Gynecology Ruby Plaza PA-C [address] [place] [address] [facility] Start: 11-20-2022 End: 11-20-2022 Laparoscopy w/rmvl adnexal structures [facility] Start: 08-04-2022 End: 08-04-2022 ambulatory 08/04/2022 Visit Obstetrics and Gynecology Georgia Smith, CIVIL DESIGNER - CNM [address] [place] [address] [facility] Start: 07-09-2022 Influenza vaccination B ON [facility] Start: 06-15-2022 End: 06-15-2022 Patient encounter procedure 06/15/2022 Routine Obstetrics and Gynecology Georgia Smith, CIVIL DESIGNER - CNM [address] [place] [address] [facility]s [facility] Start: 06-15-2022 End: 06-15-2022 Professional / ancillary services management 06/15/2022 Ancillary Procedure Obstetrics and Gynecology [facility] Start: 06-09-2022 End: 06-09-2022 Patient encounter procedure 06/09/2022 Routine Obstetrics and Gynecology Raul Pinto APRN - VOLUNTEER PATIENT REPRESENTATIVE [address] [address] [facility] Start: 06-09-2022 End: 06-09-2022 Professional / ancillary services management 06/09/2022 Ancillary Procedure Obstetrics and Gynecology [facility] Start: 06-08-2022 Influenza vaccination Flu vaccine (# 1) [facility] Start: 04-28-2022 End: 04-28-2022 Patient encounter procedure 04/28/2022 Office Visit Obstetrics and Gynecology Georgia Smith, CIVIL DESIGNER - CNM [address] [place] [address] [facility] Start: 2022 Screening for malign ant neoplasm of cervix Pap smear [facility] Start: 2022 End: 2022 Patient encounter procedure 2022 Routine Obstetrics and Gynecology Georgia Smith, CIVIL DESIGNER - CNM [address] [place] [address] [facility] Start: 2022 End: 2022 Professional / ancillary services management 2022 Ancillary Procedure Obstetrics and Gynecology [facility] Start: 02-26-2022 Screening for Chlamy german trachomatis Chlamydia screen [facility] Start: 02-16-2022 End: 02-16-2022 Patient encounter procedure 02/16/2022 Routine Obstetrics and Gynecology Georgia Smith APRN - CNM [address] [place] [address] [facility]s [facility] Start: 02-16-2022 End: 02-16-2022 Professional / ancillary services management 02/16/2022 Ancillary Procedure Obstetrics and Gynecology [facility] Start: 01-12-2022 End: 01-12-2022 Patient encounter procedure 01/12/2022 Routine Obstetrics and Gynecology Georgia Smith APRN - CNM [address] [place] [address] [facility]s [facility] Start: 07-09-2021 Influenza vaccination [facility] Start: 04-28-2021 End: 04-28-2021 Patient encounter procedure [facility] Start: 2021 End: 2021 Patient encounter procedure 2021 Office Visit Obstetrics and Gynecology Caridad Hanks APRN - ANDERS [address] [place] [address] [phone] [facility] Start: 04-03-2021 End: 04-03-2021 Patient encounter procedure 04/03/2021 Office Visit Obstetrics and Gynecology Georgia Smith APRN - CNM [facility]etrics [facility] Gy[facility] Start: 09-18-2020 End: 09-18-2020 Routine 09/18/2020 Routine Obstetrics and Gynecology Bridget Lowry, [address] [place] [address] [facility] Start: 09-12-2020 End: 09-12-2020 Routine 09/12/2020 Routine Obstetrics and Gynecology Bridget Lowry, DO [address] [place] [address] [facility] Start: 09-04-2020 End: 09-04-2020 Routine 09/04/2020 Routine Obstetrics and Gynecology Georgia Smith, CIVIL DESIGNER - CNM [address] [place] [address] [facility] Start: 07-18-2020 End: 07-18-2020 Ancillary Procedure 07/18/2020 Ancillary Procedure Obstetrics and Gynecology Raul Pinto APRN - VOLUNTEER PATIENT REPRESENTATIVE [address] [place] [address] [facility] Start: 07-09-2020 Influenza vaccination Flu vaccine (# 1) [place], [place] Start: 2020 DTaP/Tdap/Td vaccine (1 - Tdap) DTaP/Tdap/Td vaccine (1 - Tdap) [place] Start: 2017 COVID-19 Vaccine (1) COVID-19 Vaccin e (1) [facility] [employer] Phone: Start: 2017 Screening for Chlamy german trachomatis Chlamydia screen [place], [place] Start: 2016 HIV screening HIV screen [facility] Start: 12-24-2013 HPV vaccine (3 - 2-d ose series) HPV vaccine (3 - 2-dose series) [facility] Start: 2013 COVID-19 Vaccine (1) COVID-19 Vaccin e (1) [facility] Work Phone: Start: 2013 Depression Monitoring Depression Mon [facility] Start: 2012 HPV vaccine (1 - 2-d ose series) HPV vaccine (1 - 2-dose series) [place], [place] Start: 10-06-2006 Varicella vaccine (2 of 2 - 2-dose childhood series) Varicella vaccine (2 of 2 - 2-dose childhood series) [facility] Start: 2006 COVID-19 Vaccine (1) COVID-19 Vaccin e (1) [facility] Start: 2002 Varicella vaccine (1 of 2 - 2-dose childhood series) Varicella vaccine (1 of 2 - 2-dose childhood series) [place] Start: 2001 COVID-19 Vaccine (#1) COVID-19 Vacci ne (#1) [facility] Start: 2001 Hepatitis C screening Hepatitis C sc reen [facility] End: 06-16-2020 Bacteria identified Cx Nom (U) Urine culture Microbiology Routine One Time for 1 Occurrences starting 06/16/2020 until 06/16/2020 [place], [place] Comment on above: One Time for 1 Occur rences starting 06/16/2020 until 06/16/2020 End: 08-13-2020 Bacteria identified Cx Nom (U) Urine culture Microbiology Routine One Time for 1 Occurrences starting 08/13/2020 until 08/13/2020 [place] Comment on above: One Time for 1 Occur rences starting 08/13/2020 until 08/13/2020 End: 07-01-2020 Bile Acids, Total Bile Acids, Total Lab Routine Once for 1 Occurrences starting 07/01/2020 until 07/01/2020 [place] Comment on above: Once for 1 Occurrenc es starting 07/01/2020 until 07/01/2020 Bile Acids, Total Bile Acids, To edilia Lab Routine 07/01/2020 8:53 AM EDT [place] End: 02-26-2021 C.trachomatis N.gonorrhoeae DNA C.trachomatis N.gonorrhoeae DNA Microbiology Routine Screening examination for venereal disease 1 Occurrences starting 02/26/2021 until 02/26/2021 [facility] Work Phone: Comment on above: 1 Occurrences starti ng 02/26/2021 until 02/26/2021 C.trachomatis N.gonorrhoeae DNA C.trachomatis N.gonorrhoeae DNA Microbiology Routine Screening examination for venereal disease 02/26/2021 8:51 PM EDT [employer] Phone: End: 06-03-2022 Cul prsmptv pthgnc organism scrn w/colony estimj [facility] [employer] Phone: Comment on above: 1 Occurrences starti ng 06/03/2022 until 06/03/2022 End: 09-30-2020 Culture, Genital [facility] [email or web address] Comment on above: 1 Occurrences starti ng 09/30/2020 until 09/30/2020 Once for 1 Occurrenc es starting 09/30/2020 until 09/30/2020 Culture, Genital Culture, Genita l Microbiology Routine 09/30/2020 9:44 PM EST [facility] [place] End: 08-29-2020 Culture, Strep B Screen, Vaginal/Rectal Culture, Strep B Screen, Vaginal/Rectal Microbiology Routine Encounter for supervision of other normal in third trimester 1 Occurrences starting 08/29/2020 until 08/29/2020 [place] Comment on above: 1 Occurrences starti ng 08/29/2020 until 08/29/2020 Culture, Strep B Scr een, Vaginal/Rectal Culture, Strep B Screen, Vaginal/Rectal Microbiology Routine Encounter for supervision of other normal in third trimester 08/29/2020 9:09 PM EDT [place] End: 09-02-2020 Culture, Urine Culture, Urine Microbiology Routine Urgency of urination 1 Occurrences starting 09/02/2020 until 09/02/2020 [place] Comment on above: 1 Occurrences starti ng 09/02/2020 until 09/02/2020 End: 09-30-2020 Culture, Urine [facility] Comment on above: 1 Occurrences starti ng 09/30/2020 until 09/30/2020 Once for 1 Occurrenc es starting 09/30/2020 until 09/30/2020 Culture, Urine Culture, Urine Microbiology Routine 09/30/2020 3:15 PM EST [facility] [place] End: 12-15-2021 Culture, Urine [employer] Phone: Comment on above: 1 Occurrences starti ng 12/15/2021 until 12/15/2021 End: 04-15-2022 Culture, Urine [employer] Work Phone: Comment on above: 1 Occurrences starti ng 04/15/2022 until 04/15/2022 End: 06-09-2022 Culture, Urine [employer] Phone: Comment on above: 1 Occurrences starti ng 06/09/2022 until 06/09/2022 End: 07-14-2022 Culture, Urine [employer] Phone: Comment on above: 1 Occurrences starti ng 07/14/2022 until 07/14/2022 EKG 12 Lead EKG 12 Lead ECG STAT 06/11/2022 7:18 PM EDT [employer] Phone: EKG 12 Lead EKG 12 Lead ECG STAT 04/01/2024 2:25 PM EDT [employer] nonstress test [facility] [place] Comment on above: Daily until disconti nued starting 06/17/2020 Daily until disconti nued starting 08/14/2020 End: 11-20-2022 INITIATE PACU OXYGEN THERAPY PROTOCOL Initiate PACU Oxygen Therapy Protocol Respiratory Care Routine Continuous until discontinued starting 11/20/2022 [employer] Comment on above: Continuous until dis continued starting 11/20/2022 Nonrebreather mask oxygen [email or web address] [place] Comment on above: As directed - RT (DC N) until discontinued starting 06/16/2020 As directed - RT (DC N) until discontinued starting 08/13/2020 Oxygen therapy [[facility] Data Set] Initiate Oxygen Therapy Protocol Respiratory Care Routine As Needed until discontinued starting 11/20/2022 [employer] Work Phone: Comment on above: As Needed until disc ontinued starting 11/20/2022 End: 11-20-2022 , Urine , Urine Lab Routine One Time for 1 Occurrences starting 11/20/2022 until 11/20/2022 [employer] Phone: Comment on above: One Time for 1 Occur rences starting 11/20/2022 until 11/20/2022 End: 11-20-2022 , urine POCT , urine POCT Point of Care Testing Routine One Time for 1 Occurrences starting 11/20/2022 until 11/20/2022 [employer] Phone: Comment on above: One Time for 1 Occur rences starting 11/20/2022 until 11/20/2022 Surgical Pathology Surgical Path ology Lab Routine Endometriosis Release Upon Ordering for 1 Occurrences starting 11/20/2022 [employer] Phone: Comment on above: Release Upon Orderin g for 1 Occurrences starting 11/20/2022 End: 06-16-2020 SVE SVE Point of Care Testing Routine One Time for 1 Occurrences starting 06/16/2020 until 06/16/2020 [facility] [place] Comment on above: One Time for 1 Occur rences starting 06/16/2020 until 06/16/2020 End: 08-13-2020 SVE SVE Point of Care Testing Routine One Time for 1 Occurrences starting 08/13/2020 until 08/13/2020 [facility] [email or web address] Comment on above: One Time for 1 Occur rences starting 08/13/2020 until 08/13/2020 End: 09-02-2020 Vaginitis DNA Probe Vaginitis DNA Probe Microbiology Routine Acute vaginitis 1 Occurrences starting 09/02/2020 until 09/02/2020 [email or web address] [place] Comment on above: 1 Occurrences starti ng 09/02/2020 until 09/02/2020 End: 07-01-2020 VAGINITIS DNA PROBE VAGINITIS DNA PROBE Microbiology Routine Once for 1 Occurrences starting 07/01/2020 until 07/01/2020 [facility] [place] Comment on above: Once for 1 Occurrenc es starting 07/01/2020 until 07/01/2020 VAGINITIS DNA PROBE [employer] [facility] [place] End: 02-26-2021 VAGINITIS DNA PROBE VAGINITIS DNA PROBE Microbiology Routine Subacute vaginitis 1 Occurrences starting 02/26/2021 until 02/26/2021 [employer] Phone: Comment on above: 1 Occurrences starti ng 02/26/2021 until 02/26/2021 End: 01-01-2022 Vaginitis DNA Probe [employer] Phone: Comment on above: 1 Occurrences starti ng 01/01/2022 until 01/01/2022 End: 05-24-2024 Vaginitis DNA Probe [facility] Comment on above: 1 Occurrences starti ng 05/24/2024 until 05/24/2024 End: 04-13-2023 VL DUP LOWER EXTREMITY VENOUS LEFT VL DUP LOWER EXTREMITY VENOUS LEFT Imaging Routine Once for 1 Occurrences starting 04/13/2023 until 04/13/2023 [facility] Comment on above: Once for 1 Occurrenc es starting 04/13/2023 until 04/13/2023 Immunizations Immunization Date Immunization Notes Care Provider Freedom zhang 2022 tetanus toxoid, redu martin diphtheria toxoid, and acellular pertussis vaccine, adsorbed Arabella Falk MD Work Phone: [facility] 09-20-2020 diphtheria, tetanus toxoids and acellular pertussis vaccine, unspecified formulation [facility], [place] 09-20-2020 measles, mumps and rubella virus vaccine [facility], [place] 07-31-2020 tetanus toxoid, redu martin diphtheria toxoid, and acellular pertussis vaccine, adsorbed Alisia Pool [facility], [place] 06-21-2018 meningococcal oligosaccharide (groups A, C, Y and W-135) diphtheria toxoid conjugate vaccine (MCV4O) Arabella Falk MD Work Phone: [facility] Work Phone: 09-29-2013 human papilloma viru s vaccine, quadrivalent Arabella Falk MD Work Phone: [facility] Work Phone: 09-29-2013 meningococcal polysaccharide (groups A, C, Y and W-135) diphtheria toxoid conjugate vaccine (MCV4P) Arabella Falk MD Work Phone: [facility] Work Phone: 06-23-2013 human papilloma viru s vaccine, quadrivalent Arabella Falk MD Work Phone: [facility] [email or web address] Work Phone: 06-23-2013 tetanus toxoid, redu martin diphtheria toxoid, and acellular pertussis vaccine, adsorbed Arabella Falk MD Work Phone: [facility] [email or web address] Work Phone: 07-14-2006 varicella virus vaccine Brenden Falk MD Work Phone: [facility] Work Phone: 11-19-2005 diphtheria, tetanus toxoids and acellular pertussis vaccine, 5 pertussis antigens Arabella Falk MD Work Phone: [facility] Work Phone: 11-19-2005 measles, mumps and rubella virus vaccine Arabella Falk MD Work Phone: [facility] Work Phone: 11-19-2005 poliovirus vaccine, inactivated Arabella Falk MD Work Phone: [facility] Work Phone: 06-14-2002 diphtheria, tetanus toxoids and acellular pertussis vaccine, unspecified formulation Arabella Falk MD Work Phone: [facility] Work Phone: 06-14-2002 haemophilus influenz ae type b conjugate and Hepatitis B vaccine Arabella Falk MD Work Phone: [facility] Work Phone: 05-05-2002 measles, mumps and rubella virus vaccine Arabella Falk MD Work Phone: [facility] Work Phone: 2001 diphtheria, tetanus toxoids and acellular pertussis vaccine, unspecified formulation Arabella Falk MD Work Phone: [facility] Work Phone: 2001 haemophilus influenz ae type b vaccine, conjugate unspecified formulation Arabella Falk MD Work Phone: [facility] [email or web address] Work Phone: 2001 poliovirus vaccine, inactivated Arabella Falk MD Work Phone: [employer] Work Phone: 2001 diphtheria, tetanus toxoids and acellular pertussis vaccine, unspecified formulation Arabella Falk MD Work Phone: [employer] Work Phone: 2001 haemophilus influenz ae type b conjugate and Hepatitis B vaccine Arabella Falk MD Work Phone: [employer] Work Phone: 2001 poliovirus vaccine, inactivated Arabella Falk MD Work Phone: [employer] Work Phone: 2001 diphtheria, tetanus toxoids and acellular pertussis vaccine, unspecified formulation Arabella Falk MD Work Phone: [employer] Work Phone: 2001 haemophilus influenz ae type b conjugate and Hepatitis B vaccine Arabella Falk MD Work Phone: [employer] Work Phone: 2001 poliovirus vaccine, inactivated Arabella Falk MD Work Phone: [employer] Work Phone: Payers Date Payer Category Payer Private Health Insurance [id number] 2023 Private Health Insurance 2023 Unknown 2022 Medicaid [id number] 2001 Unknown [id number] 2.16.8 [id number] 2001 Unknown [id number] 2.16.84 [id number] 2001 Unknown [id number] 2.16.84 [id number] 2001 Unknown [id number] 2.16.84 [id number] 2001 Unknown [id number] 2.16.8 [id number] 2001 Unknown [id number] 2.16.8 [id number] 2001 Unknown [id number] 2.16.8 [id number] 2001 Unknown [id number] 2.16.8 [id number] 2001 Unknown [id number] 2.16.8 [id number] 2001 Unknown [id number] 2.16. [id number] 2001 Unknown [id number] 2.16. [id number] 2001 Unknown [id number] 2.16. [id number] 1959 Medicaid [id number] 1959 Unknown [id number] 1958 Unknown [id number] Self-pay Social History Date Type Detail Facility Start: 06-16-2020 End: 06-22-2022 Tobacco smoking status NHIS Never smoker [place], [place] Start: 06-16-2020 End: 06-22-2022 Tobacco use and exposure Never used [place] Start: 06-16-2020 End: 06-20-2020 Alcohol intake Lifetime non-drinker (finding) [place] Start: 06-16-2020 End: 06-17-2020 History SDOH [facility]: [facility] Start: [facility] on [facility] Start: 04-29-2022 End: 11-20-2022 Exposure to SARS-CoV-2 (event) Not sure [facility] Start: 08-13-2020 End: 05-24-2024 Alcohol intake [facility] (finding[facility] Start: 06-02-2022 End: 06-22-2022 Exposure to SARS-CoV-2 (event) Yes [facility] [employer] Start: 04-13-2023 End: 04-18-2023 Sex Assigned At Female [facility] Start: 04-14-2023 History SDOH Alcohol Std Drinks 0 [facility] [employer] Work Phone: Start: 04-13-2023 End: 04-18-2023 History of Social function [facility] [employer] Frequency of Alcohol Consumption Not on file [facility] [employer] The thought of khang gertrudis myself has occurred to me Never [facility] [employer] Clinical Notes 06-02-2022 to 04-01-2024 Discharge InstructionsAttachmentsDischarge InstructionsAttachmentsCharis Peng RN - 11/20/2022 11:00 AM Elena Kapadia APRN - FARA - 11/17/2022 1:16 PM ESTDischarge InstructionsAttachments Note Date & Type Note Facility 04-01-2024 Hospital Discharg e instructions Kalyn Shin DO - 04/01/2024 4:19 PM EDT Drink plenty of fluids at home. Make sure to eat regularly at frequent intervals to maintain your blood sugars. Follow-up with your doctor next week. The following attachments cannot be sent through Care Everywhere.Fainting ([place])documented in this encounter [facility] 01-09-2024 Note PROCEDURE: US Transv aginal w/ Duplex, 01/09/2024 6:15 PM EST CLINICAL INDICATIONS: Left lower quadrant pelvic pain LMP 12/27/2023 3 para 3 COMPARISON: CT abdomen and pelvis 01/09/2024 TECHNIQUE: Transvaginal pelvic sonogram, grayscale, color evaluation. FINDINGS: Uterus: 8.4 x 3.4 x 5.0 cm. Endometrial echo complex 0.4 cm. Normal uterine sonographic morphology. Focal abnormality is not demonstrated. Nabothian paracervical cysts are noted measuring up to 0.9 cm. Right ovary: 2.6 x 1.8 x 3.2 cm, volume 8 mL. Subcentimeter follicles identified, normal sonographic morphology. Left ovary: 3.3 x 1.9 x 1.5 cm, volume 5 mL. Subcentimeter follicle seen, normal sonographic morphology. DUPLEX PELVIC VASCULATURE: There is intact flow within the ovarian tissue bilaterally by color-flow assessment. Arterial and venous spectral tracing is identified from within. No free fluid. IMPRESSION: 1. Subcentimeter nabothian paracervical cyst 2. Normal uterine and bilateral ovarian sonographic morphology. 3. No sonographic sign of adnexal torsion Final Dictated by: Justin Muñoz MD Dictated DT/TM: 01/09/2024 6:37 pm Signed by: Justin Muñoz MD Signed (Electronic Signature): 01/09/2024 6:43 pm (If Report Is Signed, Electronically Signed in Other Vendor System) [facility] 04-13-2023 Hospital Discharg e instructions Oscar Us MD - 04/13/2023 9:51 PM EDT I am concerned about the possibility of a DVT (blood clot) in your left leg. Because of this we have arranged for an ultrasound. This is scheduled for tomorrow (04/14) at 8:30 AM. Please arrive in the outpatient radiology department at 15 minutes prior to the test. In the interim, return to the ED if you develop shortness of breath, chest pain, worsening leg pain or changes in strength or sensation, or other concerns. You were given a single dose of a blood thinner in the ED. Additional dosing will be determined after the ultrasound is completed. The following attachments cannot be sent through Care Everywhere.DVT (Deep Vein Thrombosis) ([place])documented in this encounter [employer] Phone: 11-20-2022 History of Presen t illness Narrative Patient verbalizes readiness for discharge. Discharge instructions given to patient and responsible adult, answered all questions, and verbalized understanding of discharge instructions. Discharge Criteria Inpatients must meet Criteria 1 through 7. All other patients are either YES or N/A. If a NO is chosen then Anesthesia or Surgeon must be notified. 1. Minimum 30 minutes after last dose of sedative medication, minimum 120 minutes after last dose of reversal agent. Yes 2. Systolic BP stable within 20 mmHg for 30 minutes & systolic BP between 90 & 180 or within 10 mmHg of baseline. Yes 3. Pulse between 60 and 100 or within 10 bpm of baseline. Yes 4. Spontaneous respiratory rate >/= 10 per minute. Yes 5. SaO2 >/= 95 or >/= baseline. Yes 6. Able to cough and swallow or return to baseline function. Yes 7. Alert and oriented or return to baseline mental status. Yes 8. Demonstrates controlled, coordinated movements, ambulates with steady gait, or return to baseline activity function. Yes 9. Minimal or no pain or nausea, or at a level tolerable and acceptable to patient. Yes 10. Takes and retains oral fluids as allowed. Yes 11. Procedural / perioperative site stable. Minimal or no bleeding. Yes 12. If GI endoscopy procedure, minimal or no abdominal distention or passing flatus. N/A 13. Written discharge instructions and emergency telephone number provided. Yes 14. Accompanied by a responsible adult. Yes Chart reviewed per requet of PAT. EKG NSR with poss anterior infarct. Otherwise healthy 22 yo. OK to proceed with anesthesia for meal temperer surgery on 11/20/2022 Asked anesthesia to review chart/EKG due to abnormal reading. FARA Johnson notified. Patient instructed on the pre-operative, intra-operative, and post-operative process. Patient instructed on NPO status. Medication instructions and pre operative instruction sheet reviewed with the patient. CHG skin prep instructions reviewed with patient. documented in this encounter [facility] [employer] Phone: 11-20-2022 Hospital Discharg e instructions Charis Peng RN - 11/20/2022 7:59 AM EST SAME DAY SURGERY DISCHARGE INSTRUCTIONS 1. Do not drive or operate hazardous machinery for 24 hours. 2. Do not make important personal or business decisions for 24 hours. 3. Do not drink alcoholic beverages for 24 hours. 4. Do not smoke tobacco products for 24 hours. 5. Patient should not be left alone for 12-24 hours following surgical procedure. 6. Eat light foods (Jell-O, soups, etc....) and drink plenty of fluids (water, Sprite, etc...) up to 8 glasses per day, as you can tolerate. 7. If your bandages become soaked with bright red blood, place another dressing pad over your bandages. (DO NOT remove original bandage.) Call your surgeon for further instructions. A small amount of bright red blood is to be expected. 8. Wash hands before and after incision care. It is important to practice good personal hygiene during the post op period. 9. You may remove your dressing the morning following surgery; leave the steri-strips in place, they will fall off on their own. 10. If no drainage from incisions you may shower. 11. Limit your activities for 24 hours. Do not engage in heavy work until your surgeon gives you permission. DO NOT lift anything heavier than 10 pounds. You may go up & down stairs and do any activity that can be done comfortably. 12. Report the following signs or any questions regarding your physical condition to your surgeon immediately: Excessive swelling of, or around the wound area. Redness or pus-like drainage Temperature of 100 degrees (F) or above. Excessive pain. If unable to urinate 4 hours after surgery. If bleeding at surgery site continues after 5-10 minutes of pressure. 13. Pain Control: Take pain meds as prescribed. You may use over the counter meds like Acetaminophen or Ibuprofen if not part of the meds already prescribed. While on narcotic pain meds DO NOT drive, operate machinery or make business decisions. 14. Try to avoid constipation (no bowel movement) by using over the counter Colace once or twice daily and increasing your fluid intake. Please call if no bowel movement after increasing fluid intake, use of Milk of Magnesia, Pericolace (laxative) or Dulcolax suppositories. 15. No sexual activity, tampons, douches, sitting in hot tubs/saunas or swimming in pools/ponds for 6 weeks or until cleared by your surgeon. 16. Call your surgeon for any questions regarding your surgery. 17. Call for an appointment to see your surgeon in [address] Hoang -- [place] office [phone] [place] office [phone] documented in this encounter [employer] Phone: 06-12-2022 History of Presen t illness Narrative Discharge instructions reviewed with pt, verbalizes understanding, denies needs at this time Patient presents for scheduled monoclonal antibody infusion. Confirmed meets criteria. VSS. documented in this encounter [employer] Phone: 06-11-2022 Hospital Discharg e instructions Vu Calle PA-C - 06/11/2022 8:32 PM EDT Follow-up with EMERGENCY PHYSICIAN tomorrow. Continue Tylenol as directed and plenty of fluids. Promptly return to emergency department for new, changing or worsening of symptoms or other concerns. The following attachments cannot be sent through Care Everywhere.Coronavirus Disease (COVID-19): General Info ([place])documented in this encounter [employer] Phone: 06-02-2022 Hospital Discharg e instructions Follow Up Care 06/02/2022 15:59:30 With:KVNG THURMAN, Paolo Arango, URL Address: [address] [place] [id number] When: Unknown [facility] Raissa Evaluation + Plan note No data available for this section [facility] Raissa Evaluation note Diagnosis Subacute vaginitis Screening examination for venereal disease documented in this encounter [employer] Phone: [email or web address] note* Diagnosis Acute cystitis without hematuria- Primary Acute cystitis documented in this encounter [employer] Phone: [email or web address] note* Diagnosis Amenorrhea, secondary Absence of menstruation documented in this encounter [employer] Phone: [email or web address] note* Diagnosis Encounter for supervision of other normal in first trimester documented in this encounter [employer] Phone: evalbauahp note* Diagnosis Acute vaginitis Vaginitis and vulvovaginitis, unspecified documented in this encounter [employer] Phone: evalvuvggo note* Diagnosis Acute vaginitis Vaginitis and vulvovaginitis, unspecified Urinary frequency Bilateral low back pain without sciatica, unspecified chronicity documented in this encounter [employer] Phone: [email or web address] note* Diagnosis 36 weeks gestation of state, incidental documented in this encounter [employer] Phone: evalsvtchm note* Diagnosis Incomplete emptying of bladder Incomplete bladder emptying documented in this encounter [facility] [employer] Phone: evalwmlhvp note* Diagnosis COVID-19- Primary documented in this encounter [facility] [employer] Phone: evaluation note* Diagnosis COVID-19- Primary documented in this encounter [facility] [employer] Phone: evaluation note* Diagnosis Dysuria Acute vaginitis Vaginitis and vulvovaginitis, unspecified documented in this encounter [facility] [employer] Phone: [email or web address] note* Diagnosis Post-op pain- Primary Other acute postoperative pain Endometriosis Endometriosis, site unspecified documented in this encounter [facility] [employer] Phone: evaluation note* Diagnosis History of endometriosis Personal history of other genital system and obstetric disorders Pelvic and perineal pain Unspecified symptom associated with female genital organs Pre-op testing Preoperative examination, unspecified documented in this encounter [facility] [employer] Phone: evaltbttjz note* Diagnosis Poison lise dermatitis- Primary Contact dermatitis and other eczema due to plants (except food) documented in this encounter [facility] [employer] Phone: evalvslsma note* Diagnosis Leg swelling- Primary Swelling of limb documented in this encounter [facility] [employer] Phone: evalnnuriw note* Diagnosis Syncope, unspecified syncope type- Primary documented in this encounter [facility] [employer]* Diagnosis Acute vaginitis Vaginitis and vulvovaginitis, unspecified documented in this encounter [facility] Discharge instructions* Attachments The following attachments cannot be sent through Care Everywhere. * UTI (Urinary Tract Infection): Female ([place]) [facility] Phone: Hospital Discharge instructions* Attachments The following attachments cannot be sent through Care Everywhere. * Coronavirus Disease (COVID-19): Caring for Yourself: Quick List ([place]) [facility] [employer] Phone: Hospital Discharge instructions* Attachments The following attachments cannot be sent through Care Everywhere. * Poison [place] - [place] - and [place] (Equatorial [place]) documented in this encounterAASHISH [employer] Phone: progress note No data available for this section [facility] [employer] reason for visit Narrative* Treatment Plan and Therapy Plan (Routine) - Open Specialty Diagnoses / Procedures Referred By Servando t Referred To Contact Diagnoses COVID-19 Vu Calle PA-C [address] [place] [id number] [facility] [address] [place] [id number] Referral ID Status Reason Start Date Expiration Date Visits Re quested Visits Authorized [id number] Open 06/12/2022 06/12/2023 1 1 [facility] [employer] Phone: Summary Purpose Family History No Family History Records FoundNo Family History Records FoundNo Family History Records FoundNo Family History Records FoundNo Family History Records FoundNo Family History Records FoundNo Family History Records FoundNo Family History Records FoundNo Family History Records Found Advance Directives No Advanced Directives Records FoundDocuments on File Type Date Recorded Patient School Physical Therapist Expl anation Advance Directives and Living Will Power of Mobile Practice Lead Latest Code Status on File Code Status Date Activated Date Inactivated Comments Full Code 06/16/2020 8:40 PM Latest Code Status on File Code Status Date Activated Date Inactivated Comments Full Code 08/13/2020 7:07 PM Documents on File Type Date Recorded Patient School Physical Therapist Expl anation ACP-Advance Directive ACP-Power of Mobile Practice Lead Latest Code Status on File Code Status Date Activated Date Inactivated Comments Full Code 08/13/2020 7:07 PM 08/13/2020 11:13 PM Full Code 06/16/2020 8:40 PM 06/16/2020 11:34 PM Latest Code Status on File Code Status Date Activated Date Inactivated Comments Full Code 09/20/2020 7:07 PM Full Code 09/20/2020 6:02 AM 09/20/2020 7:07 PM Full Code 08/13/2020 7:07 PM 08/13/2020 11:13 PM Latest Code Status on File Code Status Date Activated Date Inactivated Comments Full Code 09/20/2020 7:07 PM 09/21/2020 8:45 PM Latest Code Status on File Code Status Date Activated Date Inactivated Comments Full Code 06/16/2020 8:40 PM 06/16/2020 11:34 PM Latest Code Status on File Code Status Date Activated Date Inactivated Comments Full Code 09/20/2020 7:07 PM 09/21/2020 8:45 PM Full Code 09/20/2020 6:02 AM 09/20/2020 7:07 PM Full Code 08/13/2020 7:07 PM 08/13/2020 11:13 PM Full Code 06/16/2020 8:40 PM 06/16/2020 11:34 PM Latest Code Status on File Code Status Date Activated Date Inactivated Comments Full Code 06/22/2022 6:06 AM 06/22/2022 7:10 PM Full Code 09/20/2020 7:07 PM 09/21/2020 8:45 PM Latest Code Status on File Code Status Date Activated Date Inactivated Comments Full Code 11/20/2022 7:21 AM Full Code 06/22/2022 6:06 AM 06/22/2022 7:10 PM Full Code 09/20/2020 7:07 PM 09/21/2020 8:45 PM Latest Code Status on File Code Status Date Activated Date Inactivated Comments Full Code 11/20/2022 7:21 AM 11/20/2022 1:16 PM Full Code 06/22/2022 6:06 AM 06/22/2022 7:10 PM Latest Code Status on File Code Status Date Activated Date Inactivated Comments Full Code 11/20/2022 7:21 AM 11/20/2022 1:16 PM Code Status History Code Status Date Activated Date Inactivated Comments Full Code 06/22/2022 6:06 AM 06/22/2022 7:10 PM Full Code 09/20/2020 7:07 PM 09/21/2020 8:45 PM Full Code 09/20/2020 6:02 AM 09/20/2020 7:07 PM Full Code 08/13/2020 7:07 PM 08/13/2020 11:13 PM Hospital Course Note MR#: [id number] [facility] Pt. Name: Zaid Luna Admitted: 03/31/2019 Discharged: 04/04/2019 Date of : 2000 Physician: Scott Hernandez MD DISCHARGE SUMMARY Prabhu Ivan Patient Name: Zaid Luna D/c date: 04/04/2019 Principal Dx: Mood Disorder NOS Brief HPI - Pt. is a 18 year old female who was referred from [facility] after being seen there for a crisis evaluation this morning. Last night, pt. came to her mother and told her that she did not feel that she could keep herself safe as she was having continuous thoughts to harm herself. On 03/27/2019, pt. reports that she had taken 24 tablets of Risperdal 0.25mg. She states that she thought about what she would do, and overdosed with the intention of dying. She states that she had made arrangements that day to have someone take care of her 2 year old daughter. After taking the overdose at approx. 11:30am on 03/27/19, she did not tell anyone, and fell asleep. When she awoke, she attemp (more content not included)... Discharge Instructions * Instructions* Brian Santana MD - 06/20/2020 Please take all medications as prescribed. Please follow up with your primary care physician by calling today, or as soon as possible, for thefirst available appointment. If you do not have a primary care physician, please contact a physician or clinic listed below today to establish care. Please return to the emergency department IMMEDIATELY if you develop uncontrolled fevers, uncontrolled vomiting, change in symptoms, worsening of symptoms, or ANY other concerns. * Attachments The following attachments cannot be sent through Care Everywhere. * Dermatitis (Equ[place]) documented in this encounter* Instructions* Zulma Sutton RN - 09/21/2020 Follow-up with your OB doctor as specified. [facility] OB Department phone: Dr. Farhana Gross [facility] Dr. Viktor Kapadia [facility] [address] [facility] [address] [facility] [address] Viktor Smith [facility] [address] [facility] [address] [phone] Krista Cadet, MSN, CIVIL DESIGNER, CNM [facility] [address] [facility] [address] [address] Jimenez [address] [facility] [address] Caridad Hanks [facility] [address] [place] [address] [place] [address] Kristie Salazar CN [address] [place] [address] [place] [address] [phone] DIET Eat a well balanced diet focusing on foods high in fiber and protein. Drink plenty of fluids especially water. To avoid constipation you may take a mild stool softener as recommended by your doctor or heel sorter. ACTIVITY Gradually increase your activity. Resume exercise regimen only after advice by your doctor or heel sorter. Avoid lifting anything heavier than a gallon of milk for SIX weeks. Avoid driving until your doctor or heel sorter has given their approval. Rise slowly from a lying to sitting and then a standing position. Climb stairs one at a time. Use caution when carrying your baby up and down the stairs. NO SEXUAL Activity for 4-6 weeks or until advised by your doctor; Nothing in vagina: intercourse, tampons, or douching. Be prepared to discuss family planning at your follow-up OB visit. You may feel tired or have a lack of energy. You may continue your vitamin to replenish nutrients post delivery. Nap when baby naps to catch up on sleep. EMOTIONS You may feel arias, sad, teary, & overwhelmed. Contact your OB provider if you feel you may be showing signs of depression, or have thoughts of harming yourself or your . If infant will not stop crying, contact another adult for help or place infant in their crib on their back and take a break. NEVER shake your infant. BLEEDING Vaginal bleeding will decrease in amount over the next few weeks. You will notice that as your activity increases, your flow may increase. This is your body's way oftelling you, you need to take things easier and rest more often. Call your care provider if you are saturating more than one maxi pad in an hour & resting does not help. BREAST CARE Take medications as recommended by your doctor or heel sorter for pain If you develop a warm, red, tender area on your breast or develop a fever contact your OB provider. For moms: If you become engorged, feeding may be more difficult or painful for 1-2 days. You may find it helpful to hand express some milk so that the can latch on more easily. While , continue to take your vitamins as directed by your doctor or heel sorter. Refer to the booklet in the folder/binder for more information. If you feel you need more assistance or have questions, please call Sandra Patterson IBCLC, fashion consultant selling, at or the OB department to schedule an appointment or phone consultation. For more FREE help, visit the Support Group on Wednesday evenings at 7 pm in the OB department. For NON- moms: You may apply ice packs to your breasts over your bra for twenty minutes at a time for comfort. Avoid stimulation to your breasts, when showering allow the water to strike your back not your breasts. Wear a good fitting bra until your milk dries, such as a sports bra. DEMETRI CARE Use the demetri-bottle after toileting until bleeding stops. Cleanse your perineum from front to back If used, stitches will dissolve in 4-6 weeks. You may use a sitz bath or soak in a clean tub as needed for comfort. Kegel exercises will help restore bladder control. SWELLING Try to keep your legs elevated when you are sitting. When lying down keep your legs elevated. When wearing stocking or socks, make sure they are not too tight. WHEN TO CALL THE DOCTOR If you have a temp of 100.6 or more. If your bleeding has increased and you are saturating a pad in an hour. Your abdomen is tender to touch. You are passing blood clots bigger than the size of a lemon. If you are experiencing extreme weakness or dizziness. If you are having flu-like symptoms such as achy muscles or joints. There is a foul smell or a green color to your vaginal bleeding. If you have pain that cannot be relieved. You have persistent burning or frequency with urination. Call if you have concerns about your well-being. You are unable to sleep, eat, or are having thoughts of harming yourself or your baby. You have a red, warm, tender area in your calf. documented in this encounter* Instructions* Radha Flores, RN - 08/13/2020 Dr Viktor Smith [facility] [address] [facility] [place] [address] [phone] ACTIVITY LIMITATIONS: (x )Up and about as desired and tolerated ( )Up to bathroom only (x )Lay on either side ( )Avoid heavy lifting or exercise ( )No sex ( )No nipple stimulation ( )Complet bedrest ( )Avoid using stairs (x )Increase fluids DRINK AT LEAST eight-8oz. Glasses of water daily. Call your Doctor if: ( )Contractions are every 5 minutes apart (from start of one to the start of the next contraction) lasting 60 seconds for at least 1 hour, strong enough you can not walk or talk through the contraction and regular. (x )Bag of water breaks ( x)Vaginal bleeding (x )Unusual pain occurs (x )Decreased movement (x ) labor: If you have 4 contractions in an hour Keep your scheduled follow up appointment. IN CASE OF EMERGENCY CONTACT LABOR AND DELIVERY . documented in this encounter* Instructions* Dora Mabry, RN - 06/16/2020 OUTPATIENT DISCHARGE Judy Viramontes [facility] [place] [address] Serra Krista Cadet [facility] Caridad Hanks [facility] Kristie Salazar [facility] ACTIVITY LIMITATIONS: ( )Up and about as desired and tolerated ( )Up to bathroom only ( )Lay on either side ( x )Avoid heavy lifting or exercise ( )No sex ( )No nipple stimulation ( )Complet bedrest ( )Avoid using stairs ( x )Increase fluids DRINK AT LEAST eight-8oz. Glasses of water daily. Call your Doctor if: ( x )Contractions are every 5 minutes apart (from start of one to the start of the next contraction) lasting 60 seconds for at least 1 hour, strong enough you can not walk or talk through the contraction and regular. ( x )Bag of water breaks ( x )Vaginal bleeding ( )Unusual pain occurs ( )Decreased movement ( ) labor: If you have 4 contractions in an hour Keep your scheduled follow up appointment. Or call for a follow up on . IN CASE OF EMERGENCY CONTACT LABOR AND DELIVERY . documented in this encounter Assessments Diagnosis Fall at home, initial encounter Diagnosis Encounter for supervision of other normal in third trimester Diagnosis Acute vaginitis Vaginitis and vulvovaginitis, unspecified Urgency of urination Diagnosis Encounter for induction of labor 39 weeks gestation of state, incidental Diagnosis Lower abdominal tenderness Frequency of micturition Urinary frequency Pelvic pain Diagnosis Contact dermatitis, unspecified contact dermatitis type, unspecified trigger History of Present Illness * Alisia Gross, CIVIL DESIGNER - CNM - 09/21/2020 10:16 AM EST Department of Obstetrics and Gynecology Labor and Delivery Post Progress Note SUBJECTIVE: Pt doing well today. Pt is dressed and ready to go home pt. States this is their secondbaby. Pt is breast and bottle feeding but they think this little gir has a tongeu tie. OBJECTIVE: Vitals: BP 124/78 Pulse 142 Temp 98 F (36.7 C) (Oral) Resp 16 Ht 5' 3 (1.6 m) Wt 180 lb (81.6 kg) LMP 12/21/2019 (Exact Date) SpO2 99% Unknown BMI 31.89 kg/m Patient Vitals for the past 24 hrs: BP Temp Temp src Pulse Resp SpO2 09/21/20 0719 124/78 98 F (36.7 C) Oral 142 16 09/21/20 0424 108/62 97.9 F (36.6 C) Oral 76 16 09/21/20 0126 120/80 98.2 F (36.8 C) Oral 101 18 09/20/202000 125/81 99.1 F (37.3 C) Oral 116 16 09/20/20 194 (!) 140/84 109 09/20/20 193 129/84 103 09/20/20 1916 123/77 97 16 11/13/20 1901 126/78 99 09/20/20 1846 130/71 94 09/20/20 1831 126/73 101 09/20/20 1816 132/83 101 09/20/20 1801 (!) 131/94 108 09/20/20 1759 138/71 106 09/20/20 1745 110/60 118 09/20/20 1731 (!) 117/56 121 09/20/20 1716 (!) 106/53 125 09/20/20 1702 (!) 111/52 99 09/20/20 1647 129/69 113 09/20/20 1646 99 % 09/20/20 1645 129/69 113 09/20/20 1641 100 % 09/20/20 1640 100 % 09/20/20 1636 97 % 09/20/20 1631 124/74 105 98 % 09/20/20 1626 99 % 09/20/20 1621 99 % 09/20/20 1617 130/80 103 09/20/20 1616 99 % 09/20/20 1611 99 % 09/20/20 1606 99 % 09/20/20 1603 139/83 116 09/20/20 1601 100 % 09/20/20 1556 100 % 09/20/20 1551 100 % 09/20/20 1546 122/69 111 99 % 09/20/20 1545 122/69 111 99 % 09/20/20 1541 100 % 09/20/20 1536 100 % 09/20/20 1532 122/69 109 09/20/20 1531 99 % 09/20/20 1530 99 % 09/20/20 1526 100 % 09/20/20 1521 100 % 09/20/20 1517 (!) 100/57 98.2 F (36.8 C) Oral 103 18 09/20/20 1516 99 % 09/20/20 1515 99 % 09/20/20 1511 98 % 09/20/20 1506 99 % 09/20/20 1502 (!) 100/55 100 09/20/20 1501 100 % 09/20/20 1456 100 % 09/20/20 1451 100 % 09/20/20 1447 (!) 101/57 93 09/20/20 1446 100 % 09/20/20 1432 101/63 102 09/20/20 1431 100 % 09/20/20 1430 100 % 09/20/20 1426 100 % 09/20/20 1421 100 % 09/20/20 1416 100 % 09/20/20 1415 (!) 98/54 80 18 100 % 09/20/20 1411 100 % 09/20/20 1406 100 % 09/20/20 1401 (!) 102/59 85 100 % 09/20/20 1400 100 % 09/20/20 1347 115/77 83 09/20/20 1332 133/72 88 09/20/20 1317 (!) 99/59 97.8 F (36.6 C) Oral 85 18 09/20/20 1301 (!) 95/56 87 09/20/20 1246 97 % 09/20/20 1245 (!) 93/57 77 97 % 09/20/20 1241 97 % 09/20/20 1236 100 % 09/20/20 1231 98 % 09/20/20 1230 (!) 102/51 73 09/20/20 1226 98 % 09/20/20 1221 100 % 09/20/20 1218 65 09/20/20 1216 100 % 09/20/20 1215 (!) 90/50 65 18 100 % 09/20/20 1211 100 % 09/20/20 1209 91 % 09/20/20 1206 100 % 09/20/20 1201 119/72 116 99 % 09/20/20 1156 96 % 09/20/20 1151 100 % 09/20/20 1147 120/63 107 09/20/20 1146 100 % 09/20/20 1141 100 % 09/20/20 1137 119/72 95 09/20/20 1136 100 % 09/20/20 1133 112/70 94 09/20/20 1131 100 % 09/20/20 1126 112/68 109 98 % 09/20/20 1121 121/75 125 97 % 09/20/20 1118 121/76 100 09/20/20 1116 97 % 09/20/20 1115 129/74 97.9 F (36.6 C) Oral 88 20 97 % 09/20/20 1112 114/75 108 09/20/20 1111 98 % 09/20/20 1109 125/65 113 09/20/20 1106 127/79 98 99 % 09/20/20 1103 124/74 101 09/20/20 1101 100 % 09/20/20 1100 (!) 141/69 103 91 % 09/20/20 1052 125/75 82 09/20/20 1036 119/79 95 ABDOMEN: normal shape, position and consistency GENITAL/URINARY: External Genitalia: General appearance; normal, Hair distribution; normal, Lesionsabsent Uterus: Size normal, Contour normal Breast:normal appearance, no masses or tenderness Cor: RRR no Murmurs Pulmonary: clear to auscultation anterior and posterior Extremities: no Clubbing cyanosis or ecchymosis Per dehorner since mom is up out of bed DATA: CBC with Differential: Lab Results Component Value Date WBC 11.0 09/21/2020 RBC 3.75 09/21/2020 HGB 11.3 09/21/2020 HCT 35.2 09/21/2020 PLT 137 09/21/2020 MCV 93.9 09/21/2020 MCH 30.1 09/21/2020 MCHC 32.1 09/21/2020 RDW 12.8 09/21/2020 LYMPHOPCT 24 09/20/2020 MONOPCT 8 09/20/2020 BASOPCT 0 09/20/2020 MONOSABS 0.59 09/20/2020 LYMPHSABS 1.88 09/20/2020 EOSABS 0.12 09/20/2020 BASOSABS <0.03 09/20/2020 DIFFTYPE NOT REPORTED 09/20/2020 ASSESSMENT : Active Problems: Encounter for induction of labor 39 weeks gestation of Plan: Discharge home today * Sandra Smith RN - 09/20/2020 10:15 PM EST Pt ambulates to and from bathroom with a standby assist. Pt voids and demetri care completed independently. Perineum appears swollen. Pt encouraged to place ice pack to area. Gown changed and all linenschanged. Pt repositions herself back in bed to a comfortable position. Call light placed within reach and bed in lowest locked position. and significant other remain at bedside. * Sandra Smith RN - 09/20/2020 9:15 PM EST Pt states she feels the urge to void. Also states she still feels slightly numb from the epidural so she is placed on bedpan by RN. Pt voids approximately 300mL of urine. Demetri care performed by RN and dermoplast spray used to perineum. Pt denies any further needs by nursing staff at this time. documented in this encounter Additional Source Comments INFORMATION SOURCE (unrecogn ized section and content) DATE CREATED AUTHOR 10/20/2019 [facility] DATE CREATED AUTHOR AUTHOR'S ORGANIZ ATION 01/16/2020 [facility] DATE CREATED AUTHOR AUTHOR'S ORGANIZ ATION 02/28/2020 [facility] DATE CREATED AUTHOR AUTHOR'S ORGANIZ ATION 08/14/2020 [facility] DATE CREATED AUTHOR AUTHOR'S ORGANIZ ATION 01/31/2021 [facility] DATE CREATED AUTHOR AUTHOR'S ORGANIZ ATION 12/02/2021 [facility] DATE CREATED AUTHOR AUTHOR'S ORGANIZ ATION 04/03/2024 [facility] DATE CREATED AUTHOR AUTHOR'S ORGANIZ ATION 05/28/2024 [facility] DATE CREATED AUTHOR AUTHOR'S ORGANIZ ATION 07/30/2024 [facility] Reason for Visit (unrecogniz ed section and content) Reason Comments Fall Reason Comments Abdominal Pain Reason Comments Scheduled Induction Reason Comments Abscess states weeping, blo od and pus to buttocks for 2 days; recently treated with Flagyl for vaginal infection and told she had an allergic reaction to the medication; states this is a different rash Reason Comments Abdominal Pain been going on couple weeks Emesis Reason Comments Chest Pain Shortness of Breath Started this am arou nd 10am, 37 weeks , denies cough, states low grade fever at home, headache Specialty Diagnoses / Procedures Referred By Contac t Referred To Contact Diagnoses Endometriosis ENDOMETRIOSIS, PELVIC PAIN Procedures DC LAP,RMV ADNEXAL STRUCTURE DC LAP,RMV ADNEXAL STRUCTURE LAPAROSCOPY EXPLORATORY- DIAGNOSTIC, LYSIS OF ADHESIONS, ABLATION OF ENDOMETRISOSIS SALPINGECTOMY LAPAROSCOPIC Bridget Lowry [address] [place] [address] [facility] [address] [place] [address] Referral ID Status Reason Start Date Expiration Date Visits Re quested Visits Authorized [id number] 1 1 Reason Comments Rash Left posterior leg r laura. Patient has been seen and treated at urgent care with atb and steroid. Wound seeping. Reason Comments Leg Swelling Left lower leg/ankle swelling. Seen at urgent care 5 days ago and started on antibiotics for cellulitis. Completed course today. Increased swelling to leg. Reason Comments Loss of Consciousness Patient reports fe eling dizzy all morning. Reports having syncope waking up on bathroom floor with head injury. Ordered Prescriptions (unrec ognized section and content) Prescription Sig Dispensed Refills Start Date End Da te traMADol (ULTRAM) 50 MG tabletIndications:Acute cystitis without hematuria Take 1 tablet by mouth every 4 hours as needed for Pain for up to 5 days. 20 tablet 0 04/09/2021 04/14/2021 ciprofloxacin (CIPRO) 500 MG tablet Take 1 tablet by mouth 2 times daily for 10 days 20 tablet 0 04/09/2021 04/19/2021 Prescription Sig Dispensed Refills Start Date End Da te HYDROcodone-acetaminophe n (NORCO) 5-325 MG per tabletIndications:Post-o p pain Take 1 tablet by mouth every 6 hours as needed for Pain for up to 5 days. Intended supply: 5 days. Take lowest dose possible to manage pain Max Daily Amount: 4 tablets 8 tablet 0 11/20/2022 11/25/2022 ketorolac (TORADOL) 10 MG tablet Take 1 tablet by mouth every 6 hours as needed for Pain 20 tablet 0 11/20/2022 11/20/2023 Scheduled Active and Recently Administ ered Medications (unrecognized section and content) Medication Order 04/07/2021 04/08/2021 04/09/2021 0.9 % NaCl bolus (COMPLETED) 999 mL, Intravenous, at 999 mL/hr, ONCE, On Wed04/09/21 at 1500, For 1 dose, For IV hydration 1543 (New Bag - Prov ider: Dyana Saleh RN)1704 (Stopped - Provider: Dyana Saleh RN) ketorolac (TORADOL) injection 15 mg (COMPLETED) 15 mg, Intravenous, ONCE, On Wed04/09/21 at 1500, For 1 dose, Do not administer for more than 5 days. 1544 (Given - Provid er: Dyana Saleh RN) morphine injection 4 mg (COMPLETED) 4 mg, Intravenous, ONCE, On Wed04/09/21 at 1500, For 1 dose, If oral and IV narcotics ordered, use oral first and only use IV if oral is ineffective or cannot take oral. Do Not give oral and IV within 1 hour of each other unless specifically ordered. 1549 (Given - Provid er: Dyana Saleh RN) promethazine (PHENERGAN) injection 12.5 mg (COMPLETED) 12.5 mg, Intravenous, ONCE, On Wed04/09/21 at 1500, For 1 dose, Recommended route is IM. For IV administration, dilute to 10ml with normal saline. Must be administered over at least 10 minutes. 1547 (Given - Provid er: Dyana Saleh RN) PRN Medication Order 04/07/2021 04/08/2021 04/09/2021 iopamidol (ISOVUE-370) 76 % injection 75 mL (COMPLETED) 75 mL, Intravenous, IMG ONCE PRN, Other, Starting on Wed04/09/21 at 1611, For 1 dose 1614 (Given - Provid er: Addi Martinez) Scheduled Medication Order 06/09/2022 06/10/2022 06/11/2022 acetaminophen (TYLENOL) tablet 1,000 mg (COMPLETED) 1,000 mg, Oral, ONCE, 1 dose, On Ainsley 06/11/22 at 1945, Maximum dose of acetaminophen is 4000 mg from all sources in 24 hours. 1945 (Given - Provid er: Arnulfo Castro RN) Scheduled Medication Order 11/18/2022 11/19/2022 11/20/2022 acetaminophen (TYLENOL) tablet 650 mg (COMPLETED) 650 mg, Oral, ONCE, 1 dose, On 11/20/22 at 0745, Maximum dose of acetaminophen is 4000 mg from all sources in 24 hours., Pre-op (day of surgery) 0735 (Given - Provid er: Bruna Peterson RN) ceFAZolin (ANCEF) 2000 mg in dextrose 5 % 100 mL IVPB (COMPLETED) 2,000 mg, IntraVENous, OIL DRILLING ENGINEER TO O.R., 1 dose, On Wed11/20/22 at 0745, Antimicrobial Indications: Surgical Prophylaxis, Administer within 1 hour prior to incision., Pre-op (day of surgery) 0815 (New Bag - Prov ider: Cuate Jules RN - Comment: in OR)0853 (Stopped - Provider: Cuate Jules RN) dimenhyDRINATE (DRAMAMINE) tablet 50 mg (COMPLETED) 50 mg, Oral, ONCE, 1 dose, On Wed11/20/22 at 0745, Pre-op (day of surgery) 0735 (Given - Provid er: Bruna Peterson RN) sodium chloride flush 0.9 % injection 5-40 mL 5-40 mL, IntraVENous, EVERY 12 HOURS SCHEDULED (2 times per day), First dose on Wed11/20/22 at 0900, Until Discontinued, For Line Patency: Peripheral IV = 5 mL; Midline or Central Line = 10 mL/lumen. If following IV push medication, administer flush at same rate as the IV push. Flush volume is determined by type of infusion therapy being given. For non-viscous solutions use: Peripheral IV = 5 mL Midline or Central Line = 10 mL/lumen For viscous solutions (i.e. blood components, parenteral nutrition, contrast media, or after obtaining blood sample) use: Peripheral IV = 10 mL Midline or Central Line = 20 mL/lumen, Pre-op (day of surgery) 0900 (Due)2100 (Due) sodium chloride flush 0.9 % injection 5-40 mL 5-40 mL, IntraVENous, EVERY 12 HOURS SCHEDULED (2 times per day), First dose on Wed11/20/22 at 0945, Until Discontinued, For Line Patency: Peripheral IV = 5 mL; Midline or Central Line = 10 mL/lumen. If following IV push medication, administer flush at same rate as the IV push. Flush volume is determined by type of infusion therapy being given. For non-viscous solutions use: Peripheral IV = 5 mL Midline or Central Line = 10 mL/lumen For viscous solutions (i.e. blood components, parenteral nutrition, contrast media, or after obtaining blood sample) use: Peripheral IV = 10 mL Midline or Central Line = 20 mL/lumen, PACU only 0945 (Due)2100 (Due) Continuous Medication Order 11/18/2022 11/19/2022 11/20/2022 lactated ringers infusion IntraVENous, at 100 mL/hr, CONTINUOUS, Starting on Wed11/20/22 at 0745, Pre-op (day of surgery) 0744 (New Bag - Prov ider: Bruna Peterson RN)0817 (NoRateChange - Provider: Chris Osorio APRN - METER TESTER)0920 (Anesthesia Volume Adjustment - Provider: ELVIA Asher CRNA)1054 (Stopped - Provider: Charis Peng RN) PRN Medication Order 11/18/2022 11/19/2022 11/20/2022 0.9 % sodium chloride infusion IntraVENous, at 5-250 mL/hr, PRN, if patient receiving piggyback infusions and maintenance fluids are not ordered OR KVO fluids to protect IV site / prevent frequent line interruptions/ long duration, Starting on Wed11/20/22 at 0720, For piggyback infusion, administer at same rate as piggyback for a total of 25 mL. Enter 25 mL into dose field and piggyback rate into rate field of order. If piggyback is infusing at a rate less than 100 mL/hr, enter 25 mL into dose field and 100 mL/hr into rate field of order. For KVO fluids, enter rate of 20 mL/hr or less into rate field of order., Pre-op (day of surgery) 0.9 % sodium chloride infusion IntraVENous, at 5-250 mL/hr, PRN, if patient receiving piggyback infusions and maintenance fluids are not ordered OR KVO fluids to protect IV site / prevent frequent line interruptions/ long duration, Starting on Wed11/20/22 at 0923, For piggyback infusion, administer at same rate as piggyback for a total of 25 mL. Enter 25 mL into dose field and piggyback rate into rate field of order. If piggyback is infusing at a rate less than 100 mL/hr, enter 25 mL into dose field and 100 mL/hr into rate field of order. For KVO fluids, enter rate of 20 mL/hr or less into rate field of order., PACU only fentaNYL (SUBLIMAZE) injection 50 mcg 50 mcg, IntraVENous, EVERY 5 MIN PRN, 2 doses, Starting on Wed11/20/22 at 0923, Until Discontinued, Pain Moderate (4-6), Pain Severe (7-10), For Phase I. If Phase II oral narcotics have been administered in the last 60 minutes, do not administer IV narcotics unless specifically approved by provider., PACU only HYDROcodone-acetaminophen (NORCO) 5-325 MG per tablet 1 tablet 1 tablet, Oral, EVERY 6 HOURS PRN, Starting on Wed11/20/22 at 0923, Until Discontinued, Pain Moderate (4-6), Pain Severe (7-10), Maximum dose of acetaminophen is 4000 mg from all sources in 24 hours., PACU & Post-op 1018 (Given - Provid er: Charis Peng RN) metoclopramide (REGLAN) injection 10 mg 10 mg, IntraVENous, ONCE PRN, 1 dose, Starting on Wed11/20/22 at 0923, Until 11/21/22 at 0923, Nausea, Initial antiemetic therapy., PACU only sodium chloride flush 0.9 % injection 5-40 mL 5-40 mL, IntraVENous, PRN, Starting on Wed11/20/22 at 0720, Until Discontinued, Line Care, After every IV line use, For Line Patency: Peripheral IV = 5 mL; Midline or Central Line = 10 mL/lumen. If following IV push medication, administer flush at same rate as the IV push. Flush volume is determined by type of infusion therapy being given. For non-viscous solutions use: Peripheral IV = 5 mL Midline or Central Line = 10 mL/lumen For viscous solutions (i.e. blood components, parenteral nutrition, contrast media, or after obtaining blood sample) use: Peripheral IV = 10 mL Midline or Central Line = 20 mL/lumen, Pre-op (day of surgery) sodium chloride flush 0.9 % injection 5-40 mL 5-40 mL, IntraVENous, PRN, Starting on Wed11/20/22 at 0923, Until Discontinued, Line Care, After every IV line use, For Line Patency: Peripheral IV = 5 mL; Midline or Central Line = 10 mL/lumen. If following IV push medication, administer flush at same rate as the IV push. Flush volume is determined by type of infusion therapy being given. For non-viscous solutions use: Peripheral IV = 5 mL Midline or Central Line = 10 mL/lumen For viscous solutions (i.e. blood components, parenteral nutrition, contrast media, or after obtaining blood sample) use: Peripheral IV = 10 mL Midline or Central Line = 20 mL/lumen, PACU only Scheduled Medication Order 04/11/2023 04/12/2023 04/13/2023 enoxaparin (LOVENOX) injection 70 mg (COMPLETED) 70 mg (rounded from 74.8 mg = 1 mg/kg 74.8 kg), SubCUTAneous, ONCE, 1 dose, On 04/13/23 at 2200, Indication of Use: Treatment-DVT/PE, Administer by deep subCUTAneous injection with pt lying down. Alternate injection sites on abdominal wall. Do not rub site after injection. Check with provider prior to any invasive procedure. 2157 (Given - Provid er: Bindu Guerrero RN) Scheduled Medication Order 03/30/2024 03/31/2024 04/01/2024 sodium chloride 0.9 % bolus 1,000 mL (COMPLETED) 1,000 mL, IntraVENous, at 983.6 mL/hr, Administer over 61 Minutes, ONCE, On 04/01/24 at 1530, For 1 dose, For adult patients weighing > 55 kg (120 lbs.) and less than <50 years of age initiate 0.9NS at 500 mL/ hr. All bolus orders are to be given over 10 to 15 minutes 1527 (New Bag - Prov ider: Renan Thrasher RN)1736 (Stopped - Provider: Anahi Worthy RN) Care Teams (unrecognized sec tion and content) Chief Librarian Branch Relationship Specialty Start Date End Date Arabella Falk MD [address] [place] [address] PCP - General Family Medicine 04/09/21 Chief Librarian Branch Relationship Specialty Start Date End Date Arabella Falk MD [address] [place] [address] PCP - General Family Medicine 04/09/21 Chief Librarian Branch Relationship Specialty Start Date End Date Arabella Falk MD [address] [place] [address] PCP - General Family Medicine 04/09/21 Chief Librarian Branch Relationship Specialty Start Date End Date Arabella Falk MD [address] [place] [address] PCP - General Family Medicine 04/09/21 Chief Librarian Branch Relationship Specialty Start Date End Date Arabella Falk MD [address] [place] [address] PCP - General Family Medicine 04/09/21 Chief Librarian Branch Relationship Specialty Start Date End Date Arabella Falk MD [address] [place] [address] PCP - General Family Medicine 04/09/21 Chief Librarian Branch Relationship Specialty Start Date End Date Arabella Falk MD [address] [place] [address] PCP - General Family Medicine 04/09/21 Chief Librarian Branch Relationship Specialty Start Date End Date Arabella Falk MD [address] [place] [address] PCP - General Family Medicine 04/09/21 Chief Librarian Branch Relationship Specialty [place] [address] [place] [phone] PCP - General Family Medicine 04/09/21 Chief Librarian Branch Relationship Specialty Start Date End Date Arabella Falk MD [address] [place] [phone] PCP - General Family Medicine 04/09/21 FOR RECORDS PERTAINING TO PATIENTS WHO ARE OR HAVE BEEN ENROLLED IN A CHEMICAL DEPENDENCY/SUBSTANCEABUSE PROGRAM, SOME INFORMATION MAY BE OMITTED. This clinical summary was aggregated from multiple sources. Caution should be exercised in using it in the provision of clinical care. This summary normalizes information from multiple sources, and as a consequence, information in this document may materially change the coding, format and clinical context of patient data. In addition, data may be omitted in some cases. CLINICAL DECISIONS SHOULD BE BASED ON THE PRIMARY CLINICAL RECORDS. [facility] provides no warranty or guarantee of the accuracy or completeness of information in this document.
[2024-09-01 11:24] LABS: Basophils Absolute Auto 0.1 10^3/uL (0.0-0.1); Basophils Percent Auto 0.8 % (0.2-2.0); Eosinophils Absolute Auto 0.1 10^3/uL (0.0-0.7); Eosinophils Percent Auto 2.3 % (0.9-7.0); Hematocrit 43.4 % (36.0-48.0); Hemoglobin 14.8 g/dL (12.0-16.0); Lymphocytes Percent Auto 32.8 % (20.5-60.0); Mean Corpuscular HGB Conc 34.1 g/dL (29.9-35.2); Mean Corpuscular Hemoglobin 30.5 pg (26.7-34.0); Mean Corpuscular Volume 89.5 fL (81.0-99.0); Mean Platelet Volume 10.1 fL (9.5-13.5); Monocytes Absolute Auto 0.3 10^3/uL (0.3-0.8); Monocytes Percent Auto 5.1 % (1.7-12.0); Neutrophils Absolute Auto 3.6 10^3/uL (1.4-6.5); Platelet Count 268 10^3/uL (150-450); Red Blood Count 4.85 10^6/uL (4.20-5.40); Red Cell Distribution Width 11.5 % (11.0-15.0)
[2024-09-01 11:32] LABS: Estimated Average Glucose 100 mg/dL; Glycohemoglobin A1C 5.1 % (4.5-6.2)
[2024-09-01 11:39] LABS: Erythrocyte Sedimentation Rate 12 mm/hr (<=20)
[2024-09-01 11:44] LABS: Alanine Aminotransferase 13 U/L (14-59); Albumin Globulin Ratio 1.2; Albumin Level 4.2 g/dL (3.4-5.0); Alkaline Phosphatase 60 U/L (46-116); Anion Gap 11.8; Aspartate Amino Transferase 13 U/L (15-37); BUN Creatinine Ratio 20.3; Bilirubin Total 0.7 mg/dL (0.2-1.0); Calcium 9.7 mg/dL (8.5-10.1); Carbon Dioxide 27.3 mmol/L (21.0-32.0); Chloride 105 mmol/L (98-107); Estimated GFR (African America >60 (>=60 mL/min/1.73m^2); Estimated GFR (Non-African Ame >60 (>=60 mL/min/1.73m^2); Globulin 3.5 g/dL; Glucose 85 mg/dL (74-106); Potassium 4.1 mmol/L (3.5-5.1); Sodium 140 mmol/L (136-145); Thyroid Stimulating Hormone 1.521 uIU/mL (0.358-3.740); Total Protein 7.7 g/dL (6.4-8.2)
[2024-09-01 11:45] LABS: C Reactive Protein <0.50 mg/dL (<=0.50)
[2024-09-02 10:08] LABS: Antistreptolysin O Ab 229.9 IU/mL (0.0-200.0); Rheumatoid Factor (RF) <10.0 IU/mL (<14.0)
[2024-09-02 11:09] LABS: Insulin 10.8 uIU/mL (2.6-24.9); Lyme Total Antibody CIA Negative (Negative)
[2024-09-04 12:08] LABS: Antinuclear Antibodies, IFA Negative (.)
[2024-09-04 15:10] LABS: Deamidated Gliadin Abs, IgA 3 units (0-19); Deamidated Gliadin Abs, IgG 2 units (0-19); Endomysial Antibody IgA Negative (Negative); Immunoglobulin A, Qn, Serum 174 mg/dL (87-352); t-Transglutaminase (tTG) IgA <2 U/mL (0-3); t-Transglutaminase (tTG) IgG <2 U/mL (0-5)
== END 2024-09-01 10:19 | disposition home or self-care (01) ==
LOC: LAB 10:21
PROVIDERS: PCP Family Medicine; Visit Provider Family Medicine
DX: M79.10 Myalgia, unspecified site (principal); R53.83 Other fatigue; R19.7 Diarrhea, unspecified
CPT/HCPCS: 36415; 80053; 82306; 82784; 83036; 83525; 83540; 84436; 84443; 84481; 84550; 85025; 85652; 86038; 86060; 86140; 86231; 86258; 86364; 86431; 86618

== ENCOUNTER 2025-03-22 10:10 | Outpatient (OUT) | payer OTHER, MEDICAID, SELFPAY ==
--- NOTE | 2025-03-22 10:17 | US_ITS ---
The [address] [address] Patient Name: ZAID MELLO MRN: [id number] date: 2000 Sex: F Assigned Patient Location: US Current Patient Location: US Accession/Order Number: [id number] Exam Date: 03/22/2025 11:54 Report Date: 03/22/2025 11:59 At the request of: ARABELLA FALK MD Procedure: US right upper quadrant LIMITED RIGHT UPPER QUADRANT ABDOMINAL ULTRASOUND CLINICAL HISTORY: Back and right shoulder pain for the past 2 weeks COMPARISON: CT 09/09/2021 The gallbladder is physiologically distended without shadowing calculi, wall thickening or pericholecystic fluid. No intra- or extrahepatic biliary dilatation is evident. The common duct measures 2 - 3 mm. The liver is normal in echogenicity. No intrahepatic masses are seen. There is appropriate hepatopetal flow within the main portal vein. The pancreas shows no significant sonographic abnormality. Cursory evaluation of the right kidney reveals no hydronephrosis or fluid within Ceja's pouch. US/US right upper quadrant IMPRESSION: NEGATIVE ULTRASOUND OF THE RIGHT UPPER QUADRANT. Impression dictated by: Radha Morrissey M.D. 03/22/2025 11:59 AM Dictation Location: [place] [address] Electronically authenticated by: [id number] Date: 03/22/2025 11:59
--- OUTSIDE RECORDS SUMMARY | 2025-03-22 10:32 | XMS_ITS | CCD ---
Author Organization [facility] ion [facility] Care Team Providers Care Book Retailer Name Role Phone Unavailable Unavailable Unavailable Arabella Falk Primary Care Provider Alisia Gross Primary Care Provider [phone] CARIDAD KAPADIA Admitting UnavailCARIDAD Coats Attending UnavailALISIA Valdez Primary Care Unavailable Unavailable Primary Care Provider Unavailalexis e Unavailable Primary Care Provider UnavailArabella Hart MD Primary Care Provider DR ARABELLA FALK Consulting Unavailable DEYA, DR BELL Primary Care Unavailable DEYA, DR BELL Admitting Unavailable DEYA, DR BELL Attending Unavailable WORCESTER, DR STEFAN Nagel Consulting Unavailable DEYA, DR [...] Care Provider ARABELLA FALK Primary Care Unavailable MENDOZA BARROSO Attending Unavailab le BRIDGET OCONNOR Admitting Unavail able BRIDGET OCONNOR Attending Unavail able ARABELLA FALK Primary Care Unavailable HOY, ARABELLA M Primary Care Unavailable JAE MAGANA Attending Unavailable HOY, ARABELLA M Primary Care Unavailable KALYN SHIN Attending Unavailable NARENDRAY, ARABELLA M Primary Care Unavailable ADRIANNAGEORGIA C Referring Unavailable HOY, ARABELLA M Primary Care Unavailable ADRIANNA, GEOR[place]IA C Referring Unavailable HOY, ARABELLA M Primary Care Unavailable ADRIANNA, GEORGIA C Referring Unavailable HOY, ARABELLA M Primary Care Unavailable RAUL PINTO Referring Unavailable HOY, ARABELLA M Primary Care Unavailable BRIDGET OCONNOR Referring Unavail able Deya THURMAN, Arabella Chase [facility] Unavaila ble 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 SHORTHAND TEACHER-WINDOWS ADMIN, Odalis Low Referr ing Unavailable Deya THURMAN, Arabella Chase [facility] Unavaila ble Allergies Allergy Classification Reported Allergen(s) Allergy Type Date of Onset Reaction(s) Facility Nitroimidazoles (antibiotic) (6 sources) metroNIDAZOLE Drug Allergy 06-27-20 [facility] Penicillins (antibiotic) (12 sources) Amoxicillin Drug Allergy 01-11-20 [facility], Other (See Comments) [facility] (20 sources) Amoxicillin; Translations: [AMOXICILLIN] Drug Allergy 01-11-20 20 Hives, Other (See Comments) [place], [place] (20 sources) Penicillin G Drug Allergy 06-16-20 [place] (20 sources) metroNIDAZOLE; Translations: [metronidazole] Drug Allergy 06-27-20 Hives, [place]al (disorder) [place], [place] (14 sources) Penicillins; Translations: [PENICILLINS] Propensity to adverse reactions to drug 07-03-20 [place] (2 sources) metroNIDAZOLE; Translations: [Flagyl] Drug Allergy 06-27-20 [facility] (3 sources) Penicillin; Translations: [penicillin] Drug Allergy 06-27-20 Weal (disorder) [facility] (9 sources) Penicillins Propensity to adverse reactions to drug 07-03-20 [facility] [email or web address] Work Phone: Medications Current Medications Medication Drug Class(es) Dates Sig (Normalized) Sig (Original) acetaminophen 325 mg / HYDROcodone bitartrate 5 mg oral tablet (6 sources) Opioid Agonist Start: 11-20-2024 End: 11-25-2024 HYDROcodone-acetamin ophen (NORCO) 5-325 MG per tablet Indications: Postoperative pain Take 1 tablet by mouth every 6 hours as needed for Pain for up to 5 days. Intended supply: 5 days. Take lowest dose possible to manage pain Max Daily Amount: 4 tablets 10 tablet 11/20/2024 11/25/2024 Active Start: 11-20-2022 End: 11-25-2022 HYDROcodone-acetaminophen (N ORCO) 5-325 MG per tablet Indications: Post-op pain Take 1 tablet by mouth every 6 hours as needed for Pain for up to 5 days. Intended supply: 5 days. Take lowest dose possible to manage pain Max Daily Amount: 4 tablets 8 tablet 0 11/20/2022 11/25/2022 Active 24 hr amphetamine aspartate 3.75 mg / amphetamine sulfate 3.75 mg / dextroamphetamine saccharate 3.75 mg / dextroamphetamine sulfate 3.75 mg extended release oral capsule (2 sources) Central Nervous System Stimulant take 1 capsule by mouth once daily at lunch amphetamine-dextroamphetamine (ADDERALL XR) 15 MG extended release capsule Take 1 capsule by mouth Daily with lunch. Max Daily Amount: 15 mg Active benzocaine 200 mg/ml / menthol 5 mg/ml topical spray (1 source) Standardized Chemical Allergen Sta rt: 0 apply 1 dose topically twice daily Topical, 2 TIMES DAILY, First dose on Wed09/20/20 at 2100 Apply to perineal area. Patient is capable and may self administer at bedside. brexpiprazole 1 mg oral tablet (2 sources) Atypical Antipsychotic Sta rt: 1 REXULTI 1 MG TABS tablet Start: 01-02-2021 [...] / sodium lactate 0.028 meq/ml injectable solution (4 sources) Start: 11-20-2024 IntraVENous, a t 100 mL/hr, CONTINUOUS, Starting on Wed11/20/24 at 1100, Pre-op (day of surgery) Start: 11-20-2022 lactated ringe rs infusion Start: [...] break. ketorolac tromethamine 10 mg oral tablet (5 sources) Nonsteroidal Anti-inflammatory Drug, Cyclooxygenase Inhibitor Start: 11-20-2024 End: 11-20-2025 take 1 tablet by mouth every six hours as needed for pain ketorolac (TORADOL) 10 MG tablet Take 1 tablet by mouth every 6 hours as needed for Pain 20 tablet 11/20/2024 11/20/2025 Active Start: 11-20-2022 End: 11-20-2023 take 1 tablet [...] Skin, nipple discomfort, Starting Wed09/20/20 at 1907, lisdexamfetamine dimesylate 40 mg oral capsule (4 sources) Central Nervous System Stimulant Start: 07-10-2024 VYVANSE 40 MG CAPS 07/10/2024 Active 2 ml metoclopramide 5 mg/ml prefilled syringe (1 source) Dopamine-2 Receptor Antagonist Start: 11-20-2022 End: 11-21-2022 10 mg, IntraVENous, ONCE PRN, 1 dose, Starting on Wed11/20/22 at 0923, Until 11/21/22 at 0923, Nausea Initial antiemetic therapy. PACU only miSOPROStol 0.1 mg oral tablet (1 source) Prostaglandin E1 Analog Start: 09-20-2020 miSOPROStol (CYTOTEC) tablet 900 mcg Multiple Vitamins-Minerals (THERAPEUTIC MULTIVITAMIN-MINERALS ) tablet (2 sources) take 1 tablet by mouth once daily Multiple Vitamins-Minerals (THERAPEUTIC MULTIVITAMIN-MINERA LS) tablet Take 1 tablet by mouth daily Active naloxone 0.4 mg in 10 mL sodium chloride syringe (1 source) Start: 11-20-2024 IntraVENous, PRN, Opioid Reversal, Starting on Wed11/20/24 at 1412, PRN if respiratory rate is less than 6/min and patient is difficult to arouse then notify physician STAT. Mix 9 mL of sodium chloride 0.9% with 0.4 mg (1 mL) of naloxone (NARCAN) in 10 mL syringe. (Note: dilution is 0.04 mg/mL) Give 0.08 mg (2 mL of special dilution), slow IV push, repeat up to 0.4 mg (10 mL) or until patient is responsive to physical stimulation and respiratory rate is equal to or greater than 6 breaths/min. Continue to observe, if no response within 3 minutes of administration of 0.4 mg (10 mL) total, repeat dose (0.4 mg as administered previously). Concentration 0.04 mg/mL, PACU only nitrofurantoin, macrocrystals 25 mg / nitrofurantoin, monohydrate 75 mg oral capsule (1 source) Nitrofuran Antibacterial Start: 09-02-2020 End: 09-07-2020 take 1 capsule by mouth twice daily nitrofurantoin, macrocrystal-monohy drate, (MACROBID) 100 MG capsule Indications: Urgency of [...] Sig (Original) acetaminophen 325 mg oral tablet (4 sources) Start: 11-20-2024 End: 11-20-2024 take 4000 mg by mouth every twenty-four hours 650 mg, Oral, ONCE, 1 dose, On Wed11/20/24 at 1100, Maximum dose of acetaminophen is 4000 mg from all sources in 24 hours., Pre-op (day of surgery) Start: 11-20-2022 End: 11-20-2022 acetaminophen (TYLENOL) tabl et 650 mg Start: 06-11-2022 End: 06-11-2022 acetaminophen [...] Aripiprazole 10 MG Oral Daily at bedtime 30 30 May 25, 2019 Active Start: 05-22-2019 End: [...] 2019 Active dimenhyDRINATE 50 mg oral tablet (2 sources) Start: 11-20-2024 End: 11-20-2024 take 1 dose by mouth once daily 50 mg, Oral, ONCE, 1 dose, On Wed11/20/24 at 1100, Pre-op (day of surgery) Start: 11-20-2022 End: 11-20-2022 dimenhyDRINATE (DRAMAMINE) t [...] tablet 5 12/09/2022 04/13/2023 Discontinued (LIST CLEANUP) 0.4 ml enoxaparin sodium 100 mg/ml prefilled syringe (2 sources) Low Molecular Weight Heparin Start: 11-20-2024 End: 11-20-2024 inject 1 dose by subcutaneous injection once daily 40 mg, SubCUTAneous, ONCE, 1 dose, On Wed11/20/24 at 1100, Indication of Use: Prophylaxis-DVT/PE , Administer by deep subCUTAneous injection with pt lying down. Alternate injection sites on abdominal wall. Do not rub site after injection. Check with provider prior to any invasive procedure., Pre-op (day of surgery) Start: 04-13-2023 End: 04-13-2023 enoxaparin (LOVENOX) injecti [...] Active 2 ml fentaNYL 0.05 mg/ml injection (2 sources) Opioid Agonist Start: 11-20-2024 50 mcg, IntraVENous, EVERY 5 MIN PRN, 2 doses, Starting on Wed11/20/24 at 1412, Until Discontinued, Pain Severe (7-10), Pain Moderate (4-6), For Phase I. If Phase II oral narcotics have been administered in the last 60 minutes, do not administer IV narcotics unless specifically approved by provider., PACU only Start: 11-20-2022 50 mcg, IntraV ENous, EVERY 5 MIN PRN, 2 doses, Starting on Wed11/20/22 at 0923, Until Discontinued, Pain Moderate (4-6), Pain Severe (7-10) For Phase I. If Phase II oral narcotics have been administered in the last 60 minutes, do not administer IV narcotics unless specifically approved by provider. PACU only gabapentin 300 mg oral capsule (1 source) Anti-epileptic Agent Start: 11-20-2024 End: 11-20-2024 take 1 dose by mouth once daily 300 mg, Oral, ONCE, 1 dose, On Wed11/20/24 at 1100, Pre-op (day of surgery) Start: 11-20-2024 End: 11-20-2024 take 1 dose by mouth once daily 300 mg, Oral, ONCE, 1 dose, On Wed11/20/24 at 1100, Pre-op (day of surgery) iopamidol (ISOVUE-370) 76 % injection 75 mL (1 source) Start: 04-09-2021 End: 04-09-2021 iopamidol (ISOVUE-370) 76 % injection 75 mL levonorgestrel 0.027455 mg/hr intrauterine system (2 sources) Progestin, Progestin-containi ng Intrauterine Device Start: 02-26-2021 Levonorgestrel (KYLEENA) IUD 19.5 mg 1 each by Intrauterine route once for 1 dose Lot [id number] Expires 04/2022 [facility] 89573-655-90 1 each 0 02/26/2021 Active methylergonovine maleate [...] mg 2 ml ondansetron 2 mg/ml injection (6 sources) Serotonin-3 Receptor Antagonist Start: 11-25-2024 End: 11-25-2024 4 mg, IntraVENous, ONCE, 1 dose, On 11/25/24 at 1700 Start: 11-25-2024 take 1 tablet by [facility] three times daily as needed for nausea ondansetron (ZOFRAN-ODT) 4 MG disintegrating tablet Take 1 tablet by mouth 3 times daily as needed for Nausea or Vomiting 21 tablet 11/25/2024 Active Start: 11-20-2024 4 mg, IntraVEN ous, EVERY 6 HOURS PRN, Starting on 11/20/24 at 1506, Until Discontinued, Nausea, Vomiting, Post-op Start: 09-20-2020 End: 09-20-2020 ondansetron (ZOFRAN) injecti on 4 mg Start: 08-13-2020 End: 08-13-2020 ondansetron [...] 50 ml sodium chloride 9 mg/ml injection (17 sources) Start: 11-25-2024 End: 11-25-2024 1,000 mL (12.3 mL/kg), IntraVENous, at 983.6 mL/hr, Administer over 61 Minutes, ONCE, On Wed11/25/24 at 1700, For 1 dose Start: 11-20-2024 5-40 mL, Intra VENous, EVERY 12 HOURS SCHEDULED (2 times per day), First dose on Wed11/20/24 at 2100, Until Discontinued, For Line Patency: Peripheral IV [...] Central Line = 20 mL/lumen, PACU only Start: 11-20-2024 IntraVENous, a t 5-250 mL/hr, PRN, if patient receiving piggyback infusions and maintenance fluids are not ordered, Starting on Wed11/20/24 at 1412, For piggyback infusion, administer at same rate as piggyback for a total of 25 mL. Enter 25 mL into dose field and piggyback rate into rate field of order. If piggyback is infusing at a rate less than 100 mL/hr, enter 25 mL into dose field and 100 mL/hr into rate field of order., PACU only Start: 11-20-2024 5-40 mL, Intra VENous, EVERY 12 HOURS SCHEDULED (2 times per day), First dose on Wed11/20/24 at 1100, Until Discontinued, For Line Patency: Peripheral IV [...] = 20 mL/lumen, Pre-op (day of surgery) Start: 11-20-2024 5-40 mL, Intra VENous, PRN, Starting on Wed11/20/24 at 1412, Until Discontinued, Line Care, After every IV [...] Central Line = 20 mL/lumen, PACU only Start: 04-01-2024 End: 04-01-2024 sodium chloride 0.9 [...] Date Documented Da te Episodic/Chronic Abdominal pain (19 sources) Abdominal tenderness; Translations: [Pain in pelvis] Onset: 2021 Episodic Allergic reactions (3 sources) Contact dermatitis; Translations: [Vesicular eczema] 10-21-2020 Episodic Cardiac dysrhythmias (1 source) Sinus tachycardia [...] a predominantly sexual mode of transmission] Episodic Menstrual disorders (2 sources) Secondary amenorrhea; 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] Onset: 11-21-2024 Chronic Mood disorders (20 sources) Major depressive disorder; Translations: [Major depressive disorder, single episode, unspecified] Onset: 07-31-2020 07-31-2020 Chronic Nausea and vomiting (3 sources) Vomiting, unspecified; Translations: [Nausea and vomiting] Onset: 09-11-2021 11-25-2024 Episodic Nonspecific chest pain (2 sources) Chest pain, unspecified; Translations: [Chest pain] Onset: 09-12-2024 Episodic Open wounds of extremities (2 sources) Laceration of wrist Episodic Other connective tissue disease (1 source) Swelling of lower limb; Translations: [Other specified soft tissue disorders] Episodic Other diseases of kidney and ureters (1 source) Unspecified hydronephrosis; Translations: [UNSPECIFIED HYDRONEPHROSIS] Onset: 09-11-2021 Episodic Other female genital disorders (1 source) Dyspareunia; Translations: [Unspecified dyspareunia] Onset: 11-21-2024 11-21-2024 Chronic Other female genital disorders (6 sources) History of endometriosis; Translations: [Personal history of other diseases of the female genital tract] Onset: 09-18-2024 Episodic Other female genital disorders (1 source) Other specified noninflammatory disorders of vagina; Translations: [Other specified noninflammatory disorders of vagina] Onset: 12-27-2024 Episodic Other gastrointestinal disorders (1 source) Alteration in bowel elimination 10-29-2020 Episodic Other gastrointestinal disorders (1 source) Loose stool 10-29-2020 Episodic Other gastrointestinal disorders (1 source) Mucus in stool 10-29-2020 Episodic Other lower respiratory disease (1 source) Shortness of breath Onset: 09-12-2024 Episodic Other nervous system disorders (2 sources) Postoperative pain ; Translations: [Other acute postprocedural pain] Episodic Other nervous system disorders (1 source) Other acute postprocedural pain; Translations: [Other acute postprocedural pain] Onset: 11-20-2024 Episodic Other upper respiratory disease (1 source) [...] self-harm by unspecified sharp object, initial encounter Unclassified (3 sources) Patient encounter status; Translations: [Encounter for induction of labor] Onset: 09-20-2020 09-20-2020 Unclassified (1 source) CONTACT W/AND (SUSP) EXPOS COVID-19; Translations: [CONTACT W/AND (SUSP) EXPOS COVID-19] Onset: 09-11-2021 Unclassified (1 source) SOB for x 1 week. tingling in arms and legs Onset: 09-12-2024 Urinary tract infections (1 source) Acute cystitis; Translations: [Acute cystitis without hematuria] Episodic Past or Other Problems Problem Classification Problem Date Documented Da te Episodic/Chronic E Codes: Fall (20 sources) Fall in home; Translations: [Unspecified fall, initial encounter] Onset: 06-16-2020 06-16-2020 Episodic Inflammatory diseases of female pelvic organs (7 sources) Acute vaginitis; Translations: [Subacute vaginitis] Onset: 05-24-2024 Episodic Other female genital disorders (2 sources) Personal history of other diseases of the female genital tract; Translations: [Personal history of other diseases of the female genital tract] Onset: 09-18-2024 Episodic Other injuries and conditions due to [...] gestation of ] Resolved: 06-23-2022 09-20-2020 Episodic Syncope (2 sources) Syncope; Translations: [Syncope and collapse] Onset: 04-01-2024 04-01-2024 Episodic Viral infection (14 sources) Disease caused by 2019-nCoV; Translations: [COVID-19] Onset: 06-12-2022 Episodic Results Test Name Value Interpretation Reference Range Facility ED Clinical Summaryon 2024 ED Clinical Summary [address] [address] ED Clinical Summary Person Information Name: Zaid Luna Ita Cullen/[facility] Age: 24 Years : 2000 Sex: Female PCP: Arabella Falk MD Marital Status: Single Phone: Race: White Ethnicity: Not or Language: Bruneian Visit Reason: Headache; Chest pain; chest pain Acuity: 3 Enc Type: Emergency Med Service: Emergency Medicine Arrival: 02/20/2025 20:56:34 Discharge: 02/21/2025 00:40:00 LOS: 000 03:44 Checkin: 02/20/2025 20:56:34 Checkout: 02/21/2025 00:40:00 Dispo Type: Home or Self Care Address: [address] [place] [id number] Provider Notes: History of Present Illness Patient is a 24 year old female presenting to the ED from urgent care with headache and chest pain since 02/18. She states that neither pain keeps her awake at night, but she has woken up with both pains every day since it started. She had decided to go to urgent care today, who took EKGs before sending her here for further evaluation. She has some facial tingling and feels that her face is hot, but denies any fevers, cough, leg swelling, one-sided weakness, changes in her speech, and neck pain. 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 She also denies any history of DVT, PE, and migraines or headaches like this in the past. She has had a hysterectomy. Review of Systems As reviewed in the HPI. All other systems reviewed are negative or normal. Physical Exam Constitutional: the patient appears in no acute distress, alert, awake, non-toxic Head/face: exam is negative for obvious evidence of injury or deformity Eyes: Pupils: equal, round, and reactive to light. Sclera: no appreciated abnormality ENT: Exam is negative for injury or acute deformity Neck: External neck: no acute changes, Trachea: is midline with no obvious abnormalities, ROM/movement: no acute changes, Meningeal signs: are not present. Cardiovascular: Rate: normal, Rhythm: regular, Pulses: no pulse deficits are appreciated, Heart sounds: normal, Edema: is not appreciated, JVD: is not appreciated. Respiratory: Exam negative for respiratory distress, Respirations: normal, Breath sounds: are normal, no acute changes, throughout. Abdomen / GI Exam: negative for guarding, pulsatile mass, rebound tenderness, tenderness, Inspection: abdomen appears normal, Bowel sounds: normal, active, Palpitation: abdomen is soft and non-tender, Indicators: Woods?s sign is negative, McBurney?s point is not-tender. Back: Exam negative for acute changes, CVA tenderness. Musculoskeletal/extr emity: Extremities: all appear grossly normal, with no appreciated pain with palpation, Perfusion: the patient is warm, the extremity is warm. Sensation intact. DVT exam: no swelling no tenderness, Calves: are non-tender. Skin: Exam negative for cyanosis, any evidence of obvious injury, Appearance: appears normal. Neuro: Orientation: is normal, appropriate for stated age, no acute changes, Mentation: able to follow commands, cerebellar function: is grossly normal, no acute changes, Motor: strength is normal, strength is 5/5 in all extremities, Sensation: no obvious gross deficits. Psych: Exam negative for acute changes, delusions, inappropriate behavior. Diagnosis: 1:Headache; 2:Pneumonitis; 3:Pleurisy Problems Active No Chronic Problems Smoking Status: Smoking Status Never (less than 100 in lifetime) Functional Status: Sensory Deficits: History of Falls: Mobility Assistance Prior to Admission: ADLs: Current Level of Assistance for Self-Care/Mobility: Cognitive Status: Allergies penicillin (Hives) Flagyl (Hives) Laboratory or Other Results This Visit (last charted value for your 02/20/2025 visit) Hematology 02/20/2025 9:14 PM WBC: 5.7 x10 RBC: 4.67 x10 Neutro Auto: 54.9 % -- Normal range between ( 47.2 and 70.8 ) Lymph Auto: 34.6 % -- Normal range between ( 27.2 and 40.8 ) [place] Auto: 8.3 % -- Normal range between ( 3.7 and 11.9 ) Eos Auto: 1.6 % -- Normal range between ( 0.0 and 5.4 ) Basophil Auto: 0.6 % -- Normal range between ( 0.0 and 1.5 ) Baso Absolute: 0.0 x10 MCV: 91.3 fL -- Normal range between ( 80.0 and 100.0 ) MCHC: 34.9 % -- Normal range between ( 31.0 and 37.0 ) Lymph Absolute: 2.0 x10 Hct: 42.6 % -- Normal range between ( 36.0 and 46.0 ) [place] Absolute: 0.5 x10 MCH: 31.9 pg -- Normal range between ( 27.0 and 35.0 ) Neutro Absolute: 3.1 x10 Hgb: 14.9 g/dL -- Normal range between ( 12.0 and 16.0 ) Mean Platelet Volume: 9.2 fL -- Normal range between ( 6.7 and 10.6 ) Platelet: 239 x10 Eos Absolute: 0.1 x10 RDW: 12.8 % -- Normal range between ( 11.6 and 14.8 ) Coagulation 02/20/2025 10:13 PM D-Dimer: 1993 ng/mL feu 02/20/2025 9:14 PM PT: 11.9 seconds -- Normal range between ( 10.2 and 12.9 ) INR: 1.0 ratio PTT: 29.9 (more content not included)... Normal [facility] .eGFRon 02-20-2025 GFR/1.73 sq M.predicted MDRD (S/P/Bld) [Vol rate/Area] mL/min/{1.73_m2} Normal >=60 [facility] Comment on above: Result Comment: [facility] Laboratories have implemented the eGFR calculation approach [...] years Performed By: #### E GFR #### [address] [address] AMI Initon 02-20-2025 hs Troponin I <3 Normal 0-15 [facility] Comment on above: Performed By: #### A MI1 #### [address] [address] AMI, 1 Houron 02-20-2025 hs TnI Delta 0 ng/L Normal 0-14 [facility] Comment on above: Performed By: #### A MI1 #### [address] [address] hs Troponin I <3 Normal 0-15 [facility] Comment on above: Performed By: #### A MI1 #### [address] [address] Basic Metabolic Profileon Anion gap [Moles/Vol] 6 mmol/L Normal 4-12 [facility] Comment on above: Performed By: #### A MI1 #### [address] [address] Calcium [Mass/Vol] 9.5 mg/dL Normal 8.5-10.3 [facility] Comment on above: Performed By: #### A MI1 #### [address] [address] Chloride [Moles/Vol] 106 mmol/L Normal 98-110 [facility] Comment on above: Performed By: #### A MI1 #### [address] [address] CO2 [Moles/Vol] 26 mmol/L Normal 22-32 [facility] Comment on above: Performed By: #### A MI1 #### [address] [address] Creatinine [Mass/Vol] 1.01 mg/dL Normal 0.44-1.03 [facility] Comment on above: Performed By: #### A MI1 #### [address] [address] Glucose [Mass/Vol] 94 mg/dL Normal 70-99 [facility] Comment on above: Performed By: #### A MI1 #### [address] [address] Potassium [Moles/Vol] 3.7 mmol/L Normal 3.4-4.8 [facility] Comment on above: Performed By: #### A MI1 #### [address] [address] Sodium [Moles/Vol] 138 mmol/L Normal 133-142 [facility] Comment on above: Performed By: #### A MI1 #### [address] [address] Urea nitrogen [Mass/Vol] 12 mg/dL Normal 8-26 [facility] Comment on above: Performed By: #### A MI1 #### [address] [address] Urea nitrogen/Creatinine [Mass ratio] 11.9 mg/mg Normal 10.0-20.0 [facility] Comment on above: Performed By: #### A MI1 #### [address] [address] CBC w/ Diffon 02-20-2025 Erythrocyte distribution width (RBC) [Ratio] 12.8 % Normal 11.6-14.8 [facility] Comment on above: Performed By: #### C BC #### [address] [address] Hematocrit (Bld) [Volume fraction] 42.6 % Normal 36.0-46.0 [facility] Comment on above: Performed By: #### C BC #### [address] [address] Hemoglobin (Bld) [Mass/Vol] 14.9 g/dL Normal 12.0-16.0 [facility] Comment on above: Performed By: #### C BC #### [address] [address] MCH (RBC) [Entitic mass] 31.9 pg Normal 27.0-35.0 [facility] Comment on above: Performed By: #### C BC #### [address] [address] MCHC 34.9 % Normal 31.0-37.0 [facility] Comment on above: Performed By: #### C BC #### [address] [address] [address] MCV (RBC) [Entitic vol] 91.3 fL Normal 80.0-100.0 [facility] Comment on above: Performed By: #### C BC #### [address] [address] Platelet 239 x10*3/mcL Normal 150-450 [facility] Comment on above: Performed By: #### C BC #### [address] [address] Platelet mean volume (Bld) [Entitic vol] 9.2 fL Normal 6.7-10.6 [facility] Comment on above: Performed By: #### C BC #### [facility] [address] [place] [address] RBC 4.67 x10*6/mcL Normal 3.80-5.20 [facility] Comment on above: Performed By: #### C BC #### [facility] [address] [place] [address] WBC 5.7 x10*3/mcL Normal 4.5-11.0 [facility] Comment on above: Performed By: #### C BC #### [facility] [address] [place] [address] CT Angio Chest w/ Contraston 02-20-2025 CT Angio Chest w/ Contrast EXAMINATION: CT Angio Chest w/ Contrast, , 02/20/2025 8:24 PM PDT INDICATION: Dyspnea, r/o PE COMPARISON: Chest x-ray 02/20/2025 TECHNIQUE: CT scan of the chest was performed after administration of IV contrast according to CTA PE protocol. CT dose reduction technique was used, including Automated Exposure Control. Sagittal and coronal reconstructions are performed and reviewed. In accordance with CT protocols and the ALARA principle, radiation dose reduction techniques were utilized for this examination. MIP reconstructions are performed and reviewed. FINDINGS: There is no evidence of thoracic aortic aneurysm. there is pulsation artifact in the ascending thoracic aorta. The visualized upper abdominal aorta is normal in caliber. There is adequate opacification of the pulmonary arterial vessels. No evidence of pulmonary artery embolism. The visualized upper mediastinal vessels are patent. The heart size is normal. No pericardial effusion. There are coronary arterial calcifications. There is no abnormal axillary, mediastinal, or hilar lymphadenopathy. The esophagus is unremarkable. The thyroid is unremarkable. Lungs: The tracheobronchial tree is patent. There is some groundglass opacification in the left lower lobe which is nonspecific may represent atypical pneumonia or atelectasis or focal pneumonitis. No pleural effusion. No pneumothorax. The visualized upper abdomen is unremarkable. The soft tissues of the chest are unremarkable. Osseous structures are unremarkable. IMPRESSION: 1. No evidence of pulmonary embolism. No evidence of thoracic aortic aneurysm. 2. There is some groundglass opacity in the left lower lobe which could represent atelectasis or atypical pneumonia, less likely focal pneumonitis. Radiation Dose Estimate: CTDI(mGy):0.399870 / / / kVp:120.000066 / mAs:0.890791 / / / DLP(mGy-cm):2.176310 Body Part: Abdomen CTDI(mGy):2.411238 / / / kVp:120.553167 / mAs:39.724948 / / / DLP(mGy-cm):2.359464 Body Part: Abdomen CTDI(mGy):2.619897 / / / kVp:120.140091 / mAs:39.456039 / / / DLP(mGy-cm):2.587856 Body Part: Abdomen CTDI(mGy):2.421983 / / / kVp:120.826687 / mAs:39.031262 / / / DLP(mGy-cm):2.850911 Body Part: Abdomen CTDI(mGy):2.204472 / / / kVp:120.211402 / mAs:39.647112 / / / DLP(mGy-cm):2.865115 Body Part: Abdomen CTDI(mGy):8.784233 / / / kVp:120.266125 / mAs:159.106580 / / / DLP(mGy-cm):271.7900 09Body Part: Abdomen Final Dictated by: Savi Camacho MD Dictated DT/TM: 02.20.2025 11:45 pm Signed by: Savi Camacho MD Signed (Electronic Signature): 02.20.2025 11:53 pm (If Report Is Signed, Electronically Signed in Other Vendor System) Normal [facility] CT Brain w/o Contraston 02-06 CT Brain w/o Contrast EXAMINATION: CT Brain w/o Contrast HISTORY: Headache, COMPARISON: CT brain 07/17/2023. TECHNIQUE: Axial CT scans through the head were obtained without IV contrast administration. Dose reduction techniques were achieved by using: automated exposure control and/or adjustment of mA and /or kV according to patient size and/or use of iterative reconstruction technique. FINDINGS: There is no acute intracranial hemorrhage or abnormal extra-axial fluid collection. No mass effect or midline shift is seen. There is no evidence of large acute territorial infarction. There is no hydrocephalus. To the limit of CT, the posterior fossa appears unremarkable. The calvaria and extra cranial soft tissues are unremarkable. The visualized orbits show no abnormality. The visualized paranasal sinuses show no air-fluid level. Mastoid air cells are clear. IMPRESSION: No acute intracranial process. Radiation Dose Estimate: CTDI(mGy):0.135326 / / / kVp:120.903242 / mAs:0.191459 / / / DLP(mGy-cm):4.124665 Body Part: Head CTDI(mGy):47.838336 / / / kVp:120.061756 / mAs:191.991075 / / / DLP(mGy-cm):787.0200 20Body Part: Head Final Dictated by: Arelis Shields MD Dictated DT/TM: 02.20.2025 9:58 pm Signed by: Arelis Shields MD Signed (Electronic Signature): 02.20.2025 9:59 pm (If Report Is Signed, Electronically Signed in Other Vendor System) Normal [facility] D-Dimeron 02-20-2025 D-Dimer 1993 ng/mL feu High <=500 [facility] Comment on above: Result Comment: Resu lts of the D-Dimer test should always be interpreted in conjunction with the patient's medical history, clinical presentation, and other findings. Results <= 500 ng/mL feu are considered NEGATIVE for VTE. Results > 500 ng/mL feu require further clinical evaluation. Performed By: #### D BRANDAN #### [facility] [address] [place] [id number] Diff Autoon 02-20-2025 Baso Absolute 0.0 x10*3/mcL Normal 0.0-0.2 [facility] Comment on above: Performed By: #### A MI1 #### [address] [address] Basophils/100 WBC (Bld) 0.6 % Normal 0.0-1.5 [facility] Comment on above: Performed By: #### A MI1 #### [address] [address] Eos Absolute 0.1 x10*3/mcL Normal 0.0-0.4 [facility] Comment on above: Performed By: #### A MI1 #### [address] [address] Eosinophils/100 WBC (Bld) 1.6 % Normal 0.0-5.4 [facility] Comment on above: Performed By: #### A MI1 #### [address] [address] Lymph Absolute 2.0 x10*3/mcL Normal 1.0-4.8 [facility] Comment on above: Performed By: #### A MI1 #### [address] [address] Lymphocytes/100 WBC (Bld) 34.6 % Normal 27.2-40.8 [facility] Comment on above: Performed By: #### A MI1 #### [address] [address] [place] Absolute 0.5 x10*3/mcL Normal 0.1-1.1 [facility] Comment on above: Performed By: #### A MI1 #### [address] [address] Monocytes/100 WBC (Bld) 8.3 % Normal 3.7-11.9 [facility] Comment on above: Performed By: #### A MI1 #### [address] [address] Neutro Absolute 3.1 x10*3/mcL Normal 1.8-7.7 [facility] Comment on above: Performed By: #### A MI1 #### [address] [address] Neutro Auto 54.9 % Normal 47.2-70.8 [facility] Comment on above: Performed By: #### A MI1 #### [place] [address] [place] [address] ED Note-Physicianon 02-21-20 ED Note-Physician Chief Complaint Patient has experienced chest pain for the past 3 days with exertional SOB. Patient also reports posterior headache History of Present Illness Patient is a 24 year old female presenting to the ED from urgent care with headache and chest pain since 02/18. She states that neither pain keeps her awake at night, but she has woken up with both pains every day since it started. She had decided to go to urgent care today, who took EKGs before sending her here for further evaluation. She has some facial tingling and feels that her face is hot, but denies any fevers, cough, leg swelling, one-sided weakness, changes in her speech, and neck pain. 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 She also denies any history of DVT, PE, and migraines or headaches like this in the past. She has had a hysterectomy. Review of Systems As reviewed in the HPI. All other systems reviewed are negative or normal. Physical Exam Constitutional: the patient appears in no acute distress, alert, awake, non-toxic Head/face: exam is negative for obvious evidence of injury or deformity Eyes: Pupils: equal, round, and reactive to light. Sclera: no appreciated abnormality ENT: Exam is negative for injury or acute deformity Neck: External neck: no acute changes, Trachea: is midline with no obvious abnormalities, ROM/movement: no acute changes, Meningeal signs: are not present. Cardiovascular: Rate: normal, Rhythm: regular, Pulses: no pulse deficits are appreciated, Heart sounds: normal, Edema: is not appreciated, JVD: is not appreciated. Respiratory: Exam negative for respiratory distress, Respirations: normal, Breath sounds: are normal, no acute changes, throughout. Abdomen / GI Exam: negative for guarding, pulsatile mass, rebound tenderness, tenderness, Inspection: abdomen appears normal, Bowel sounds: normal, active, Palpitation: abdomen is soft and non-tender, Indicators: Woods?s sign is negative, McBurney?s point is not-tender. Back: Exam negative for acute changes, CVA tenderness. Musculoskeletal/extr emity: Extremities: all appear grossly normal, with no appreciated pain with palpation, Perfusion: the patient is warm, the extremity is warm. Sensation intact. DVT exam: no swelling no tenderness, Calves: are non-tender. Skin: Exam negative for cyanosis, any evidence of obvious injury, Appearance: appears normal. Neuro: Orientation: is normal, appropriate for stated age, no acute changes, Mentation: able to follow commands, cerebellar function: is grossly normal, no acute changes, Motor: strength is normal, strength is 5/5 in all extremities, Sensation: no obvious gross deficits. Psych: Exam negative for acute changes, delusions, inappropriate behavior. Vitals & Measurements T: 36.8 ?C (Oral) HR: 86 (Monitored) HR: 86 (Monitored) RR: 17 RR: 17 BP: 120/73 SpO2: 99% SpO2: 99% HT: 160 cm WT: 74.5 kg (Dosing) Additional Vitals No qualifying data available. Procedure No qualifying data available. ASA Documentation Medical Decision Making Norm Baig scribing for and in the presence of Dr. Lopes. Scribe Attestation: The information in this document, created by the back office medical assistant for me, accurately reflects the services I personally performed and the decisions made by me. This report has been created using voice recognition software. It may contain minor errors which are inherent in voice recognition technology. MEDICAL DECISION MAKING Number and Complexity of Problems Differential Diagnosis: _Acute intracranial hemorrhage, acute blood loss anemia, electrolyte abnormalities, MDM Data External documents reviewed: _Cerner documentation My EKG interpretation: _ My CT interpretation: _ My X-ray interpretation: _ My Ultrasound interpretation: _ Decision rules/scores evaluated: _ Discussed with: _ Decision rules/scores evaluated: _ ? HEART Score: Not Completed ? PERC Rule: _ ? NEXUS C-spine Criteria: _ ? [place] Ankle Rule: _ ? [place] Knee Rule: _ ? [place] Criteria for DVT: _ ? [place] Criteria for PE: _ Discussed with: _ Treatment and Disposition ED Course: _This is a 24-year-old female who was sent from the urgent care for evaluation of chest pain, headaches, in the emergency department patient was noted to be hemodynamically stable, patient has an EKG indicating no ST segment elevation or depression initial troponin was negative followed by the 1 hour troponin sensitive, chest x-ray indicating no acute cardiopulmonary process does not have any focal neurological deficits, D-dimer noted to be elevated and therefore ordered CT angio of the chest which indicated no evidence of pulmonary embolism however does indicate pneumonitis, CT brain indicating no evidence of acute intracranial hemorrhage patient is otherwise hemodynamically stable will be started on Zithromax, prednisone will be discharged home follow-up outpatient as instructed. He is not hypoxic, she is not in any acute respirator (more content not included)... Normal [facility] PTon 02-20-2025 INR Coag (PPP) [Relative time] 1.0 {INR} Normal <=3.5 [facility] Comment on above: Result Comment: INR has no normal range. INR Therapeutic range is: 2.0-3.0 (AF, CVA, TIAs, DVT prophylaxis, acute DVT) 2.5-3.5 ([facility] heart valves, recurrent thrombosis/emboli) Performed By: #### P TINR #### [place] [id number] PT Coag (PPP) [Time] 11.9 s Normal 10.2-12.9 [facility] Comment on above: Performed By: #### P TINR #### [address] [address] PTTon 02-20-2025 aPTT Coag (Bld) [Time] 29.9 s Normal 25.1-36.5 [facility] Comment on above: Performed By: #### P TT #### [address] [address] Urgent Care Office/Clinic No chele 02-20-2025 Urgent Care Office/Clinic Note The content of this note was generated by an artificial intelligence (AI) language dictation. The patient or guardian has given their consent for the use of AI technology during the visit to capture and process the conversation. The AI will assist in providing information and support throughout the discussion. The AI will not store personal or sensitive information beyond the scope of this session, and the purpose is solely to facilitate the conversation. Chief Complaint Headache/ Chest pain since Wednesday Evening History of Present Illness The patient is a 24-year-old female with a history of Adipex use, presenting with chest pain, headache, and tachycardia. Chest pain and Tachycardia The patient reports experiencing chest pain that is not severe but persistent. She notes that the pain is relieved while she sleeps. The chest pain began on Wednesday. She has been taking Adipex for two months. An EKG was done and she has heart rate fluctuations between 80 and 126 bpm. She drinks about 6 bottles of water a day. She is a non smoker and had a Hysterectomy. She reports short of breath but does not appear to be having any difficulty breathing and is speaking in complete sentences. No sudden onset of shortness of breath reported. Headache The patient describes a throbbing headache that is more severe than her chest pain. The headache is localized to the lower left side of her posterior head in the left occipital region and is tender to touch. She has been alternating between ibuprofen and Tylenol for relief, with the last dose of Tylenol taken early this morning. Toradol was offered and she declined and prefers to take Ibuprofen when she gets home. She reports that the medications have not been effective in alleviating her headache. She is dieting for the past 2 months and is following an 1800-calorie diet and reports she had cottage cheese and 2 sausage links for dinner. Review of Systems Head: Positive for headache and throbbing head pain. Nose: Negative for sinus issues and seasonal allergies. Cardiovascular: Positive for chest pain and tachycardia. Dull and constant 3-4 on a 0-10 scale, mid sternal. Respiratory: Negative for shortness of breath. Physical Exam Vitals & Measurements T: 36.6 ?C (Oral) HR: 109 (Peripheral) RR: 16 BP: 110/77 SpO2: 95% HT: 160 cm WT: 74.5 kg (Dosing) WT: 74.5 kg BMI: 29.1 Eyes: Clear no redness or drainage, denies vision changes, no aura reported Pharynx: No redness swelling or exudate Neck: No enlarged lymph glands Nose: Clear no rhinitis Sinuses: No tenderness over the frontal or maxillary sinuses, no upper teeth aching Chest: Clear with no rales wheezes or rhonchi Heart sounds: Regular no murmurs or extrasystoles Head/Neck: Tenderness at the base of the skull on the left occipital region. No tenderness with range of motion of the head or stiffness EKG: SINUS RHYTHM Rate 89 LOW QRS VOLTAGE IN PRECORDIAL LEADS POSSIBLE RIGHT VENTRICULAR CONDUCTION DELAY POSSIBLE ANTERIOR MYOCARDIAL INFARCTION, OF INDETERMINATE AGE Additional Vitals BP Position/Location: Sitting, Left arm Assessment and Plan: 1. Headache I discussed with patient the need to transfer her to a higher level of care for further evaluation and treatment. She does agree to go to [facility] emergency department. Report was called to [facility] and triage nurse accepted patient. I discussed with the patient the protocol for admission to the emergency department and explained she will need to do another intake of history and insurance. She will be triaged according to triage guidelines and will be taken to a room according to triage guidelines. Patient verbalized understanding of the procedure. Plan: 1) Increase rest and fluids. 2) Medication as prescribed. Continue to take Ibuprofen / Tylenol as needed for headache 3) Followup with PCP in the AM 4) Patient instructed to go to the Emergency Department At [facility] if symptoms become worse or any concern deemed emergent. 2. Chest pain Reports mid sternal chest pain which is described as stabbing pain. Recommend stopping Adipex - she agrees to call her doctor in the morning and speak with him regarding the medication. 3. Tachycardia EKG Normal Sinus rhythm and Sinus tachycardia with rate 115- 122 Ordered: EKG Medical Decision Making Referred to a higher level of care for evaluation that cannot be done at this facility. Acute condition could cause comorbid and / or fatal complications if not evaluated and treated. Chronic conditions NOT treated during this visit that affected my overall medical decision making: [] Treatment plans discussed but not opted for at this time: [] Prescribed medication that requires intensive monitoring for toxicity: [] I have reviewed the patient?s medication list for medication interactions/contrai ndications and/or for upcoming procedures: [yes ] Time Spent with the Patient I have personally spent [21] minutes (more content not included)... Normal [facility] XR Chest 1 Viewon 02-20-2025 XR Chest 1 View EXAM: XR CHEST 1 VIEW HISTORY: Chest pain, COMPARISON: Portable chest from 06/27/2020. TECHNIQUE: PA chest done at 9:50 PM. FINDINGS: Trachea, mediastinum and heart size are unremarkable. Diaphragm and bony elements are intact. No infiltrate or nodule or effusion or pneumothorax is noted. IMPRESSION: Nonacute PA chest. Final Dictated by: Jairo Marie DO Dictated DT/TM: 02/20/2025 10:23 pm Signed by: Jairo Marie DO Signed (Electronic Signature): 02/20/2025 10:24 pm (If Report Is Signed, Electronically Signed in Other Vendor System) Normal [facility] Vaginitis DNA Probeon 2024 Deepti Positive Abnormal NEG [facility] Comment on above: Result Comment: for Deepti sp. Method of testing is a DNA probe intended for detection and identification of Deepti species, Gardnerella vaginalis, and Trichomonas vaginalis nucleic acid in vaginal fluid specimens from patients with symptoms of vaginitis/vaginosis. Performed By: #### V AGP #### [address] [address] Poly Operator: Addison Landeros MD Gardnerella Negative Normal NEG [facility] Comment on above: Result Comment: for Gardnerella vaginalis Performed By: #### V AGP #### [address] [address] Poly Operator: Addison Landeros MD Trichomonas Negative Normal NEG [facility] Comment on above: Result Comment: for Trichomonas Vaginalis Performed By: #### V AGP #### [address] [address] Poly Operator: Addison Landeros MD Source .VAGINAL SWAB Normal [facility] Comment on above: Performed By: #### V AGP #### [address] [address] Poly Operator: Addison Landeros MD Cult, Bloodon 11-30-2024 Cult, Blood Specimen Description .BLOOD Special Requests 10ml, lac, 2 bottles Culture NO GROWTH 5 DAYS Report Status FINAL 11/30/2024 [facility] Comment on above: Performed By: #### B CUL2 #### [facility] [address] [place] [address] Poly Operator: Stefan Mcnair MD Cult,Bloodon 11-30-2024 Cult,Blood Specimen Description .BLOOD Special Requests RAC, 20ML Culture NO GROWTH 5 DAYS Report Status FINAL 11/30/2024 [facility] Comment on above: Performed By: #### U ANDREAO, UA #### [facility] [address] [place] [address] Poly Operator: Stefan Mcnair MD CBC with Auto Differentialon 11-25-2024 Basophils (Bld) [#/Vol] [facility] Basophils/100 WBC (Bld) 0 % 0 - 2 % [facility] Eosinophils (Bld) [#/Vol] 0.10 10*3/uL [facility] Eosinophils/100 WBC (Bld) 1 % 1 - 4 % [facility] Erythrocyte distribution width (RBC) [Ratio] 11.4 % Low 11.8 - 14.4 % [facility] Hematocrit (Bld) [Volume fraction] 45.1 % 36.3 - 47.1 % [facility] Hemoglobin (Bld) [Mass/Vol] 15.6 g/dL High 11.9 - 15.1 g/dL [facility] Immature granulocytes (Bld) [#/Vol] [facility] Immature granulocytes/100 WBC (Bld) 0 % 0 [facility] Interpretation and review of laboratory results Abnormal [facility] Lymphocytes/100 WBC (Bld) 12 % Low 24 - 43 % [facility] Lymphocytes/100 WBC (Bld) 1.09 % Low [facility] MCH (RBC) [Entitic mass] 30.8 pg 25.2 - 33.5 pg [facility] MCHC (RBC) [Mass/Vol] 34.6 g/dL 28.4 - 34.8 g/dL [facility] MCV (RBC) [Entitic vol] 89.0 fL 82.6 - 102.[address] [facility] Monocytes/100 WBC (Bld) 6 % 3 - 12 % [facility] Monocytes/100 WBC (Bld) 0.56 % [facility] Neutrophils/100 WBC (Bld) 81 % High 36 - 65 % [facility] Nucleated RBC/100 WBC (Bld) [Ratio] 0.0 % 0.0 per [address] [facility] Platelet mean volume (Bld) [Entitic vol] 9.7 fL 8.1 - 13.5 fL [facility] Platelets (Bld) [#/Vol] 265 10*3/uL [facility] RBC (Bld) [#/Vol] 5.07 10*6/uL 3.95 - 5.1 1 m/uL [facility] Segmented neutrophils/100 WBC (Bld) 7.05 % [facility] WBC other (Bld) [#/Vol] 8.8 [facility] CBC with Diffon 11-25-2024 Abs. Basophil <0.03 Normal 0.00-0.20 [facility] Comment on above: Performed By: #### C DP CP, LIP #### [address] [place] [id number] Poly Operator: Stefan Mcnair MD Abs.Imm.Granulocyte <0.03 Normal 0.00-0.30 [facility] Comment on above: Performed By: #### C DP, CP, LIP #### [address] [place], [facility] Poly Operator: Stefan Mcnair MD Abs.Neutrophil (Seg) 7.05 k/uL Normal 1.50-8.10 [facility] Comment on above: Performed By: #### C DP CP, LIP #### [address] [place], [facility] Poly Operator: Stefan Mcnair MD Basophils/100 WBC (Bld) 0 % Normal 0-2 [facility] Comment on above: Performed By: #### C DP, CP, LIP #### [address] [place] [address] Poly Operator: Stefan Mcnair MD Eosinophils (Bld) [#/Vol] 0.10 10*3/uL Normal 0.00-0.44 [facility] Comment on above: Performed By: #### C DP, CP, LIP #### [facility] [address] [place], [facility] Poly Operator: Stefan Mcnair MD Eosinophils/100 WBC (Bld) 1 % Normal 1-4 [facility] Comment on above: Performed By: #### C DP, CP, LIP #### [address] [place], [facility] Poly Operator: Stefan Mcnair MD Erythrocyte distribution width (RBC) [Ratio] 11.4 % Low 11.8-14.4 [facility] Comment on above: Performed By: #### C DP, CP, LIP #### [address] [place], [place] [address] Poly Operator: Stefan Mcnair MD Hematocrit (Bld) [Volume fraction] 45.1 % Normal 36.3-47.1 [facility] Comment on above: Performed By: #### C DP, CP, LIP #### [address] [place], [place] [place] [address] Poly Operator: Stefan Mcnair MD Hemoglobin (Bld) [Mass/Vol] 15.6 g/dL High 11.9-15.1 [facility] [place] Comment on above: Performed By: #### C DP, CP, LIP #### [address] [place], [place] [address] Poly Operator: Stefan Mcnair MD Immature granulocytes/100 WBC (Bld) 0 % Normal 0 [facility] [place] Comment on above: Performed By: #### C DP, CP, LIP #### [address] [place], [place] [address] Poly Operator: Stefan Mcnair MD Lymphocytes (Bld) [#/Vol] 1.09 10*3/uL Low 1.10-3.70 [facility] [place] Comment on above: Performed By: #### C DP, CP, LIP #### [address] [place] [address] Poly Operator: Stefan Mcnair MD Lymphocytes/100 WBC (Bld) 12 % Low 24-43 [facility] [place] Comment on above: Performed By: #### C DP, CP, LIP #### [facility] [address] [place], [facility] Poly Operator: Stefan Mcnair MD MCH (RBC) [Entitic mass] 30.8 pg Normal 25.2-33.5 [facility] [place] Comment on above: Performed By: #### C DP, CP, LIP #### [address] [place] [address] Poly Operator: Stefan Mcnair MD MCHC (RBC) [Mass/Vol] 34.6 g/dL Normal 28.4-34.8 [facility] Comment on above: Performed By: #### C DP, CP, LIP #### [address] [place] [address] Poly Operator: Stefan Mcnair MD MCV (RBC) [Entitic vol] 89.0 fL Normal 82.6-102.9 [facility] [place] Comment on above: Performed By: #### C DP, CP, LIP #### [address] [place] [address] Poly Operator: Stefan Mcnair MD Monocytes (Bld) [#/Vol] 0.56 10*3/uL Normal 0.10-1.20 [facility] [place] Comment on above: Performed By: #### C DP, CP, LIP #### [facility] [address] [place] [address] Poly Operator: Stefan Mcnair MD Monocytes/100 WBC (Bld) 6 % Normal 3-12 [facility] [place] Comment on above: Performed By: #### C DP, CP, LIP #### [facility] [address] [place] [address] Poly Operator: Stefan Mcnair MD Neutrophil (Seg) 81 % High 36-65 [facility] Comment on above: Performed By: #### C DP CP, LIP #### [address] [place] [address] Poly Operator: Stefan Mcnair MD NRBC Automated 0.0 per 100 WBC Normal 0.0 [facility] [place] Comment on above: Performed By: #### C DP CP, LIP #### [facility] [address] [place], [place] [phone] Poly Operator: Stefan Mcnair MD Platelet mean volume (Bld) [Entitic vol] 9.7 fL Normal 8.1-13.5 [facility] [place] Comment on above: Performed By: #### C MANDY CP, LIP #### [address] [place], [place] 119[address]83 Poly Operator: Stefan Mcnair MD Platelets (Bld) [#/Vol] 265 10*3/uL Normal 138-453 [facility] [place] Comment on above: Performed By: #### C MANDY CP, LIP #### [address] [place], [place] [phone] Poly Operator: Stefan Mcnair MD RBC (Bld) [#/Vol] 5.07 10*6/uL Normal 3.95-5.11 [facility] [place] Comment on above: Performed By: #### C DP CP, LIP #### [address] [place], [place] [phone] Poly Operator: Stefan Mcnair MD WBC (Bld) [#/Vol] 8.8 10*3/uL Normal 3.5-11.3 [facility] [place] Comment on above: Performed By: #### C DP CP, LIP #### [address] [place], [place] [phone] Poly Operator: Stefan Mcnair MD CMPon 11-25-2024 Albumin [Mass/Vol] 4.7 g/dL 3.5 - 5.2 g/dL [facility] Albumin/Globulin [Mass ratio] 1.4 {ratio} 1.0 - 2.5 [facility] ALP [Catalytic activity/Vol] 70 U/L 35 - 104 U/L [facility] ALT [Catalytic activity/Vol] 12 U/L 10 - 35 U/L [facility] Anion gap [Moles/Vol] 11 mmol/L 9 - 16 mmol/L [facility] AST [Catalytic activity/Vol] 19 U/L 10 - 35 U/L [facility] Bilirubin [Mass/Vol] 0.6 mg/dL 0.00 - 1.20 mg/dL [facility] Calcium [Mass/Vol] 10.1 mg/dL 8.6 - 10. 4 mg/dL [facility] Chloride [Moles/Vol] 102 mmol/L 98 - 10 7 mmol/L [facility] CO2 [Moles/Vol] 26 mmol/L 20 - 31 mmol/L [facility] Creatinine [Mass/Vol] 1.1 mg/dL High 0.50 - 0.90 mg/dL [facility] Est, Glom Filt Rate 76 - PINF [facility] Comment on above: These results are not [...] that affects renal tubular secretion. Glucose [Mass/Vol] 89 mg/dL 74 - 99 mg/dL [facility] Interpretation and review of laboratory results Abnormal [facility] Potassium [Moles/Vol] 4.5 mmol/L 3.7 - 5.3 mmol/L [facility] Protein [Mass/Vol] 8.0 g/dL 6.6 - 8.7 g/dL [facility] Sodium [Moles/Vol] 139 mmol/L 136 - 145 mmol/L [facility] Urea nitrogen [Mass/Vol] 20 mg/dL 6 - 20 mg/dL [facility] Urea nitrogen/Creatinine [Mass ratio] 18 mg/mg 9 - 20 [facility] Comp Metabolic Profon 2024 Albumin [Mass/Vol] 4.7 g/dL Normal 3.5-5.2 [facility] [place] Comment on above: Performed By: #### C DP, CP, LIP #### [facility] [address] [place], [place] [phone] Poly Operator: Stefan Mcnair MD Albumin/Glob Ratio 1.4 Normal 1.0-2.5 [facility] [place] Comment on above: Performed By: #### C DP, CP, LIP #### [facility] [address] [place], [place] [phone] Poly Operator: Stefan Mcnair MD Alkaline Phos 70 U/L Normal 35-104 [facility] Comment on above: Performed By: #### C DP, CP, LIP #### [facility] [address] [place], [place] [address]283 Poly Operator: Stefan Mcnair MD ALT [Catalytic activity/Vol] 12 U/L Normal 10-35 [facility] Comment on above: Performed By: #### C DP, CP, LIP #### [facility] [address] [place], [place] [phone] Poly Operator: Stefan Mcnair MD Anion gap [Moles/Vol] 11 mmol/L Normal 9-16 [facility] Comment on above: Performed By: #### C DP, CP, LIP #### [facility] [address] [place], [place] [phone] Poly Operator: Stefan Mcnair MD AST [Catalytic activity/Vol] 19 U/L Normal 10-35 [facility] [place] Comment on above: Performed By: #### C DP, CP, LIP #### [facility] [address] [place], [place] [phone] Poly Operator: Stefan Mcnair MD Bilirubin [Mass/Vol] 0.6 mg/dL Normal 0.00-1.20 [facility] Comment on above: Performed By: #### C DP, CP, LIP #### [facility] [address] [place], [place] [phone] Poly Operator: Stefan Mcnair MD BUN/CRE Ratio 18 Normal 9-20 [facility] Comment on above: Performed By: #### C DP, CP, LIP #### [facility] [address] [place], [place] [phone] Poly Operator: Stefan Mcnair MD Calcium [Mass/Vol] 10.1 mg/dL Normal 8.6-10.4 [facility] [place] Comment on above: Performed By: #### C DP, CP, LIP #### [facility] [address] [place], [place] [phone] Poly Operator: Stefan Mcnair MD Chloride [Moles/Vol] 102 mmol/L Normal 98-107 [facility] Comment on above: Performed By: #### C DP, CP, LIP #### [address] [place], [place] [phone] Poly Operator: Stefan Mcnair MD CO2 [Moles/Vol] 26 mmol/L Normal 20-31 [facility] Comment on above: Performed By: #### C DP, CP, LIP #### [facility] [address] [place], [place] [phone] Poly Operator: Stefan Mcnair MD Creatinine [Mass/Vol] 1.1 mg/dL High 0.50-0.90 [facility] Comment on above: Performed By: #### C DP, CP, LIP #### [facility] [address] [place], [place] [phone] Poly Operator: Stefan Mcnair MD GFR/1.73 sq M.predicted among non-blacks MDRD (S/P/Bld) [Vol rate/Area] 76 mL/min/{1.73_m2} Normal >60 [facility] [place] Comment on above: Result Comment: These results [...] affects renal tubular secretion. Performed By: #### C DP CP, LIP #### [facility] [address] [place] [address] [place] [address] Poly Operator: Stefan Mcnair MD Glucose [Mass/Vol] 89 mg/dL Normal 74-99 [facility] [place] Comment on above: Performed By: #### C MANDY CP, LIP #### [address] [place] [address] Poly Operator: Stefan Mcnair MD Potassium [Moles/Vol] 4.5 mmol/L Normal 3.7-5.3 [facility] Comment on above: Performed By: #### C MANDY CP, LIP #### [address] [place], [place] [phone] Poly Operator: Stefan Mncair MD Protein [Mass/Vol] 8.0 g/dL Normal 6.6-8.7 [facility] Comment on above: Performed By: #### C DP CP, LIP #### [facility] [address] [place] [address] [place] [address] Poly Operator: Stefan Mcnair MD Sodium [Moles/Vol] 139 mmol/L Normal 136-145 [facility] Comment on above: Performed By: #### C DP, CP, LIP #### [facility] [address] [place] [address] Poly Operator: Stefan Mcnair MD Urea nitrogen [Mass/Vol] 20 mg/dL Normal 6-20 [facility] [place] Comment on above: Performed By: #### C DP, CP, LIP #### [facility] [address] [place] [address] Poly Operator: Stefan Mcnair MD Lactic Acidon 11-25-2024 Lactate (BldV) [Moles/Vol] 0.9 mmol/L 0.5 - 2.2 mmol/L [facility] Lactate [Moles/Vol] 0.9 mmol/L Normal 0.5-2.2 [facility] Comment on above: Performed By: #### U MICAO, UA #### [facility] [address] [place] [address] Poly Operator: Stefan Mcnair MD Lipaseon 11-25-2024 Lipase [Catalytic activity/Vol] 33 U/L 13 - 60 U/L [facility] Lipase [Catalytic activity/Vol] 33 U/L Normal 13-60 [facility] [place] Comment on above: Performed By: #### C MANDY, CP, LIP #### [facility] [address] [place] [address] Poly Operator: Stefan Mcnair MD Microscopic Urinalysison Epithelial cells LM.HPF (Urine sed) [#/Area] 0 TO [address] [facility] RBC LM.HPF (Urine sed) [#/Area] 0 TO [address] [facility] WBC LM.HPF (Urine sed) [#/Area] 0 TO [address] [facility] No Panel Informationon 11-25 [facility] Urinalysison 11-25-2024 Bilirubin Ql (U) Negative NEGATIVE [facility] Clarity (U) Clear Clear [facility] Color (U) Yellow Yellow [facility] Glucose Test strip (U) [Mass/Vol] Negative NEGATIVE mg/dL [facility] Hemoglobin Auto test strip Ql (U) Negative NEGATIVE [facility] Ketones (U) [Mass/Vol] Negative NEGATIVE mg/d L [facility] Leukocyte esterase Test strip Ql (U) Negative NEGATIVE [facility] Nitrite Ql (U) Negative NEGATIVE [facility] pH (U) 6.0 [pH] 5.0 - 9.0 [facility] Protein (U) [Mass/Vol] Negative NEGATIVE mg/d L [facility] Specific gravity (U) [Rel density] 1.010 1.010 - 1.020 [facility] Urobilinogen Qn (U) Normal 0.0 - 1. 0 EU/dL [facility] Urinalysis, Routineon 2024 Bilirubin, SemiQt,Ur Negative Normal NEG [facility] Comment on above: Performed By: #### U MICAO, UA #### [facility] [address] [place] [address] Poly Operator: Stefan Mcnair MD Blood, Urine Negative Normal NEG [facility] [place] Comment on above: Performed By: #### U MICAO, UA #### [facility] [address] [place] [address] Poly Operator: Stefan Mcnair MD Clarity (U) Clear Normal CLEAR [facility] [place] Comment on above: Performed By: #### U MICAO, UA #### [facility] [address] [place] [address] Poly Operator: Stefan Mcnair MD Color (U) Yellow Normal YEL [facility] [place] Comment on above: Performed By: #### U MICAO, UA #### [facility] [address] [place] [address] Poly Operator: Stefan Mcnair MD Glucose Ql (U) Negative Normal NEG [facility] Comment on above: Performed By: #### U MICAO, UA #### [facility] [address] [place] [address] Poly Operator: Stefan Mcnair MD Ketones Ql (U) Negative Normal NEG [facility] Comment on above: Performed By: #### U MICAO, UA #### [facility] [address] [place] [address] [place] [address] Poly Operator: Stefan Mcnair MD Leukocyte esterase Test strip Ql (U) Negative Normal NEG [facility] [place] Comment on above: Performed By: #### U MICAO, UA #### [facility] [address] [place] [address] [place] [address] Poly Operator: Stefan Mcnair MD Nitrite,Ur Negative Normal NEG [facility] Comment on above: Performed By: #### U MICAO, UA #### [address] [place] [address] Poly Operator: Stefan Mcnair MD PH,Ur 6.0 Normal 5.0-9.0 [facility] Comment on above: Performed By: #### U MICAO, UA #### [address] [place] [address] Poly Operator: Stefan Mcnair MD Protein Ql (U) Negative Normal NEG [facility] Comment on above: Performed By: #### U MICAO, UA #### [address] [place] [address] Poly Operator: Stefan Mcnair MD Spec. [place],Ur 1.010 Normal 1.010-1.020 [facility] Comment on above: Performed By: #### U MICAO, UA #### [facility] [address] [place] [address] Dr[place], [place] [phone] Poly Operator: Stefan Mcnair MD Urobilinogen,Ur Normal Normal 0.0-1.0 [facility] Comment on above: Performed By: #### U MICAO, UA #### [facility] [address] [place] [address] Dr. [place], [place] [phone] Poly Operator: Stefan Mcnair MD Urinalysis,Microon 01-18-202 5 Epithelial cells LM Ql (Urine sed) 0 TO 2 Normal 0-25 [facility] [place] Comment on above: Performed By: #### U MICAO, UA #### [facility] [address] [place] [address] Poly Operator: Stefan Mcnair MD Urine RBC's 0 TO 2 Normal 0-2 [facility] Comment on above: Performed By: #### U ANDREAO, UA #### [facility] [address] [place] [address] Poly Operator: Stefan Mcnair MD Urine WBC's 0 TO 2 Normal 0-5 [facility] Comment on above: Performed By: #### U ANDREAO, UA #### [facility] [address] [place] [address] Poly Operator: Stefan Mcnair MD Surgical Pathology Reporton 11-20-2024 Surgical Pathology Report (NOTE) Path Number: [id number] -- Diagnosis -- UTERUS, HYSTERECTOMY: -UNREMARKABLE EXOCERVIX -MILD CHRONIC ENDOCERVICITIS -WEAKLY PROLIFERATIVE/INACTI VE ENDOMETRIUM -UNREMARKABLE MYOMETRIUM Ralph Bernstein D.O. Electronically Signed Out [facility]11/22/2024 Clinical Information Pre-Op Diagnosis: PELVIC PAIN SYNDROME; HISTORY OF ENDOMETRIOSIS Operative Findings: UTERUS AND CERVIX Operation Performed: HYSTERECTOMY VAGINAL LAPAROSCOPIC ROBOTIC ASSISTED, POSSIBLE BILATERAL OOPHORECTOMY, POSSIBLE LAPAROSCOPIC COLPOPEXY se Source of Specimen A: UTERUS AND CERVIX Gross Description ZAID LUNA UTERUS AND CERVIX Received in formalin is a 90 gram, 9.0 x 4.5 x 3.6 cm uterus and cervix. The serosa is dean-pink and smooth (anterior = blue and posterior = black). There is a dean-pink, smooth to eroded ectocervix that surrounds a patent slit-like os. There is a 3.0 x 2.0 cm endometrial cavity that is lined by dean-pink, hyperemic, flat mucosa, < 0.1 to 0.2 cm. The myometrium is dean-pink, rubbery and is up to 1.8 cm. The cervix is lined by dean, corrugated mucosa. Sectioning of the cervix shows dean, rubbery cut surfaces with multiple nabothian cysts. The cysts are up to 1.0 cm and contain cloudy mucoid material. No lesions are identified. Scrap Worker sections are submitted in 4c as follows: 1 anterior cervix 2 posterior cervix 3 anterior endomyometrium 4 posterior endomyometrium. tm Lluvia Soto/se:11/21/2024 Microscopic Description Microscopic examination performed. Processing Lab: [address] [id number] Interpretation Performed at [address] [id number] SURGICAL PATHOLOGY CONSULTATION Patient Name: ZAID LUNA [facility] Rec: [id number] [facility] [employer] ANATOMIC PATHOLOGY [address] [place] [address]. [place], [place] [address] Normal [facility] CBC with Auto Differentialon 11-15-2024 Basophils (Bld) [#/Vol] 0.03 10*3/uL [facility] Basophils/100 WBC (Bld) 0 % 0 - 2 % [facility] Eosinophils (Bld) [#/Vol] 0.08 10*3/uL [facility] Eosinophils/100 WBC (Bld) 1 % 1 - 4 % [facility] Erythrocyte distribution width (RBC) [Ratio] 11.7 % Low 11.8 - 14.4 % [facility] Hematocrit (Bld) [Volume fraction] 41.4 % 36.3 - 47.1 % [facility] Hemoglobin (Bld) [Mass/Vol] 13.7 g/dL 11.9 - 15.1 g/dL [facility] Immature granulocytes (Bld) [#/Vol] [facility] Immature granulocytes/100 WBC (Bld) 0 % 0 [facility] Interpretation and review of laboratory results Abnormal [facility] Lymphocytes/100 WBC (Bld) 14 % Low 24 - 43 % [facility] Lymphocytes/100 WBC (Bld) 1.24 % [facility] MCH (RBC) [Entitic mass] 30.3 pg 25.2 - 33.5 pg [facility] MCHC (RBC) [Mass/Vol] 33.1 g/dL 28.4 - 34.8 g/dL [facility] MCV (RBC) [Entitic vol] 91.6 fL 82.6 - 102.9 fL [facility] Monocytes/100 WBC (Bld) 6 % 3 - 12 % [facility] Monocytes/100 WBC (Bld) 0.51 % [facility] Neutrophils/100 WBC (Bld) 79 % High 36 - 65 % [facility] Nucleated RBC/100 WBC (Bld) [Ratio] 0.0 % 0.0 per 100 WBC [facility] Platelet mean volume (Bld) [Entitic vol] 10.6 fL 8.1 - 13.5 fL [facility] Platelets (Bld) [#/Vol] 228 10*3/uL [facility] RBC (Bld) [#/Vol] 4.52 10*6/uL 3.95 - 5.1 1 m/uL [facility] Segmented neutrophils/100 WBC (Bld) 6.86 % [facility] WBC other (Bld) [#/Vol] 8.7 [facility] CBC with Diffon 11-15-2024 Abs. Basophil 0.03 k/uL Normal 0.00-0.20 [facility] Comment on above: Performed By: #### C DP, HCG, CP #### [employer] [address] [place], [place] [phone] Poly Operator: Addison Landeros MD Abs.Imm.Granulocyte <0.03 Normal 0.00-0.30 [facility] Comment on above: Performed By: #### C DP, HCG, CP #### [employer] [address] [place], [place] [phone] Poly Operator: Addison Landeros MD Abs.Neutrophil (Seg) 6.86 k/uL Normal 1.50-8.10 [facility] Comment on above: Performed By: #### C DP, HCG, CP #### [facility] [address] [place] [id number] Poly Operator: Addison Landeros MD Basophils/100 WBC (Bld) 0 % Normal 0-2 [facility] Comment on above: Performed By: #### C DP, HCG, CP #### [address] [address] Poly Operator: Addison Landeros MD Eosinophils (Bld) [#/Vol] 0.08 10*3/uL Normal 0.00-0.44 [facility] Comment on above: Performed By: #### C DP, HCG, CP #### [place] [address] Poly Operator: Addison Landeros MD Eosinophils/100 WBC (Bld) 1 % Normal 1-4 [facility] Comment on above: Performed By: #### C DP, HCG, CP #### [facility] [address] [place] [address] Poly Operator: Addison Landeros MD Erythrocyte distribution width (RBC) [Ratio] 11.7 % Low 11.8-14.4 [facility] Comment on above: Performed By: #### C DP, HCG, CP #### [facility] [address] [place] [address] Poly Operator: Addison Landeros MD Hematocrit (Bld) [Volume fraction] 41.4 % Normal 36.3-47.1 [facility] Comment on above: Performed By: #### C DP, HCG, CP #### [facility] [address] [place] [address] Poly Operator: Addison Landeros MD Hemoglobin (Bld) [Mass/Vol] 13.7 g/dL Normal 11.9-15.1 [facility] Comment on above: Performed By: #### C DP, HCG, CP #### [address] [address] Poly Operator: Addison Landeros MD Immature granulocytes/100 WBC (Bld) 0 % Normal 0 [facility] Comment on above: Performed By: #### C DP, HCG, CP #### [address] [address] Poly Operator: Addison Landeros MD Lymphocytes (Bld) [#/Vol] 1.24 10*3/uL Normal 1.10-3.70 [facility] Comment on above: Performed By: #### C DP, HCG, CP #### [address] [address] Poly Operator: Addison Landeros MD Lymphocytes/100 WBC (Bld) 14 % Low 24-43 [facility] Comment on above: Performed By: #### C DP, HCG, CP #### [address] [address] Poly Operator: Addison Landeros MD MCH (RBC) [Entitic mass] 30.3 pg Normal 25.2-33.5 [facility] Comment on above: Performed By: #### C DP, HCG, CP #### [address] [address] Poly Operator: Addison Landeros MD MCHC (RBC) [Mass/Vol] 33.1 g/dL Normal 28.4-34.8 [facility] Comment on above: Performed By: #### C DP, HCG, CP #### [address] [address] Poly Operator: Addison Landeros MD MCV (RBC) [Entitic vol] 91.6 fL Normal 82.6-102.9 [facility] Comment on above: Performed By: #### C DP, HCG, CP #### [address] [address] Poly Operator: Addison Landeros MD Monocytes (Bld) [#/Vol] 0.51 10*3/uL Normal 0.10-1.20 [facility] Comment on above: Performed By: #### C DP, HCG, CP #### [address] [address] Poly Operator: Addison Landeros MD Monocytes/100 WBC (Bld) 6 % Normal 3-12 [facility] Comment on above: Performed By: #### C DP, HCG, CP #### [address] [address] Poly Operator: Addison Landeros MD Neutrophil (Seg) 79 % High 36-65 [facility] Comment on above: Performed By: #### C DP, HCG, CP #### [address] [address] Poly Operator: Addison Landeros MD NRBC Automated 0.0 per 100 WBC Normal 0.0 [facility] Comment on above: Performed By: #### C DP, HCG, CP #### [address] [address] Poly Operator: Addison Landeros MD Platelet mean volume (Bld) [Entitic vol] 10.6 fL Normal 8.1-13.5 [facility] Comment on above: Performed By: #### C DP, HCG, CP #### [address] [address] Poly Operator: Addison Landeros MD Platelets (Bld) [#/Vol] 228 10*3/uL Normal 138-453 [facility] Comment on above: Performed By: #### C DP, HCG, CP #### [facility] [address] [place] [id number] Poly Operator: Addison Landeros MD RBC (Bld) [#/Vol] 4.52 10*6/uL Normal 3.95-5.11 [facility] Comment on above: Performed By: #### C DP, HCG, CP #### [address] [address] Poly Operator: Addison Landeros MD WBC (Bld) [#/Vol] 8.7 10*3/uL Normal 3.5-11.3 [facility] Comment on above: Performed By: #### C DP, HCG, CP #### [address] [address] Poly Operator: Addison Landeros MD Comp Metabolic Profon 2024 Albumin [Mass/Vol] 4.5 g/dL Normal 3.5-5.2 [facility] Comment on above: Performed By: #### C DP, HCG, CP #### [address] [address] Poly Operator: Addison Landeros MD Albumin/Glob Ratio 1.7 Normal 1.0-2.5 [facility] Comment on above: Performed By: #### C DP, HCG, CP #### [address] [address] Poly Operator: Addison Landeros MD Alkaline Phos 58 U/L Normal 35-104 [facility] Comment on above: Performed By: #### C DP, HCG, CP #### [address] [address] Poly Operator: Addison Landeros MD ALT [Catalytic activity/Vol] 12 U/L Normal 10-35 [facility] Comment on above: Performed By: #### C DP, HCG, CP #### [address] [address] Poly Operator: Addison Landeros MD Anion gap [Moles/Vol] 10 mmol/L Normal 9-16 [facility] Comment on above: Performed By: #### C DP, HCG, CP #### [address] [address] Poly Operator: Addison Landeros MD AST [Catalytic activity/Vol] 17 U/L Normal 10-35 [facility] Comment on above: Performed By: #### C DP, HCG, CP #### [address] [address] Poly Operator: Addison Landeros MD Bilirubin [Mass/Vol] 0.6 mg/dL Normal 0.0-1.2 [facility] Comment on above: Performed By: #### C DP, HCG, CP #### [address] [address] Poly Operator: Addison Landeros MD Calcium [Mass/Vol] 9.5 mg/dL Normal 8.6-10.4 [facility] Comment on above: Performed By: #### C DP, HCG, CP #### [address] [address] Poly Operator: Addison Landeros MD Chloride [Moles/Vol] 105 mmol/L Normal 98-107 [facility] Comment on above: Performed By: #### C DP, HCG, CP #### [address] [address] Poly Operator: Addison Landeros MD CO2 [Moles/Vol] 25 mmol/L Normal 20-31 [facility] Comment on above: Performed By: #### C DP, HCG, CP #### [address] [address] Poly Operator: Addison Landeros MD Creatinine [Mass/Vol] 0.7 mg/dL Normal 0.6-0.9 [facility] Comment on above: Performed By: #### C DP, HCG, CP #### [address] [place] [address] Poly Operator: Addison Landeros MD GFR/1.73 sq M.predicted among non-blacks MDRD (S/P/Bld) [Vol rate/Area] mL/min/{1.73_m2} Normal >60 [facility] Comment on above: Result Comment: These results [...] affects renal tubular secretion. Performed By: #### C DP, HCG, CP #### [facility] [address] [place] [address] Poly Operator: Addison Landeros MD Glucose [Mass/Vol] 90 mg/dL Normal 74-99 [facility] Comment on above: Performed By: #### C DP, HCG, CP #### [facility] [address] [place] [address] Poly Operator: Addison Landeros MD Potassium [Moles/Vol] 4.0 mmol/L Normal 3.7-5.3 [facility] Comment on above: Performed By: #### C DP, HCG, CP #### [facility] [address] [place] [address] Poly Operator: Addison Landeros MD Protein [Mass/Vol] 7.1 g/dL Normal 6.6-8.7 [facility] Comment on above: Performed By: #### C DP, HCG, CP #### [facility] [address] [place] [address] Poly Operator: Addison Landeros MD Sodium [Moles/Vol] 140 mmol/L Normal 136-145 [facility] Comment on above: Performed By: #### C DP, HCG, CP #### [facility] [address] [place] [address] Poly Operator: Addison Landeros MD Urea nitrogen [Mass/Vol] 15 mg/dL Normal 6-20 [facility] Comment on above: Performed By: #### C DP, HCG, CP #### [facility] [address] [place] [address] Poly Operator: Addison Landeros MD Comprehensive Metabolic Pane [facility] 11-15-2024 Albumin [Mass/Vol] 4.5 g/dL 3.5 - 5.2 g/dL [facility] Albumin/Globulin [Mass ratio] 1.7 {ratio} 1.0 - 2.5 [facility] ALP [Catalytic activity/Vol] 58 U/L 35 - 104 U/L [facility] ALT [Catalytic activity/Vol] 12 U/L 10 - 35 U/L [facility] Anion gap [Moles/Vol] 10 mmol/L 9 - 16 mmol/L [facility] AST [Catalytic activity/Vol] 17 U/L 10 - 35 U/L [facility] Bilirubin [Mass/Vol] 0.6 mg/dL 0.0 - 1 .2 mg/dL [facility] Calcium [Mass/Vol] 9.5 mg/dL 8.6 - 10. 4 mg/dL [facility] Chloride [Moles/Vol] 105 mmol/L 98 - 10 7 mmol/L [facility] CO2 [Moles/Vol] 25 mmol/L 20 - 31 mmol/L [facility] Creatinine [Mass/Vol] 0.7 mg/dL 0.6 - 0.9 mg/dL [facility] Est, Glom Filt Rate - PINF [facility] Comment on above: These results are not [...] that affects renal tubular secretion. Glucose [Mass/Vol] 90 mg/dL 74 - 99 mg/dL [facility] Potassium [Moles/Vol] 4.0 mmol/L 3.7 - 5.3 mmol/L [facility] Protein [Mass/Vol] 7.1 g/dL 6.6 - 8.7 g/dL [facility] Sodium [Moles/Vol] 140 mmol/L 136 - 145 mmol/L [facility] Urea nitrogen [Mass/Vol] 15 mg/dL 6 - 20 mg/dL [facility] HCG Screen, Bloodon 11-15-19 25 HCG Screen, Blood Negative Normal NEG [facility] Comment on above: Result Comment: Spec imens with hCG levels near the threshold of the test (25 mIU/mL) may give a negative or indeterminate result. In such cases, another test should be performed with a new specimen in 48-72 hours. If early is suspected clinically in this setting, correlation with quantitative serum b-hCG level is suggested. [employer] has confirmed the use of plasma for this test. This has not been cleared or approved by the U.S. Food and Drug Administration. The FDA has determined that such clearance is not necessary. Performed By: #### C DP, HCG, CP #### [employer] [facility] [place] [address] Poly Operator: Addison Landeros MD hCG, Serum, Qualitativeon HCG ( test) Ql Negative NEGATIVE [facility] Comment on above: Specimens with hCG l evels near the threshold of the test (25 mIU/mL) may give a negative or indeterminate result. In such cases, another test should be performed with a new specimen in 48-72 hours. If early is suspected clinically in this setting, correlation with quantitative serum b-hCG level is suggested. [employer] has confirmed the use of plasma for this test. This has not been cleared or approved by the U.S. Food and Drug Administration. The FDA has determined that such clearance is not necessary. 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 Comment on above: Performed By: #### C SHANTEL, CMP, 67163-1 #### [facility] ([id number]) [address], [address] [place] [address] ABSOLUTE NEUTROPHIL 4.3 X10E9/L Normal 1.5-6.6 [facility] Comment on above: Performed By: #### Alonzo FUNES, CMP, 21841-8 #### [facility] ([id number]) [address], [address] [place] [address] Basophils/100 WBC (Bld) 0.5 % Normal [facility] Comment on above: Performed By: #### Alonzo FUNES, CMP, 30063-7 #### [facility] ([id number]) [address], [address] [place] [address] Eosinophils (Bld) [#/Vol] 0.2 10*3/uL Normal 0.0-0.[address] [facility] Comment on above: Performed By: #### C SHANTEL, CMP, 43439-5 #### [facility] ([id number]) [address], [address] [place] [address] Eosinophils/100 WBC (Bld) 1.9 % Normal [facility] Comment on above: Performed By: #### Alonzo FUNES, CMP, 78078-6 #### [facility] ([id number]) [address], [address] [place] [address] Erythrocyte distribution width (RBC) [Ratio] 12.4 % Normal 11.5-15.[address] [facility] Comment on above: Performed By: #### C SHANTEL, CMP, 94009-0 #### [facility] ([id number]) [address], [address] [place] [address] Hematocrit (Bld) [Volume fraction] 41.0 % Normal 35-[address] [facility] Comment on above: Performed By: #### C SHANTEL, CMP, 23003-7 #### [facility] ([id number]) [address] [place] [address] Hemoglobin (Bld) [Mass/Vol] 14.4 g/dL Normal 11.7-15.[address] [facility] Comment on above: Performed By: #### C SHANTEL, CMP, 70045-0 #### [facility] ([id number]) [address] [place] [address] Lymphocytes (Bld) [#/Vol] 2.9 10*3/uL Normal 1.0-3.[address] [facility] Comment on above: Performed By: #### C SHANTEL, CMP, 41609-9 #### [facility] ([id number]) [address] [place] [address] Lymphocytes/100 WBC (Bld) 35.9 % Normal [facility] Comment on above: Performed By: #### C SHANTEL, CMP, 57216-4 #### [facility] ([id number]) [address], [address] [place] [address] MCH (RBC) [Entitic mass] 30.9 pg Normal 27-[address] [facility] Comment on above: Performed By: #### C BCA, CMP, 50562-3 #### [facility] ([id number]) [address], [address] [place] [address] MCHC (RBC) [Mass/Vol] 35.1 g/dL Normal 32-36 [facility] Comment on above: Performed By: #### C BCA, CMP, 68168-3 #### [facility] ([id number]) [address], [address] [place] [address] MCV (RBC) [Entitic vol] 88 fL Normal 80-[address] [facility] Comment on above: Performed By: #### C BCA, CMP, 01998-1 #### [facility] ([id number]) [address], [address] [place] [address] Monocytes (Bld) [#/Vol] 0.7 10*3/uL Normal 0-0.[address] [facility] Comment on above: Performed By: #### C BCA, CMP, 00225-8 #### [facility] ([id number]) [address] [place] [address] Monocytes/100 WBC (Bld) 8.5 % Normal [facility] Comment on above: Performed By: #### C BCA, CMP, 57967-7 #### [facility] ([id number]) [address], [address] [place] [address] Neutrophils/100 WBC (Bld) 53.2 % Normal [facility] Comment on above: Performed By: #### C BCA, CMP, 84035-9 #### [facility] ([id number]) [address], [address] [place] [address] Platelet mean volume (Bld) [Entitic vol] 8.5 fL Normal 7-[address] [facility] Comment on above: Performed By: #### C BCA, CMP, 67231-7 #### [facility] ([id number]) [address], [address] [place] [address] Platelets (Bld) [#/Vol] 244 10*3/uL Normal 150-[address] [facility] Comment on above: Performed By: #### C BCA, CMP, 04138-3 #### [facility] ([id number]) [address], [address] [place] [address] RBC COUNT 4.64 X10E12/L Normal 3.80-5.[address] [facility] Comment on above: Performed By: #### C BCA, CMP, 92583-8 #### [facility] ([id number]) [address] [place] [address] WBC (Bld) [#/Vol] 8.0 10*3/uL Normal 4.0-11.[address] [facility] Comment on above: Performed By: #### C BCA, CMP, 86791-7 #### [facility] ([id number]) [address], [address] [place] [address] COMPREHENSIVE METABOLIC PANE Catracho 09-12-2024 Albumin [Mass/Vol] 4.7 g/dL Normal 3.2-5.[address] [facility] Comment on above: Performed By: #### C BCA, CMP, 57844-0 #### [facility] ([id number]) [address] [place] [address] ALP [Catalytic activity/Vol] 49 U/L Normal 39-[address] [facility] Comment on above: Performed By: #### C BCA, CMP, 76066-9 #### [facility] ([id number]) [address] [place] [address] ALT [Catalytic activity/Vol] 8 U/L Normal 0-[address] [facility] Comment on above: Performed By: #### C BCA, CMP, 10688-4 #### [facility] ([id number]) [address] [place] [address] Anion gap [Moles/Vol] 11 mmol/L Normal 5-15 [facility] Comment on above: Performed By: #### C BCA, CMP, 15792-3 #### [facility] ([id number]) [address] [place] [address] AST [Catalytic activity/Vol] 14 U/L Normal 0-[address] [facility] Comment on above: Performed By: #### C SHANTEL CMP, 52941-2 #### [facility] ([id number]) [address], [facility] [address] [place] [address] Bilirubin [Mass/Vol] 0.5 mg/dL Normal 0.3-1.2 [facility] Comment on above: Performed By: #### C SHANTEL, CMP, 57853-0 #### [facility] ([id number]) [address], [facility] [address] [place] [address] Calcium [Mass/Vol] 9.8 mg/dL Normal 8.5-10.[address] [facility] Comment on above: Performed By: #### C SHANTEL, CMP, 05238-7 #### [facility] ([id number]) [address] [place] [address] Chloride [Moles/Vol] 104 mmol/L Normal 98-109 [facility] Comment on above: Performed By: #### C SHANTEL, CMP, 26835-0 #### [facility] ([id number]) [address] [place] [address] CO2 [Moles/Vol] 23 mmol/L Normal 22-[address] [facility] Comment on above: Performed By: #### C SHANTLE, CMP, 58020-4 #### [facility] ([id number]) [address] [place] [address] Creatinine [Mass/Vol] 0.85 mg/dL Normal 0.40-1.00 [facility] Comment on above: Result Comment: METH OD TRACEABLE TO IDMS STANDARD Performed By: #### C SHANTEL, CMP, 89654-6 #### [facility] ([id number]) [address] [place] [address] eGFR (CKD-EPI) NON-RACE DEPENDENT >90 Normal >[address] [facility] Comment on above: Result Comment: Reported eGFR is based on the CKD-EPI 2020 equation that does not use a race coefficient. Performed By: #### C VEDA FUNES, 33442-6 #### [facility] ([id number]) [address] [place] [address] Glucose [Mass/Vol] 81 mg/dL Normal 65-[address] [facility] Comment on above: Performed By: #### C VEDA FUNES, 70925-6 #### [facility] ([id number]) [address] [address] [place] [address] Potassium [Moles/Vol] 3.3 mmol/L Low 3.5-5.0 [facility] Comment on above: Performed By: #### Alonzo FUNES CMP, 05361-8 #### [facility] ([id number]) [address] [place] [address] Protein [Mass/Vol] 7.5 g/dL Normal 6.0-8.[address] [facility] Comment on above: Performed By: #### Alonzo FUNES CMP, 59821-2 #### [facility] ([id number]) [address] [place] [address] Sodium [Moles/Vol] 138 mmol/L Normal 134-[address] [facility] Comment on above: Performed By: #### Alonzo FUNES CMP, 85577-4 #### [facility] ([id number]) [address] [address] [place] [address] Urea nitrogen [Mass/Vol] 18 mg/dL Normal 5-[address] [facility] Comment on above: Performed By: #### Alonzo FUNES CMP, 73553-6 #### [facility] ([id number]) [address] [address] [place] [address] Fibrin D-dimer DDU (PPP) [Ma ss/Vol]on 09-12-2024 D DIMER <150 Normal <[address] [facility] Comment on above: Result Comment: Results <255 ng/mL DDU: The presence of a VTE can safely be excluded with a negative D-Dimer result and Wells score. A negative result doesn't exclude the possibility of DIC. The test be repeated along with other diagnostic tests if the patient's symptoms persist or worsen. [email or web address] Performed By: #### C BCA, [facility], 58806-6 #### [facility] ([id number]) [address] [facility] [place] [address] Troponin I.cardiac High sens itivity method [Mass/Vol]on 09-12-2024 1 HOUR TROP I, HIGH SENSITIVITY <2 Normal <[address] [facility] Comment on above: Performed By: #### 8 9579-7 #### [facility] ([id number]) [address] [place] [address] TROPONIN I, HIGH SENSITIVITY <2 Normal <[address] [facility] Comment on above: Performed By: #### 8 9579-7 #### [facility] ([id number]) [address] [place] [address] XR CHEST 1 VWon 09-12-2024 XR CHEST 1 VW XR CHEST 1 VW Single view chest History:chest pain Difficulty breathing, shortness of breath Comparison: 01/30/2022 Findings: Single portable view of the chest. Stable cardiomediastinal silhouette. No focal opacity, effusion or pneumothorax. Impression: No evidence of acute cardiopulmonary process. Finalized by Salvatore Max MD on 09/12/2024 2:[address] [facility] Chlamydia/GC DNA, TPon 09-08 Chlamydia Probe, TP Negative Normal NEG [facility] Comment on above: Result Comment: CHLA MYDIA TRACHOMATIS DNA not detected by nucleic acid amplification. This test is intended for medical purposes only and is not valid for the evaluation of suspected sexual abuse or for other forensic purposes. In certain contexts, culture may be required to meet applicable laws and regulations for diagnosis of C. trachomatis and N. gonorrhoeae infections. Per 2014 CDC recommendations, this test does not include confirmation of positive results by an alternative nucleic acid target. Performed By: #### C YTCGP #### [address] [address] Poly Operator: Addison Landeros MD Gonorrhea Probe, TP Negative Normal NEG [facility] Comment on above: Result Comment: NEIS SERIA GONORRHOEAE DNA not detected by nucleic acid amplification. This test is intended for medical purposes only and is not valid for the evaluation of suspected sexual abuse or for other forensic purposes. In certain contexts, culture may be required to meet applicable laws and regulations for diagnosis of C. trachomatis and N. gonorrhoeae infections. Per 2014 CDC recommendations, this test does not include confirmation of positive results by an alternative nucleic acid target. Performed By: #### C YTCGP #### [address] [address] Poly Operator: Addison Landeros MD Cytology Reporton 09-07-2024 Cytology report Cyto stain.thin prep Doc (Cvx/Vag) (NOTE) Path Number: [id number] DIAGNOSIS Imaged ThinPrep Pap - Cervical (1 monolayer slide): Specimen Adequacy: Satisfactory for evaluation. - Endocervical/transfo rmation zone component present. Descriptive Diagnosis: Negative for intraepithelial lesion or malignancy. Cytotech Screener: EY Electronically Signed Out Elkin BERNAL(ASCP) /09/18/2024 Source of Specimen: A: Imaged ThinPrep Pap - Cervical (1 monolayer slide) HPV Reflex?............. .........HPV if ASCUS Clinical History Z12.4 Encounter for screening for malignant neoplasm of cervix Processing Lab: [address] [address] Interpretation performed at [address] [address] This Pap Test has been evaluated with the assistance of the ThinPrep Pap Test Imaging System. The Pap smear is a screening test primarily for squamous epithelial lesions, which is subject to both false negative and false positive results. Your patient should be reminded to consult you immediately if she experiences any suspicious signs or symptoms, regardless of her Pap smear result. GYNECOLOGIC CYTOLOGY REPORT Patient Name: ZAID LUNA [facility] Rec: [id number] [facility] ANATOMIC PATHOLOGY [address] [place] [address]. [place], [place] [address] Normal [facility] ED Clinical Summaryon 2023 ED Clinical Summary [address] [address] ED Clinical Summary Person Information Name: Zaid Luna [facility] Age: 24 Years : 2000 Sex: Female PCP: Marital Status: Single Phone: Race: White Ethnicity: Not or Language: Bruneian [facility]: [id number] Visit Reason: Neck pain; medical screening Acuity: 4 Enc Type: Emergency Med Service: Emergency Medicine Arrival: 07/08/2024 20:15:31 Discharge: 07/08/2024 21:50:00 LOS: 000 01:35 Checkin: 07/08/2024 20:15:31 Checkout: 07/08/2024 21:50:00 Dispo Type: Home or Self Care Address: [address] [place] [phone] Provider Notes: Diagnosis: 1:Medication side effect Problems [...] Patient Education Information: Amphetamine/Dextroam phetamine Oral Tablet [facility] Poison Help line: . [facility] Hotline: [place] Tobacco Quit Line: [facility] ([place], [place]) [address]: [phone] [place], [place]) [address]: [phone] [facility] [address] [place], [place]: [phone] Normal [facility] ED Note-Physicianon 07-08-20 ED Note-Physician Chief Complaint [...] Use:. Diagnostic Results Electronically signed by Vanesa WHITLOCK Ruchi 07/10/24 00:02 EDT Normal [facility] Vaginitis DNA Probeon 2023 Deepti Positive Abnormal NEG [facility] Comment on above: Result Comment: for Deepti sp. Method of testing is a DNA probe intended for detection and identification of Deepti species, Gardnerella vaginalis, and Trichomonas vaginalis nucleic acid in vaginal fluid specimens from patients with symptoms of vaginitis/vaginosis. Performed By: #### V AGP #### [place] [id number] Poly Operator: Addison Landeros MD Gardnerella Negative Normal NEG [facility] Comment on above: Result Comment: for Gardnerella vaginalis Performed By: #### V AGP #### [facility] [address] [id number] Poly Operator: Addison Landeros MD Trichomonas Negative Normal NEG [facility] Comment on above: Result Comment: for Trichomonas Vaginalis Performed By: #### V AGP #### [facility] [address] [place], [place] [phone] Poly Operator: Addison Landeros MD Vaginitis DNA Probeon 2023 Source .VAGINAL SWAB Normal [facility] Comment on above: Performed By: #### V AGP #### [employer] [address] [place] [address], [place] 1998008 Poly Operator: Addison Landeros MD Basic Metabolic Panelon 03-09 Anion gap [Moles/Vol] 9 mmol/L 9 - 17 mmol/L [facility] Calcium [Mass/Vol] 9.1 mg/dL 8.6 - 10. 4 mg/dL [facility] Chloride [Moles/Vol] 104 mmol/L 98 - 10 7 mmol/L [facility] CO2 [Moles/Vol] 25 mmol/L 20 - 31 mmol/L [facility] Creatinine [Mass/Vol] 0.7 mg/dL 0.5 - 0.9 mg/dL [facility] Est, Glokeith Mcbridet Rate - PINF [facility] Comment on above: These results are not [...] [Mass/Vol] 87 mg/dL 70 - 99 mg/dL [facility] Potassium [Moles/Vol] 4.2 mmol/L 3.7 - 5.3 mmol/L [facility] Sodium [Moles/Vol] 138 mmol/L 135 - 144 mmol/L [facility] Urea nitrogen [Mass/Vol] 14 mg/dL 6 - 20 mg/dL [facility] Urea nitrogen/Creatinine [Mass ratio] 20 mg/mg 9 - 20 [facility] Basic Metabolic Profon 04-01 Anion gap [Moles/Vol] 9 mmol/L Normal 9-17 [facility] Comment on above: Performed By: #### U RODRIGO BEY #### [facility] [address] [place] [address] Poly Operator: Stefan Mcnair MD BUN/CRE Ratio 20 Normal 9-20 [facility] Comment on above: Performed By: #### U ANDREAO, UA #### [facility] [address] [place], [place] [phone] Poly Operator: Stefan Mcnair MD Calcium [Mass/Vol] 9.1 mg/dL Normal 8.6-10.4 [facility] Comment on above: Performed By: #### U ANDREAO, UA #### [facility] [address] [place], [place] [id number] Poly Operator: Stefan Mcnair MD Chloride [Moles/Vol] 104 mmol/L Normal 98-107 [facility] Comment on above: Performed By: #### U SOTERO, UA #### [facility] [address] [place] [id number] Poly Operator: Stefan Mcnair MD CO2 [Moles/Vol] 25 mmol/L Normal 20-31 [facility] Comment on above: Performed By: #### U SOTERO, UA #### [facility] [address] [place], [place] [phone] Poly Operator: Stefan Mcnair MD Creatinine [Mass/Vol] 0.7 mg/dL Normal 0.5-0.9 [facility] Comment on above: Performed By: #### U SOTERO, UA #### [facility] [address] [place], [place] [phone] Poly Operator: Stefan Mcnair MD GFR/1.73 sq M.predicted among non-blacks MDRD (S/P/Bld) [Vol rate/Area] mL/min/{1.73_m2} Normal >60 [facility] Comment on above: Result Comment: These results [...] affects renal tubular secretion. Performed By: #### U MICAO, UA #### [facility] [address] [place], [place] [phone] Poly Operator: Stefan Mcnair MD Glucose [Mass/Vol] 87 mg/dL Normal 70-99 [facility] Comment on above: Performed By: #### U MICAO, UA #### [facility] [address] [place], [place] 2153183 Poly Operator: Stefan Mcnair MD Potassium [Moles/Vol] 4.2 mmol/L Normal 3.7-5.3 [facility] Comment on above: Performed By: #### U ANDREAO, UA #### [facility] [address] [place], [place] [phone] Poly Operator: Stefan Mcnair MD Sodium [Moles/Vol] 138 mmol/L Normal 135-144 [facility] Comment on above: Performed By: #### U ANDREAO, UA #### [facility] [address] [place], [place] 666[address]83 Poly Operator: Stefan Mcnair MD Urea nitrogen [Mass/Vol] 14 mg/dL Normal 6-20 [facility] Comment on above: Performed By: #### U MICAO, UA #### [facility] [address] [place], [place] [phone] Poly Operator: Stefan Mcnair MD CBC with Auto Differentialon 04-01-2024 Basophils (Bld) [#/Vol] 0.05 10*3/uL [facility] Basophils/100 WBC (Bld) 1 % 0 - 2 % [facility] Eosinophils (Bld) [#/Vol] 0.13 10*3/uL [facility] Eosinophils/100 WBC (Bld) 2 % 1 - 4 % [facility] Erythrocyte distribution width (RBC) [Ratio] 11.5 % Low 11.8 - 14.4 % [facility] Hematocrit (Bld) [Volume fraction] 42.6 % 36.3 - 47.1 % [facility] Hemoglobin (Bld) [Mass/Vol] 14.6 g/dL 11.9 - 15.1 g/dL [facility] Immature granulocytes (Bld) [#/Vol] [facility] Immature granulocytes/100 WBC (Bld) 0 % 0 [facility] Interpretation and review of laboratory results Abnormal [facility] Lymphocytes/100 WBC (Bld) 27 % 24 - 43 % [facility] Lymphocytes/100 WBC (Bld) 1.99 % [facility] MCH (RBC) [Entitic mass] 30.7 pg 25.2 - 33.5 pg [facility] MCHC (RBC) [Mass/Vol] 34.3 g/dL 28.4 - 34.8 g/dL [facility] MCV (RBC) [Entitic vol] 89.7 fL 82.6 - 102.9 fL [facility] Monocytes/100 WBC (Bld) 7 % 3 - 12 % [facility] Monocytes/100 WBC (Bld) 0.52 % [facility] Neutrophils/100 WBC (Bld) 63 % 36 - 65 % [facility] Nucleated RBC/100 WBC (Bld) [Ratio] 0.0 % 0.0 per 100 WBC [facility] Platelet mean volume (Bld) [Entitic vol] 10.1 fL 8.1 - 13.5 fL [facility] Platelets (Bld) [#/Vol] 271 10*3/uL [facility] RBC (Bld) [#/Vol] 4.75 10*6/uL 3.95 - 5.1 1 m/uL [facility] Segmented neutrophils/100 WBC (Bld) 4.72 % [facility] WBC other (Bld) [#/Vol] 7.4 [facility] CBC with Diffon 04-01-2024 Abs. Basophil 0.05 k/uL Normal 0.00-0.20 [facility] Comment on above: Performed By: #### U SOTERO UA #### [facility] [address] [place], [place] [phone] Poly Operator: Stefan Mcnair MD Abs.Imm.Granulocyte <0.03 Normal 0.00-0.30 [facility] Comment on above: Performed By: #### RODRIGO HUBBARD #### [facility] [address] [place], [place] [phone] Poly Operator: Stefan Mcnair MD Abs.Neutrophil (Seg) 4.72 k/uL Normal 1.50-8.10 [facility] Comment on above: Performed By: #### RODRIGO HUBBARD #### [facility] [address] [place], [place] [phone] Poly Operator: Stefan Mcnair MD Basophils/100 WBC (Bld) 1 % Normal 0-2 [facility] Comment on above: Performed By: #### RODRIGO HUBBARD #### [address] [place], [facility] Poly Operator: Stefan Mcnair MD Eosinophils (Bld) [#/Vol] 0.13 10*3/uL Normal 0.00-0.44 [facility] Comment on above: Performed By: #### RODRIGO HUBBARD #### [address] [place], [place] [phone] Poly Operator: Stefan Mcnair MD Eosinophils/100 WBC (Bld) 2 % Normal 1-4 [facility] Comment on above: Performed By: #### RODRIGO HUBBARD #### [facility] [address] [place], [place] [phone] Poly Operator: Stefan Mcnair MD Erythrocyte distribution width (RBC) [Ratio] 11.5 % Low 11.8-14.4 [facility] Comment on above: Performed By: #### RODRIGO HUBBARD #### [facility] [address] [place], [place] [phone] Poly Operator: Stefan Mcnair MD Hematocrit (Bld) [Volume fraction] 42.6 % Normal 36.3-47.1 [facility] Comment on above: Performed By: #### U SOTERO UA #### [facility] [address] [place], [place] [phone] Poly Operator: Stefan Mcnair MD Hemoglobin (Bld) [Mass/Vol] 14.6 g/dL Normal 11.9-15.1 [facility] Comment on above: Performed By: #### Naga BEY, UA #### [facility] [address] [place], [place] 0194383 Poly Operator: Stefan Mcnair MD Immature granulocytes/100 WBC (Bld) 0 % Normal 0 [facility] Comment on above: Performed By: #### Naga BEY UA #### [address] [place], [facility] Poly Operator: Stefan Mcnair MD Lymphocytes (Bld) [#/Vol] 1.99 10*3/uL Normal 1.10-3.70 [facility] Comment on above: Performed By: #### Naga BEY UA #### [address] [place], [place] [phone] Poly Operator: Stefan Mcnair MD Lymphocytes/100 WBC (Bld) 27 % Normal 24-43 [facility] Comment on above: Performed By: #### Naga BEY UA #### [address] [place], [facility] Poly Operator: Stefan Mcnair MD MCH (RBC) [Entitic mass] 30.7 pg Normal 25.2-33.5 [facility] Comment on above: Performed By: #### U SOTERO, UA #### [address] [place], [place] [phone] Poly Operator: Stefan Mcnair MD MCHC (RBC) [Mass/Vol] 34.3 g/dL Normal 28.4-34.8 [facility] Comment on above: Performed By: #### U ANDREAO, UA #### [facility] [address] [place], [place] [phone] Poly Operator: Stefan Mcnair MD MCV (RBC) [Entitic vol] 89.7 fL Normal 82.6-102.9 [facility] Comment on above: Performed By: #### U SOTERO, UA #### [facility] [address] [place] [address] Poly Operator: Stefan Mcnair MD Monocytes (Bld) [#/Vol] 0.52 10*3/uL Normal 0.10-1.20 [facility] Comment on above: Performed By: #### U ANDREAO, UA #### [facility] [address] [place], [place] 288[address]83 Poly Operator: Stefan Mcnair MD Monocytes/100 WBC (Bld) 7 % Normal 3-12 [facility] Comment on above: Performed By: #### U ANDREAO, UA #### [facility] [address] [place], [place] [phone] Poly Operator: Stefan Mcnair MD Neutrophil (Seg) 63 % Normal 36-65 [facility] Comment on above: Performed By: #### U SOTERO, UA #### [facility] [address] [place] [address] Poly Operator: Stefan Mcnair MD NRBC Automated 0.0 per 100 WBC Normal 0.0 [facility] Comment on above: Performed By: #### U ANDREAO, UA #### [facility] [address] [place] [address] Poly Operator: Stefan Mcnair MD Platelet mean volume (Bld) [Entitic vol] 10.1 fL Normal 8.1-13.5 [facility] Comment on above: Performed By: #### U ANDREAO, UA #### [facility] [address] [place], [place] [phone] Poly Operator: Stefan Mcnair MD Platelets (Bld) [#/Vol] 271 10*3/uL Normal 138-453 [facility] Comment on above: Performed By: #### U ANDREAO, UA #### [facility] [address] [place], [place] 179[address]83 Poly Operator: Stefan Mcnair MD RBC (Bld) [#/Vol] 4.75 10*6/uL Normal 3.95-5.11 [facility] Comment on above: Performed By: #### U ANDREAO, UA #### [facility] [address] [place], [place] [phone] Poly Operator: Stefan Mcnair MD WBC (Bld) [#/Vol] 7.4 10*3/uL Normal 3.5-11.3 [facility] Comment on above: Performed By: #### U ANDREAO, UA #### [facility] [address] [place], [place] 838[address]83 Poly Operator: Stefan Mcnair MD CT HEAD WO CONTRASTon [...] Sylvie Campbell MD 04/01/24 Final result Normal [facility] CT Head WO contraston 2023 No acute intracranial abnormality. [facility] EXAMINATION: CT OF THE HEAD WITHOUT [...] of the visualized skull or soft tissues. [facility] Sylvie Campbell MD - 04/01/2024 EXAMINATION: [...] soft tissues. IMPRESSION: No acute intracranial abnormality. [facility] Radiology Study observation (narrative) [facility] CT Head WO contrastOrdered B y: Sylvie Campbell on 04-01-2024 [facility] Work Phone: Glucose, Whole Bloodon 04-01 Glucose [Mass/Vol] 81 mg/dL 74 - 100 mg/dL [facility] Glucose [Mass/Vol] 81 mg/dL Normal 74-100 [facility] HCG, ,Urineon 04-01 Beta HCG ( test) Ql (U) Negative Normal NEG [facility] Comment on above: Result Comment: Spec imens with hCG levels near the threshold of the test (25 mIU/mL) may give a negative or indeterminate result. In such cases, another test should be performed with a new specimen in 48-72 hours. If early is suspected clinically in this setting, correlation with quantitative serum b-hCG level is suggested. [facility] has confirmed the use of plasma for this test. This has not been cleared or approved by the U.S. Food and Drug Administration. The FDA has determined that such clearance is not necessary. Performed By: #### U HCG, UAMIC #### [facility] [address] [place], [place] [phone] Poly Operator: Stefan Mcnair MD Portable XR Chest AP single viewon 04-01-2024 EXAMINATION: ONE XRAY VIEW OF THE CHEST 04/01/2024 2:37 pm COMPARISON: 06/11/2022 chest plain film. HISTORY: ORDERING SYSTEM PROVIDED HISTORY: syncope TECHNOLOGIST PROVIDED HISTORY: syncope FINDINGS & IMPRESSION: No significant pleural effusion. No significant pulmonary vascular congestion. No visible pneumothorax. Cardiac silhouette normal in size. [facility] Juan Hernandez MD - 04/01/2024 EXAMINATION: ONE XRAY VIEW OF THE CHEST 04/01/2024 2:37 pm COMPARISON: 06/11/2022 chest plain film. HISTORY: ORDERING SYSTEM PROVIDED HISTORY: syncope TECHNOLOGIST PROVIDED HISTORY: syncope FINDINGS & IMPRESSION: No significant pleural effusion. No significant pulmonary vascular congestion. No visible pneumothorax. Cardiac silhouette normal in size. [facility] Radiology Study observation (narrative) [facility] Portable XR Chest AP single viewOrdered By: Juan Thomas on 04-01-2024 [facility] Work Phone: , Urineon HCG ( test) Ql (U) Negative NEGATIVE [facility] Comment on above: Specimens with hCG l evels near the threshold of the test (25 mIU/mL) may give a negative or indeterminate result. In such cases, another test should be performed with a new specimen in 48-72 hours. If early is suspected clinically in this setting, correlation with quantitative serum b-hCG level is suggested. [facility] use [facility] for this test. This has not been cleared or approved by the U.S. Food and Drug Administration. The FDA has determined that such clearance is not necessary. [facility] Troponinon 04-01-2024 Troponin I.cardiac High sensitivity method [Mass/Vol] ng/L 0 - 14 ng/L [facility] Comment on above: High Sensitivity Tro ponin values cannot be compared with other Troponin methodologies. [facility] Troponin, High Sens <6 Normal 0-14 [facility] Comment on above: Result Comment: High Sensitivity Troponin values cannot be compared with other Troponin methodologies. Performed By: #### U MICAO, UA #### [facility] [address] [place] [address] Poly Operator: Stefan Mcnair MD Urinalysis w/ Microon 2023 Clarity (U) SLIGHTLY CLOUDY Abnormal CLEAR [facility] Comment on above: Performed By: #### U HCG, UAMIC #### [facility] [address] [place] [address] Poly Operator: Stefan Mcnair MD Color (U) Yellow Normal YEL [facility] Comment on above: Performed By: #### U HCG, UAMIC #### [facility] [address] [place], [place] [phone] Poly Operator: Stefan Mcnair MD Leukocyte esterase Test strip Ql (U) TRACE Abnormal NEG [facility] Comment on above: Performed By: #### U HCG, UAMIC #### [facility] [address] [place], [place] [phone] Poly Operator: Stefan Mcnair MD Bacteria 1+ Abnormal NONE [facility] Comment on above: Performed By: #### U HCG, UAMIC #### [facility] [address] [place], [place] [phone] Poly Operator: Stefan Mcnair MD Bilirubin, SemiQt,Ur SMALL Abnormal NEG [facility] Comment on above: Performed By: #### U HCG, UAMIC #### [facility] [address] [place] [phone] Poly Operator: Stefan Mcnair MD Blood, Urine 3+ Abnormal NEG [facility] Comment on above: Performed By: #### U HCG, UAMIC #### [facility] [address] [place] [address] [place] [address] Poly Operator: Stefan Mcnair MD Epithelial cells LM Ql (Urine sed) 0 TO 2 Normal 0-25 [facility] Comment on above: Performed By: #### U HCG, UAMIC #### [facility] [address] [place], [facility] Poly Operator: Stefan Mcnair MD Glucose Ql (U) Negative Normal NEG [facility] Comment on above: Performed By: #### U HCG, UAMIC #### [facility] [address] [place] [address] Poly Operator: Stefan Mcnair MD Ketones Ql (U) Negative Normal NEG [facility] Comment on above: Performed By: #### U HCG, UAMIC #### [facility] [address] [place] [phone] Poly Operator: Stefan Mcnair MD Mucus Strands TRACE Abnormal NONE [facility] Comment on above: Performed By: #### U HCG, UAMIC #### [facility] [address] [place], [place] [address] Poly Operator: Stefan Mcnair MD Nitrite,Ur Negative Normal NEG [facility] Comment on above: Performed By: #### U HCG, UAMIC #### [facility] [address] [place], [place] [phone] Poly Operator: Stefan Mcnair MD PH,Ur 6.0 Normal 5.0-9.0 [facility] Comment on above: Performed By: #### U HCG, UAMIC #### [facility] [address] [place], [place] [phone] Poly Operator: Stefan Mcnair MD Protein Ql (U) Negative Normal NEG [facility] Comment on above: Performed By: #### U HCG, UAMIC #### [facility] [address] [place], [place] [address]83 Poly Operator: Stefan Mcnair MD Spec. [place],Ur 1.025 High 1.010-1.020 [facility] Comment on above: Performed By: #### U HCG, UAMIC #### [facility] [address] [place], [place] [address]83 Poly Operator: Stefan Mcnair MD Urine RBC's GREATER THAN 100 Normal 0-2 [facility] Comment on above: Performed By: #### U HCG, UAMIC #### [facility] [address] [place] [address] Poly Operator: Stefan Mcnair MD Urine WBC's 5 TO 10 Normal 0-5 [facility] Comment on above: Performed By: #### U HCG, UAMIC #### [facility] [address] [place] [address] Poly Operator: Stefan Mcnair MD Urobilinogen,Ur Normal Normal 0.0-1.0 [facility] Comment on above: Performed By: #### U HCG, UAMIC #### [facility] [address] [place] [address] Poly Operator: Stefan Mcnair MD Urinalysis with Microscopico n 04-01-2024 Bacteria LM Ql (Urine sed) 1+ Abnormal None [facility] Bilirubin Ql (U) SMALL Abnormal NEGATIVE [facility] Epithelial cells LM.HPF (Urine sed) [#/Area] 0 TO 2 [facility] Glucose Test strip (U) [Mass/Vol] Negative NEGATIVE mg/dL [facility] Hemoglobin Auto test strip Ql (U) 3+ Abnormal NEGATIVE [facility] Interpretation and review of laboratory results Abnormal [facility] Ketones (U) [Mass/Vol] Negative NEGATIVE mg/d L [facility] Mucus Ql (Urine sed) TRACE Abnormal None [facility] Nitrite Ql (U) Negative NEGATIVE [facility] pH (U) 6.0 [pH] 5.0 - 9.0 [facility] Protein (U) [Mass/Vol] Negative NEGATIVE mg/d L [facility] RBC LM.HPF (Urine sed) [#/Area] 100 /[HPF] [facility] Specific gravity (U) [Rel density] 1.025 High 1.010 - 1.020 [facility] Urobilinogen Qn (U) Normal 0.0 - 1. 0 EU/dL [facility] WBC LM.HPF (Urine sed) [#/Area] 5 TO 10 [facility] XR CHEST PORTABLEon 04-01-20 24 XR [...] Juan Thomas MD 04/01/24 Final result Normal [facility] D-Dimer, Quantitativeon 06-0 Fibrin D-dimer FEU (PPP) [Mass/Vol] 2.86 High [facility] Comment on above: When combined with a [...] and review of laboratory results Abnormal [facility] CBC with Auto Differentialon 11-18-2022 Absolute Eos # 0.10 [facility] Absolute Immature Granulocyte [facility] Absolute Lymph # 1.92 [facility] Absolute [place] # 0.50 [facility] Basophils (Bld) [#/Vol] 0.04 10*3/uL [facility] Basophils/100 WBC (Bld) 1 % 0 - 2 % [facility] Eosinophils/100 WBC (Bld) 2 % 1 - 4 % [facility] Hematocrit (Bld) [Volume fraction] 44.8 % 36.3 - 47.1 % [facility] Hemoglobin (Bld) [Mass/Vol] 14.4 g/dL 11.9 - 15.1 g/dL [facility] Immature granulocytes/100 WBC (Bld) 0 % 0 [facility] Lymphocytes/100 WBC (Bld) 28 % 25 - 45 % [facility] MCH (RBC) [Entitic mass] 29.4 pg 25.2 - 33.5 pg [facility] MCHC (RBC) [Mass/Vol] 32.1 g/dL 28.4 - 34.8 g/dL [facility] MCV (RBC) [Entitic vol] 91.6 fL 82.6 - 102.9 fL [facility] Monocytes/100 WBC (Bld) 7 % 2 - 8 % [facility] NRBC Automated 0.0 0.0 per 100 WBC [facility] Platelet distribution width (Bld) [Ratio] 12.3 % 11.8 - 14.4 % [facility] Platelet mean volume (Bld) [Entitic vol] 10.7 fL 8.1 - 13.5 fL [facility] Platelets (Bld) [#/Vol] 278 10*3/uL [facility] RBC (Bld) [#/Vol] 4.89 10*6/uL 3.95 - 5.1 1 m/uL [facility] Segmented neutrophils/100 WBC (Bld) 62 % 34 - 64 % [facility] Segs Absolute 4.27 [facility] WBC (Bld) [#/Vol] 6.8 10*3/uL [facility] hCG, Serum, Qualitativeon hCG Qual Negative NEGATIVE [facility] Comment on above: Specimens with hCG l evels near the threshold of the test (25 mIU/mL) may give a negative or indeterminate result. In such cases, another test should be performed with a new specimen in 48-72 hours. If early is suspected clinically in this setting, correlation with quantitative serum b-hCG level is suggested. [employer] has confirmed the use of plasma for this test. This has not been cleared or approved by the U.S. Food and Drug Administration. The FDA has determined that such clearance is not necessary. [facility] Vaginitis DNA Probeon 2021 DEEPTI SPECIES, DNA PROBE Negative NEGATIVE [facility] Comment on above: for Deepti sp. Method of testing is a DNA probe intended for detection and identification of Deepti species, Gardnerella vaginalis, and Trichomonas vaginalis nucleic acid in vaginal fluid specimens from patients with symptoms of vaginitis/vaginosis. GARDNERELLA VAGINALIS, DNA PROBE Positive Abnormal NEGATIVE [facility] Comment on above: for Gardnerella vagi nalis Interpretation and review of laboratory results Abnormal [facility] [facility] Source .VAGINAL SWAB [facility] Trichomonas Vaginalis DNA Negative NEGATIVE [facility] Comment on above: for Trichomonas Vagi nalis [facility] COVID-19, Rapidon 06-11-2022 Interpretation and review of laboratory results Abnormal [facility] SARS-CoV-2 (COVID-19) RNA DOUG+probe Ql (Unsp spec) Detected Abnormal Not Detected [facility] Comment on above: Rapid NAAT: The specimen [...] this assay. Fact sheet for Healthcare Providers: https://www.fda.gov/media/922692/download Fact sheet for Patients: https://www.fda.gov/media/947269/download Methodology: Isothermal Nucleic Acid Amplification Results reported to the appropriate Health Department Specimen Description .NASOPHARYNGEAL SWAB [facility] XR CHEST PORTABLEon 06-11-20 Suggestion of peribronchial cuffing, which can be seen in a setting of reactive air disease or viral infection without confluent airspace opacity seen [facility] RIS CONSOLIDATED EXAMINATION: ONE XRAY VIEW OF [...] of pleural effusion or pneumothorax is seen. [facility] Pedro Matta J - 06/11/2022 EXAMINATION: ONE XRAY VIEW [...] viral infection without confluent airspace opacity seen [facility] Work Phone: Radiology Study observation (narrative) [facility] Phone: XR CHEST PORTABLEOrdered By: Pedro Han on 06-11-2022 [facility] Phone: Vaginitis DNA Probeon 2021 DEEPTI SPECIES, DNA PROBE Negative NEGATIVE [facility] [employer] Comment on above: for Deepti sp. Method of testing is a DNA probe intended for detection and identification of Deepti species, Gardnerella vaginalis, and Trichomonas vaginalis nucleic acid in vaginal fluid specimens from patients with symptoms of vaginitis/vaginosis. GARDNERELLA VAGINALIS, DNA PROBE Negative NEGATIVE [facility] Comment on above: for Gardnerella vagi nalis Source .VAGINAL SWAB [facility] Trichomonas Vaginalis DNA Negative NEGATIVE [facility] Comment on above: for Trichomonas Vagi nalis [facility] HIV Screenon 12-15-2021 HIV Ag/Ab Non-Reactive NONREACTIVE [facility] Comment on above: No laboratory eviden ce of HIV infection. If acute HIV infection is suspected, consider testing for HIV-1 RNA. [facility] Hepatitis C Antibodyon 12-15 Hepatitis C Ab Non-Reactive NONREACTIVE [facility] Comment on above: The hepatitis C procedure [...] RNA by PCR. No Panel Informationon 12-15 [facility] PROFILE Ion 022 Absolute Eos # 0.05 [facility] th Absolute Immature Granulocyte 0.04 [employer] Absolute Lymph # 1.28 [facility] He alth Absolute [place] # [facility].45 [facility] Basophils (Bld) [#/Vol] 0.03 10*3/uL [facility] Basophils/100 WBC (Bld) 0 % 0 - 2 % [facility] Differential Type NOT REPORTED [facility] Eosinophils/100 WBC (Bld) 1 % 1 - 4 % [facility] Hematocrit (Bld) [Volume fraction] 41.5 % 36.3 - 47.1 % [facility] Hemoglobin.gastrointes tinal spec 1 Ql (Stl) 13.9 g/dL 11.9 - 15.1 g/dL [facility] Hepatitis B Surface Ag Non-Reactive NONREACTIVE [facility] Immature granulocytes/100 WBC (Bld) 0 % 0 [facility] Interpretation and review of laboratory results Abnormal [facility] Lymphocytes/100 WBC (Bld) 12 % Low 25 - 45 % [facility] MCH (RBC) [Entitic mass] 30.3 pg 25.2 - 33.5 pg [facility] MCHC (RBC) [Mass/Vol] 33.5 g/dL 28.4 - 34.8 g/dL [facility] MCV (RBC) [Entitic vol] 90.6 fL 82.6 - 102.9 fL [facility] Monocytes/100 WBC (Bld) 4 % 2 - 8 % [facility] NRBC Automated 0.0 0.0 per 100 WBC [facility] Platelet distribution width (Bld) [Ratio] 12.2 % 11.8 - 14.4 % [facility] Platelet Estimate NOT REPORTED [facility] Platelet mean volume (Bld) [Entitic vol] 11.0 fL 8.1 - 13.5 fL [facility] Platelets (Bld) [#/Vol] 234 10*3/uL [facility] RBC (Bld) [#/Vol] 4.58 10*6/uL 3.95 - 5.1 1 m/uL [facility] RBC (Bld) [#/Vol] NOT REPORTED [facility] Rubella virus IgG Ql (S) 57.6 IU/mL [facility] Comment on above: REFERENCE RANGE: <5.0 NON-REACTIVE (non-immune) 5.0 TO 9.9 EQUIVOCAL >=10.0 REACTIVE (immune) Segmented neutrophils/100 WBC (Bld) 83 % High 34 - 64 % [facility] Segs Absolute 9.17 High [facility] T. pallidum, IgG Non-Reactive NONREACTIVE [facility] Comment on above: T. pallidum antibodies are not detected. There is no serological evidence of infection with T. pallidum (early primary syphilis cannot be excluded). Retest in 2-4 weeks if syphilis is clinically suspect. WBC (Bld) [#/Vol] 11.0 10*3/uL [facility] WBC (Bld) [#/Vol] NOT REPORTED [facility] TYPE AND SCREENon 0 12-15-2021 ABO/Rh Positive [facility] Urinalysison 12-15-2021 Bilirubin Urine Negative NEGATIVE [facility] Color, UA Yellow Yellow [facility] Glucose, Ur Negative NEGATIVE [facility] Ketones Ql (U) Negative NEGATIVE [facility] Leukocyte esterase Test strip Ql (U) Negative NEGATIVE [facility] Nitrite, Urine Negative NEGATIVE [facility] pH, UA 7.0 [facility] Protein, UA Negative NEGATIVE [facility] Specific [place], UA 1.026 [facility] Turbidity UA Clear Clear [facility] Urinalysis Comments Microscopic exam not performed based on chemical results unless requested in original order. [facility] Urine Hgb Negative NEGATIVE [facility] Urobilinogen, Urine Normal Normal [facility] Urine Drug Screenon 12-15-19 22 Amphetamine Screen, Ur Negative NEGATIVE [facility] Comment on above: (Positive cutoff 1000 ng/mL) Barbiturate Screen, Ur Negative NEGATIVE [facility] Comment on above: (Positive cutoff 200 ng/mL) Benzodiazepine Screen, Urine Negative NEGATIVE [facility] Comment on above: (Positive cutoff 200 ng/mL) Buprenorphine Urine NOT REPORTED NEGATIVE [facility] Cannabinoid Scrn, Ur Negative [facility]IVE [facility] Comment on above: (Positive cutoff 50 ng/mL) Cocaine Metabolite, Urine Negative NEGATIVE [facility] Comment on above: (Positive cutoff 300 ng/mL) MDMA, Urine NOT REPORTED [facility] Methadone Screen, Urine Negative NEGATIVE [facility] Comment on above: (Positive cutoff 300 ng/mL) Methamphetamine, Urine NOT REPORTED NEGATIVE [facility] Opiates, Urine Negative NEGATIVE [facility] Comment on above: (Positive cutoff 300 ng/mL) Oxycodone Screen, Ur Negative NEGATIVE [facility] Comment on above: (Positive cutoff 100 ng/mL) Phencyclidine, Urine Negative NEGATIVE [facility] Comment on above: (Positive cutoff 25 ng/mL) Propoxyphene, Urine NOT REPORTED NEGATIVE [facility] Test Information Assay provides medical screening only. The absence of expected drug(s) and/or metabolite(s) may indicate diluted or adulterated urine, limitations of testing or timing of collection. [facility] Comment on above: Testing for legal pu rposes should be confirmed by another method. To request confirmation of test result, please call the lab within 7 days of sample submission. Tricyclic Antidepressants, Urine NOT REPORTED NEGATIVE [facility] CBC AUTO DIFFon 09-09-2021 BASO # 0.0 103/ul Normal 0.0-0.1 [facility] Comment on above: Performed By: #### C BC #### [facility] [address] [place] [address] Dr. Etta Nolasco Basophils/100 WBC (Bld) 0.3 % Normal 0.2-2.0 [facility] Comment on above: Performed By: #### C BC #### [facility] [address] [address] [address] Etta Nolasco EO # 0.1 103/ul Normal 0.0-0.7 [facility] Comment on above: Performed By: #### C BC #### [facility] [address] [address] [address] Etta Nolasco Eosinophils/100 WBC (Bld) 1.9 % Normal 0.9-7.0 [facility] Comment on above: Performed By: #### C BC #### [facility] [address] [place] [address] Dr. Etta Nolasco Erythrocyte distribution width (RBC) [Ratio] 11.6 % Normal 11.0-15.0 [facility] Comment on above: Performed By: #### C BC #### [facility] [address] [place] [address] Dr. Etta Nolasco Hematocrit (Bld) [Volume fraction] 37.0 % Normal 36.0-48.0 [facility] Comment on above: Performed By: #### C BC #### [facility] [address] [place] [address] Dr. Etta Nolasco Hemoglobin (Bld) [Mass/Vol] 12.3 g/dL Normal 12.0-16.0 [facility] Comment on above: Performed By: #### C BC #### [facility] [address] [place] [address] Dr. Etta Nolasco IG # 0.01 10e3/ul Normal 0.00-0.03 [facility] Comment on above: Performed By: #### C BC #### [facility] [address] [place] [address] Dr. Etta Nolasco IG % 0.2 % Normal 0.0-0.5 [facility] Comment on above: Performed By: #### C BC #### [facility] [address] [place] [address] Dr. Etta Nolasco LYMPH # 2.3 103/ul Normal 1.2-3.8 [facility] Comment on above: Performed By: #### C BC #### [facility] [address] [place] [address] Dr. Etta Nolasco Lymphocytes/100 WBC (Bld) 40.3 % Normal 20.5-60.0 [facility] Comment on above: Performed By: #### C BC #### [facility] [address] [place] [address] Dr. Etta Nolasco MANUAL DIFF REQ NO Normal [facility] Comment on above: Performed By: #### C BC #### [facility] [address] [place] [address] Dr. Etta Nolasco MCH (RBC) [Entitic mass] 30.5 pg Normal 26.7-34.0 [facility] Comment on above: Performed By: #### C BC #### [facility] [address] [place] [address] Dr. Etta Nolasco MCHC (RBC) [Mass/Vol] 33.2 g/dL Normal 29.9-35.2 [facility] Comment on above: Performed By: #### C BC #### [facility] [address] [place] [address] Dr. Etta Nolasco MCV (RBC) [Entitic vol] 91.8 fL Normal 81.0-99.0 [facility] Comment on above: Performed By: #### C BC #### [facility] [address] [place] [address] Dr. Etta Nolasco MONO # 0.4 103/ul Normal 0.3-0.8 [facility] Comment on above: Performed By: #### C BC #### [facility] [address] [place] [address] Dr. Etta Nolasco Monocytes/100 WBC (Bld) 6.2 % Normal 1.7-12.0 [facility] Comment on above: Performed By: #### C BC #### [facility] [address] [place] [address] Dr. Etta Nolasco NEUT # 3.0 103/ul Normal 1.4-6.5 [facility] Comment on above: Performed By: #### C BC #### [facility] [address] [place] [address] Dr. Etta Nolasco Neutrophils/100 WBC (Bld) 51.1 % Normal 43.0-75.0 [facility] Comment on above: Performed By: #### C BC #### [facility] [address] [place] [address] Dr. Etta Nolasco Platelet mean volume (Bld) [Entitic vol] 10.7 fL Normal 9.5-13.5 [facility] Comment on above: Performed By: #### C BC #### [facility] [address] [address] [address] Etta Nolasco PLT 236 103/ul Normal 150-450 [facility] Comment on above: Performed By: #### C BC #### [facility] [address] [address] [address] Etta Nolasco RBC 4.03 106/ul Critically low 4.20-5.40 [facility] Comment on above: Performed By: #### C BC #### [facility] [id number] Etta Nolasco WBC 5.8 103/ul Normal 4.0-11.0 [facility] Comment on above: Performed By: #### C BC #### [facility] [address] ABD/PELVIS WO CONon [...] STEFAN ASTORGA Date: 2021-09-09 08:50 Normal [facility] PROF 14(COMP METB)on 021 Albumin [Mass/Vol] 3.1 g/dL Critically low 3.5-5.0 Th [facility] Comment on above: Performed By: #### C MP #### [facility] [address] [place] [address] Dr. Etta Nolasco Albumin/Globulin [Mass ratio] 1.1 {ratio} Normal [facility] Comment on above: Performed By: #### C MP #### [facility] [address] [place] [address] Dr. Etta Nolasco ALP [Catalytic activity/Vol] 41 U/L Normal 38-126 [facility] Comment on above: Performed By: #### C MP #### [facility] [address] [place] [address] Dr. Etta Nolasco ALT [Catalytic activity/Vol] 9 U/L Normal 9-52 [facility] Comment on above: Performed By: #### C MP #### [facility] [address] [place] [address] Dr. Etta Nolasco Anion gap [Moles/Vol] 12.0 mmol/L Normal Th [facility] Comment on above: Performed By: #### C MP #### [facility] [address] [place] [address] Dr. Etta Nolasco AST [Catalytic activity/Vol] 14 U/L Normal 14-36 [facility] Comment on above: Performed By: #### C MP #### [facility] [address] [place] [address] Dr. Etta Nolasco Bilirubin [Mass/Vol] 0.6 mg/dL Normal 0.2-1.3 [facility] Comment on above: Performed By: #### C MP #### [facility] [address] [place] [address] Dr. Etta Nolasco Calcium [Mass/Vol] 8.3 mg/dL Critically low 8.4-10.2 [facility] Comment on above: Performed By: #### C MP #### [facility] [address] [place] [address] Dr. Etta Nolasco Chloride [Moles/Vol] 107 mmol/L Normal 98-107 [facility] Comment on above: Performed By: #### C MP #### [facility] [address] [address] [address] Etta Nolasco CO2 [Moles/Vol] 25.0 mmol/L Normal 22.0-30.0 [facility] Comment on above: Performed By: #### C MP #### [facility] [address] [address] [address] Etta Nolasco Creatinine [Mass/Vol] 0.78 mg/dL Normal 0.52-1.04 [facility] Comment on above: Performed By: #### C MP #### [facility] [address] [place] [address] Dr. Etta Nolasco EGFR-AF IRANIAN >60 Normal >=60 [facility] Comment on above: Performed By: #### C MP #### [facility] [address] [place] [address] Dr. Etta Nolasco EGFR-NON AF IRANIAN >60 Normal >=60 [facility] Comment on above: Performed By: #### C MP #### [facility] [address] [address] [address] Etta Nolasco Globulin (S) [Mass/Vol] 2.7 g/dL Normal [facility] Comment on above: Performed By: #### C MP #### [facility] [address] [place] [address] Dr. Etta Nolasco Glucose [Mass/Vol] 84 mg/dL Normal 74-106 [facility] Comment on above: Performed By: #### C MP #### [facility] [address] [address] [address] Etta Nolasco Potassium [Moles/Vol] 4.0 mmol/L Normal 3.4-5.0 [facility] Comment on above: Performed By: #### C MP #### [facility] [address] [place] [address] Dr. Etta Nolasco Protein [Mass/Vol] 5.8 g/dL Critically low 6.1-8.2 Th [facility] Comment on above: Performed By: #### C MP #### [facility] [address] [place] [address] Dr. Etta Nolasco Sodium [Moles/Vol] 140 mmol/L Normal 137-145 [facility] Comment on above: Performed By: #### C MP #### [facility] [address] [place] [address] Dr. Etta Nolasco Urea nitrogen [Mass/Vol] 13.0 mg/dL Normal 7.0-17.0 [facility] Comment on above: Performed By: #### C MP #### [facility] [address] [place] [address] Dr. Etta Nolasco Urea nitrogen/Creatinine [Mass ratio] 16.7 mg/mg Normal [facility] Comment on above: Performed By: #### C MP #### [facility] [address] [place] [address] Dr. Etta Nolasco AMYLASEon 09-08-2021 Amylase [Catalytic activity/Vol] 55 U/L Normal 31-110 [facility] Comment on above: Performed By: #### L IPA, RU, CMP #### [facility] [address] [place] [address] Dr. Etta Nolasco CBC AUTO DIFFon 09-08-2021 BASO # 0.1 103/ul Normal 0.0-0.1 [facility] Comment on above: Performed By: #### C BC #### [facility] [address] [place] [address] Dr. Etta Nolasco Basophils/100 WBC (Bld) 0.7 % Normal 0.2-2.0 [facility] Comment on above: Performed By: #### C BC #### [facility] [address] [place] [address] Dr. Etta Nolasco EO # 0.1 103/ul Normal 0.0-0.7 [facility] Comment on above: Performed By: #### C BC #### [facility] [address] [place] [address] Dr. Etta Nolasco Eosinophils/100 WBC (Bld) 1.1 % Normal 0.9-7.0 [facility] Comment on above: Performed By: #### C BC #### [facility] [address] [place] [address] Dr. Etta Nolasco Erythrocyte distribution width (RBC) [Ratio] 11.6 % Normal 11.0-15.0 [facility] Comment on above: Performed By: #### C BC #### [facility] [address] [place] [address] Dr. Etta Nolasco Hematocrit (Bld) [Volume fraction] 40.6 % Normal 36.0-48.0 [facility] Comment on above: Performed By: #### C BC #### [facility] [address] [place] [address] Dr. Etta Nolasco Hemoglobin (Bld) [Mass/Vol] 13.6 g/dL Normal 12.0-16.0 [facility] Comment on above: Performed By: #### C BC #### [facility] [address] [place] [address] Dr. Etta Nolasco IG # 0.01 10e3/ul Normal 0.00-0.03 [facility] Comment on above: Performed By: #### C BC #### [facility] [address] [place] [address] Dr. Etta Nolasco IG % 0.1 % Normal 0.0-0.5 [facility] Comment on above: Performed By: #### C BC #### [facility] [address] [place] [address] Dr. Etta Nolasco LYMPH # 2.4 103/ul Normal 1.2-3.8 [facility] Comment on above: Performed By: #### C BC #### [facility] [address] [place] [address] Dr. Etta Nolasco Lymphocytes/100 WBC (Bld) 31.8 % Normal 20.5-60.0 [facility] Comment on above: Performed By: #### C BC #### [facility] [address] [place] [address] Dr. Etta Nolasco MANUAL DIFF REQ NO Normal [facility] Comment on above: Performed By: #### C BC #### [facility] [address] [address] [address] Etta Nolasco MCH (RBC) [Entitic mass] 30.3 pg Normal 26.7-34.0 [facility] Comment on above: Performed By: #### C BC #### [facility] [address] [place] [address] Dr. Etta Nolasco MCHC (RBC) [Mass/Vol] 33.5 g/dL Normal 29.9-35.2 [facility] Comment on above: Performed By: #### C BC #### [facility] [address] [place] [address] Dr. Etta Nolasco MCV (RBC) [Entitic vol] 90.4 fL Normal 81.0-99.0 [facility] Comment on above: Performed By: #### C BC #### [facility] [address] [place] [address] Dr. Etta Nolasco MONO # 0.4 103/ul Normal 0.3-0.8 [facility] Comment on above: Performed By: #### C BC #### [facility] [address] [place] [address] Dr. Etta Nolasco Monocytes/100 WBC (Bld) 5.4 % Normal 1.7-12.0 [facility] Comment on above: Performed By: #### C BC #### [facility] [address] [place] [address] Dr. Etta Nolasco NEUT # 4.6 103/ul Normal 1.4-6.5 [facility] Comment on above: Performed By: #### C BC #### [facility] [address] [place] [address] Dr. Etta Nolasco Neutrophils/100 WBC (Bld) 60.9 % Normal 43.0-75.0 [facility] Comment on above: Performed By: #### C BC #### [facility] [address] [place] [address] Dr. Etta Nolasco Platelet mean volume (Bld) [Entitic vol] 9.9 fL Normal 9.5-13.5 [facility] Comment on above: Performed By: #### C BC #### [facility] [address] [place] [address] Dr. Etta Nolasco PLT 261 103/ul Normal 150-450 [facility] Comment on above: Performed By: #### C BC #### [facility] [address] [place] [address] Dr. Etta Nolasco RBC 4.49 106/ul Normal 4.20-5.40 [facility] Comment on above: Performed By: #### C BC #### [facility] [address] [place] [address] Dr. Etta Nolasco WBC 7.6 103/ul Normal 4.0-11.0 [facility] Comment on above: Performed By: #### C BC #### [facility] [address] [place] [address] Dr. Etta Nolasco CULTURE BLOODon 09-08-2021 Microscopic examination of blood, culture Culture Observations: NO GROWTH AT 5 DAYS. Normal [facility] Comment on above: Performed By: #### C MP #### [facility] [address] [place] [address] Dr. Etta Nolasco Microscopic examination of blood, culture Culture Observations: NO GROWTH AT 5 DAYS. Normal [facility] Comment on above: Performed By: #### C MP #### [facility] [address] [place] [address] Dr. Etta Nolasco CULTURE URINEon 09-08-2021 CULTURE URINE Culture Observations: NO GROWTH. Normal [facility] Comment on above: Performed By: #### C MP #### [facility] [address] [place] [address] Dr. Etta Nolasco Covid-19 PCR (CVDTBH)on SARS-CoV-2 (COVID-19) RNA DOUG+probe Ql (Unsp spec) Not detected Normal NOT DETECTED [facility] Comment on above: Result Comment: When diagnostic testing is negative, the possibility of a false negative should be considered in the context of a patient's recent exposures and the presence of clinical signs and symptoms consistent with SARS-CoV-2. Performed By: #### C VDTBH #### [facility] [address] [place] [address] Dr. Etta Nolasco H PYLORI ANTIBODYon 09-08-20 21 H PYLORI Negative Normal NEGATIVE [facility] Comment on above: Performed By: #### C MP #### [facility] [address] [place] [address] Dr. Etta Nolasco LACTATE/LACTIC ACIDon 2020 Lactate [Moles/Vol] 0.7 mmol/L Normal 0.7-2.0 [facility] Comment on above: Performed By: #### L ACT #### [facility] Laboratory [address] [place] [address] Dr. Etta Nolasco LIPASEon 09-08-2021 Lipase [Catalytic activity/Vol] 178.0 U/L Normal 23.0-300.0 [facility] Comment on above: Performed By: #### L IPA RU, CMP #### [facility] Laboratory [address] [place] [address] Dr. Etta Nolasco PROF 14(COMP METB)on 021 Albumin [Mass/Vol] 4.1 g/dL Normal 3.5-5.0 [facility] Comment on above: Performed By: #### L IPA RU, CMP #### [facility] [address] [place] [address] Dr. Etta Nolasco Albumin/Globulin [Mass ratio] 1.2 {ratio} Normal [facility] Comment on above: Performed By: #### L IPA RU, CMP #### [facility] [address] [place] [address] Dr. Etta Nolasco ALP [Catalytic activity/Vol] 58 U/L Normal 38-126 [facility] Comment on above: Performed By: #### L IPA RU, CMP #### [facility] [address] [place] [address] Dr. Etta Nolasco ALT [Catalytic activity/Vol] 14 U/L Normal 9-52 [facility] Comment on above: Performed By: #### L IPA RU, CMP #### [facility] [address] [place] [address] Dr. Etta Nolasco Anion gap [Moles/Vol] 8.2 mmol/L Normal [facility] Comment on above: Performed By: #### L RU DOSHI, CMP #### [facility] [address] [place] [address] Dr. Etta Nolasco AST [Catalytic activity/Vol] 10 U/L Critically low 14-36 [facility] Comment on above: Performed By: #### L GLENDA RU, CMP #### [facility] [address] [place] [address] Dr. Etta Nolasco Bilirubin [Mass/Vol] 0.5 mg/dL Normal 0.2-1.3 [facility] Comment on above: Performed By: #### L RU DOSHI, CMP #### [facility] [address] [place] [address] Dr. Etta Nolasco Calcium [Mass/Vol] 9.5 mg/dL Normal 8.4-10.2 [facility] Comment on above: Performed By: #### L RU DOSHI, CMP #### [facility] [address] [place] [address] Dr. Etta Nolasco Chloride [Moles/Vol] 103 mmol/L Normal 98-107 [facility] Comment on above: Performed By: #### L RU DOSHI, CMP #### [facility] [address] [place] [address] Dr. Etta Nolasco CO2 [Moles/Vol] 29.7 mmol/L Normal 22.0-30.0 [facility] Comment on above: Performed By: #### L RU DOSHI, CMP #### [facility] [address] [place] [address] Dr. Etta Nolasco Creatinine [Mass/Vol] 0.85 mg/dL Normal 0.52-1.04 [facility] Comment on above: Performed By: #### L RU DOSHI, CMP #### [facility] [address] [place] [address] Dr. Etta Nolasco EGFR-AF IRANIAN >60 Normal >=60 [facility] Comment on above: Performed By: #### L RU DOSHI, CMP #### [facility] [address] [place] [address] Dr. Etta Nolasco EGFR-NON AF IRANIAN >60 Normal >=60 [facility] Comment on above: Performed By: #### L RU DOSHI, CMP #### [facility] [address] [place] [address] Dr. Etta Nolasco Globulin (S) [Mass/Vol] 3.4 g/dL Normal [facility] Comment on above: Performed By: #### L RU DOSHI, CMP #### [facility] [address] [place] [address] Dr. Etta Nolasco Glucose [Mass/Vol] 81 mg/dL Normal 74-106 [facility] Comment on above: Performed By: #### L RU DOSHI, CMP #### [facility] [address] [place] [address] Dr. Etta Nolasco Potassium [Moles/Vol] 3.9 mmol/L Normal 3.4-5.0 [facility] Comment on above: Performed By: #### L RU DOSHI, CMP #### [facility] [address] [place] [address] Dr. Etta Nolasco Protein [Mass/Vol] 7.5 g/dL Normal 6.1-8.2 [facility] Comment on above: Performed By: #### L RU DOSHI, CMP #### [facility] [address] [place] [address] Dr. Etta Nolasco Sodium [Moles/Vol] 137 mmol/L Normal 137-145 [facility] Comment on above: Performed By: #### L RU DOSHI, CMP #### [facility] [address] [place] [address] Dr. Etta Nolasco Urea nitrogen [Mass/Vol] 16.0 mg/dL Normal 7.0-17.0 [facility] Comment on above: Performed By: #### L RU DOSHI, CMP #### [facility] [address] [place] [address] Dr. Etta Nolasco Urea nitrogen/Creatinine [Mass ratio] 18.8 mg/mg Normal [facility] Comment on above: Performed By: #### L RU DOSHI, CMP #### [facility] [address] [place] [address] Dr. Etta Nolasco UA RANDOM W/MICROSCOPICon BACTERIA NONE SEEN Normal NONE SEEN [facility] Comment on above: Performed By: #### C MP #### [facility] [address] [place] [address] Dr. Etta Nolasco Bilirubin Ql (U) Negative Normal NEGATIVE [facility] Comment on above: Performed By: #### C MP #### [facility] [address] [place] [address] Dr. Etta Nolasco CAST NONE SEEN Normal NONE SEEN [facility] Comment on above: Performed By: #### C MP #### [facility] [address] [place] [address] Dr. Etta Nolasco Clarity (U) CLEAR Normal CLEAR [facility] Comment on above: Performed By: #### C MP #### [facility] [address] [place] [address] Dr. Etta Nolasco Color (U) LT. YELLOW Normal YELLOW [facility] Comment on above: Performed By: #### C MP #### [facility] [address] [place] [address] Dr. Etta Nolasco Crystals LM Nom (Urine sed) NONE SEEN Normal NONE SEEN [facility] Comment on above: Performed By: #### C MP #### [facility] [address] [place] [address] Dr. Etta Nolasco Epithelial cells LM Ql (Urine sed) FEW Abnormal NONE SEEN /RARE [facility] Comment on above: Performed By: #### C MP #### [facility] [address] [place] [address] Dr. Etta Nolasco Glucose Ql (U) Negative Normal NEGATIVE [facility] Comment on above: Performed By: #### C MP #### [facility] [address] [place] [address] Dr. Etta Nolasco Hemoglobin Ql (U) Negative Normal NEGATIVE [facility] Comment on above: Performed By: #### C MP #### [facility] [address] [place] [address] Dr. Etta Nolasco Ketones Ql (U) 15 mg/dl Abnormal NEGATIVE [facility] Comment on above: Performed By: #### C MP #### [facility] [address] [place] [address] Dr. Etta Nolasco LEUKOCYTES Negative Normal NEGATIVE [facility] Comment on above: Performed By: #### C MP #### [facility] [address] [place] [address] Dr. Etta Nolasco MUCOUS NONE SEEN Normal NONE SEEN [facility] Comment on above: Performed By: #### C MP #### [facility] [address] [place] [address] Dr. Etta Nolasco Nitrite Ql (U) Negative Normal NEGATIVE [facility] Comment on above: Performed By: #### C MP #### [facility] [address] [place] [address] Dr. Etta Nolasco pH (U) 7.0 [pH] Normal 5-9 [facility] Comment on above: Performed By: #### C MP #### [facility] [address] [place] [address] Dr. Etta Nolasco RBC 0-2 Normal 0-2 [facility] Comment on above: Performed By: #### C MP #### [facility] [address] [place] [address] Dr. Etta Nolasco SPEC GRAVITY 1.025 Normal 1.005-<=1.025 [facility] Comment on above: Performed By: #### C MP #### [facility] [address] [place] [address] Dr. Etta Nolasco UA PROTEIN Negative Normal NEGATIVE/ TRACE [facility] Comment on above: Performed By: #### C MP #### [facility] [address] [place] [address] Dr. Etta Nolasco Urobilinogen Qn (U) 0.2 {Alexander'U}/dL Normal 0.2 - 1. 0 [facility] Comment on above: Performed By: #### C MP #### [facility] [address] [place] [address] Dr. Etta Nolasco WBC NONE SEEN Normal NONE SEEN [facility] Comment on above: Performed By: #### C MP #### [facility] [address] [place], [place] [address] Dr. Etta Nolasco hCG, Quantitative, Ordered By: Raul Pinto on 05-08-2021 hCG Quant <1 <5 IU/L [employer] Phone: Comment on above: Non-preg premeno <=5 Postmeno <=8 Male <=3 If HCG results do not concur with clinical observations, additional testing to confirm results is recommended. Elevated results not associated with may be found in patients with other diseases such as tumors of the germ cells (testis, ovaries, etc.), bladder, pancreas, stomach, lungs, and liver. [employer] Phone: US PELVIS AND TRANSVAGon US PELVIS [...] SANDHYA THOMAS Date: 2021-04-24 15:38 Normal [facility] PREG QUANT HCGon 2021 HCG QUANT <1 Normal [facility] Comment on above: Performed By: #### P REGQNT #### [facility] [address] [place], [place] [address] Urszula Garcia HCG RANGE SEE BELOW Normal [facility] Comment on above: Result Comment: 5-50 0-1 WEEK 40-300 1-2 WEEKS 100-1,000 2-3 WEEKS 500-6,000 3-4 WEEKS 5,000-200,000 1-2 MONTHS 10,000-100,000 2-3 MONTHS 3,000-50,000 2ND TRIMESTER 1,000-50,000 3RD TRIMESTER Performed By: #### P REGQNT #### [facility] [address] [place] [address] Urszula Garcia Basic Metabolic PanelOrdered By: Salvatore Ibarra on 04-09-2021 Anion gap [Moles/Vol] 8 mmol/L Low 9 - 17 mmol/L [employer] Phone: Calcium [Mass/Vol] 9.3 mg/dL 8.6 - 10. 4 mg/dL [facility] Phone: Chloride [Moles/Vol] 106 mmol/L 98 - 10 7 mmol/L [facility] Phone: CO2 [Moles/Vol] 25 mmol/L 20 - 31 mmol/L [employer] Phone: Creatinine [Mass/Vol] 0.7 mg/dL 0.50 - 0.90 mg/dL [facility] Phone: GFR NOT REPORTED >60 mL/min [facility] [employer] Phone: GFR Non- Pediatric GFR requires additional information. Refer to NKDEP website for calculator. >60 mL/min [facility] Phone: Glucose [Mass/Vol] 88 mg/dL 70 - 99 mg/dL [facility] [employer] Phone: Interpretation and review of laboratory results Abnormal [facility] Phone: Potassium [Moles/Vol] 3.9 mmol/L 3.7 - 5.3 mmol/L [facility] Phone: Sodium [Moles/Vol] 139 mmol/L 135 - 144 mmol/L [facility] Work Phone: Urea nitrogen (BldV) [Mass/Vol] 18 mg/dL 6 - 20 mg/dL [employer] Work Phone: Urea nitrogen/Creatinine (Bld) [Mass ratio] 26 High [employer] Work Phone: [employer] Work Phone: CBC Auto DifferentialOrdered By: Salvatore Ibarra on 04-09-2021 Absolute Eos # 0.15 [facility] Work Phone: Absolute Immature Granulocyte <0.03 [employer] Work Phone: Absolute Lymph # 2.22 [facility] Work Phone: Absolute [place] # 0.55 [facility] Work Phone: Basophils (Bld) [#/Vol] 0.04 10*3/uL [employer] Phone: Basophils/100 WBC (Bld) 1 % 0 - 2 % [employer] Phone: Differential Type NOT REPORTED [employer] Phone: Eosinophils/100 WBC (Bld) 2 % 1 - 4 % [employer] Phone: Hematocrit (Bld) [Volume fraction] 41.4 % 36.3 - 47.1 % [employer] Phone: Hemoglobin.gastrointes tinal spec 1 Ql (Stl) 14.0 g/dL 11.9 - 15.1 g/dL [employer] Phone: Immature granulocytes/100 WBC (Bld) 0 % 0 [employer] Phone: Lymphocytes/100 WBC (Bld) 32 % 25 - 45 % [employer] Phone: MCH (RBC) [Entitic mass] 30.7 pg 25.2 - 33.5 pg [employer] Phone: MCHC (RBC) [Mass/Vol] 33.8 g/dL 28.4 - 34.8 g/dL [employer] Phone: MCV (RBC) [Entitic vol] 90.8 fL 82.6 - 102.9 fL [employer] Phone: Monocytes/100 WBC (Bld) 8 % 2 - 8 % [employer] Phone: NRBC Automated 0.0 0.0 per 100 WBC [employer] Phone: Platelet distribution width (Bld) [Ratio] 11.9 % 11.8 - 14.4 % [employer] Phone: Platelet Estimate NOT REPORTED [employer] Phone: Platelet mean volume (Bld) [Entitic vol] 10.3 fL 8.1 - 13.5 fL [employer] Phone: Platelets (Bld) [#/Vol] 229 10*3/uL [employer] Phone: RBC (Bld) [#/Vol] 4.56 10*6/uL 3.95 - 5.1 1 m/uL [employer] Work Phone: RBC (Bld) [#/Vol] NOT REPORTED [employer] Phone: Segmented neutrophils/100 WBC (Bld) 57 % 34 - 64 % [employer] Phone: Segs Absolute 3.93 [employer] Work Phone: WBC (Bld) [#/Vol] 6.9 10*3/uL [employer] Phone: WBC (Bld) [#/Vol] NOT REPORTED [employer] Phone: [employer] Phone: CT ABDOMEN PELVIS W IV CONTR AST Additional Contrast? NoneOrdered By: Salvatore Ibarra on 04-09-2021 No acute abdominal or pelvic abnormality. [employer] Phone: EXAMINATION: CT OF THE ABDOMEN AND [...] unremarkable. There is no acute osseous abnormality. [employer] Phone: [place], [facility] Incoming Radiant Results From [facility] - 04/09/2021 4:31 PM EDT EXAMINATION: CT [...] IMPRESSION: No acute abdominal or pelvic abnormality. [employer] Phone: [employer] Phone: HCG Qualitative, SerumOrdere d By: Salvatore Ibarra on 04-09-2021 hCG Qual Negative NEGATIVE [employer] Phone: Comment on above: Specimens with hCG l evels near the threshold of the test (25 mIU/mL) may give a negative or indeterminate result. In such cases, another test should be performed with a new specimen in 48-72 hours. If early is suspected clinically in this setting, correlation with quantitative serum b-hCG level is suggested. [employer] has confirmed the use of plasma for this test. This has not been cleared or approved by the U.S. Food and Drug Administration. The FDA has determined that such clearance is not necessary. [employer] Phone: Laboratory - Chemistry and C hemistry - challengeOrdered By: Salvatore Ibarra on 04-09-2021 GFR/1.73 sq M.predicted MDRD (S/P/Bld) [Vol rate/Area] [employer] Phone: Comment on above: Average GFR for <20 years old not available. Chronic Kidney Disease: <60 mL/min/1.73sq m Kidney failure: <15 mL/min/1.73sq m eGFR calculated using average adult body mass. Additional eGFR calculator available at: http://www.Wisair/multiple_crcl_2012.htm Stage 1: Some kidney damage normal GFR Stage 2: Mild kidney damage GFR 60-89 Stage 3: Moderate kidney damage GFR 30-59 Stage 4: Severe kidney damage GFR 15-29 Stage 5: Severe kidney damage GFR <15 ESRD - chronic treatment by dialysis or transplant Urinalysis with MicroscopicO rdered By: Salvatore Ibarra on 04-09-2021 - [employer] Work Phone: Amorphous, UA NOT REPORTED None [facility] Work Phone: Bacteria, UA NOT REPORTED None [facility] Work Phone: Bilirubin Urine Negative NEGATIVE [facility] Work Phone: Casts UA NOT REPORTED /LPF [facility] Work Phone: Color, UA YELLOW YELLOW [facility] [employer] Work Phone: Crystals, UA NOT REPORTED None /HPF [facility] Work Phone: Epithelial Cells UA 10 TO 20 [facility] [employer] Phone: Glucose, Ur Negative NEGATIVE [facility] [employer] Work Phone: Interpretation and review of laboratory results Abnormal [facility] [employer] Work Phone: Ketones Ql (U) TRACE Abnormal NEGATIVE [facility] Work Phone: Leukocyte esterase Test strip Ql (U) SMALL Abnormal NEGATIVE [facility] [employer] Work Phone: Mucus, UA NOT REPORTED None [facility] Phone: Nitrite, Urine Negative NEGATIVE [facility] Work Phone: Other Observations UA NOT REPORTED NOT REQ. [facility] Work Phone: pH, UA 6.5 [facility] Work Phone: Protein, UA Negative NEGATIVE [facility] Work Phone: RBC, UA None [facility] Work Phone: Renal Epithelial, UA NOT REPORTED 0 /HPF [facility] [employer] Work Phone: Specific [place], UA 1.025 High [facility] [employer] Work Phone: Trichomonas, UA NOT REPORTED None [facility] Work Phone: Turbidity UA CLEAR CLEAR [facility] Work Phone: Urinalysis Comments NOT REPORTED [facility] [employer] Work Phone: Urine Hgb Negative NEGATIVE [facility] Phone: Urobilinogen, Urine Normal Normal [facility] Work Phone: WBC, UA 10 TO 20 [facility] Work Phone: Yeast, UA NOT REPORTED None [facility] Work Phone: [facility] Work Phone: XR CHEST 1 VIEWOrdered By: Keith Ibarra on 04-09-2021 No acute process. [employer] Work Phone: EXAMINATION: ONE XRAY VIEW OF THE CHEST 04/09/2021 4:25 pm COMPARISON: None. HISTORY: ORDERING SYSTEM PROVIDED HISTORY: Preop TECHNOLOGIST PROVIDED HISTORY: Preop FINDINGS: Heart appears normal in size. No focal consolidation, pneumothorax, pleural effusion or free air. [employer] Work Phone: Kw[place], [employer] Incoming Radiant Results From [facility] - 04/09/2021 4:32 PM EDT EXAMINATION: ONE XRAY VIEW OF THE CHEST 04/09/2021 4:25 pm COMPARISON: None. HISTORY: ORDERING SYSTEM PROVIDED HISTORY: Preop TECHNOLOGIST PROVIDED HISTORY: Preop FINDINGS: Heart appears normal in size. No focal consolidation, pneumothorax, pleural effusion or free air. IMPRESSION: No acute process. [employer] Work Phone: [employer] Work Phone: Provider Letteron 01-30-2021 Provider Letter January 29, 2021 ZAID LUNA [address] [place] [address] ZAID LUNA 2000 Dear Zaid, This letter [...] any further care or referral needs. Sincerely, [facility] Provider Letter FTon 01-30 Provider Letter [facility] Arabella Falk, [facility] [facility] [address] Re: ZAID LUNA Date of : 2000 January 29, [address] Falk, Thank you for your referral of Zaid Luna who was initially consulted in October for rectal bleeding. She was scheduled for a colonoscopy at [facility] and failed to keep her appointment for [...] be scheduled at an alternative facility. Sincerely [facility] Consent for Procedure/Surger yon 10-30-2020 Consent for Procedure/Surgery [id number] #1.00CD:127 Normal [facility] Facesheeton 10-30-2020 Facesheet [id number] #1.00CD:127 Normal [facility] Provider Letter FTMCon 10-30 Provider Letter [facility] Arabella Falk, [address] [facility] [place] [address] Re: ZAID LUNA Date of : 2000 Thank you for your referral of Zaid Luna who was seen on consultation on 10/29/2020 for intermittent rectal bleeding, lower abdominal pain and cramping with yellow mucus in stools. A colonoscopy is planned. I have enclosed my consultation notes for your review and will be happy to follow Zaid should her symptoms persist. Sincerely, Salvatore Lee MD General Surgery [facility] Ambulatory Clinical Summaryo n 10-29-2020 Ambulatory Clinical Summary {[id number]}CD:[id number] Normal [facility] General Surgery Office/Clini c Noteon 10-29-2020 [...] Care After Colonoscopy Exercise to Lose Weight, Blkc-dp-Boru Problem List/Past Medical History Ongoing Allergic rhinitis [...] History Crohn's disease: Father. Hypertension: Father. Normal [facility] Comment on above: Result Comment: Elec tronically Signed By: KAYLEN THURMAN, Salvatore Pope\Date and Time Signed: 10/29/20 14:52 EST [...] Document Reviewed: 06/06/2009 ExitCare? Patient Information ?2013 [employer] [facility]. Colonoscopy A colonoscopy is an exam to [...] ? Medicines taken, including vitamins, herbs, eyedrops, tjgl-mxo-acrxhhm medicines, and creams. ? Use of steroids [...] medicines have worn off. ? Only take qhqp-hts-vwfkuea or prescription medicines for pain, discomfort, or [...] Document Reviewed: 06/06/2009 ExitCare? Patient Information ?2013 [employer]. Exercise to Lose Weight Exercise and a [...] 01/16/2013 Document Reviewed: 11/27/2011 ExitCare? Patient Information ?2013 [employer]. [facility] Physician Referralon 020 Physician Referral [id number] #1.00CD:127 Normal [facility] CBC Auto Differentialon 09-09 Basophils (Bld) [#/Vol] 0.05 10*3/uL [place] Basophils/100 WBC (Bld) 1 % 0 - 2 % [place] Differential Type NOT REPORTED [place] Eosinophils (Bld) [#/Vol] 0.14 10*3/uL [place] Eosinophils/100 WBC (Bld) 2 % 1 - 4 % [place] Erythrocyte distribution width (RBC) [Ratio] 12.4 % 11.8 - 14.4 % [place] Hematocrit (Bld) [Volume fraction] 39.2 % 36.3 - 47.1 % [place] Hemoglobin (Bld) [Mass/Vol] 12.6 g/dL 11.9 - 15.1 g/dL [place] Immature granulocytes (Bld) [#/Vol] 0 % 0 [place] Immature granulocytes (Bld) [#/Vol] 10*3/uL [place] Lymphocytes (Bld) [#/Vol] 2.27 10*3/uL [place] Lymphocytes/100 WBC (Bld) 38 % 25 - 45 % [place] MCH (RBC) [Entitic mass] 30.4 pg 25.2 - 33.5 pg [place] MCHC (RBC) [Mass/Vol] 32.1 g/dL 28.4 - 34.8 g/dL [place] MCV (RBC) [Entitic vol] 94.5 fL 82.6 - 102.9 fL [place] Monocytes (Bld) [#/Vol] 0.34 10*3/uL [place] Monocytes/100 WBC (Bld) 6 % 2 - 8 % [place] Platelet mean volume (Bld) [Entitic vol] 10.7 fL 8.1 - 13.5 fL [place] Platelets (Bld) [#/Vol] NOT REPORTED [place] Platelets (Bld) [#/Vol] 355 10*3/uL [place] RBC (Bld) [#/Vol] 4.15 10*6/uL 3.95 - 5.1 1 m/uL [place] RBC morphology finding Nom (Bld) NOT REPORTED [place] Segmented neutrophils/100 WBC (Bld) 53 % 34 - 64 % [place] Segs Absolute 3.10 [place] WBC (Bld) [#/Vol] 0.0 10*3/uL 0.0 per 10 0 WBC [place] WBC (Bld) [#/Vol] 5.9 10*3/uL [place] WBC Morphology NOT REPORTED [place], [place] CBCon 09-21-2020 Erythrocyte distribution width (RBC) [Ratio] 12.8 % 11.8 - 14.4 % [place] Hematocrit (Bld) [Volume fraction] 35.2 % Low 36.3 - 47.1 % [place] Hemoglobin (Bld) [Mass/Vol] 11.3 g/dL Low 11.9 - 15.1 g/dL [place] Interpretation and review of laboratory results Abnormal [place] MCH (RBC) [Entitic mass] 30.1 pg 25.2 - 33.5 pg [place] MCHC (RBC) [Mass/Vol] 32.1 g/dL 28.4 - 34.8 g/dL [place] MCV (RBC) [Entitic vol] 93.9 fL 82.6 - 102.9 fL [place] Platelet mean volume (Bld) [Entitic vol] 12.3 fL 8.1 - 13.5 fL [place] Platelets (Bld) [#/Vol] 137 10*3/uL Low [place] RBC (Bld) [#/Vol] 3.75 10*6/uL Low 3.95 - 5.1 1 m/uL [place] WBC (Bld) [#/Vol] 0.0 10*3/uL 0.0 per 10 0 WBC [place] WBC (Bld) [#/Vol] 11.0 10*3/uL [place] CBC auto differentialon 09-08 Basophils (Bld) [#/Vol] 10*3/uL [place] Basophils/100 WBC (Bld) 0 % 0 - 2 % [place] Differential Type NOT REPORTED [place] Eosinophils (Bld) [#/Vol] 0.12 10*3/uL [place] Eosinophils/100 WBC (Bld) 2 % 1 - 4 % [place] Erythrocyte distribution width (RBC) [Ratio] 12.6 % 11.8 - 14.4 % [place] Hematocrit (Bld) [Volume fraction] 38.1 % 36.3 - 47.1 % [place] Hemoglobin (Bld) [Mass/Vol] 12.5 g/dL 11.9 - 15.1 g/dL [place] Immature granulocytes (Bld) [#/Vol] 0.03 10*3/uL [place] Immature granulocytes (Bld) [#/Vol] 0 % 0 [place] Interpretation and review of laboratory results Abnormal [place] Lymphocytes (Bld) [#/Vol] 1.88 10*3/uL [place] Lymphocytes/100 WBC (Bld) 24 % Low 25 - 45 % [place] MCH (RBC) [Entitic mass] 30.5 pg 25.2 - 33.5 pg [place] MCHC (RBC) [Mass/Vol] 32.8 g/dL 28.4 - 34.8 g/dL [place] MCV (RBC) [Entitic vol] 92.9 fL 82.6 - 102.9 fL [place] Monocytes (Bld) [#/Vol] 0.59 10*3/uL [place] Monocytes/100 WBC (Bld) 8 % 2 - 8 % [place] Platelet mean volume (Bld) [Entitic vol] 11.6 fL 8.1 - 13.5 fL [place] Platelets (Bld) [#/Vol] 170 10*3/uL [place] Platelets (Bld) [#/Vol] NOT REPORTED [place] RBC (Bld) [#/Vol] 4.10 10*6/uL 3.95 - 5.1 1 m/uL [place] RBC morphology finding Nom (Bld) NOT REPORTED [place] Segmented neutrophils/100 WBC (Bld) 66 % High 34 - 64 % [place] Segs Absolute 5.20 [place] WBC (Bld) [#/Vol] 0.0 10*3/uL 0.0 per 10 0 WBC [place] WBC (Bld) [#/Vol] 7.8 10*3/uL [place] WBC Morphology NOT REPORTED [place], [place] DRUG SCREEN MULTI URINEon Amphetamine Screen, Ur Negative NEGATIVE [place], [place] Barbiturate Screen, Ur Negative NEGATIVE [place] Benzodiazepine Screen, Urine Negative NEGATIVE [place] Buprenorphine Urine Negative NEGATIVE [place] Cannabinoid Scrn, Ur Negative NEGATIVE [place], [place] Cocaine Metabolite, Urine Negative NEGATIVE [place] MDMA, Urine NOT REPORTED NEGATIVE [place] Methadone Screen, Urine Negative NEGATIVE [place], [place] Methamphetamine, Urine Negative NEGATIVE [place], [place] Opiates, Urine Negative NEGATIVE [place], [place] Oxycodone Screen, Ur Negative NEGATIVE [place] Phencyclidine, Urine Negative NEGATIVE [place] Propoxyphene, Urine Negative NEGATIVE [place] Test Information NOT REPORTED [place] Tricyclic Antidepressants, Urine Negative NEGATIVE [place], [place] Comment on above: Drug screen results are to be used for medical purposes only. All positive results are unconfirmed. Testing for employment or legal uses should be sent to a reference laboratory for confirmation. TYPE AND SCREENon 09-20-2020 ABO/Rh Positive [place], [place] Arm Band Number [id number] [place], [place] Expiration Date 09/23/2020,2614 [place], [place] Microscopic Urinalysison Amorphous, UA NOT REPORTED None [place], [place] Bacteria, UA FEW Abnormal None [place], [place] Casts UA NOT REPORTED [place] Crystals, UA NOT REPORTED None /HPF [place], [place] Epithelial Cells UA 50 TO 100 [place] Interpretation and review of laboratory results Abnormal [place] Mucus, UA 1+ Abnormal None [place] Other Observations UA NOT REPORTED NOT REQ. M [place], [place] RBC (U) [#/Vol] 0 TO 2 [place], [place] Renal Epithelial, UA NOT REPORTED 0 /HPF [place] Trichomonas, UA NOT REPORTED None [place], [place] WBC, UA 0 TO 2 [place], [place] Yeast, UA NOT REPORTED None [place], [place] - [place] Urinalysis Reflex to Culture on 09-02-2020 Bilirubin Urine Negative NEGATIVE [place] Color, UA YELLOW YELLOW [place] Glucose, Ur Negative NEGATIVE [place] Interpretation and review of laboratory results Abnormal [place] Ketones Ql (U) Negative NEGATIVE [place], [place] Leukocyte esterase Test strip Ql (U) TRACE Abnormal NEGATIVE [place], [place] Nitrite, Urine Negative NEGATIVE [place], [place] pH, UA 6.0 [place] Protein (U) [Mass/Vol] Negative NEGATIVE [place] Specific [place], UA 1.025 [place], [place] Turbidity UA CLOUDY Abnormal CLEAR [place], [place] Urinalysis Comments NOT REPORTED [facility] [place], [place] Urine Hgb Negative NEGATIVE [place] Urobilinogen, Urine Normal Normal [place] Microscopic Urinalysison Amorphous, UA NOT REPORTED None [place], [place] Bacteria, UA TRACE Abnormal None [place], [place] Casts UA NOT REPORTED /LPF [place] Crystals, UA NOT REPORTED None /HPF [place], [place] Epithelial Cells UA 5 TO 10 [place] Interpretation and review of laboratory results Abnormal [place] Mucus, UA NOT REPORTED None [place], [place] Other Observations UA NOT REPORTED NOT REQ. M [place], [place] RBC (U) [#/Vol] 0 TO 2 [place], [place] Renal Epithelial, UA NOT REPORTED 0 /HPF [place], [place] Trichomonas, UA NOT REPORTED None [place], [place] WBC, UA 5 TO 10 [place], [place] Yeast, UA NOT REPORTED None [place] - [place] Urinalysison 08-13-2020 Bilirubin Urine Negative NEGATIVE [place], [place] Color, UA YELLOW YELLOW [place], [place] Glucose, Ur Negative NEGATIVE [place] Interpretation and review of laboratory results Abnormal [place] Ketones Ql (U) Negative NEGATIVE [place], [place] Leukocyte esterase Test strip Ql (U) TRACE Abnormal NEGATIVE [place], [place] Nitrite, Urine Negative NEGATIVE [place], [place] pH, UA 7.5 [place], [place] Protein (U) [Mass/Vol] Negative NEGATIVE [place] Specific [place], UA 1.025 High [place], [place] Turbidity UA CLEAR CLEAR [place] Urinalysis Comments NOT REPORTED [place], [place] Urine Hgb Negative NEGATIVE [place] Urobilinogen, Urine Normal Normal [place] Urinalysis, Routineon 2019 Acetoacetic Acid,Ur Negative Normal NEG [facility] Comment on above: Performed By: #### U JJ Maravilla #### [facility] [address] [place], [place] [id number] Poly Operator: Russ Louie MD Bilirubin, SemiQt,Ur Negative Normal [facility] Comment on above: Performed By: #### U A, UMICAO #### [facility] [address] [place], [place] [id number] Poly Operator: Russ Louie MD Color (U) YELLOW Normal YEL [facility] Comment on above: Performed By: #### U A, UMICAO #### [facility] [address] [place], [place] [id number] Poly Operator: Russ Louie MD Glucose Ql (U) Negative Normal NEG [facility] Comment on above: Performed By: #### U A, UMICAO #### [facility] [address] [place] [address] [place] [place], [place] [phone] Poly Operator: Russ Louie MD Hemoglobin, Ur Negative Normal NEG [facility] Comment on above: Performed By: #### U A, UMICAO #### [facility] [address] [place] [address] [place], [place] [phone] Poly Operator: Russ Louie MD Leukocyte esterase Test strip Ql (U) TRACE Abnormal [facility] Comment on above: Performed By: #### U A, UMICAO #### [facility] [address] [place] [address] [place], [place] [phone] Poly Operator: Russ Louie MD Nitrite,Ur Negative Normal [facility] Comment on above: Performed By: #### U A, UMICAO #### [address] [place] [address] Poly Operator: Russ Louie MD pH (U) 7.5 [pH] Normal 5.0-9.0 [facility] Comment on above: Performed By: #### U A, UMICAO #### [facility] [address] [place] [address] [place] [address] Poly Operator: Russ Louie MD Protein Ql (U) Negative Normal NEG [facility] Comment on above: Performed By: #### U A, UMICAO #### [facility] [address] [place], [place] [phone] Poly Operator: Russ Louie MD Specific gravity (U) [Rel density] 1.025 High 1.010-1.020 [facility] Comment on above: Performed By: #### U A, UMICAO #### [facility] [address] [place] [address] Poly Operator: Russ Louie MD Turbidity CLEAR Normal CLEAR [facility] Comment on above: Performed By: #### U A, UMICAO #### [address] [place] [address] Poly Operator: Russ Louie MD Urobilinogen,Ur Normal Normal NORM [facility] Comment on above: Performed By: #### U A, UMICAO #### [address] [place] [address] Poly Operator: Russ Louie MD Comment NOT REPORTED Normal [facility] Comment on above: Performed By: #### U A, UMICAO #### [facility] [address] [place] [address] Dr[address] [place], [place] [address] Poly Operator: Russ Louie MD Urinalysis,Microon 0 ----- Normal [facility] Comment on above: Performed By: #### U A, UMICAO #### [facility] [address] [place], [place] [phone] Poly Operator: Russ Louie MD Bacteria LM.HPF (Urine sed) [#/Area] TRACE Abnormal NONE [facility] Comment on above: Performed By: #### U A, UMICAO #### [facility] [address] [place] [address] Poly Operator: Russ Louie MD Epithelial cells LM.HPF (Urine sed) [#/Area] 5 TO 10 Normal 0-25 [facility] Comment on above: Performed By: #### U A, UMICAO #### [facility] [address] [place], [place] [phone] Poly Operator: Russ Louie MD RBC (U) [#/Vol] 0 TO 2 Normal 0-2 [facility] Comment on above: Performed By: #### U A, UMICAO #### [address] [place] [address] Poly Operator: Russ Louie MD WBC (U) [#/Vol] 5 TO 10 Normal 0-5 [facility] Comment on above: Performed By: #### U A, UMICAO #### [address] [place], [facility] Poly Operator: Russ Louie MD Amorphous sediment LM Ql (Urine sed) NOT REPORTED Normal [facility] Comment on above: Performed By: #### U A, UMICAO #### [address] [place], [place] [phone] Poly Operator: Russ Louie MD Casts LM.LPF (Urine sed) [#/Area] NOT REPORTED Normal [facility] Comment on above: Performed By: #### U A, UMICAO #### [address] [place] [address] Poly Operator: Russ Louie MD Crystals LM Nom (Urine sed) NOT REPORTED Normal [facility] Comment on above: Performed By: #### U A, UMICAO #### [address] [place] [address] Poly Operator: Russ Louie MD Epithelial, Renal NOT REPORTED Normal 0 [facility] Comment on above: Performed By: #### U A, UMICAO #### [facility] [address] [place], [place] [phone] Poly Operator: Russ Louie MD Mucus Strands NOT REPORTED Normal [facility] Comment on above: Performed By: #### U A, UMICAO #### [facility] [address] [place], [place] [phone] Poly Operator: Russ Louie MD Other Observations NOT REPORTED [facility] Comment on above: Performed By: #### U A, UMICAO #### [facility] [address] [place], [place] [phone] Poly Operator: Russ Louie MD Trichomonas NOT REPORTED Normal [facility] Comment on above: Performed By: #### U A, UMICAO #### [facility] [address] [place], [facility] Poly Operator: Russ Louie MD Yeast LM Ql (Urine sed) NOT REPORTED Normal [facility] Comment on above: Performed By: #### U A, UMICAO #### [facility] [address] [place], [place] [phone] Poly Operator: Russ Louie MD CBC Auto Differentialon 06-09 Basophils (Bld) [#/Vol] 0.03 10*3/uL [place] Basophils/100 WBC (Bld) 0 % 0 - 2 % [place] Differential Type NOT REPORTED [place] Eosinophils (Bld) [#/Vol] 0.65 10*3/uL [place] Eosinophils/100 WBC (Bld) 8 % High 1 - 4 % [place] Erythrocyte distribution width (RBC) [Ratio] 12.9 % 11.8 - 14.4 % [place] Hematocrit (Bld) [Volume fraction] 40.4 % 36.3 - 47.1 % [place] Hemoglobin (Bld) [Mass/Vol] 13.1 g/dL 11.9 - 15.1 g/dL [place] Immature granulocytes (Bld) [#/Vol] 0.07 10*3/uL [place] Immature granulocytes (Bld) [#/Vol] 1 % High 0 [place] Interpretation and review of laboratory results Abnormal [place] Lymphocytes (Bld) [#/Vol] 1.54 10*3/uL [place] Lymphocytes/100 WBC (Bld) 19 % Low 25 - 45 % [place] MCH (RBC) [Entitic mass] 31.0 pg 25.2 - 33.5 pg [place] MCHC (RBC) [Mass/Vol] 32.4 g/dL 28.4 - 34.8 g/dL [place] MCV (RBC) [Entitic vol] 95.7 fL 82.6 - 102.9 fL [place], [place] Monocytes (Bld) [#/Vol] 0.59 10*3/uL [place] Monocytes/100 WBC (Bld) 7 % 2 - 8 % [place] Platelet mean volume (Bld) [Entitic vol] 11.2 fL 8.1 - 13.5 fL [place] Platelets (Bld) [#/Vol] 211 10*3/uL [place] Platelets (Bld) [#/Vol] NOT REPORTED [place] RBC (Bld) [#/Vol] 4.22 10*6/uL 3.95 - 5.1 1 m/uL [place] RBC morphology finding Nom (Bld) NOT REPORTED [place] Segmented neutrophils/100 WBC (Bld) 65 % High 34 - 64 % [place] Segs Absolute 5.40 [place] WBC (Bld) [#/Vol] 8.3 10*3/uL [place] WBC (Bld) [#/Vol] 0.0 10*3/uL 0.0 per 10 0 WBC [place] WBC Morphology NOT REPORTED [place] Comprehensive Metabolic Pane catracho 07-01-2020 Albumin [Mass/Vol] 3.5 g/dL 3.5 - 5.2 g/dL [place] Albumin/Globulin [Mass ratio] 1.3 {ratio} [place] ALP [Catalytic activity/Vol] 78 U/L 35 - 104 U/L [place] ALT [Catalytic activity/Vol] 9 U/L 5 - 33 U/L [place] Anion gap [Moles/Vol] 15 mmol/L 9 - 17 mmol/L [place] AST [Catalytic activity/Vol] 14 U/L <32 [place] Bilirubin Ql (U) 0.19 mg/dL Low 0.3 - 1.2 mg/dL [place] Bun/Cre Ratio NOT REPORTED [place] Calcium [Mass/Vol] 9.1 mg/dL 8.6 - 10. 4 mg/dL [place] Chloride [Moles/Vol] 108 mmol/L High 98 - 10 7 mmol/L [place] CO2 [Moles/Vol] 20 mmol/L 20 - 31 mmol/L [place] Creatinine [Mass/Vol] 0.44 mg/dL Low 0.5 - 0.9 mg/dL [place] GFR NOT REPORTED >60 mL/min [place] GFR Non- Pediatric GFR requires additional information. Refer to NKDEP website for calculator. >60 mL/min [place] GFR/1.73 sq M predicted among non-blacks MDRD (S/P/Bld) [Vol rate/Area] [place] Comment on above: Average GFR for <20 years old not available. Chronic Kidney Disease: <60 mL/min/1.73sq m Kidney failure: <15 mL/min/1.73sq m eGFR calculated using average adult body mass. Additional eGFR calculator available at: http://www.[employer]air/multiple_crcl_2012.htm GFR/1.73 sq M predicted among non-blacks MDRD (S/P/Bld) [Vol rate/Area] NOT REPORTED [place] Glucose [Mass/Vol] 66 mg/dL Low 70 - 99 mg/dL [place] Interpretation and review of laboratory results Abnormal [place] Potassium [Moles/Vol] 3.3 mmol/L Low 3.7 - 5.3 mmol/L [place] Protein [Mass/Vol] 6.1 g/dL Low 6.4 - 8.3 g/dL [place] Sodium [Moles/Vol] 143 mmol/L 135 - 144 mmol/L [place], [place] Urea nitrogen [Mass/Vol] 4 mg/dL Low 6 - 20 mg/dL [place], [place] Glucose tolerance, 1 houron 07-01-2020 GLU ADMN Glucola [place], [place] Glucose tolerance screen 50g 66 mg/dL Low 70 - 135 mg/dL [place] Interpretation and review of laboratory results Abnormal [place] Uric Acidon 07-01-2020 Urate [Mass/Vol] 4.3 mg/dL 2.4 - 5.7 mg/dL [place] Urinalysison 06-16-2020 Bilirubin Urine Negative NEGATIVE [place] Color, UA YELLOW YELLOW [place], [place] Glucose, Ur Negative NEGATIVE [place] Interpretation and review of laboratory results Abnormal [place] Ketones Ql (U) Negative NEGATIVE [place] Leukocyte esterase Test strip Ql (U) Negative NEGATIVE [place] Nitrite, Urine Negative NEGATIVE [place], [place] pH, UA 6.5 [place] Protein (U) [Mass/Vol] Negative NEGATIVE [place] Specific [place], UA >1.030 High [place] Turbidity UA CLEAR CLEAR [place] Urinalysis Comments NOT REPORTED [place] Urine Hgb Negative NEGATIVE [place] Urobilinogen, Urine Normal Normal [place] AFB Cult and Stainon 020 AFB Cult and Stain Sp. Request/Comment: - Specimen received in sterile container. Smear Result - No acid fast bacilli seen by fluorochrome stain Culture Result - No Acid Fast Bacilli isolated after 47 days Normal [facility] Comment on above: Performed By: #### C VEDA NELSON, MG1 #### [facility] [address] [id number] Blood Cultureon 01-12-2020 Bacteria identified Cx Nom (Bld) Sp. Request/Comment: - The blood culture bottles are underfilled. Adding volume lower or higher than the 8 to 10 mL per bottle, which is the manufacturers recommended volume, may adversely affect the recovery and/or detection of organisms. 8.0CC Culture Result - No growth 5 days Normal [facility] Comment on above: Performed By: #### C VEDA NELSON, MG1 #### [facility] [address] [place] [id number] CONSULT PROGon 01-12-2020 CONSULT PROG HNO ID: [id number] Author: Paul Park MD Service: Ophthalmology Author Type: Resident Type: Consult Progress Note Filed: 01/12/2020 10:56 AM Note Text: Spoke to ED attending this morning, Dr. Oscar Voss. I wanted to inquire into patient's vitals and stability in order to determine whether we can bring patient to the [facility] for exam with stationary slit lamp by attending physician maintenance shop clerk. He stated that patient remained highly tachycardic, and was planned for transfer within about an hour to [facility] in the [place] area for management of her systemic pathology. It thus seems as though it would be logistically impossible to have patient brought to [facility] for this eye exam. I communicated my recommendation to Dr. Voss that patient have an inpatient ophtho consult upon arrival at [facility]. Paul Park MD PGY-3 Ophthalmology Resident Normal [facility] CT CHEST W IVCON PEon 2019 CT CHEST W IVCON PE * * *Final Report* * * DATE OF EXAM: Jan 11 2020 11:00PM [facility] 0540 - CT CHEST W IVCON PE [...] No other acute process in the thorax. Hydraulic Governor Assembler: PSCB Transcribe Date/Time: Jan 11 2020 11:18P Dictated by : DIPIKA GAMBLE MD This examination was interpreted and the report reviewed and electronically signed by: CHRIS LOPEZ MD on Jan 11 2020 11:36PM EST [id number] Normal [facility] ED NOTEon 01-12-2020 ED NOTE HNO ID: [id number] Author: Melly CotaRn) JEWELS Olson Service: Emergency Medicine Author Type: Registered Nurse Type: ED Notes Filed: 01/12/2020 1:19 PM Note Text: [facility] arrived for pt transport to [facility]. On VS assessment, pt noted to be febrile. MD Voss called to bedside and ordered 1g PO tylenol. Pt tolerated PO medication with some pain but no other issues. AANDO, NAD, ABCs intact, SAUCEDA. All belongings with pt at time of ED departure. Normal [facility] ED NOTE HNO ID: [id number] Author: Melly CotaRn) JEWELS Olson Service: Emergency Medicine Author Type: Registered Nurse Type: ED Notes Filed: 01/12/2020 1:03 PM Note Text: Hand-off report to Lou DONIS for OBS 5 in [facility]. RN aware of transportation ETA of 1315. Lou DONIS for questions/updates: [phone] Normal [facility] ED NOTE HNO ID: [id number] Author: Saranya CotaRn) JEWELS Beaver Service: Emergency [...] checks completed. Will continue to monitor. Normal [facility] ED NOTE HNO ID: [id number] Author: Pedro Hubbard DO Service: Emergency Medicine Author Type: Resident Type: ED Notes Filed: 01/12/2020 6:41 PM Note Text: Patient care has been accepted from Dr. Adame as of 7:06 AM. We discussed the patient's course, condition, and plan. ED Course as of Jan 11 183 Pedro Hubbard's Documentation Fri Jan 12, 2020 0759 WNL TSH: 2.350 Others' Documentation Ainsley Jan 11, 2020 2230 EKG with sinus tachycardia with S1Q3T3, no DRU or depression or TWI [DK] 2307 Lungs and pleura: ?Mild right basilar atelectasis. ?No focal consolidation, pleural effusion or pneumothorax. XR CHEST 1V FRONTAL PORT [DK] 2340 Patient received in signout from colleague, available [...] [SD] ED Course User Index [DK] Pedro Adame DO [JF] Oj Salas MD [SD] Sandhya Galvez [...] Patient remains tachycardic. Asking for transfer to [facility] as no bed yet available. Has tonsillar erythema and exudate. Strep swab ordered and positive. Allergic to amoxicillin, azithromycin ordered. Ophthalmology OSH note concerned for corneal abrasion, artificial tears and gentamicin ordered. Patient accepted by Dr Rodriguez Thank you Pedro Root DO Emergency Medicine PGY-3 Normal [facility] PROGRESSon 01-12-2020 PROGRESS HNO ID: [id number] Author: Paul Park MD Service: ? Author Type: Resident Type: Progress Notes Filed: 01/16/2020 1:35 PM Note Text: 1. Decreased vision, right eye - Patient endorses recently feeling as though something flew into right eye (3/) while at home--had good relief with washing eye out with water; subsequently seen in urgent care for increasing eye redness and eyelid swelling - Went to ED in [facility] the next day, was reportedly found to have corneal abrasion around 11 oclock (diagnosed by ED provider) - Seen by insurance office manager / in [facility] who noted very poor vision (reportedly 20/200); normal exam of retina, normal OCT - Inspector [employer]ision [employer] also obtained hx concerning for possible TB infection, as per HPI - On my exam, visual acuity of 20/200, with pinholing to 20/70 (questionable effort) - Looked carefuly for APD, none discerned; red desaturation negative - No intraocular inflammation discerned - No OCT macula performed on-call as patient had one some hours ago, reportedly WNL - I was concerned for optic neuritis given insurance office manager's report of severely reduced vision in a [...] Exam with stationary slit lamp at the [facility] in the [facility] clinic upon stabilization of the patient (please page and input official consult order into EMR after 8 AM to trigger a call from our scheduling staff) Paul Park MD PGY-3 Ophthalmology Resident Deyanira Wu MD 01/16/2020 1:35 PM Normal [facility] [place] PROGRESS HNO ID: [id number] Author: Hannah Gallego (Rt) Service: ? Author Type: Clinical Business Manager Type: Progress Notes Filed: 01/11/2020 11:03 PM [...] Patsy January 11, 2020 11:03 PM Normal [facility] TB by QuantiFERONon 01-12-20 20 Interpretation No evidence of current or previous infection with Mycobacterium tuberculosis. Normal [facility] Comment on above: Performed By: #### C BCDIF, CMP, MG1 #### [facility] [address] [place] [address] Mitogen minus Nil 8.06 Normal [facility] Comment on above: Performed By: #### C BCDIF, CMP, MG1 #### [place] [id number] [place] [address] TB NIL 0.13 IU/mL Normal [facility] Comment on above: Performed By: #### C BCDIF, CMP, MG1 #### [place] [address] [place] [address] TB Result Negative Normal Negative [facility] Comment on above: Performed By: #### C BCDIF, CMP, MG1 #### [facility] [address] [address] TB1 Ag minus Nil 0.01 IU/mL Normal <0.35 [facility] Comment on above: Performed By: #### C BCDIF, CMP, MG1 #### [facility] [address] [address] TB2 Ag minus Nil 0.05 IU/mL Normal <0.35 [facility] Comment on above: Performed By: #### C BCDIF, CMP, MG1 #### [place] [id number] [place] [address] XR CHEST 1V FRONTAL PORTon 0 01-12-2020 [...] No acute osseous abnormality. IMPRESSION: See result. Hydraulic Governor Assembler: QUINTEN Transcribe Date/Time: Jan 11 2020 11:00P Dictated by : DIPIKA GAMBLE MD This examination was interpreted and the report reviewed and electronically signed by: CHENTE SALAS MD on Jan 11 2020 11:02PM EST [id number] Normal [facility] Blood Cultureon 01-11-2020 Bacteria identified Cx Nom (Bld) Culture Result - No growth 5 days Normal [facility] Comment on above: Performed By: #### C BCVEDA BRAR, MG1 #### [facility] [address] [place], [place] [address] CBC and Differentialon 01-10 Abs Baso 0.03 k/uL Normal <0.11 [facility] Comment on above: Performed By: #### C BCSELVINF CMP, MG1 #### [facility] [address] [place], [place] [address] Abs [place] 1.21 k/uL High <0.87 [facility] Comment on above: Performed By: #### C BCDIF CMP, MG1 #### [facility] [address] [place], [place] [address] Abs Neut 7.63 k/uL High 1.45-7.50 [facility] Comment on above: Performed By: #### C BCDIF, CMP, MG1 #### [facility] [address] [place] [address] Absolute nRBC <0.01 Normal <0.01 [facility] Comment on above: Performed By: #### C BCDIF, CMP, MG1 #### [facility] [address] [place] [address] Basophils/100 WBC (Bld) 0.3 % Normal [facility] Comment on above: Performed By: #### C BCDIF, CMP, MG1 #### [place] [address] [place] [id number] DTYPE Auto Diff Normal [facility] Comment on above: Performed By: #### C BCDIF, CMP, MG1 #### [place] [address] [place] [phone] Eosinophils (Bld) [#/Vol] 10*3/uL Normal <0.46 [facility] Comment on above: Performed By: #### C BCDIF, CMP, MG1 #### [facility] [address] [place] [phone] Eosinophils/100 WBC (Bld) 0.2 % Normal [facility] Comment on above: Performed By: #### C BCDIF, CMP, MG1 #### [facility] [address] [place] [phone] Erythrocyte distribution width (RBC) [Ratio] 11.4 % Low 11.5-15.0 [facility] Comment on above: Performed By: #### C BCDIF, CMP, MG1 #### [facility] [address] [place] [phone] Hematocrit (Bld) [Volume fraction] 45.9 % Normal 36.0-46.0 [facility] Comment on above: Performed By: #### C BCDIF, CMP, MG1 #### [facility] [address] [place], [place] [address] Hemoglobin (Bld) [Mass/Vol] 15.9 g/dL High 11.5-15.5 [facility] Comment on above: Performed By: #### C BCDIF, CMP, MG1 #### [place] [address] [place], [place] [address] Lymphocytes (Bld) [#/Vol] 1.66 10*3/uL Normal 1.00-4.00 [facility] Comment on above: Performed By: #### C BCDIF, CMP, MG1 #### [address] [address] Lymphocytes/100 WBC (Bld) 15.7 % Normal [facility] Comment on above: Performed By: #### C BCDIF, CMP, MG1 #### [address] [address] MCH (RBC) [Entitic mass] 30.6 pG Normal 26.0-34.0 [facility] Comment on above: Performed By: #### C BCDIF, CMP, MG1 #### [address] [address] MCHC (RBC) [Mass/Vol] 34.6 g/dL Normal 30.5-36.0 [facility] Comment on above: Performed By: #### C BCDIF, CMP, MG1 #### [address] [address] [place], [place] [address] MCV (RBC) [Entitic vol] 88.3 fL Normal 80.0-100.0 [facility] Comment on above: Performed By: #### C BCDIF, CMP, MG1 #### [place] [address] [place], [place] [address] Monocytes/100 WBC (Bld) 11.5 % Normal [facility] Comment on above: Performed By: #### C BCDIF, CMP, MG1 #### [facility] [address] [place], [place] [address] Neutrophils/100 WBC (Bld) 72.3 % Normal [facility] Comment on above: Performed By: #### C BCDIF, CMP, MG1 #### [facility] [address] [place], [place] [address] NRBCs 0.0 /100 WBC Normal 0 [facility] Comment on above: Performed By: #### C BCDIF, CMP, MG1 #### [facility] [address] [place], [place] [address] Platelet mean volume (Bld) [Entitic vol] 10.6 fL Normal 9.0-12.7 [facility] Comment on above: Performed By: #### C BCDIF, CMP, MG1 #### [place] [address] [place], [place] [address] Platelets (Bld) [#/Vol] 240 10*3/uL Normal 150-400 [facility] Comment on above: Performed By: #### C BCDIF, CMP, MG1 #### [place] [address] [place], [place] [address] RBC (Bld) [#/Vol] 5.20 10*6/uL Normal 3.90-5.20 [facility] Comment on above: Performed By: #### C BCDIF, CMP, MG1 #### [place] [address] [place], [place] [address] WBC (Bld) [#/Vol] 10.55 10*3/uL Normal 3.70-11.00 [facility] Comment on above: Performed By: #### C BCDIF, CMP, MG1 #### [facility] [address] [place], [place] [address] Comp Metabolic Panelon 01-10 Albumin [Mass/Vol] 4.8 g/dL Normal 3.9-4.9 [facility] Comment on above: Performed By: #### C BCDIF, CMP, MG1 #### [facility] [address] [place], [place] [address] ALP [Catalytic activity/Vol] 71 U/L Normal 45-87 [facility] Comment on above: Result Comment: Refe rence ranges were not locally established for this patient's age group. The normal values are based on the following source: Rox MP, Marilin AH, et al. CLSI based transference of the CALIPER database of pediatric reference intervals from [place] to [place], Ortho, Alex, and Siemens Clinical Chemistry Assays: Direct validation using reference samples from the CALIPER cohort. Clin Biochem. Performed By: #### C BCDIF, CMP, MG1 #### [facility] [address] [place], [place] [address] ALT [Catalytic activity/Vol] 8 U/L Normal 7-38 [facility] Comment on above: Performed By: #### C BCDIF, CMP, MG1 #### [facility] [address] [place], [place] [address] Anion gap [Moles/Vol] 15 mmol/L Normal 9-18 [facility] Comment on above: Performed By: #### C BCDIF, CMP, MG1 #### [facility] [address] [place], [place] [address] AST [Catalytic activity/Vol] 15 U/L Normal 13-35 [facility] Comment on above: Performed By: #### C BCDIF, CMP, MG1 #### [facility] [address] [place], [place] [address] Bilirubin [Mass/Vol] 0.4 mg/dL Normal 0.2-1.3 [facility] Comment on above: Performed By: #### C BCDIF, CMP, MG1 #### [facility] [address] [place], [place] [address] Calcium [Mass/Vol] 10.2 mg/dL Normal 8.5-10.2 [facility] Comment on above: Performed By: #### C BCVEDA BRAR, MG1 #### [facility] [address] [place] [address] Chloride [Moles/Vol] 99 mmol/L Normal 97-105 [facility] Comment on above: Performed By: #### C BCSELVINFVEDA, MG1 #### [place] [address] CO2 [Moles/Vol] 24 mmol/L Normal 22-30 [facility] Comment on above: Performed By: #### C BCVEDA BRAR, MG1 #### [place] [address] Creatinine [Mass/Vol] 0.78 mg/dL Normal 0.58-0.96 [facility] Comment on above: Performed By: #### Alonzo BCVEDA BRAR, MG1 #### [place] [address] [place] [address] eGFR- Amer. >60 Normal [facility] Comment on above: Performed By: #### Alonzo NELSON CMP, MG1 #### [facility] [address] [place] [address] GFR/1.73 sq M predicted among non-blacks MDRD (S/P/Bld) [Vol rate/Area] mL/min/{1.73_m2} Normal [facility] Comment on above: Result Comment: eGFR [...] reflect actual GFR. Performed By: #### C BCDIF CMP, MG1 #### [facility] [address] [place], [place] [address] Glucose [Mass/Vol] 98 mg/dL Normal 74-99 [facility] Comment on above: Result Comment: The [place] Diabetes Association (ADA) provides guidance for cutoff [...] Standards of Medical Care in Diabetes 2016, [place] Diabetes Association. Diabetes Care. 2016.39(Suppl 1). Performed By: #### C BCDIF CMP, MG1 #### [facility] [address] [place], [place] [address] Potassium [Moles/Vol] 3.3 mmol/L Low 3.7-5.1 [facility] Comment on above: Performed By: #### C BCDIF CMP, MG1 #### [facility] [address] [place], [place] [address] Protein [Mass/Vol] 8.1 g/dL High 6.3-8.0 [facility] Comment on above: Performed By: #### C BCDIF, CMP, MG1 #### [facility] [address] [place], [place] [address] Sodium [Moles/Vol] 138 mmol/L Normal 136-144 [facility] Comment on above: Performed By: #### C BCDIF, CMP, MG1 #### [facility] [address] [place], [place] [address] Urea nitrogen [Mass/Vol] 14 mg/dL Normal 7-21 [facility] Comment on above: Performed By: #### C BCDIF, CMP, MG1 #### [facility] [address] [place], [place] [address] ED NOTEon 01-11-2020 ED NOTE HNO ID: [id number] Author: Agusto (Rn) JEWELS Montes Service: Emergency Medicine Author Type: Registered Nurse Type: ED Notes Filed: 01/11/2020 9:37 PM Note Text: Labs in bin Normal [facility] ED PROV NOTEon 01-11-2020 ED PROV NOTE HNO ID: [id number] Author: Sandhya Galvez MD Service: Emergency Medicine Author Type: Physician Type: ED Provider Notes Filed: 01/12/2020 7:22 PM Note Text: ED Provider Note Patient Name: Zaid Luna SERVICE DATE: 01/11/20 History Patient presents with: Syncope: 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 Larry pt endorses SOB at rest, HR 140-150s. [...] Pulmonary Embolism for this patient Proceed to [facility] Clinical signs and symptoms of DVT 0 [...] 7.63 (*) 1.45 - 7.50 k/uL Abs [place] 1.21 (*) <0.87 k/uL All other components within normal limits MAGNESIUM BLD LACTATE - ED (POC) INFLUENZA AANDB MOLECULAR (ED-POC) ED BG VENOUS/LAB PANELS Narrative: Meter ID:ED Location:ED [facility], [address] [place] [address], [place], [place], [facility] INFLUENZA AANDB MOLECULAR (ED-POC) BLOOD TB SCREEN HCG URINE - ED(POC) BLOOD CULTURE DRAW BLOOD CULTURE DRAW AFB CULT + STAIN Procedures ED Course / Clinical Impression ED Course as of Jan 11 1921 Sandhya Galvez's Documentation WedJan 12, 2020 0002 ED STAFF ATTENDING [...] presented to ED after going to ophthalmology [facility] for follow-up for corneal abrasion, [...] of disposition: stable SIGNATURE: DO Pedro Prather (Fabiano) DO Deep Resident 01/12/20 3344 Attending Note I evaluated the patient and personally participated in the ching components. I agree with the resident's findings and plan as documented and have discussed the case and management of the patient's care with the resident. SEE ABOVE ED STAFF ATTENDING MDM Signature: Sandhya Galvez MD Date: 01/12/2020 Time: 7:22 PM Sandhya Galvez MD 01/12/20 1922 Normal [facility] Magnesiumon 01-11-2020 Magnesium [Mass/Vol] 2.1 mg/dL Normal 1.7-2.3 [facility] Comment on above: Performed By: #### C BCDIF, CMP, MG1 #### [facility] [address] [place], [place] [address] [place] Slide Teston 01-11-2020 [place] Slide Test Negative Normal Negative [facility] Comment on above: Performed By: #### M ONOLX #### [facility] [address] [place], [place] [address] TSHon 01-11-2020 TSH Qn 2.350 uU/mL Normal 0.510-4.300 [facility] Comment on above: Result Comment: If [...] E, et al. 2017 Guidelines of the [place] Thyroid Association for the Diagnosis and Management of Thyroid Disease during and the . Thyroid, 2017:27:3:315-389. Reference ranges were not locally established for this patient's age group. The normal values are based on the following source: Castro W, Callum V. Reference Ranges for Adults and Children: Pre-analytical Considerations. [facility] Performed By: #### T SH #### [facility] [address] [place], [place] [address] Hepatic Panelon 10-17-2019 Albumin [Mass/Vol] 3.9 g/dL Normal 3.2-5.5 [facility] Comment on above: Performed By: #### H EPATIC, LIPID, TSH3 wRFLX, [id number] #### [facility] [address] [place] [address] Albumin/Globulin [Mass ratio] 1.7 {ratio} Normal [facility] Comment on above: Performed By: #### H EPATIC, LIPID, TSH3 wRFLX, [id number] #### [address] ALP [Catalytic activity/Vol] 43 U/L Normal 32-92 [facility] Comment on above: Performed By: #### H EPATIC, LIPID, TSH3 wRFLX, [id number] #### [address] ALT [Catalytic activity/Vol] 11 U/L Normal 10-60 [facility] Comment on above: Performed By: #### H EPATIC, LIPID, TSH3 wRFLX, [id number] #### [address] AST [Catalytic activity/Vol] 14 U/L Normal 10-42 [facility] Comment on above: Performed By: #### H EPATIC, LIPID, TSH3 wRFLX, [id number] #### [address] Bilirubin [Mass/Vol] 0.9 mg/dL Normal 0.3-1.2 [facility] Comment on above: Performed By: #### H EPATIC, LIPID, TSH3 wRFLX, [id number] #### [place] [address] [place] Bilirubin,Indirect 0.8 mg/dL Normal [facility] Comment on above: Performed By: #### H EPATIC, LIPID, TSH3 wRFLX, [id number] #### [address] Bilirubin.direct [Mass/Vol] 0.1 mg/dL Normal 0.0-0.4 [facility] Comment on above: Performed By: #### H EPATIC, LIPID, TSH3 wRFLX, [id number] #### [facility] [address] Globulin (S) [Mass/Vol] 2.3 g/dL Normal [facility] Comment on above: Performed By: #### H EPATIC, LIPID, TSH3 wRFLX, [id number] #### [facility] [address] Protein [Mass/Vol] 6.2 g/dL Normal 6.1-7.9 [facility] Comment on above: Performed By: #### H EPATIC, LIPID, TSH3 wRFLX, [id number] #### [facility] [address] Lipid Panelon 10-17-2019 Cholesterol [Mass/Vol] 118 mg/dL Low 140-200 [facility] Comment on above: Result Comment: Chol less than 200 mg/dl low risk Chol 201-239 mg/dl borderline risk Chol 240 mg/dl and greater high risk Performed By: #### H EPATIC, LIPID, TSH3 wRFLX, [id number] #### [facility] [address] Cholesterol in HDL [Mass/Vol] 38 mg/dL Normal 35-85 [facility] Comment on above: Result Comment: HDL CHOL ATP-III CLASSIFICATION Cardiovascular Risk HDL > or equal to 60 mg/dL LOW HDL < 40 mg/dL HIGH Performed By: #### H EPATIC, LIPID, TSH3 wRFLX, [id number] #### [facility] [address] Cholesterol.total/Chol esterol in HDL [Mass ratio] 3.1 {ratio} Normal <5.0 [facility] Comment on above: Performed By: #### H EPATIC, LIPID, TSH3 wRFLX, [id number] #### [facility] [address] LDL Cholesterol,Calculated 73 mg/dL Normal 0-100 [facility] Comment on above: Result Comment: LDL ATP III CLASSIFICATION LDL less than 100 mg/dL Optimal LDL 100-129 mg/dL Near or above optimal LDL 130-159 mg/dL Borderline high LDL 160-189 mg/dL High LDL greater than 189 mg/dL Very high Performed By: #### H EPATIC, LIPID, TSH3 wRFLX, [id number] #### [facility] [address] Triglyceride w/Reflex 36 mg/dL Normal 35-149 [facility] Comment on above: Result Comment: TRIG ATP III CLASSIFICATION TRIG less than 150 mg/dL Normal TRIG 150-199 mg/dL Borderline high TRIG 200-500 mg/dL High TRIG greater than 500 mg/dL Very high Standard traceable to the Center for Disease Conrtrol and Prevention (CDC) test method. Performed By: #### H EPATIC, LIPID, TSH3 wRFLX, [id number] #### [facility] [address] VLDL CHOLESTEROL 7 mg/dL Normal [facility] Comment on above: Performed By: #### H EPATIC, LIPID, TSH3 wRFLX, [id number] #### [facility] [address] [place] [address] Thyroid Stim Hormone w/Rflxo n 10-17-2019 Thyroid Stim Hormone w/Rflx 1.58 u[iU]/mL Normal 0.45-5.33 [facility] Comment on above: Performed By: #### H EPATIC, LIPID, TSH3 wRFLX, [id number] #### [facility] [address] [place] [address] Vitamin D 25 Hydroxy Totalon 10-17-2019 Vitamin D 25 Hydroxy Total 22.5 ng/mL Low 30-100 [facility] Comment on above: Result Comment: DEBBIE MIN D STATUS 25(OH)VITAMIN D RANGE (ng/mL) Deficient <20 Insufficient 20 to <30 Sufficient 30 to 100 Reference: Blake MF,Joce NC, Zhou GARIBAY, et al. Evaluation,treatment, and prevention of vitamin D deficiency; an Endocrine Society clinical practice guideline. JCEM. 2010; 96(7):1911-30. PERFORMED BY: [place] [address] PATHOLOGIST STATE EDITOR RL QUIROGA M.D. Performed By: #### H EPATIC, LIPID, TSH3 wRFLX, [id number] #### [facility] [address] [place] [address] Hepatic Panelon 05-23-2019 Albumin [Mass/Vol] 3.9 g/dL Normal 3.2-5.5 [facility] Comment on above: Performed By: #### H EPATIC, LIPID, TSH3 wRFLX, [id number] #### [address] Albumin/Globulin [Mass ratio] 1.6 {ratio} Normal [facility] Comment on above: Performed By: #### H EPATIC, LIPID, TSH3 wRFLX, [id number] #### [address] ALP [Catalytic activity/Vol] 48 U/L Normal 32-92 [facility] Comment on above: Performed By: #### H EPATIC, LIPID, TSH3 wRFLX, [id number] #### [address] ALT [Catalytic activity/Vol] 9 U/L Low 10-60 [facility] Comment on above: Performed By: #### H EPATIC, LIPID, TSH3 wRFLX, [id number] #### [address] AST [Catalytic activity/Vol] 12 U/L Normal 10-42 [facility] Comment on above: Performed By: #### H EPATIC, LIPID, TSH3 wRFLX, [id number] #### [address] Bilirubin [Mass/Vol] 0.7 mg/dL Normal 0.3-1.2 [facility] Comment on above: Performed By: #### H EPATIC, LIPID, TSH3 wRFLX, [id number] #### [address] Bilirubin,Indirect 0.6 mg/dL Normal [facility] Comment on above: Performed By: #### H EPATIC, LIPID, TSH3 wRFLX, [id number] #### [facility] [address] Bilirubin.direct [Mass/Vol] 0.1 mg/dL Normal 0.0-0.4 [facility] Comment on above: Performed By: #### H EPATIC, LIPID, TSH3 wRFLX, [id number] #### [facility] [address] Globulin (S) [Mass/Vol] 2.4 g/dL Normal [facility] Comment on above: Performed By: #### H EPATIC, LIPID, TSH3 wRFLX, [id number] #### [address] Protein [Mass/Vol] 6.3 g/dL Normal 6.1-7.9 [facility] Comment on above: Performed By: #### H EPATIC, LIPID, TSH3 wRFLX, [id number] #### [address] Lipid Panelon 05-23-2019 Cholesterol [Mass/Vol] 115 mg/dL Low 140-200 [facility] Comment on above: Result Comment: Chol less than 200 mg/dl low risk Chol 201-239 mg/dl borderline risk Chol 240 mg/dl and greater high risk Performed By: #### H EPATIC, LIPID, TSH3 wRFLX, [id number] #### [facility] [address] [place] [address] Cholesterol in HDL [Mass/Vol] 29 mg/dL Low 35-85 [facility] Comment on above: Result Comment: HDL CHOL ATP-III CLASSIFICATION Cardiovascular Risk HDL > or equal to 60 mg/dL LOW HDL < 40 mg/dL HIGH Performed By: #### H EPATIC, LIPID, TSH3 wRFLX, [id number] #### [facility] [address] [place] [address] Cholesterol.total/Chol esterol in HDL [Mass ratio] 4.0 {ratio} Normal <5.0 [facility] Comment on above: Performed By: #### H EPATIC, LIPID, TSH3 wRFLX, [id number] #### [facility] [address] LDL Cholesterol,Calculated 73 mg/dL Normal 0-100 [facility] Comment on above: Result Comment: LDL ATP III CLASSIFICATION LDL less than 100 mg/dL Optimal LDL 100-129 mg/dL Near or above optimal LDL 130-159 mg/dL Borderline high LDL 160-189 mg/dL High LDL greater than 189 mg/dL Very high Performed By: #### H EPATIC, LIPID, TSH3 wRFLX, [id number] #### [facility] [address] Triglyceride w/Reflex 65 mg/dL Normal 35-149 [facility] Comment on above: Result Comment: TRIG ATP III CLASSIFICATION TRIG less than 150 mg/dL Normal TRIG 150-199 mg/dL Borderline high TRIG 200-500 mg/dL High TRIG greater than 500 mg/dL Very high Standard traceable to the Center for Disease Conrtrol and Prevention (CDC) test method. Performed By: #### H EPATIC, LIPID, TSH3 wRFLX, [id number] #### [facility] [address] VLDL CHOLESTEROL 13 mg/dL Normal [facility] Comment on above: Performed By: #### H EPATIC, LIPID, TSH3 wRFLX, [id number] #### [facility] [address] Thyroid Stim Hormone w/Rflxo n 05-23-2019 Thyroid Stim Hormone w/Rflx 0.63 u[iU]/mL Normal 0.45-5.33 [facility] Comment on above: Performed By: #### H EPATIC, LIPID, TSH3 wRFLX, [id number] #### [facility] [address] Vitamin D 25 Hydroxy Totalon 05-23-2019 Vitamin D 25 Hydroxy Total 28.1 ng/mL Low 30-100 [facility] Comment on above: Result Comment: DEBBIE MIN D STATUS 25(OH)VITAMIN D RANGE (ng/mL) Deficient <20 Insufficient 20 to <30 Sufficient 30 to 100 Reference: Blake MF,Joce NC, Zhou GARIBAY, et al. Evaluation,treatment, and prevention of vitamin D deficiency; an Endocrine Society clinical practice guideline. JCEM. 2010; 96(7):1911-30. PERFORMED BY: [place] [address] PATHOLOGIST STATE EDITOR RL QUIROGA M.D. Performed By: #### H EPATIC, LIPID, TSH3 wRFLX, [id number] #### [address] ECG 12 lead ECGon 05-22-2019 ECG 12 lead ECG [facility] [place] [address] [place] [address] Electrocardiograph Report Signed Patient: Zaid Luna MR#: [id number] : 2000 Acct:[id number] Age/Sex: 19 / F ADM Date: 05/22/19 Loc: Room: [address] [place] [address] Type: ADM IN Attending Dr: Domo Mayes MD Ordering Provider: Domo Mayes MD Date of Service: 05/22/19 ECG/ECG 12 [facility] baseline for antipsychotics and psychotropics Copies [...] 2:28:38 PM Referred By: Electronically Signed By:REYES TOLBERT MD Transcribed By: MUS Dictated By: Reyes Tolbert MD 05/22/19 0946 Signed By: 05/22/19 1428 Normal [facility] FREE T4on 04-02-2019 Free T4 [Mass/Vol] 0.87 ng/dL Normal 0.71-1.85 [facility] Comment on above: Order Comment: This order is a replacement of the rejected order with accession number [id number]. Performed By: #### 3 1522, [id number], [id number] #### [facility] [address] [facility] [address] TOX PANEL URINEon 04-02-2019 50 THC Negative Normal NEGATIVE [facility] Comment on above: Order Comment: No: D o not add to previous draw Performed By: #### 3 1079 #### [facility] [address] [place], [place] [id number] [place] [address] [employer]UR[employer] Negative Normal NEGATIVE [facility] Comment on above: Order Comment: No: D o not add to previous draw Performed By: #### 3 1079 #### [facility] [address] [place] [address], [facility] Benzodiazepines Ql (U) Negative Normal NEGATIVE [facility] Comment on above: Order Comment: No: D o not add to previous draw Performed By: #### 3 1079 #### [facility] [address] [place] [address], [facility] Cocaine Ql (U) Negative Normal NEGATIVE [facility] Comment on above: Order Comment: No: D o not add to previous draw Performed By: #### 3 1079 #### [facility] [address] [place] [address], [facility] Methadone Ql (U) Negative Normal NEGATIVE [facility] Comment on above: Order Comment: No: D o not add to previous draw Performed By: #### 3 1079 #### [facility] [address] [place] [address], [facility] MONO AMPHET Negative Normal NEGATIVE The [facility] Comment on above: Order Comment: No: D o not add to previous draw Performed By: #### 3 1079 #### [facility] [address] [place] [address], [facility] Opiates Ql (U) Negative Normal NEGATIVE [facility] Comment on above: Order Comment: No: D o not add to previous draw Performed By: #### 3 1079 #### [facility] [address] [place] [address], [facility] Phencyclidine Ql (U) Negative Normal NEGATIVE [facility] Comment on above: Order Comment: No: D o not add to previous draw Performed By: #### 3 1079 #### [facility] [address] [place], [place] [address] [place] [address] PROPOXYPHENE Negative Normal NEGATIVE The [facility] Comment on above: Order Comment: No: D o not add to previous draw Performed By: #### 3 1079 #### [facility] [address] [place] [address], [facility] TRICYCLICS Negative Normal NEGATIVE [facility] Comment on above: Order Comment: No: D o not add to previous draw Performed By: #### 3 1079 #### [facility] [address] [facility] [place] [address], [facility] TSH3on 04-02-2019 TSH 3RD GENERATION 1.14 uIU/mL Normal 0.34-5.60 [facility] Comment on above: Order Comment: This order is a replacement of the rejected order with accession number [id number]. Performed By: #### 3 1522, [id number], [id number] #### [facility] [address] [facility] [place] [address], [facility] URINALYSISon 04-02-2019 AMORPHOUS MANY Abnormal NONE SEEN [facility] Comment on above: Order Comment: No: D o not add to previous draw Performed By: #### 1 0008 #### [facility] [address] [place] [address], [facility] Appearance (U) TURBID Abnormal CLEAR [facility] Comment on above: Order Comment: No: D o not add to previous draw Performed By: #### 1 0008 #### [facility] [address] [place] [address], [place] Bilirubin [Mass/Vol] Negative Normal NEGATIVE [facility] Comment on above: Order Comment: No: D o not add to previous draw Performed By: #### 1 0008 #### [facility] [address] [place] [address], [place] BLOOD Negative Normal NEGATIVE [facility] Comment on above: Order Comment: No: D o not add to previous draw Performed By: #### 1 0008 #### [facility] [address] [place] [address], [place] Color (U) YELLOW Normal YELLOW [facility] Comment on above: Order Comment: No: D o not add to previous draw Performed By: #### 1 0008 #### [facility] [address] [place] [address], [place] EPIS NONE SEEN Normal FEW,OCC,NONE SEEN [facility] Comment on above: Order Comment: No: D o not add to previous draw Performed By: #### 1 0008 #### [facility] [address] [place] [address], [place] Glucose [Mass/Vol] Negative Normal NEGATIVE [facility] Comment on above: Order Comment: No: D o not add to previous draw Performed By: #### 1 0008 #### [facility] [address] [place] [address], [place] KETONE Negative Normal NEGATIVE [facility] Comment on above: Order Comment: No: D o not add to previous draw Performed By: #### 1 0008 #### [facility] [address] [place] [address], [place] LEUK JENNIFER Negative Normal NEGATIVE [facility] Comment on above: Order Comment: No: D o not add to previous draw Performed By: #### 1 0008 #### [facility] [address] [place] [address], [facility] Nitrite Ql (U) Negative Normal NEGATIVE [facility] Comment on above: Order Comment: No: D o not add to previous draw Performed By: #### 1 0008 #### [facility] [address] [place] [address], [facility] pH (Bld) 5.0 Normal 5.0-8.0 [facility] Comment on above: Order Comment: No: D o not add to previous draw Performed By: #### 1 0008 #### [facility] [address] [facility] [place] [address], [facility] Protein (U) [Mass/Vol] Negative Normal NEGATIVE e [facility] Comment on above: Order Comment: No: D o not add to previous draw Performed By: #### 1 0008 #### [facility] [address] [facility] [place] [address], [facility] RBC (U) [#/Vol] 0-2 Abnormal NONE SEEN The [facility] Comment on above: Order Comment: No: D o not add to previous draw Performed By: #### 1 0008 #### [facility] [address] [place] [address], [facility] SPEC GRAV 1.025 High 1.015-1.020 The [facility] Comment on above: Order Comment: No: D o not add to previous draw Performed By: #### 1 0008 #### [facility] [address] [place] [address], [facility] WBC UA 0-2 Abnormal NONE SEEN [facility] Comment on above: Order Comment: No: D o not add to previous draw Performed By: #### 1 0008 #### [facility] [address] [place] [address], [facility] VITAMIN D 25-HYDROXYon 04-02 VITAMIN D 25-OH 36.8 ng/mL Normal 30.0-80.0 The [facility] Comment on above: Order Comment: This order is a replacement of the rejected order with accession number [id number]. Result Comment: >80. 0 Toxicity possible Performed By: #### 3 1522, 71867, [address] #### [address] CBC W/DIFFon 04-01-2019 ABS BASOPHILS 0.1 10*3/uL Normal 0.0-0.2 [facility] Comment on above: Order Comment: Yes: Add to Previous draw if able Performed By: #### 5 0103 #### [facility] [address] ABS IMM GRANS 0.0 10*3/uL Normal 0.0-0.2 [facility] Comment on above: Order Comment: Yes: Add to Previous draw if able Performed By: #### 5 0103 #### [facility] [address] ABS NEUTROPHILS 3.8 10*3/uL Normal 1.6-7.6 [facility] Comment on above: Order Comment: Yes: Add to Previous draw if able Performed By: #### 5 0103 #### [facility] [address] [place] [address], [facility] Basophils/100 WBC (Bld) 0.8 % Normal 0.0-1.0 [facility] Comment on above: Order Comment: Yes: Add to Previous draw if able Performed By: #### 5 0103 #### [facility] [address] [place] [address], [facility] Eosinophils (Bld) [#/Vol] 0.2 10*3/uL Normal 0.0-0.5 [facility] Comment on above: Order Comment: Yes: Add to Previous draw if able Performed By: #### 5 0103 #### [facility] [address] [place] [address], [facility] Eosinophils/100 WBC (Bld) 3.2 % Normal 0.0-6.0 [facility] Comment on above: Order Comment: Yes: Add to Previous draw if able Performed By: #### 5 0103 #### [facility] [address] [place] [address], [facility] Erythrocyte distribution width (RBC) [Ratio] 11.3 % Low 11.5-15.0 [facility] Comment on above: Order Comment: Yes: Add to Previous draw if able Performed By: #### 5 3 #### [facility] [address] [place] [address], [facility] Hematocrit (Bld) [Volume fraction] 43.4 % Normal 36.0-45.0 [facility] Comment on above: Order Comment: Yes: Add to Previous draw if able Performed By: #### 5 3 #### [facility] [address] [place] [address], [facility] Hemoglobin (Bld) [Mass/Vol] 14.5 g/dL Normal 12.0-15.0 [facility] Comment on above: Order Comment: Yes: Add to Previous draw if able Performed By: #### 5 3 #### [facility] [address] [place] [address], [facility] IMMATURE GRANS 0.3 % Normal 0.0-1.0 [facility] Comment on above: Order Comment: Yes: Add to Previous draw if able Performed By: #### 5 0103 #### [facility] [address] [place] [address], [facility] Lymphocytes (Bld) [#/Vol] 2.4 10*3/uL Normal 1.2-4.0 [facility] Comment on above: Order Comment: Yes: Add to Previous draw if able Performed By: #### 5 0103 #### [facility] [address] [place] [id number], [facility] Lymphocytes/100 WBC (Bld) 34.1 % Normal 20.0-45.0 [facility] Comment on above: Order Comment: Yes: Add to Previous draw if able Performed By: #### 5 0103 #### [facility] [address] [place] [address], [facility] MCH (RBC) [Entitic mass] 29.8 pg Normal 27.0-33.0 [facility] Comment on above: Order Comment: Yes: Add to Previous draw if able Performed By: #### 5 0103 #### [facility] [address] [place] [address], [facility] MCHC (RBC) [Mass/Vol] 33.4 g/dL Normal 32.0-35.0 [facility] Comment on above: Order Comment: Yes: Add to Previous draw if able Performed By: #### 5 0103 #### [facility] [address] [place] [address], [facility] MCV (RBC) [Entitic vol] 89.1 fL Normal 82.0-98.0 [facility] Comment on above: Order Comment: Yes: Add to Previous draw if able Performed By: #### 5 3 #### [facility] [address] [place] [address], [facility] Monocytes (Bld) [#/Vol] 0.5 10*3/uL Normal 0.1-1.0 [facility] Comment on above: Order Comment: Yes: Add to Previous draw if able Performed By: #### 5 0103 #### [facility] [address] [place] [address], [facility] MONOS 7.6 % Normal 5.0-12.0 [facility] Comment on above: Order Comment: Yes: Add to Previous draw if able Performed By: #### 5 3 #### [facility] [address] [place] [address], [facility] Neutrophils/100 WBC (Bld) 54.0 % Normal 40.0-72.0 [facility] Comment on above: Order Comment: Yes: Add to Previous draw if able Performed By: #### 5 3 #### [facility] [address] Nucleated RBC/100 WBC (Bld) [Ratio] 0 % Normal 0-0 [facility] Comment on above: Order Comment: Yes: Add to Previous draw if able Performed By: #### 5 3 #### [facility] [address] [facility] [place] [address], [facility] PLAT CNT 231 10*3/uL Normal 150-400 The [facility] Comment on above: Order Comment: Yes: Add to Previous draw if able Performed By: #### 5 0103 #### [facility] [address] [facility]. [address] RBC (Bld) [#/Vol] 4.87 10*6/uL Normal 3.80-5.00 [facility] Comment on above: Order Comment: Yes: Add to Previous draw if able Performed By: #### 5 3 #### [facility] [address] [facility]. [address] WBC (Bld) [#/Vol] 7.09 10*3/uL Normal 4.00-10.60 [facility] Comment on above: Order Comment: Yes: Add to Previous draw if able Performed By: #### 5 3 #### [facility] [address] [facility]. [address] COMP METABOLIC PANELon 04-01 Albumin [Mass/Vol] 4.0 g/dL Normal 3.5-5.7 [facility] Comment on above: Order Comment: Yes: Add to Previous draw if able Performed By: #### 0 0121, 96021 #### [facility] [address] [place] [address], [facility] ALKALINE PHOSPH 52 IU/L Normal 40-460 [facility] Comment on above: Order Comment: Yes: Add to Previous draw if able Performed By: #### 0 0121, [id number] #### [facility] [address] [place] [address], [place] ALT [Catalytic activity/Vol] 6 U/L Low 7-52 [facility] Comment on above: Order Comment: Yes: Add to Previous draw if able Performed By: #### 0 0121, 80214 #### [facility] [address] [place] [address], [place] AST [Catalytic activity/Vol] 16 U/L Normal 13-39 [facility] Comment on above: Order Comment: Yes: Add to Previous draw if able Performed By: #### 0 0121, [id number] #### [facility] [address] [place] [address], [place] Bilirubin [Mass/Vol] 0.5 mg/dL Normal 0.3-1.0 [facility] Comment on above: Order Comment: Yes: Add to Previous draw if able Performed By: #### 0 0121, 68821 #### [facility] [address] [place] [address], [place] Calcium [Mass/Vol] 9.5 mg/dL Normal 8.6-10.3 [facility] Comment on above: Order Comment: Yes: Add to Previous draw if able Performed By: #### 0 0121, 84237 #### [facility] [address] [place] [address], [place] Chloride [Moles/Vol] 107 mmol/L Normal 98-107 [facility] Comment on above: Order Comment: Yes: Add to Previous draw if able Performed By: #### 0 0121, 68982 #### [facility] [address] [place] [address], [place] CO2 [Moles/Vol] 19 mmol/L Low 21-31 [facility] Comment on above: Order Comment: Yes: Add to Previous draw if able Performed By: #### 0 0121, 88211 #### [facility] [address] [place] [address], [place] Creatinine [Mass/Vol] 0.75 mg/dL Normal 0.60-1.20 [facility] Comment on above: Order Comment: Yes: Add to Previous draw if able Performed By: #### 0 0121, 15178 #### [facility] [address] [place] [address], [place] GFR/1.73 sq M predicted among blacks MDRD (S/P/Bld) [Vol rate/Area] Calculation not validated for patients under 18 years Abnormal >60 [facility] Comment on above: Order Comment: Yes: Add to Previous draw if able Performed By: #### 0 0121, 61484 #### [facility] [address] [place] [address], [place] GFR/1.73 sq M predicted among non-blacks MDRD (S/P/Bld) [Vol rate/Area] Calculation not validated for patients under 18 years Abnormal >60 [facility] Comment on above: Order Comment: Yes: Add to Previous draw if able Performed By: #### 0 0121, 28510 #### [facility] [address] [place] [address], [place] Glucose [Mass/Vol] 92 mg/dL Normal 70-100 [facility] Comment on above: Order Comment: Yes: Add to Previous draw if able Performed By: #### 0 0121, 69062 #### [facility] [address] [place] [address], [place] Potassium [Moles/Vol] 4.3 mmol/L Normal 3.5-5.1 [facility] Comment on above: Order Comment: Yes: Add to Previous draw if able Performed By: #### 0 0121, 76558 #### [facility] [address] [place] [address], [place] Protein [Mass/Vol] 6.8 g/dL Normal 6.0-8.3 [facility] Comment on above: Order Comment: Yes: Add to Previous draw if able Performed By: #### 0 0121, 47317 #### [facility] [address] [place] [address], [facility] Sodium [Moles/Vol] 138 mmol/L Normal 136-145 [facility] Comment on above: Order Comment: Yes: Add to Previous draw if able Performed By: #### 0 0121, 43688 #### [facility] [address] [place] [address], [facility] Urea nitrogen [Mass/Vol] 14 mg/dL Normal 7-25 [facility] Comment on above: Order Comment: Yes: Add to Previous draw if able Performed By: #### 0 0121, 28453 #### [facility] [address] [place] [address], [facility] LIPID PROFILEon 04-01-2019 Cholesterol [Mass/Vol] 118 mg/dL Low 120-170 [facility] Comment on above: Order Comment: Yes: Add to Previous draw if able Result Comment: CHOL ESTEROL REFERENCE RANGE: 20 YEARS AND OLDER CARDIOVASCULAR RISK Less than 200 mg/dl Low Risk 200 to 239 mg/dl Borderline Risk 240 mg/dl and greater High Risk Performed By: #### 0 0121, 93787 #### [facility] [address] [place] [address], [facility] Cholesterol in HDL [Mass/Vol] 27 mg/dL Normal 23-92 [facility] Comment on above: Order Comment: Yes: Add to Previous draw if able Result Comment: Slig ht variation in normal range could be due to gender and/or age. HDL CHOLESTEROL REFERENCE RANGE: 20 years and older Cardiovascular Risk > or =60 mg/dL Desirable 40 TO 59 mg/dL Low Risk <40 mg/dL High Risk Performed By: #### 0 0121, 01846 #### [facility] [address] [place] [address], [facility] Cholesterol in LDL [Mass/Vol] 71 mg/dL Normal 0-130 [facility] Comment on above: Order Comment: Yes: Add to Previous draw if able Result Comment: LDL IS A CALCULATION LDL IS ONLY VALID IF THE TRIG IS LESS THAN 400. Performed By: #### 0 0121, 93295 #### [facility] [address] [place] [address], [facility] Cholesterol.total/Chol esterol in HDL [Mass ratio] 4.4 {ratio} Normal .0-4.5 [facility] Comment on above: Order Comment: Yes: Add to Previous draw if able Performed By: #### 0 0121, 51145 #### [facility] [address] [place] [address], [facility] NON-HDL CHOLESTEROL 91 mg/dL Normal [facility] Comment on above: Order Comment: Yes: Add to Previous draw if able Performed By: #### 0 0121, 87946 #### [facility] [address] [place] [address], [facility] Triglyceride [Mass/Vol] 99 mg/dL Normal 37-148 [facility] Comment on above: Order Comment: Yes: Add to Previous draw if able Result Comment: TRIG LYCERIDE REFERENCE RANGE: 20 YEARS AND OLDER CARDIOVASCULAR RISK LESS THAN 150 mg/dl LOW RISK 150 TO 199 mg/dl BORDERLINE RISK 200 mg/dl AND GREATER HIGH RISK Performed By: #### 0 0121, 42908 #### [facility] [address] [place] [address], [facility] VLDL CHOL 20 mg/dL Normal 0-40 [facility] Comment on above: Order Comment: Yes: Add to Previous draw if able Performed By: #### 0 0121, 52771 #### [facility] [address] [place] [address], [facility] SERUM TESTon 04-01 TEST Negative Normal [facility] Comment on above: Order Comment: Yes: Add to Previous draw if able Performed By: #### 4 6473 #### [address] Vital Signs Date Time Vital Sign Value Performing Clinician Facility 11-25-2024 19:13-0500 Diastolic blood pressure 65 mm[Hg] Jae Magana MD Work Phone: [facility] 11-25-2024 19:13-0500 SaO2% (BldA) [Mass fraction] 99 % Jae Magana MD Work Phone: [facility] 11-25-2024 19:13-0500 Systolic blood pressure 108 mm[Hg] Jae Magana MD Work Phone: [facility] 11-25-2024 15:55-0500 Body height 160 cm Jae Magana MD Work Phone: [facility] 11-25-2024 15:55-0500 Body mass index (BMI) [Ratio] 31.89 kg/m2 Jae Magana MD Work Phone: [facility] 11-25-2024 15:55-0500 Body temperature 98.29 [degF] Jae Magana MD Work Phone: [facility] 11-25-2024 15:55-0500 Body weight 81.65 kg Jae Magana MD Work Phone: [facility] 11-25-2024 15:55-0500 Heart rate 110 /min Jae Magana MD Work Phone: [facility] 11-25-2024 15:55-0500 Respiratory rate 16 /min Jae Magana MD Work Phone: [facility] 11-20-2024 16:00-0500 Diastolic blood pressure 74 mm[Hg] Bridget Brunner DO Work Phone: [facility] 11-20-2024 16:00-0500 Heart rate 74 /min Bridget Brunner DO Work Phone: [facility] 11-20-2024 16:00-0500 Respiratory rate 16 /min Bridget Brunner DO Work Phone: [facility] Monitoring 11-20-2024 16:00-0500 SaO2% (BldA) [Mass fraction] 94 % Bridget Brunner DO Work Phone: [facility] 11-20-2024 16:00-0500 Systolic blood pressure 116 mm[Hg] Bridget Brunner DO Work Phone: [facility] 11-20-2024 14:45-0500 Body temperature 97 [degF] Bridget Brunner DO Work Phone: [facility] Monitoring 11-20-2024 10:48-0500 Body mass index (BMI) [Ratio] 31.96 kg/m2 Bridget Brunner DO Work Phone: [facility] Monitoring 11-20-2024 10:48-0500 Body weight 81.83 kg Bridget Brunner DO Work Phone: [facility] Monitoring 11-06-2024 15:52-0500 Body height 160 cm Bridget Brunner DO Work Phone: [facility] Monitoring 04-01-2024 16:25-0400 Heart rate 61 /min Kalyn Shin DO Work Phone: [facility] [employer] 04-01-2024 16:25-0400 Respiratory rate 15 /min Kalyn Shin DO Work Phone: [facility] 04-01-2024 16:25-0400 SaO2% (BldA) [Mass fraction] 96 % Kalyn Shin DO Work Phone: [facility] [employer] 04-01-2024 15:55-0400 Diastolic blood pressure 68 mm[Hg] Kalyn Shin DO Work Phone: [facility] 04-01-2024 15:55-0400 Systolic blood pressure 103 mm[Hg] Kalyn Shin DO Work Phone: [facility] [employer] 04-01-2024 14:11-0400 Body temperature 98.4 [degF] Kalyn Shin DO Work Phone: [facility] [employer] 04-13-2023 20:56-0400 Heart rate 100 /min Oscar Us MD [facility] [employer] 04-13-2023 20:53-0400 Body mass index (BMI) [Ratio] 29.23 kg/m2 Oscar Us MD [facility] [employer] 04-13-2023 20:53-0400 Body temperature 97.3 [degF] Oscar Us MD [facility] [employer] 04-13-2023 20:53-0400 Body weight 74.84 kg Oscar Us MD [facility] [employer] 04-13-2023 20:53-0400 Diastolic blood pressure 76 mm[Hg] Oscar Us MD [facility] [employer] 04-13-2023 20:53-0400 Respiratory rate 16 /min Oscar Us MD [facility] [employer] 04-13-2023 20:53-0400 SaO2% (BldA) [Mass fraction] 100 % Oscar Us MD [facility] [employer] 04-13-2023 20:53-0400 Systolic blood pressure 131 mm[Hg] Oscar Us MD [facility] [employer] 04-10-2023 16:35-0400 Body temperature 99 [degF] Arabella Falk MD Work Phone: [facility] [employer] 04-10-2023 16:35-0400 Diastolic blood pressure 61 mm[Hg] Arabella Falk MD Work Phone: [facility] [employer] 04-10-2023 16:35-0400 Heart rate 96 /min Arabella Falk MD Work Phone: [facility] [employer] 04-10-2023 16:35-0400 Respiratory rate 18 /min Arabella Falk MD Work Phone: [facility] [employer] 04-10-2023 16:35-0400 SaO2% (BldA) [Mass fraction] 98 % Arabella Falk MD Work Phone: [facility] [employer] 04-10-2023 16:35-0400 Systolic blood pressure 115 mm[Hg] Arabella Falk MD Work Phone: [facility] [employer] 11-20-2022 10:45-0500 Diastolic blood pressure 64 mm[Hg] Bridget Nguyeng DO Work Phone: [facility] [employer] 11-20-2022 10:45-0500 Heart rate 62 /min Bridgetashlee Nguyeng DO Work Phone: [facility] [employer] 11-20-2022 10:45-0500 Respiratory rate 16 /min Bridget Nguyeng DO Work Phone: [facility] [employer] 11-20-2022 10:45-0500 SaO2% (BldA) [Mass fraction] 97 % Bridget Nguyeng DO Work Phone: [facility] [employer] 11-20-2022 10:45-0500 Systolic blood pressure 102 mm[Hg] Bridget Nguyeng DO Work Phone: [facility] [employer] 11-20-2022 10:02-0500 Body temperature 97.5 [degF] Bridgetashlee Nguyeng DO Work Phone: [facility] [employer] 11-20-2022 07:17-0500 Body height 160 cm Bridget Nguyeng DO Work Phone: [facility] [employer] 11-20-2022 07:17-0500 Body mass index (BMI) [Ratio] 28.77 kg/m2 Bridget Nelsontrong DO Work Phone: [facility] [employer] 11-20-2022 07:17-0500 Body weight 73.66 kg Bridget Nguyeng DO Work Phone: [facility] [employer] 06-12-2022 13:30-0400 Diastolic blood pressure 74 mm[Hg] [facility] 03 [facility] [employer] 06-12-2022 13:30-0400 Heart rate 103 /min [facility] 06-12-2022 13:30-0400 Respiratory rate 19 /min [facility] 03 [facility] [employer] 06-12-2022 13:30-0400 SaO2% (BldA) [Mass fraction] 98 % [facility] 03 [facility] [employer] 06-12-2022 13:30-0400 Systolic blood pressure 103 mm[Hg] [facility] 03 [facility] 06-12-2022 12:35-0400 Body temperature 96.69 [degF] [facility] 03 [facility] [employer] 06-11-2022 20:30-0400 SaO2% (BldA) [Mass fraction] 96 % Arabella Falk MD Work Phone: [facility] [employer] 06-11-2022 20:00-0400 Diastolic blood pressure 52 mm[Hg] Arabella Falk MD Work Phone: [facility] [employer] 06-11-2022 20:00-0400 Heart rate 119 /min Arabella Falk MD [facility] 06-11-2022 20:00-0400 Respiratory rate 17 /min Arabella Falk MD Work Phone: [facility] [employer] 06-11-2022 20:00-0400 Systolic blood pressure 121 mm[Hg] Arabella Falk MD Work Phone: [facility] [employer] 06-11-2022 18:32-0400 Body temperature 97.5 [degF] Arabella Falk MD Work Phone: [facility] [employer] 04-09-2021 17:00-0400 Diastolic blood pressure 77 mm[Hg] Salvatore Ibarra MD [employer] Work Phone: 04-09-2021 17:00-0400 Heart rate 65 /min Salvatore Ibarra MD [employer] Work Phone: 04-09-2021 17:00-0400 Respiratory rate 18 /min Salvatore Ibarra MD [employer] Phone: 04-09-2021 17:00-0400 SaO2% (BldA) [Mass fraction] 98 % Salvatore Ibarra MD [employer] Phone: 04-09-2021 17:00-0400 Systolic blood pressure 110 mm[Hg] [facility]: 04-09-2021 14:35-0400 Body temperature 98.01 [degF] Salvatore Ibarra MD [employer] Phone: 09-21-2020 16:38-0500 Body Temperature 98.29 [degF] [facility] [place] [facility] 16:38-0500 BP Diastolic 71 mm[Hg] Bridget Natalya [facility] 09-21-2020 16:38-0500 BP Systolic 119 mm[Hg] Bridget Perez [facility] 09-21-2020 16:38-0500 Pulse (Heart Rate) 85 /min [facility] [place] 09-[facility]-2020 16:38-0500 Respiratory Rate 16 /min [facility] [place] 09-20-2020 16:46-0500 Pulse Oximetry 99 % [facility] [place] 09-20-2020 06:14-0500 BMI (Body Mass Index) 31.89 kg/m2 [facility] [place] 09-[facility]-2020 06:14-0500 Body weight 81.65 kg [facility] [place] 09-20-2020 06:14-0500 Height 160 cm [facility] [place] 08-13-2020 19:05-0400 BP Diastolic 64 mm[Hg] Caridad Kapadia [facility] 08-13-2020 19:05-0400 BP Systolic 113 mm[Hg] [facility] 08-13-2020 19:05-0400 Pulse (Heart Rate) 99 /min Caridad [facility] 08-13-2020 19:03-0400 BMI (Body Mass Index) 29.23 kg/m2 Caridad [facility] 08-13-2020 19:03-0400 Body Temperature 98.29 [degF] [facility] 08-13-2020 19:03-0400 Body weight 74.84 kg Caridad [facility] 08-13-2020 19:03-0400 Height 160 cm Caridad [facility] 08-13-2020 19:03-0400 Respiratory Rate 18 /min [facility] 06-20-2020 20:35-0400 BMI (Body Mass Index) 28.7 kg/m2 [facility] 06-20-2020 20:35-0400 Body Temperature 98.49 [degF] [facility] 06-20-2020 20:35-0400 Body weight 73.48 kg [facility] 06-20-2020 20:35-0400 BP Diastolic 62 mm[Hg] [facility] 06-20-2020 20:35-0400 BP Systolic 105 mm[Hg] [facility] 06-20-2020 20:35-0400 Height 160 cm [facility] 06-20-2020 20:35-0400 Pulse (Heart Rate) 113 /min [facility] 06-20-2020 20:35-0400 Pulse Oximetry 97 % [facility] 06-20-2020 20:35-0400 Respiratory Rate 20 /min [facility] 06-16-2020 20:33-0400 BP Diastolic 68 mm[Hg] [facility], [place] 06-16-2020 20:33-0400 BP Systolic 122 mm[Hg] Al[facility], [place] 06-16-2020 20:33-0400 Pulse (Heart Rate) 88 /min Alisia Gross [facility], [place] 06-16-2020 20:28-0400 Body Temperature 98.49 [degF] [facility] [place] 06-16-2020 20:28-0400 Respiratory Rate 18 /min Alisia [facility] [place] NEGATED: Highlighted row BMI (Body Mass Index) [facility] NEGATED: Highlighted row BMI (Body Mass Index) [facility] NEGATED: Highlighted row Body Temperature [facility] NEGATED: Highlighted row Body Temperature [facility] NEGATED: Highlighted row Body weight [facility] NEGATED: Highlighted row Body weight [facility] NEGATED: Highlighted row BP Diastolic [facility] NEGATED: Highlighted row BP Diastolic [facility] NEGATED: Highlighted row BP Systolic [facility] NEGATED: Highlighted row BP Systolic [facility] NEGATED: Highlighted row Height [facility] NEGATED: Highlighted row Height [facility] NEGATED: Highlighted row Pulse (Heart Rate) [facility] NEGATED: Highlighted row Pulse (Heart Rate) [facility] NEGATED: Highlighted row Pulse Oximetry [facility] NEGATED: Highlighted row Pulse Oximetry [facility] NEGATED: Highlighted row Respiratory Rate [facility] NEGATED: Highlighted row Respiratory Rate [facility] Encounters Encounter Date Encounter Type Care Provider Facility Start: 02-20-2025 End: 02-21-2025 Emergency department patient visit Arabella Falk MD Facility:[facility] Start: 02-20-2025 End: 02-21-2025 ambulatory Lakisha Celis MD Facility:[facility] Start: 12-27-2024 End: 12-27-2024 ambulatory ARABELLA Biswas [facility] Start: 11-25-2024 End: 11-25-2024 Emergency department patient visit Jae Magana MD Work Phone: [facility] Comment on above: Nausea and vomiting, unspecified vomiting type (Primary Dx) Start: 11-20-2024 End: 11-20-2024 ambulatory BRIDGET PEREZ [facility] Start: 11-20-2024 End: 11-20-2024 Subsequent hospital visit by physician Bridget Charlie Natlaya Kannan Work Phone: [facility] Comment on above: Postoperative pain ( Primary Dx); Pelvic pain syndrome; History of endometriosis Start: 11-15-2024 End: 11-15-2024 [facility] Start: 11-15-2024 Encounter for preprocedural laboratory examination [facility] Start: 11-15-2024 End: 11-15-2024 Preoperative state Arabella Falk MD Work Phone: [facility] Start: 11-15-2024 End: 11-15-2024 Subsequent hospital visit by physician Arabella Falk MD Work Phone: [facility] Comment on above: Encounter for pre-op erative laboratory testing; History of endometriosis; Pelvic and perineal pain Start: 09-12-2024 End: 09-12-2024 [facility] Start: 09-07-2024 End: 09-07-2024 [facility] Start: 09-07-2024 End: 09-07-2024 Subsequent hospital visit by physician Arabella Falk MD Work Phone: [facility] Comment on above: Pelvic pain Start: 09-07-2024 End: 09-07-[address] [facility] Start: 07-08-2024 End: 07-08-2024 Emergency department patient visit Sylvie Alexis PA-C Facility:[facility] Start: 05-24-2024 End: 05-24-[address] [facility] Start: 05-24-2024 End: 05-24-2024 Subsequent hospital visit by physician Arabella Falk MD Work Phone: [facility] Comment on above: Acute vaginitis Start: 04-01-2024 End: 04-01-2024 Emergency department patient visit Kalyn Shin DO Work Phone: [facility] Comment on above: Syncope, unspecified syncope type (Primary Dx) Start: 04-13-2023 End: 04-13-2023 Emergency department patient visit Oscar Us MD [facility] Comment on above: Leg swelling (Primar y Dx) Start: 04-10-2023 End: 04-10-2023 Emergency department patient visit Arabella Falk MD Work Phone: [facility] Comment on above: Poison lise dermatiti s (Primary Dx) Start: 11-20-2022 End: 11-20-2022 Subsequent hospital visit by physician Bridget Brunner DO Work Phone: [facility] Comment on above: Post-op pain (Primar y Dx); Endometriosis Start: 11-18-2022 End: 11-18-2022 Patient encounter status Arabella Falk MD Work Phone: [facility] Start: 11-18-2022 End: 11-18-2022 Subsequent hospital visit by physician Arabella Falk MD Work Phone: [facility] Comment on above: History of endometri osis; Pelvic and perineal pain; Pre-op testing Start: 07-17-2022 End: 07-17-2022 Patient encounter procedure Paolo CALDERON [facility] Start: 07-14-2022 End: 07-14-2022 Subsequent hospital visit by physician Arabella Falk MD Work Phone: [facility] Comment on above: Dysuria; Acute vaginitis Start: 06-12-2022 End: 06-12-2022 Subsequent hospital visit by physician [facility] Comment on above: COVID-19 (Primary Dx ) Start: 06-11-2022 End: 06-11-2022 Emergency department patient visit Arabella Falk MD Work Phone: [facility] Comment on above: COVID-19 (Primary Dx ) Start: 06-09-2022 End: 06-09-2022 Subsequent hospital visit by physician Arabella Falk MD Work Phone: [facility] Comment on above: Incomplete emptying of bladder Start: 06-03-2022 End: 06-03-2022 Subsequent hospital visit by physician Arabella Falk MD Work Phone: [facility] Comment on above: 36 weeks gestation o f Start: 04-15-2022 End: 04-15-2022 Subsequent hospital visit by physician Arabella Falk MD Work Phone: [facility] Comment on above: Acute vaginitis; Urinary frequency; Bilateral low back pain without sciatica, unspecified chronicity Start: 01-01-2022 End: 01-01-2022 Subsequent hospital visit by physician Arabella Falk MD Work Phone: [facility] Comment on above: Acute vaginitis Start: 12-15-2021 End: 12-15-2021 Subsequent hospital visit by physician Arabella Falk MD Work Phone: [facility] Comment on above: Encounter for superv ision of other normal in first trimester Start: 09-08-2021 End: 09-09-[address] ARABELLA FALK Facility:[facility] Start: 05-08-2021 End: 05-08-2021 Subsequent hospital visit by physician Arabella Falk MD Work Phone: [facility] Comment on above: Amenorrhea, secondar y Start: 04-24-2021 End: 04-25-[address] ARABELLA FALK Facility:[facility] Start: 2021 End: 04-22-[address] ARABELLA FALK Facility:[facility] Start: 04-09-2021 End: 04-09-2021 Emergency department patient visit Salvatore Ibarra MD [facility] Comment on above: Acute cystitis witho ut hematuria (Primary Dx) Start: 02-26-2021 End: 02-26-2021 Subsequent hospital visit by physician [facility] Comment on above: Subacute vaginitis; Screening examination for venereal disease Start: 09-30-2020 End: 09-30-2020 Subsequent hospital visit by physician [facility] Comment on above: Lower abdominal tend erness; Frequency of micturition; Pelvic pain Start: 09-20-2020 End: 09-21-2020 Evaluation and management of inpatient Bridget Brunner Work Phone: [facility] Start: 09-02-2020 End: 09-02-2020 Subsequent hospital visit by physician Alisia [facility] Comment on above: Acute vaginitis; Urgency of urination Start: 08-29-2020 End: 08-29-2020 Subsequent hospital visit by physician Alisia [facility] Comment on above: Encounter for superv ision of other normal in third trimester Start: 08-13-2020 End: 08-13-2020 Patient encounter procedure CARIDAD KAPADIA [facility] Start: 08-13-2020 End: 08-13-2020 Subsequent hospital visit by physician Caridad Kapadia Work Phone: [facility] Start: 07-01-2020 End: 07-01-2020 Subsequent hospital visit by physician Arab[facility] Start: 06-20-2020 End: 06-20-2020 Emergency department patient visit Brian Santana Work Phone: [facility] Comment on above: Contact dermatitis, unspecified contact dermatitis type, unspecified trigger (Primary Dx) Start: 06-16-2020 End: 06-16-2020 Subsequent hospital visit by physician Alisia Gross Work Phone: [facility] Procedures Date Procedure Procedure Detail Performing Clinician Start: 11-25-2024 Urinalysis microscop ic only Oj Chapman PA-C Work Phone: Start: 11-25-2024 Urnls dip stick/tabl et rgnt auto w/o microscopy Oj Chapman PA-C Work Phone: Start: 11-25-2024 Comprehensive metabo lic panel Oj Chapman PA-C Work Phone: Start: 11-15-2024 Comprehensive metabo lic panel Georgia Smith SHORTHAND TEACHER - CN Work Phone: Start: 09-07-2024 Iaad ia chlamydia trachomatis Georgia Smith [employer]ORTHAND TEACHER - CNM Work Phone: Start: 09-07-2024 Microscopic observat ion [Identifier] in Cervix by Cyto stain Arabella Falk MD Work Phone: Start: 04-01-2024 Ct head/brain w/o co ntrast material Kalyn J Shin DO Work Phone: Start: 04-01-2024 GLUCOSE, WHOLE BLOOD Ja veria J Shin DO Work Phone: Start: 04-01-2024 Radiologic exam ches t single view Kalyn J Shin DO Work Phone: Start: 04-01-2024 Basic metabolic pane l calcium total Kalyn J Shin DO Work Phone: Start: 04-01-2024 Ecg routine ecg w/le ast 12 lds w/i&r Kalyn J Shin DO Work Phone: Start: 04-01-2024 Urine test visual color cmprsn meths Kalyn J Shin DO Work Phone: Start: 04-01-2024 Urnls dip stick/tabl et reagent auto microscopy Kalyn J Shin DO Work Phone: Start: 04-13-2023 Fibrin dgradj produc ts d-dimer quantitative Oscar Us MD Start: 11-18-2022 Gonadotropin chorion ic qualitative Georgia Smith [employer]ORTHAND TEACHER - CNM Work Phone: Start: 07-14-2022 Iadna deepti specie s direct probe tq Ruby Plaza PA-C Work Phone: Start: 06-11-2022 Radiologic exam ches t single view Vu Calle PA-C Work Phone: Start: 06-11-2022 Ecg routine ecg w/le ast 12 lds w/i&r Vu Calle PA-C Work Phone: Start: 06-11-2022 COVID-19, RAPID Oscarjuan pablo noble MD Start: 04-15-2022 Iadna deepti specie s direct probe tq Raul Santiagog [employer]THAND TEACHER - [employer]OP HAMMER SET UP OPERATOR Work Phone: Start: 12-15-2021 Drug screen class list a Raul Santiagog [employer]AND TE[employer]ER - [employer] HAMMER SET UP OPERATOR Work Phone: Start: 12-15-2021 Urnls dip stick/tabl et rgnt auto w/o microscopy Raul Pinto [employer]ORTHAND TEACHER - [employer] HAMMER SET UP OPERATOR Work Phone: Start: 12-15-2021 Antibody screen Arabella Falk MD Work Phone: Start: 12-15-2021 Antibody hiv-1&hiv-2 single result Raul Pinto [employer]ORTHAND TEACHER - DR[employer] HAMMER SET UP OPERATOR Work Phone: Start: 05-08-2021 Gonadotropin chorion ic quantitative Raul Pinto [employer]ORTHAND TEACHER - DR[employer] HAMMER SET UP OPERATOR Work Phone: Start: 04-09-2021 Radiologic exam ches t single view Salvatore Ibarra MD Start: 04-09-2021 Ct abdomen & pelvis w/contrast material Salvatore Ibarra MD Start: 04-09-2021 Urnls dip stick/tabl et reagent auto microscopy Salvatore Ibarra MD Start: 04-09-2021 Basic metabolic pane l calcium total Salvatore Ibarra MD Start: 09-30-2020 Blood count complete auto&auto difrntl wbc Raul Pinto Work Phone: Start: 09-21-2020 Blood count complete automated Bridget Brunner Work Phone: Start: 09-20-2020 Antibody screen Bridget Natalya Brunner Start: 09-20-2020 Drug screen class list a Bridget F Natalya Brunner Work Phone: Start: 09-20-2020 Blood typing serologic abo Bridget Brunner Work Phone: Start: 09-20-2020 Blood count complete auto&auto difrntl wbc Bridget Brunner Work Phone: Start: 09-02-2020 Urinalysis microscop ic only Raul Pinto Work Phone: Start: 09-02-2020 Urnls dip stick/tabl et rgnt auto w/o microscopy Raul Pinto Work Phone: Start: 08-13-2020 DISCHARGE PATIENT CARIDAD KAPADIA Start: 08-13-2020 NURSING COMMUNICATION S CARIDAD KAPADIA Start: 08-13-2020 DIET CLEAR LIQUID CARIDAD WILLARD Start: 08-13-2020 ASSESS HEART TONES CARIDAD WILLARD Start: 08-13-2020 CONTRACTION -MONITORING CARIDAD KAPADIA Start: 08-13-2020 Culture bacterial quanttative colony count urine CARIDAD KAPADIA Start: 08-13-2020 FULL CODE CARIDAD ALICIA Apolonia Start: 08-13-2020 Gluc bld gluc mntr d ev cleared fda spec home use CARIDAD KAPADIA Start: 08-13-2020 MONITOR HEART TONES CARIDAD KAPADIA Start: 08-13-2020 NOTIFY PHYSICIAN (SPECIFY) CARIDAD KAPADIA Start: 08-13-2020 VITAL SIGNS CARIDAD ALICIA Apolonia Start: 08-13-2020 Urinalysis microscop ic only CARIDAD KAPADIA Start: 08-13-2020 Urnls dip stick/tabl et rgnt auto w/o microscopy CARIDAD KAPADIA Start: 08-13-2020 Urinalysis microscop ic only Caridad Bindu Kapadia Work Phone: Start: 08-13-2020 Urnls dip stick/tabl et rgnt auto w/o microscopy Caridadraymundo Kapadia Work Phone: Start: 07-01-2020 Assay of blood/uric acid Georgia Smith Work Phone: Start: 07-01-2020 Blood count complete auto&auto difrntl wbc Georgia Smith Work Phone: Start: 07-01-2020 Comprehensive metabo lic panel Georgia mSith Work Phone: Start: 07-01-[address] gtt 3 specimens Georgia Smith Work Phone: Start: 06-16-2020 Urnls dip stick/tabl et rgnt auto w/o microscopy Alisia Alexandre Renato Work Phone: Tonsillectomy Paolo CALDERON Plan of Treatment Date Care Activity Detail Author Start: 2032 DTaP/Tdap/Td vaccine (9 - Td or Tdap) DTaP/Tdap/Td vaccine (9 - Td or Tdap) [facility] Start: 07-31-2030 DTaP/Tdap/Td vaccine (8 - Td or Tdap) DTaP/Tdap/Td vaccine (8 - Td or Tdap) [facility] Start: 07-31-2030 DTaP/Tdap/Td vaccine (8 - Td) DTaP/Tdap/Td vaccine (8 - Td) [place], [place] Start: 09-07-2027 Screening for malign ant neoplasm of cervix Pap smear [facility] Start: 09-10-2025 End: 09-10-2025 Patient encounter procedure 09/10/2025 10:30 AM EST Office Visit [facility] [address] [place] [address] Georgia Smith, SHORTHAND TEACHER - CNM [address] [place] [address] Annual [facility] Comment on above: Annual Start: 09-07-2025 Screening for Chlamy german trachomatis Chlamydia/GC screen [facility] Start: 12-27-2024 End: 12-27-2024 Patient encounter procedure 12/27/2024 10:30 AM EST Office Visit [facility] [address] [facility] [place] [address] Bridget Oconnor, DO [address] [place] [address] 6 wk post-op BA 09/18 [facility] Comment on above: 6 wk post-op BA 09/08 1 Start: 11-30-2024 End: 11-30-2024 Patient encounter procedure 11/30/2024 10:30 AM EST Office Visit [facility]cology [address] [facility] [facility], [address] [place] [address] Ruby Plaza PA-C [address] [place] [address] 2 wk post-op BA 09/18 [facility] Comment on above: 2 wk post-op 09/08 Start: 11-20-2024 End: 11-20-2024 Admission to same day surgery center 11/20/2024 2:10 PM EST - 11/20/2024 4:10 PM EST Surgery [facility] [address] [place] [id number] Bridget Oconnor, DO [address] [place] [address] HYSTERECTOMY VAGINAL LAPAROSCOPIC ROBOTIC ASSISTED, possible Bilateral Oophorectomy, possible Laparoscopic Colpopexy [facility] Comment on above: HYSTERECTOMY VAGINAL LAPAROSCOPIC ROBOTIC ASSISTED, possible Bilateral Oophorectomy, possible Laparoscopic Colpopexy Start: 11-20-2024 End: 11-20-2024 Anesthesia consultation 11/20/2024 2:10 PM EST Anesthesia Event [facility] [address] [place] [id number] Berkley Whitaker, SHORTHAND TEACHER - STAFF RESPIRATORY THERAPIST [address] [place] [address] [facility] Start: 11-20-2024 End: 11-20-2024 Laparoscopy w total hysterectomy uterus 250 gm/< HYSTERECTOMY VAGINAL LAPAROSCOPIC ROBOTIC ASSISTED Pelvic pain syndrome History of endometriosis 11/20/2024 2:10 PM EST [facility] Start: 11-20-2024 Subsequent hospital visit by physician 11/20/2024 2:10 PM EST Hospital Encounter [facility] [address] [place] [address] Bridget Oconnor, [address] [place] [address] [facility] Start: 11-20-2024 End: 11-20-2024 Laparoscopy w total hysterectomy uterus 250 gm/< HYSTERECTOMY VAGINAL LAPAROSCOPIC ROBOTIC ASSISTED Pelvic pain syndrome History of endometriosis 11/20/2024 12:41 PM EST [facility] Start: 09-14-2024 End: 09-14-2024 Patient encounter procedure 09/14/2024 1:00 PM EST Office Visit [address] [place] [id number] Janett Carrillo, SHORTHAND TEACHER - WINDOWS ADMIN 27 [facility] [address] [place] [address] Diarrhea [facility] Comment on above: Diarrhea Start: 07-09-2024 COVID-19 Vaccine ( season) COVID-19 Vaccine ( season) [facility] Start: 06-12-2024 End: 06-12-2024 Patient encounter procedure 06/12/2024 10:00 AM EDT Office Visit [facility] Obstetrics & Gynecology [address] [facility] [address] [place] [address] Raul Pinto APRN - DROP HAMMER SET UP OPERATOR [address] [facility] [address] [place] [address] annual [facility] Obstetrics & Gynecology Comment on above: annual Start: 06-08-2024 Influenza vaccination B ON [facility] Start: 06-29-2023 End: 06-29-2023 Patient encounter procedure 06/29/2023 Office Visit Obstetrics and Gynecology Georgia Smith, SHORTHAND TEACHER - CNM [address] [place] [address] [facility] Obstetrics & Gynecology Start: 06-08-2023 Influenza vaccination Flu vacc ine (Season Ended) [facility] Start: 04-14-2023 End: 04-14-2023 Patient encounter procedure 04/14/2023 Appointment Vascular Lab [facility] Vascular Lab Start: 12-15-2022 Screening for Chlamy german trachomatis [facility] Start: 12-09-2022 End: 12-09-2022 Patient encounter procedure 12/09/2022 Office Visit Obstetrics and Gynecology [facility] PA-C [address] [place] [address] [facility] OBSTETRICS & [facility]ECOLOGY [facility] Start: 11-20-2022 End: 11-20-2022 Laparoscopy w/rmvl adnexal structures [facility] Start: 08-04-2022 End: 08-04-2022 ambulatory 08/04/2022 Visit Obstetrics and Gynecology Georgia Smith, SHORTHAND TEACHER - CNM [address] [place] [address] [facility] Obstetrics & Gynecology Start: 07-09-2022 Influenza vaccination B ON [facility] Start: 06-15-2022 End: 06-15-2022 Patient encounter procedure 06/15/2022 Routine Obstetrics and Gynecology Georgia Smith, SHORTHAND TEACHER - CNM [address] [place] [address] [facility] Obstetrics & Gynecology Start: 06-15-2022 End: 06-15-2022 Professional / ancillary services management 06/15/2022 Ancillary Procedure Obstetrics and Gynecology [facility] Obstetrics & Gynecology Start: 06-09-2022 End: 06-09-2022 Patient encounter procedure 06/09/2022 Routine Obstetrics and Gynecology Raul Pinto APRN - DROP HAMMER SET UP OPERATOR [address] [address] [facility] Obstetrics & Gynecology Start: 06-09-2022 End: 06-09-2022 Professional / ancillary services management 06/09/2022 Ancillary Procedure Obstetrics and Gynecology [facility] Obstetrics & Gynecology Start: 06-08-2022 Influenza vaccination Flu vaccine (# 1) [facility] Start: 04-28-2022 End: 04-28-2022 Patient encounter procedure 04/28/2022 Office Visit Obstetrics and Gynecology Georgia Smith, SHORTHAND TEACHER - CNM [address] [facility] [place] [address] [facility] Obstetrics & Gynecology Start: 2022 Screening for malign ant neoplasm of cervix Pap smear [facility] Start: 2022 End: 2022 Patient encounter procedure 2022 Routine Obstetrics and Gynecology Georgia Smith, SHORTHAND TEACHER - CNM [address] [facility] [place] [address] [facility] Obstetrics & Gynecology Start: 2022 End: 2022 Professional / ancillary services management 2022 Ancillary Procedure Obstetrics and Gynecology [facility] Obstetrics & Gynecology Start: 02-26-2022 Screening for Chlamy german trachomatis Chlamydia screen [facility] Start: 02-16-2022 End: 02-16-2022 Patient encounter procedure 02/16/2022 Routine Obstetrics and Gynecology Georgia Smith, SHORTHAND TEACHER - CNM [address] [place] [address] [facility] Obstetrics & Gynecology Start: 02-16-2022 End: 02-16-2022 Professional / ancillary services management 02/16/2022 Ancillary Procedure Obstetrics and Gynecology [facility] Obstetrics & Gynecology Start: 01-12-2022 End: 01-12-2022 Patient encounter procedure 01/12/2022 Routine Obstetrics and Gynecology Georgia Smith, SHORTHAND TEACHER - CNM [address] [facility] [place] [address] [facility] Obstetrics & Gynecology Start: 07-09-2021 Influenza vaccination [facility] Start: 04-28-2021 End: 04-28-2021 Patient encounter procedure [facility] Obstetrics & Gynecology Start: 2021 End: 2021 Patient encounter procedure 2021 Office Visit Obstetrics and Gynecology Caridad Hanks, SHORTHAND TEACHER - CNM [address] [place] [address] [phone] [facility] Start: 04-03-2021 End: 04-03-2021 Patient encounter procedure 04/03/2021 Office Visit Obstetrics and Gynecology Georgia Smith, SHORTHAND TEACHER - CNM [facility] Obstetrics & Gynecology Start: 09-18-2020 End: 09-18-2020 Routine 09/18/2020 Routine Obstetrics and Gynecology Bridget Oconnor DO [address] [place] [address] [facility] Obstetrics & Gynecology Start: 09-12-2020 End: 09-12-2020 Routine 09/12/2020 Routine Obstetrics and Gynecology Bridget Oconnor DO [address] [place] [address] [facility] Obstetrics & Gynecology Start: 09-04-2020 End: 09-04-2020 Routine 09/04/2020 Routine Obstetrics and Gynecology Georgia Smith, SHORTHAND TEACHER - CNM [address] [place] [address] [facility] Obstetrics & Gynecology Start: 07-18-2020 End: 07-18-2020 Ancillary Procedure 07/18/2020 Ancillary Procedure Obstetrics and Gynecology Raul Pinto APRN - NP [address] [place] [address] [facility] Obstetrics & Gynecology Start: 07-09-2020 Influenza vaccination Flu vaccine (# 1) [place] Start: 2020 DTaP/Tdap/Td vaccine (1 - Tdap) DTaP/Tdap/Td vaccine (1 - Tdap) [place] Start: 2017 COVID-19 Vaccine (1) COVID-19 Vaccin e (1) [facility] Work Phone: Start: 2017 Screening for Chlamy german trachomatis Chlamydia screen [place], [place] Start: 2016 HIV screening HIV screen [facility] Start: 12-24-2013 HPV vaccine (3 - 2-d ose series) HPV vaccine (3 - 2-dose series) [facility] Start: 2013 COVID-19 Vaccine (1) COVID-19 Vaccin e (1) [facility] Work Phone: Start: 2013 Depression Monitoring Depression [facility] Start: 2012 HPV vaccine (1 - 2-d ose series) HPV vaccine (1 - 2-dose series) [place] Start: 10-06-2006 Varicella vaccine (2 of 2 - 2-dose childhood series) Varicella vaccine (2 of 2 - 2-dose childhood series) [facility] Start: 2006 COVID-19 Vaccine (1) COVID-19 Vaccin e (1) [facility] Start: 2002 Varicella vaccine (1 of 2 - 2-dose childhood series) Varicella vaccine (1 of 2 - 2-dose childhood series) [place] Start: 2001 COVID-19 Vaccine (#1) COVID-19 Vacci ne (#1) [facility] Start: 2001 Hepatitis C screening Hepatitis C sc reen [facility] End: 06-16-2020 Bacteria identified Cx Nom (U) Urine culture Microbiology Routine One Time for 1 Occurrences starting 06/16/2020 until 06/16/2020 [place] Comment on above: One Time for 1 Occur rences starting 06/16/2020 until 06/16/2020 End: 08-13-2020 Bacteria identified Cx Nom (U) Urine culture Microbiology Routine One Time for 1 Occurrences starting 08/13/2020 until 08/13/2020 [facility] Comment on above: One Time for 1 Occur rences starting 08/13/2020 until 08/13/2020 End: 07-01-2020 Bile Acids, Total Bile Acids, Total Lab Routine Once for 1 Occurrences starting 07/01/2020 until 07/01/2020 [facility] Comment on above: Once for 1 Occurrenc es starting 07/01/2020 until 07/01/2020 Bile Acids, Total Bile Acids, To edilia Lab Routine 07/01/2020 8:53 AM EDT [facility] [place] End: 11-25-2024 Blood Culture [address] [facility] Patient Home Monitoring Comment on above: One Time for 1 Occur rences starting 11/25/2024 until 11/25/2024 End: 02-26-2021 C.trachomatis N.gonorrhoeae DNA C.trachomatis N.gonorrhoeae DNA Microbiology Routine Screening examination for venereal disease 1 Occurrences starting 02/26/2021 until 02/26/2021 [employer] Phone: Comment on above: 1 Occurrences starti ng 02/26/2021 until 02/26/2021 C.trachomatis N.gonorrhoeae DNA C.trachomatis N.gonorrhoeae DNA Microbiology Routine Screening examination for venereal disease 02/26/2021 8:51 PM EDT [employer] Phone: Chlamydia/GC DNA, Th in Prep Chlamydia/GC DNA, Thin Prep Microbiology Routine Pelvic pain 09/07/2024 9:21 PM EDT [employer] End: 06-03-2022 Cul prsmptv pthgnc organism scrn w/colony estimj [facility] Work Phone: Comment on above: 1 Occurrences starti ng 06/03/2022 until 06/03/2022 End: 11-25-2024 Culture, Blood 2 [employer] Comment on above: One Time for 1 Occur rences starting 11/25/2024 until 11/25/2024 End: 09-30-2020 Culture, Genital [facility] Comment on above: 1 Occurrences starti ng 09/30/2020 until 09/30/2020 Once for 1 Occurrenc es starting 09/30/2020 until 09/30/2020 Culture, Genital Culture, Genita l Microbiology Routine 09/30/2020 9:44 PM EST [place] End: 08-29-2020 Culture, Strep B Screen, Vaginal/Rectal Culture, Strep B Screen, Vaginal/Rectal Microbiology Routine Encounter for supervision of other normal in third trimester 1 Occurrences starting 08/29/2020 until 08/29/2020 [place] Comment on above: 1 Occurrences starti ng 08/29/2020 until 08/29/2020 Culture, Strep B Scr een, Vaginal/Rectal Culture, Strep B Screen, Vaginal/Rectal Microbiology Routine Encounter for supervision of other normal in third trimester 08/29/2020 9:09 PM EDT [place] End: 09-02-2020 Culture, Urine Culture, Urine Microbiology Routine Urgency of urination 1 Occurrences starting 09/02/2020 until 09/02/2020 [place] Comment on above: 1 Occurrences starti ng 09/02/2020 until 09/02/2020 End: 09-30-2020 Culture, Urine [place] Comment on above: 1 Occurrences starti ng 09/30/2020 until 09/30/2020 Once for 1 Occurrenc es starting 09/30/2020 until 09/30/2020 Culture, Urine Culture, Urine Microbiology Routine 09/30/2020 3:15 PM EST [facility] End: 12-15-2021 Culture, Urine [employer] Work Phone: Comment on above: 1 Occurrences starti ng 12/15/2021 until 12/15/2021 End: 04-15-2022 Culture, Urine [facility] [employer] Work Phone: Comment on above: 1 Occurrences starti ng 04/15/2022 until 04/15/2022 End: 06-09-2022 Culture, Urine [facility] [employer] Work Phone: Comment on above: 1 Occurrences starti ng 06/09/2022 until 06/09/2022 End: 07-14-2022 Culture, Urine [facility] [employer] Work Phone: Comment on above: 1 Occurrences starti ng 07/14/2022 until 07/14/2022 EKG 12 Lead EKG 12 Lead ECG STAT 06/11/2022 7:18 PM EDT [facility] [facility] Phone: EKG 12 Lead EKG 12 Lead ECG STAT 04/01/2024 2:25 PM EDT [facility] nonstress test [facility] Comment on above: Daily until disconti nued starting 06/17/2020 Daily until disconti nued starting 08/14/2020 End: 11-20-2022 INITIATE PACU OXYGEN THERAPY PROTOCOL Initiate PACU Oxygen Therapy Protocol Respiratory Care Routine Continuous until discontinued starting 11/20/2022 [facility] Comment on above: Continuous until dis continued starting 11/20/2022 End: 11-20-2024 INITIATE PACU OXYGEN THERAPY PROTOCOL Initiate PACU Oxygen Therapy Protocol Respiratory Care Routine Continuous until discontinued starting 11/20/2024 [employer] Comment on above: Continuous until dis continued starting 11/20/2024 [facility]rebreather [facility] Comment on above: As directed - RT (NE N) until discontinued starting 06/16/2020 As directed - RT (NE N) until discontinued starting 08/13/2020 Oxygen therapy [Mini mum Data Set] Initiate Oxygen Therapy Protocol Respiratory Care Routine As Needed until discontinued starting 11/20/2022 [facility] Phone: Comment on above: As Needed until disc ontinued starting 11/20/2022 Oxygen therapy [[facility] mum Data Set] Initiate Oxygen Therapy Protocol Respiratory Care Routine As Needed until discontinued starting 11/20/2024 [employer] Comment on above: As Needed until disc ontinued starting 11/20/2024 Pathology study Surgical Patholo gy Lab Routine Pelvic pain syndrome History of endometriosis Release Upon Ordering for 1 Occurrences starting 11/20/2024 [employer] Phone: Comment on above: Release Upon Orderin g for 1 Occurrences starting 11/20/2024 End: 11-20-2022 , Urine , Urine Lab Routine One Time for 1 Occurrences starting 11/20/2022 until 11/20/2022 [facility] Phone: Comment on above: One Time for 1 Occur rences starting 11/20/2022 until 11/20/2022 End: 11-20-2024 , Urine , Urine Lab Routine One Time for 1 Occurrences starting 11/20/2024 until 11/20/2024 [employer] Work Phone: Comment on above: One Time for 1 Occur rences starting 11/20/2024 until 11/20/2024 End: 11-20-2022 , urine POCT , urine POCT Point of Care Testing Routine One Time for 1 Occurrences starting 11/20/2022 until 11/20/2022 [facility] Phone: Comment on above: One Time for 1 Occur rences starting 11/20/2022 until 11/20/2022 End: 11-20-2024 , urine POCT , urine POCT Point of Care Testing STAT One Time for 1 Occurrences starting 11/20/2024 until 11/20/2024 [employer] Comment on above: One Time for 1 Occur rences starting 11/20/2024 until 11/20/2024 Surgical Pathology Surgical Path ology Lab Routine Endometriosis Release Upon Ordering for 1 Occurrences starting 11/20/2022 [facility] [employer] Work Phone: Comment on above: Release Upon Orderin g for 1 Occurrences starting 11/20/2022 End: 06-16-2020 SVE SVE Point of Care Testing Routine One Time for 1 Occurrences starting 06/16/2020 until 06/16/2020 [facility] Comment on above: One Time for 1 Occur rences starting 06/16/2020 until 06/16/2020 End: 08-13-2020 SVE SVE Point of Care Testing Routine One Time for 1 Occurrences starting 08/13/2020 until 08/13/2020 [facility] Comment on above: One Time for 1 Occur rences starting 08/13/2020 until 08/13/2020 End: 09-02-2020 Vaginitis DNA Probe Vaginitis DNA Probe Microbiology Routine Acute vaginitis 1 Occurrences starting 09/02/2020 until 09/02/2020 [facility] [place] Comment on above: 1 Occurrences starti ng 09/02/2020 until 09/02/2020 End: 07-01-2020 VAGINITIS DNA PROBE VAGINITIS DNA PROBE Microbiology Routine Once for 1 Occurrences starting 07/01/2020 until 07/01/2020 [place] Comment on above: Once for 1 Occurrenc es starting 07/01/2020 until 07/01/2020 VAGINITIS DNA PROBE [place] End: 02-26-2021 VAGINITIS DNA PROBE VAGINITIS DNA PROBE Microbiology Routine Subacute vaginitis 1 Occurrences starting 02/26/2021 until 02/26/2021 [facility] Work Phone: Comment on above: 1 Occurrences starti ng 02/26/2021 until 02/26/2021 End: 01-01-2022 Vaginitis DNA Probe [facility] Work Phone: Comment on above: 1 Occurrences starti ng 01/01/2022 until 01/01/2022 End: 05-24-2024 Vaginitis DNA Probe [facility] Comment on above: 1 Occurrences starti ng 05/24/2024 until 05/24/2024 End: 04-13-2023 VL DUP LOWER EXTREMITY VENOUS LEFT VL DUP LOWER EXTREMITY VENOUS LEFT Imaging Routine Once for 1 Occurrences starting 04/13/2023 until 04/13/2023 [facility] Comment on above: Once for 1 Occurrenc es starting 04/13/2023 until 04/13/2023 Immunizations Immunization Date Immunization Notes Care Provider Freedom zhang 2022 tetanus toxoid, redu martin diphtheria toxoid, and acellular pertussis vaccine, adsorbed Arabella Falk MD Work Phone: [facility] 09-20-2020 diphtheria, tetanus toxoids and acellular pertussis vaccine, unspecified formulation [facility] [place] 09-20-2020 measles, mumps and rubella virus vaccine [facility] 07-31-2020 tetanus toxoid, redu martin diphtheria toxoid, and acellular pertussis vaccine, adsorbed Alisia Gross [facility], [place] 06-21-2018 meningococcal oligosaccharide (groups A, C, Y and W-135) diphtheria toxoid conjugate vaccine (MCV4O) Arabella Falk MD Work Phone: [employer] Work Phone: 09-29-2013 human papilloma viru s vaccine, quadrivalent Arabella Falk MD Work Phone: [employer] Work Phone: 09-29-2013 meningococcal polysaccharide (groups A, C, Y and W-135) diphtheria toxoid conjugate vaccine (MCV4P) Arabella Falk MD Work Phone: [employer] Work Phone: 06-23-2013 human papilloma viru s vaccine, quadrivalent Arabella Falk MD Work Phone: [employer] Work Phone: 06-23-2013 tetanus toxoid, redu martin diphtheria toxoid, and acellular pertussis vaccine, adsorbed Arabella Falk MD Work Phone: [employer] Work Phone: 07-14-2006 varicella virus vaccine Brenden Falk MD Work Phone: [employer] Work Phone: 11-19-2005 diphtheria, tetanus toxoids and acellular pertussis vaccine, 5 pertussis antigens Arabella Falk MD Work Phone: [employer] Work Phone: 11-19-2005 measles, mumps and rubella virus vaccine Arabella Falk MD Work Phone: [employer] Work Phone: 11-19-2005 poliovirus vaccine, inactivated Arabella Falk MD Work Phone: [employer] Work Phone: 06-14-2002 diphtheria, tetanus toxoids and acellular pertussis vaccine, unspecified formulation Arabella Falk MD Work Phone: [employer] Work Phone: 06-14-2002 haemophilus influenz ae type b conjugate and Hepatitis B vaccine Arabella Falk MD Work Phone: [employer] Work Phone: 05-05-2002 measles, mumps and rubella virus vaccine Arabella Falk MD Work Phone: [facility] [employer] Work Phone: 2001 diphtheria, tetanus toxoids and acellular pertussis vaccine, unspecified formulation Arabella Falk MD Work Phone: [facility] [employer] Work Phone: 2001 haemophilus influenz ae type b vaccine, conjugate unspecified formulation Arabella Falk MD Work Phone: [facility] [employer] Work Phone: 2001 poliovirus vaccine, inactivated Arabella Falk MD Work Phone: [facility] [employer] Work Phone: 2001 diphtheria, tetanus toxoids and acellular pertussis vaccine, unspecified formulation Arabella Falk MD Work Phone: [facility] [employer] Work Phone: 2001 haemophilus influenz ae type b conjugate and Hepatitis B vaccine Arabella Falk MD Work Phone: [employer] Work Phone: 2001 poliovirus vaccine, inactivated Arabella Falk MD Work Phone: [facility] [employer] Work Phone: 2001 diphtheria, tetanus toxoids and acellular pertussis vaccine, unspecified formulation Arabella Falk MD Work Phone: [facility] [employer] Work Phone: 2001 haemophilus influenz ae type b conjugate and Hepatitis B vaccine Arabella Falk MD Work Phone: [employer] Work Phone: 2001 poliovirus vaccine, inactivated Arabella Falk MD [facility] Work Phone: Payers Date Payer Category Payer Private Health Insurance [id number] 2023 Private Health Insurance 2023 Unknown 2022 Medicaid [id number] 2001 Unknown [id number] 2.16.8 [id number] 2001 Unknown [id number] 2.16.84 [id number] 2001 Unknown [id number] 2.16.84 [id number] 2001 Unknown [id number] 2.16.84 [id number] 2001 Unknown [id number] 2.16.8 [id number] 2001 Unknown [id number] 2.16.8 [id number] 2001 Unknown [id number] 2.16.8 [id number] 2001 Unknown [id number] 2.16.8 [id number] 2001 Unknown [id number] 2.16. [id number] 2001 Unknown [id number] 2.16. [id number] 2001 Unknown [id number] 2.16. [id number] 2001 Unknown [id number] 2.16. [id number] 2001 Unknown [id number] 2.16. [id number] 2001 Unknown [id number] 2.16. [id number] 2001 Unknown [id number] 2.16. [id number] 2001 Unknown [id number] 2.16. [id number] 2001 Unknown [id number] 2.16. [id number] 1959 Medicaid [id number] 1959 Unknown [id number] 1959 Unknown [id number] Self-pay Social History Date Type Detail Facility Start: 06-16-2020 End: 06-22-2022 Tobacco smoking status NHIS Never smoker [place] Start: 06-16-2020 End: 06-22-2022 Tobacco use and exposure Never used [place] Start: 06-16-2020 End: 06-20-2020 Alcohol intake Lifetime non-drinker (finding) [place] Start: 06-16-2020 End: 06-17-2020 History SDOH Alcohol Frequency 1 [place] Start: [facility]-04-2020 [facility] [place] [place] Start: 2001 Sex Assigned At Not on file [place] Start: 04-29-2022 End: 11-20-2022 Exposure to SARS-CoV-2 (event) Not sure [place] Start: 08-13-2020 End: 11-21-2024 [facility] Start: 06-02-2022 End: 08-15-2022 Exposure to SARS-CoV-2 (event) Yes [facility] Start: 04-13-2023 End: 11-25-2024 Sex Assigned At Female [facility] Start: 04-14-2023 History SDOH Alcohol Std Drinks 0 [facility] Work Phone: Start: 04-13-2023 End: 11-25-2024 History of Social function [facility] Frequency of Alcohol Consumption Not on file [facility] The thought of khang caba myself has occurred to me Never [facility] In the past 12 month s, was there a time when you were not able to pay the mortgage or rent on time? No [employer] (I/We) worried melissa er (my/our) food would run out before (I/we) got money to buy more. Never true [employer] Clinical Notes 06-02-2022 to 02-20-2025 Discharge InstructionsAttaCharis Gifford RN - 11/20/2024 4:10 PM Analia Romo RN - 11/20/2024 10:05 AM Marily Lindo RN - 11/06/2024 3:58 PM ESTMagaly Instructions Note Date & Type Note Facility 02-20-2025 Note Patient Education Ma terials Name: Zaid Luna Current Date: 02/20/2025 20:31:09 Alyse/[facility] : 2000 The following sheet(s) are the Patient Education Leaflets for Zaid Luna Ambulatory About Arrhythmias Electrical impulses cause the normal heart to beat about 60 to 100 times a minute while at rest. These impulses come from a natural pacemaker called the sinus node. It's in the right upper heart chamber. Electrical impulses travel throughout the upper heart chambers (the atria) before reaching the bottom muscle chambers (the ventricles) through an electrical connection called the AV node. Each impulse causes the heart muscle to contract. This causes the blood to flow through the heart and out to the tissues and organs of your body. An arrhythmia is a change from the normal speed or pattern of these electrical impulses. This can cause the heart to beat too fast (tachycardia), too slow (bradycardia), or in an unsteady pattern (irregular rhythm). Symptoms of arrhythmias Different people experience arrhythmias differently. And different arrhythmias can cause different symptoms. Sometimes you may not have symptoms, but just notice a change in your pulse. Symptoms can include: ? Fluttering feeling in the chest ? Shortness of breath ? Chest pain or pressure ? Neck fullness ? Lightheadedness or dizziness ? Fainting or almost fainting ? Palpitations. This is the sense that your heart is fluttering or beating fast or hard or irregularly. ? Tiredness, fatigue, or weakness ? Cardiac arrest, and , in serious arrhythmias Causes of arrhythmias Arrhythmias are most often caused by heart disease, such as: ? Coronary artery disease ( blocked arteries ) ? Heart valve disease ? Enlarged heart ? High blood pressure ? Heart failure Other causes of arrhythmia include: ? Certain medicines, such as asthma inhalers and decongestants ? Some herbal supplements ? Cardiac stimulant drugs and medicines. These include cocaine, amphetamine, and diet pills, and certain decongestant cold medicines, caffeine, and nicotine. ? Heavy use of alcohol ? Anxiety and panic disorder ? Thyroid disease ? Anemia ? Diabetes ? Sleep apnea ? Obesity ? Heart disease since (congenital) ? Heart diseases passed down through families ? Electrolyte imbalance. Electrolytes are substances that help regulate normal heartbeat. High or low levels of certain electrolytes such as potassium or magnesium may affect the heartbeat and lead to arrhythmia. ? Older age Arrhythmias can often be prevented. The cause and type of arrhythmia determines the best treatment. Sometimes your healthcare provider may want to keep track of your heart rate over a 24-hour period or longer. This can help find the cause of your arrhythmia and find the best treatment. This can be done with a Holter monitor. This is a portable electrocardiogram (ECG) recording device attached to your chest. Or you may get an event monitor. You can place this monitor over the skin in front of your heart. It records heart rhythms. You can carry this with you as you go about your daily activities during the monitoring period. You may also have an implantable loop recorder. This can monitor the heart rhythm for up to 3 years. This tiny device is placed underneath the skin over the heart. Home care These guidelines will help you care for yourself at home: ? Stay away from heart stimulants. These include cocaine, amphetamine, diet pills, certain decongestant cold medicines, caffeine, and nicotine. ? Stop smoking if you smoke. Contact your healthcare provider or a local stop-smoking program for help. ? Tell your healthcare provider about any prescription, over the counter, or herbal medicines you take. These may be affecting your heart rhythm. Follow-up care Follow up with your healthcare provider, or as advised. If a Holter monitor has been advised, contact the structural steel painter you have been referred to as soon as you can to pick up truck driver the device. Other outpatient tests may also be arranged for you at that time. Call 911 This is the fastest and safest way to get to the emergency department. The paramedics can also start treatment on the way to the hospital, if needed. Don't wait until your symptoms are severe to call 911. Other reasons to call 911 besides chest pain include: ? Chest pain radiating to the shoulder, arm, neck, or back ? Shortness of breath ? Feeling lightheaded, faint, or dizzy ? Unexplained fainting ? Rapid heartbeat ? Slower than usual heart rate compared to your normal ? Very irregular heartbeat ? Chest pain (angina) with weakness, dizziness, heavy sweating, nausea, or vomiting ? Extreme drowsiness, or confusion ? Weakness of an arm or leg or one side of the face ? Trouble with speech or vision When to get medical advice Remember, things are not always like they are on TV. Sometimes it (more content not included)... [facility] 11-25-2024 Hospital Discharge instructions Oj Chapman II, PA-C - 11/25/2024 7:00 PM EST Return to the emerged apartment if you have increased abdominal pain fever vomiting not helped by the Zofran prescribed or any worsening symptoms You will receive a survey in the next couple days regarding your experience in the ED. We are constantly striving to improve our care and welcome your feedback. Thank you very much for your time. The emergency department evaluation is not a complete evaluation, you're always required to followup with another doctor within the next few days to assess how your symptoms are progressing and to ensure that there is no indication for further testing or returning to the hospital. Even with treatment sometimes your condition worsens and you will need to return to the hospital. If you are having pain and it is getting worse you should return to the hospital. If you have any new symptoms that were not addressed at your original visit you should return to the hospital. If you're having difficulty breathing but it is getting worse you should return to the hospital. If you're vomiting and cannot take the medicines that were prescribed you should return to the hospital. If you're having persistent fevers you should return to the hospital. If you have any question of whether or not your symptoms are serious enough or for any other urgent concerns- always return to the hospital for repeat evaluation. The following attachments cannot be sent through Care Everywhere.Nausea and Vomiting (Bruneian)documented in this encounter [facility] 11-20-2024 History of Present illness Narrative Patient verbalizes readiness for discharge. Discharge instructions given to patient and responsible adult, answered all questions, and verbalized understanding of discharge instructions. Discharge Criteria Inpatients must meet Criteria 1 through 7. All other patients are either YES or N/A. If a NO is chosen then Anesthesia or Surgeon must be notified. 1. Minimum 30 minutes after last dose of sedative medication. Yes 2. Systolic BP between 90 - 160. Diastolic BP between 60 - 90. Yes 3. Pulse between 60 - 120 Yes 4. Respirations between 8 - 25. Yes 5. SpO2 92% - 100%. Yes 6. Able to cough and swallow [...] 14. Accompanied by a responsible adult. Yes Patient ready in Pre-op. Anesthesia paged. Patient instructed on the pre-operative, intra-operative, and post-operative process. Patient instructed on NPO status. Medication instructions and pre operative instruction sheet reviewed with the patient. CHG skin prep instructions reviewed with patient. documented in this encounter [facility] 11-20-2024 Hospital Discharge instructions Ruby Plaza PA-C - 11/20/2024 12:40 PM EST SAME DAY SURGERY DISCHARGE INSTRUCTIONS 1. [...] they will fall off on their own. If they have not fallen off in 7-10 days, please remove them. 10. If no drainage from incisions you [...] 17. Call for an appointment to see UMER Ledesma in [address] Hoang -- [place] office [phone] [place] [phone] documented in this encounter [facility] 04-01-2024 Hospital Discharge instructions Kalyn Shin DO - 04/01/2024 4:19 PM EDT Drink plenty of fluids at home. Make sure to eat regularly at frequent intervals to maintain your blood sugars. Follow-up with your doctor next week. The following attachments cannot be sent through Care Everywhere.Fainting (Bruneian)documented in this encounter [facility] 04-13-2023 Hospital Discharge instructions Oscar Us MD - 04/13/2023 9:51 [...] sent through Care Everywhere.DVT (Deep Vein Thrombosis) (Bruneian)documented in this encounter [facility] [employer] Phone: 11-20-2022 History of Present illness Narrative Patient verbalizes readiness for discharge. [...] yo. OK to proceed with anesthesia for director outpatient services surgery on 11/20/2022 Asked anesthesia to review chart/EKG due to abnormal reading. FARA Johnson notified. Patient instructed on the pre-operative, intra-operative, and post-operative process. Patient instructed on NPO status. Medication instructions and pre operative instruction sheet reviewed with the patient. CHG skin prep instructions reviewed with patient. documented in this encounter [facility] [employer] Phone: 11-20-2022 Hospital Discharge instructions Charis Peng RN - 11/20/2022 7:59 [...] surgeon in [address] Hoang -- [place] office [phone] [place] office [phone] documented in this encounter [facility] Phone: 06-12-2022 History of Present illness Narrative Discharge instructions reviewed with pt, verbalizes understanding, denies needs at this time Patient presents for scheduled monoclonal antibody infusion. Confirmed meets criteria. VSS. documented in this encounter [facility] Phone: 06-11-2022 Hospital Discharge instructions Vu Calle PA-C - 06/11/2022 8:32 PM EDT Follow-up with JORDAN WORKER tomorrow. Continue Tylenol as directed and plenty of fluids. Promptly return to emergency department for new, changing or worsening of symptoms or other concerns. The following attachments cannot be sent through Care Everywhere.Coronavirus Disease (COVID-19): General Info (Bruneian)documented in this encounter [facility] Phone: 06-02-2022 Hospital Discharge instructions Follow Up Care 06/02/2022 15:59:30 With:KVNG THURMAN, Paolo Arango, URL Address: [address] [place], [place] [id number]- When: Unknown [facility] [email or web address] Evaluation + Plan note No data available for this section [facility] [email or web address] Evaluation note Diagnosis Subacute vaginitis Screening examination for venereal disease documented in this encounter [employer] Phone: evaluation note* Diagnosis Acute cystitis without hematuria- Primary Acute cystitis documented in this encounter [employer] Phone: evaluation note* Diagnosis Amenorrhea, secondary Absence of menstruation documented in this encounter [employer] Phone: evaluation note* Diagnosis Encounter for supervision of other normal in first trimester documented in this encounter [employer] Phone: evaluation note* Diagnosis Acute vaginitis Vaginitis and vulvovaginitis, unspecified documented in this encounter [employer] Phone: evaluation note* Diagnosis Acute vaginitis Vaginitis and vulvovaginitis, unspecified Urinary frequency Bilateral low back pain without sciatica, unspecified chronicity documented in this encounter [facility] Phone: evaluation note* Diagnosis 36 weeks gestation of state, incidental documented in this encounter [facility] Phone: evaluation note* Diagnosis Incomplete emptying of bladder Incomplete bladder emptying documented in this encounter [facility] Phone: evaluation note* Diagnosis COVID-19- Primary documented in this encounter [facility] Phone: evaluation note* Diagnosis COVID-19- Primary documented in this encounter [facility] Phone: evaluation note* Diagnosis Dysuria Acute vaginitis Vaginitis and vulvovaginitis, unspecified documented in this encounter [facility] Phone: evaluation note* Diagnosis Post-op pain- Primary Other acute postoperative pain Endometriosis Endometriosis, site unspecified documented in this encounter [facility] Phone: evaluation note* Diagnosis History of endometriosis Personal history of other genital system and obstetric disorders Pelvic and perineal pain Unspecified symptom associated with female genital organs Pre-op testing Preoperative examination, unspecified documented in this encounter [facility] Phone: evaluation note* Diagnosis Poison lise dermatitis- Primary Contact dermatitis and other eczema due to plants (except food) documented in this encounter [facility] Phone: evaluation note* Diagnosis Leg swelling- Primary Swelling of limb documented in this encounter [facility] Phone: evaluation note* Diagnosis Syncope, unspecified syncope type- Primary documented in this encounter [facility] note* Diagnosis Acute vaginitis Vaginitis and vulvovaginitis, unspecified documented in this encounter [facility] note* Diagnosis Pelvic pain documented in this encounter [employer] note* Diagnosis Pelvic pain syndrome Pelvic congestion syndrome History of endometriosis Personal history of other genital system and obstetric disorders Encounter for pre-operative laboratory testing Preoperative examination, unspecified History of endometriosis Personal history of other genital system and obstetric disorders Pelvic and perineal pain Unspecified symptom associated with female genital organs Pelvic pain syndrome Pelvic congestion syndrome History of endometriosis Personal history of other genital system and obstetric disorders documented in this encounter [facility] [employer] note* Diagnosis Postoperative pain- Primary Other acute postoperative pain Pelvic pain syndrome Pelvic congestion syndrome History of endometriosis Personal history of other genital system and obstetric disorders documented in this encounter [facility] [employer] note* Diagnosis Nausea and vomiting, unspecified vomiting type- Primary [facility]* Attachments The following attachments cannot be sent through Care Everywhere. * UTI (Urinary Tract Infection): Female (Bruneian) [facility] Phone: Hospital Discharge instructions* Attachments The following attachments cannot be sent through Care Everywhere. * Coronavirus Disease (COVID-19): Caring for Yourself: Quick List (Bruneian) [facility] Phone: Hospital Discharge instructions* Attachments The following attachments cannot be sent through Care Everywhere. * Poison Lise - [place] - and [place] (Bruneian) [facility] Phone: progress note No data available for this section [facility] [employer] reason for visit Narrative* Treatment Plan and Therapy Plan (Routine) - Open Specialty Diagnoses / Procedures Referred By Servando t Referred To Contact Diagnoses COVID-19 Vu Calle PA-C [address] [place] [address] [place] [address] [facility] [address] [place] [address] [place] [address] Referral ID Status Reason Start Date Expiration Date Visits Re quested Visits Authorized [id number] Open 06/12/2022 06/12/2023 1 1 [facility] [employer] Phone: Summary Purpose Family History No Family History Records FoundNo Family History Records FoundNo Family History Records FoundNo Family History Records FoundNo Family History Records FoundNo Family History Records FoundNo Family History Records FoundNo Family History Records FoundNo Family History Records FoundNo Family History Records Found Advance Directives No Advanced Directives Records FoundDocuments on File Type Date Recorded Patient Scrap Worker Expl anation Advance Directives and Living Will Power of Airport Ramp Attendant Latest Code Status on File Code Status Date Activated Date Inactivated Comments Full Code 06/16/2020 8:40 PM Latest Code Status on File Code Status Date Activated Date Inactivated Comments Full Code 08/13/2020 7:07 PM Documents on File Type Date Recorded Patient Scrap Worker Expl anation ACP-Advance Directive ACP-Power of Airport Ramp Attendant Latest Code Status on File Code Status [...] Code 08/13/2020 7:07 PM 08/13/2020 11:13 PM Date Activated Date Inactivated Comments 11/20/2022 7:21 AM 11/20/2022 1:16 PM Date Activated Date Inactivated Comments 06/22/2022 6:06 AM 06/22/2022 7:10 PM Date Activated Date Inactivated Comments 09/20/2020 7:07 PM 09/21/2020 8:45 PM Date Activated Date Inactivated Comments 09/20/2020 6:02 AM 09/20/2020 7:07 PM Date Activated Date Inactivated Comments 08/13/2020 7:07 PM 08/13/2020 11:13 PM Date Activated Date Inactivated Comments 11/20/2024 10:38 AM Date Activated Date Inactivated Comments 11/20/2022 7:21 AM 11/20/2022 1:16 PM Date Activated Date Inactivated Comments 06/22/2022 6:06 AM 06/22/2022 7:10 PM Date Activated Date Inactivated Comments 09/20/2020 7:07 PM 09/21/2020 8:45 PM Date Activated Date Inactivated Comments 09/20/2020 6:02 AM 09/20/2020 7:07 PM Date Activated Date Inactivated Comments 11/20/2024 10:38 AM 11/20/2024 6:25 PM Date Activated Date Inactivated Comments 11/20/2022 7:21 AM 11/20/2022 1:16 PM Date Activated Date Inactivated Comments 06/22/2022 6:06 AM 06/22/2022 7:10 PM Date Activated Date Inactivated Comments 09/20/2020 7:07 PM 09/21/2020 8:45 PM Date Activated Date Inactivated Comments 09/20/2020 6:02 AM 09/20/2020 7:07 PM Hospital Course Note MR#: [id number] I [facility] Pt. Name: Zaid Luna Admitted: 03/31/2019 Discharged: 04/04/2019 Date of : 2000 Physician: Scott Hernandez MD DISCHARGE SUMMARY Prabhu Ivan Patient Name: Zaid Luna D/c date: 04/04/2019 Principal Dx: Mood Disorder NOS Brief HPI - Pt. is a 18 year old female who was referred from [facility] after being seen there for a crisis [...] be sent through Care Everywhere. * Dermatitis (Bruneian) documented in this encounter* Instructions* Zulma Sutton RN - 09/21/2020 Follow-up with your OB doctor as specified. [facility] OB Department phone: Dr. Farhana Gross CNM Dr. Viktor Kapadia CNM [address] [facility] [address] [facility] [address] [place] [address] Viktor Smith CNM [address] [facility] [address] [phone] Krista Cadet, MSN, SHORTHAND TEACHER, CNM [place] [id number] [facility] [address] [address] Jimenez [address] [facility] [address] Caridad Hanks CNM [address] [place] [address] [place] [address] Kristie Salazar CNM [address] [place] [address] [place] [address] [phone] DIET Eat a well balanced diet focusing on foods high in fiber and protein. Drink plenty of fluids especially water. To avoid constipation you may take a mild stool softener as recommended by your doctor or label remover. ACTIVITY Gradually increase your activity. Resume exercise regimen only after advice by your doctor or label remover. Avoid lifting anything heavier than a gallon of milk for SIX weeks. Avoid driving until your doctor or label remover has given their approval. Rise slowly from [...] of harming yourself or your . If will not stop crying, contact another adult for help or place in their crib on their back and take a break. NEVER shake your . BLEEDING Vaginal bleeding will decrease in amount [...] medications as recommended by your doctor or label remover for pain If you develop a warm, [...] vitamins as directed by your doctor or label remover. Refer to the booklet in the folder/binder for more information. If you feel you need more assistance or have questions, please call Sandra Patterson IBCLC, risk management consultant, at or the OB department to schedule [...] calf. documented in this encounter* Instructions* Radha Flores RN - 08/13/2020 Dr Viktor Smith [facility] [address] [facility] [address] [phone] ACTIVITY LIMITATIONS: (x )Up and about as [...] . documented in this encounter* Instructions* Dora Mabry RN - 06/16/2020 OUTPATIENT DISCHARGE Judy Viramontes [facility] [place] [address] Jimenez Caridad Serra Krista AUGUSTE Caridad Hanks [facility] Kristie Salazar [facility] ACTIVITY LIMITATIONS: ( )Up and about [...] History of Present Illness * Alisia Gross, SHORTHAND TEACHER - CNM - 09/21/2020 10:16 AM EST [...] F (37.3 C) Oral 116 16 09/20/20 1946 (!) 140/84 109 09/20/20 1931 129/84 103 09/20/20 1916 123/77 97 16 09/20/20 1901 126/78 99 09/20/20 1846 130/71 94 [...] Extremities: no Clubbing cyanosis or ecchymosis Per applications intern since mom is up out of bed [...] section and content) DATE CREATED AUTHOR 10/20/[address] [facility] DATE CREATED AUTHOR AUTHOR'S ORGANIZ ATION 01/16/2020 [facility] DATE CREATED AUTHOR AUTHOR'S ORGANIZ ATION 02/28/2020 [facility] DATE CREATED AUTHOR AUTHOR'S ORGANIZ ATION 08/14/2020 [facility] DATE CREATED AUTHOR AUTHOR'S ORGANIZ ATION 01/31/2021 [facility] DATE CREATED AUTHOR AUTHOR'S ORGANIZ ATION 12/02/[address] [facility] DATE CREATED AUTHOR AUTHOR'S ORGANIZ ATION 09/13/[address] [facility] DATE CREATED AUTHOR AUTHOR'S ORGANIZ ATION 12/19/2024 [facility] DATE CREATED AUTHOR AUTHOR'S ORGANIZ ATION 12/29/2024 [facility] DATE CREATED AUTHOR AUTHOR'S ORGANIZ ATION 02/25/2025 [facility] Reason for Visit (unrecogniz ed section and [...] headache Specialty Diagnoses / Procedures Referred By Servando t Referred To Contact Diagnoses Endometriosis ENDOMETRIOSIS, PELVIC PAIN Procedures NE LAP,RMV ADNEXAL STRUCTURE NE LAP,RMV ADNEXAL STRUCTURE LAPAROSCOPY EXPLORATORY- DIAGNOSTIC, LYSIS OF ADHESIONS, ABLATION OF ENDOMETRISOSIS SALPINGECTOMY LAPAROSCOPIC Bridget Oconnor, DO [address] [place] [address] [address] [place] [address] Referral ID Status Reason Start Date Expiration Date Visits Re quested Visits Authorized [id number] 1 1 Reason Comments Rash Left posterior [...] up on bathroom floor with head injury. Specialty Diagnoses / Procedures Referred By Servando t Referred To Contact Diagnoses Pelvic pain syndrome History of endometriosis Pelvic pain syndrome [R10.2] History of endometriosis [Z87.42] Procedures NE LAPAROSCOPY W TOTAL HYSTERECTOMY UTERUS 250 GM/< HYSTERECTOMY VAGINAL LAPAROSCOPIC ROBOTIC ASSISTED, possible Bilateral Oophorectomy, possible Laparoscopic Colpopexy Bridget Oconnor, DO [address] [place] [address] [employer] [place] [address] Referral ID Status Reason Start Date Expiration Date Visits Re quested Visits Authorized [id number] 1 1 Reason Comments Abdominal Pain Pt s/p hysterectomy on 11-20-[address] Perez; pt states she has been feeling nauseated and has been vomiting green; has been eating applesauce and soup since surgery; increased abdominal pain with vomiting; denies fever; has had some SOB since surgery; also states difficulty urinating since surgery as well Ordered Prescriptions (unrec ognized section and content) [...] for Pain 20 tablet 0 11/20/2022 11/20/2023 Prescription Sig Dispensed Refills Start Date End Da te HYDROcodone-acetaminophe n (NORCO) 5-325 MG per tabletIndications:Postop erative pain Take 1 tablet by mouth every 6 hours as needed for Pain for up to 5 days. Intended supply: 5 days. Take lowest dose possible to manage pain Max Daily Amount: 4 tablets 10 tablet 11/20/2024 11/25/2024 ketorolac (TORADOL) 10 MG tablet Take 1 tablet by mouth every 6 hours as needed for Pain 20 tablet 11/20/2024 11/20/2025 Prescription Sig Dispensed Refills Start Date End Da te ondansetron (ZOFRAN-ODT) 4 MG disintegrating tablet Take 1 tablet by mouth 3 times daily as needed for Nausea or Vomiting 21 tablet 11/25/2024 Scheduled Active and Recently Administ ered Medications [...] 650 mg, Oral, ONCE, 1 dose, On Wed11/20/22 at 0745, Maximum dose of acetaminophen is 4000 mg from all sources in 24 hours., Pre-op (day of surgery) 0735 (Given - Provid er: Bruna Peterson RN) ceFAZolin (ANCEF) 2000 mg in dextrose 5 % 100 mL IVPB (COMPLETED) 2,000 mg, IntraVENous, DEVELOPMENT TECHNICIAN TO O.R., 1 dose, On Wed11/20/22 at [...] (NoRateChange - Provider: Chris Osorio APRN - FARA)0920 (Anesthesia Volume Adjustment - Provider: ELVIA Asher [...] 74.8 kg), SubCUTAneous, ONCE, 1 dose, On Wed04/13/23 at 2200, Indication of Use: Treatment-DVT/PE, Administer [...] RN)1736 (Stopped - Provider: Anahi Worthy RN) Scheduled Medication Order 11/18/2024 11/19/2024 11/20/2024 acetaminophen (TYLENOL) tablet 650 mg (COMPLETED) 650 mg, Oral, ONCE, 1 dose, On Wed11/20/24 at 1100, Maximum dose of acetaminophen is 4000 mg from all sources in 24 hours., Pre-op (day of surgery) 1056 (Given - Provid er: Debbie Iverson RN) ceFAZolin (ANCEF) 2000 mg in 20 mL IV syringe (COMPLETED) 2,000 mg, IntraVENous, DEVELOPMENT TECHNICIAN TO O.R., 1 dose, On Wed11/20/24 at 1100, Antimicrobial Indications: Surgical Prophylaxis, Administer within 1 hour prior to incision. Administer over 5 mins., Pre-op (day of surgery) 1256 (Given - Provid er: Rome Kirkpatrick APRN - FARA) dimenhyDRINATE (DRAMAMINE) tablet 50 mg (COMPLETED) 50 mg, Oral, ONCE, 1 dose, On Wed11/20/24 at 1100, Pre-op (day of surgery) 1056 (Given - Provid er: Debbie Iverson RN) enoxaparin (LOVENOX) injection 40 mg (COMPLETED) 40 mg, SubCUTAneous, ONCE, 1 dose, On Wed11/20/24 at 1100, Indication of Use: Prophylaxis-DVT/PE, Administer by deep subCUTAneous injection with pt lying down. Alternate injection sites on abdominal wall. Do not rub site after injection. Check with provider prior to any invasive procedure., Pre-op (day of surgery) 1056 (Given - Provid er: Debbie Iverson RN) gabapentin (NEURONTIN) capsule 300 mg (COMPLETED) 300 mg, Oral, ONCE, 1 dose, On Wed11/20/24 at 1100, Pre-op (day of surgery) 1056 (Given - Provid er: Debbie Iverson RN) sodium chloride flush 0.9 % injection 5-40 mL 5-40 mL, IntraVENous, EVERY 12 HOURS SCHEDULED (2 times per day), First dose on Wed11/20/24 at 1100, Until Discontinued, For Line Patency: Peripheral IV [...] = 20 mL/lumen, Pre-op (day of surgery) 1100 (Due)2100 (Due) sodium chloride flush 0.9 % injection 5-40 mL 5-40 mL, IntraVENous, EVERY 12 HOURS SCHEDULED (2 times per day), First dose on Wed11/20/24 at 2100, Until Discontinued, For Line Patency: Peripheral IV [...] Central Line = 20 mL/lumen, PACU only 2100 (Due) Continuous Medication Order 11/18/2024 11/19/2024 11/20/2024 lactated ringers infusion IntraVENous, at 125 mL/hr, CONTINUOUS, Starting on Wed11/20/24 at 1100, Pre-op (day of surgery) 1100 (Due) lactated ringers infusion IntraVENous, at 100 mL/hr, CONTINUOUS, Starting on Wed11/20/24 at 1100, Pre-op (day of surgery) 1059 (New Bag - Prov ider: Debbie Iverson RN)1239 (Paused - Provider: ELVIA Hutton STAFF RESPIRATORY THERAPIST - Comment: Switch to gravity)1240 (Restarted - Provider: ELVIA Hutton STAFF RESPIRATORY THERAPIST)1403 (Stopped - Provider: ELVIA Hutton STAFF RESPIRATORY THERAPIST)1610 (Stopped - Provider: Charis Peng RN) PRN Medication Order 11/18/2024 11/19/2024 11/20/2024 0.9 % sodium chloride infusion IntraVENous, at 5-250 mL/hr, PRN, if patient receiving piggyback infusions and maintenance fluids are not ordered, Starting on Wed11/20/24 at 1038, For piggyback infusion, administer at same rate as piggyback for a total of 25 mL. Enter 25 mL into dose field and piggyback rate into rate field of order. If piggyback is infusing at a rate less than 100 mL/hr, enter 25 mL into dose field and 100 mL/hr into rate field of order., Pre-op (day of surgery) 0.9 % sodium chloride infusion IntraVENous, at 5-250 mL/hr, PRN, if patient receiving piggyback infusions and maintenance fluids are not ordered, Starting on Wed11/20/24 at 1412, For piggyback infusion, administer at same rate as piggyback for a total of 25 mL. Enter 25 mL into dose field and piggyback rate into rate field of order. If piggyback is infusing at a rate less than 100 mL/hr, enter 25 mL into dose field and 100 mL/hr into rate field of order., PACU only fentaNYL (SUBLIMAZE) injection 50 mcg 50 mcg, IntraVENous, EVERY 5 MIN PRN, 2 doses, Starting on Wed11/20/24 at 1412, Until Discontinued, Pain Severe (7-10), Pain Moderate (4-6), For Phase I. If Phase II oral narcotics have been administered in the last 60 minutes, do not administer IV narcotics unless specifically approved by provider., PACU only 1433 (Given - Provid er: Charis Peng RN) HYDROcodone-acetaminophen (NORCO) 5-325 MG per tablet 1 tablet 1 tablet, Oral, EVERY 6 HOURS PRN, Starting on Wed11/20/24 at 1412, Until Discontinued, Pain Moderate (4-6), Pain Severe (7-10), Maximum dose of acetaminophen is 4000 mg from all sources in 24 hours., PACU & Post-op 1519 (Given - Provid er: Charis Peng RN) naloxone 0.4 mg in 10 mL sodium chloride syringe IntraVENous, PRN, Opioid Reversal, Starting on Wed11/20/24 at 1412, PRN if respiratory rate is less than 6/min and patient is difficult to arouse then notify physician STAT. Mix 9 mL of sodium chloride 0.9% with 0.4 mg (1 mL) of naloxone (NARCAN) in 10 mL syringe. (Note: dilution is 0.04 mg/mL) Give 0.08 mg (2 mL of special dilution), slow IV push, repeat up to 0.4 mg (10 mL) or until patient is responsive to physical stimulation and respiratory rate is equal to or greater than 6 breaths/min. Continue to observe, if no response within 3 minutes of administration of 0.4 mg (10 mL) total, repeat dose (0.4 mg as administered previously). Concentration 0.04 mg/mL, PACU only ondansetron (ZOFRAN) injection 4 mg 4 mg, IntraVENous, EVERY 6 HOURS PRN, Starting on Wed11/20/24 at 1506, Until Discontinued, Nausea, Vomiting, Post-op ondansetron (ZOFRAN) injection 4 mg 4 mg, IntraVENous, EVERY 6 HOURS PRN, Starting on Wed11/20/24 at 1506, Until Discontinued, Nausea, Vomiting, Post-op 1511 (Given - Provid er: Charis Peng RN) sodium chloride flush 0.9 % injection 5-40 mL 5-40 mL, IntraVENous, PRN, Starting on Wed11/20/24 at 1038, Until Discontinued, Line Care, After every IV [...] mL 5-40 mL, IntraVENous, PRN, Starting on Wed11/20/24 at 1412, Until Discontinued, Line Care, After every IV [...] 20 mL/lumen, PACU only Scheduled Medication Order 11/23/2024 11/24/2024 11/25/2024 ondansetron (ZOFRAN) injection 4 mg (COMPLETED) 4 mg, IntraVENous, ONCE, 1 dose, On 11/25/24 at 1700 1749 (Given - Provid er: Charis Mascorro RN) sodium chloride 0.9 % bolus 1,000 mL (COMPLETED) 1,000 mL (12.3 mL/kg), IntraVENous, at 983.6 mL/hr, Administer over 61 Minutes, ONCE, On 11/25/24 at 1700, For 1 dose 1747 (New Bag - Prov ider: Charis Mascorro, RN)1848 (Stopped - Provider: Charis Mascorro RN) Care Teams (unrecognized sec tion and content) Book Retailer Relationship Specialty Start Date End Date Arabella Falk MD [address] [place] [address] PCP - General Family Medicine 04/09/21 Book Retailer Relationship Specialty Start Date End Date Arabella Falk MD [address] [place] [address] PCP - General Family Medicine 04/09/21 Book Retailer Relationship Specialty Start Date End Date Arabella Falk MD [address] [place] [address] PCP - General Family Medicine 04/09/21 Book Retailer Relationship Specialty Start Date End Date Arabella Falk MD [address] [place] [address] PCP - General Family Medicine 04/09/21 Book Retailer Relationship Specialty Start Date End Date Arabella Falk MD [address] [place] [address] PCP - General Family Medicine 04/09/21 Book Retailer Relationship Specialty Start Date End Date Arabella Falk MD [address] [facility] [place] [address] PCP - General Family Medicine 04/09/21 Book Retailer Relationship Specialty Start Date End Date Arabella Falk MD [address] [place] [address] PCP - General Family Medicine 04/09/21 Book Retailer Relationship Specialty Start Date End Date Arabella Falk MD [address] [facility] [place] [address] PCP - General Family Medicine 04/09/21 Book Retailer Relationship Specialty Start Date End Date Arabella Falk MD [address] [facility] [place] [address] PCP - General Family Medicine 04/09/21 Book Retailer Relationship Specialty Start Date End Date Arabella Falk MD [address] [facility] [place] [address] PCP - General Family Medicine 04/09/21 Book Retailer Relationship Specialty Start Date End Date Arabella Falk MD [address] [facility] [place] [address] PCP - General Family Medicine 04/09/21 Book Retailer Relationship Specialty Start Date End Date Arabella Falk MD [address] [facility] [place] [address] PCP - General Family Medicine 04/09/21 Book Retailer Relationship Specialty Start Date End Date Arabella Falk MD [address] [facility] [place] [address] PCP - General Family Medicine 04/09/21 Book Retailer Relationship Specialty Start Date End Date Arabella Falk MD [address] [facility] [place] [address] PCP - General Family Medicine 04/09/21 FOR [...] BE BASED ON THE PRIMARY CLINICAL RECORDS. [employer] [facility]. provides no warranty or guarantee of the accuracy or completeness of information in this document.
== END 2025-03-22 10:11 | disposition home or self-care (01) ==
LOC: US 10:12
PROVIDERS: PCP Family Medicine; Visit Provider Family Medicine
DX: R10.9 Unspecified abdominal pain (principal)
CPT/HCPCS: 76705

== ENCOUNTER 2025-06-05 11:34 | Outpatient (OUT) | payer OTHER, MEDICAID, SELFPAY ==
--- OUTSIDE RECORDS SUMMARY | 2025-05-22 07:00 | XMS_ITS ---
Author Organization [facility] in [place] Address [address] [place] [address] Care Team Providers Care Rivet Tester Name Role Phone Brenden Case Primary Care Provider REASON FOR VISIT wt check Vital Signs Weight 138.0 lbs 05/22/2025 Height 63 in 05/22/2025 BMI 24.44 kg/m2 05/22/2025 Encounters Encounter Location Date Provider Diagnosis [facility] [address] [place] [address] 05/22/2025 Brenden Case Plan Of Treatment No Information Progress Notes * Jenna LUNAOB:2000 (25 yo F)Acc No.[id number]:05/22/2025 Nurse Visit Patient: Rios JULES [facility] [place] :2000 A ge:25 Y S ex:Female Date:05/22/2025 Address:[address] [id number] Check In:11:04 AM EST Subjective: * Chief Complaints: * 1 . Wt check. 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, recurrent severe without psychotic features Modified On:11/16/2019W/U Status:confirmed F41.9 Anxiety disorder, un specified type Modified On:11/16/2019W/U Status:confirmed F51.04 Psychophysiologic in somnia Modified On:11/16/2019W/U Status:confirmed M79.10 Myalgia Modified On:09/01/2024U Status:confirmed R53.83 Fatigue Modified On:09/01/2024 Status:confirmed R19.7 Diarrhea Modified On:09/01/2024 Status:confirmed N94.6 Dysmenorrhea Modified On:11/21/2024 Status:confirmed 625.0 Dyspareunia Modified On:11/21/2024 Status:confirmed N94.19 Dyspareunia due to m edical condition in female Modified On:11/21/2024 Status:confirmed R10.9 Abdominal pain Modified On:03/21/2025 Status:confirmed * Medical History: Objective: * Vitals: W t:138.0lbs, Ht: 63 in, BMI:24.44Index, Ht-cm: 160.02 cm, Wt-k.6 kg. Assessment: Plan: * Treatment: * * Sign off status: Completed Visit Status: A RR (Check-In) true * Provider: Raman Case (B[facility]ELLE)MD Date: 05/22/2025 Generated for Karolina caba/Cintia/Gissellitting on: 06/05/2025 11:38 AM EDT
--- OUTSIDE RECORDS SUMMARY | 2025-06-05 07:00 | XMS_ITS ---
Author Organization [facility] in [place] Address [address] [place] [address] Care Team Providers Care Oiling Machine Operator Name Role Phone Brenden Case Primary Care Provider Allergies Allergen (clinical drug ingredient) Drug/Non Drug Allergy documented on EMR Reaction Allergy Type Onset Date Status aripiprazole abilify (uncoded) bad side effects Allergy Active citalopram celexa (uncoded) ineffective Allergy Active lamotrigine lamictal (uncoded) ineffective Allergy Active risperidone risperdol (uncoded) ineffective Allergy Active trazodone trazadone (uncoded) ineffective Allergy Active metronidazole Flagyl rash/hives Drug Allergy Ac tive amoxicillin Amoxicillin hives Drug Allergy Act kayy Penicillin unknown Drug Allergy Active REASON FOR VISIT Requesting Blood Work Medications Medication SIG (Take, Route, Fr equency, Duration) Notes Start Date End Date Status Adipex-P 37.5 MG 1 tablet before dustin kfast Orally Once a day 05/22/2025 Active Social History Tobacco Use: Social History Observation Description Date Details (start date - stop date) Never Smoker NA - NA Tobacco Use/Smoking Question Answer Notes Patient is a nonsmoker AUDIT-C (Standard) Question Answer Notes Did you have a drink containing alcohol in the p ast year? No Points 0 Interpretation Negative Problems Problem Type SNOMED Code ICD Code Onset Dates Problem Status W/U Status Risk Notes Problem Well adult (275408126) Well adult (Z00.00) Active confirmed Vital Signs Weight 135.0 lbs 06/05/2025 Height 63 in 06/05/2025 BMI 23.91 kg/m2 06/05/2025 Encounters Encounter Location Date Provider Diagnosis [facility] [address] [facility] [place] [address] 06/05/2025 Brenden Case Well adult Z00.0 0 Assessments Encounter Date Diagnosis (ICD Code) Assessment Notes Treatment Notes Treatment Clinical Notes Section Notes 06/05/2025 Well adult (ICD-10 - Z00.00) Plan Of Treatment Pending Test Test Name Order Date HEMOGLOBIN A1C (GLYCO) 06/05/2025 IRON, TOTAL 06/05/2025 LIPID PANEL (CHOL/TRIG/HDL/LDL) 06/05/20 25 Urinalysis Microscopic 06/05/2025 RHEUMATOID PANEL 06/05/2025 Insulin Level 06/05/2025 CULTURE URINE 06/05/2025 SED RATE WESTERGREN 06/05/2025 THYROID PANEL (T4/TSH/FREE T3) 5 CMP (COMP MET ARAUJO) w/eGFR CKD-EPI 2024 CBC WITH DIFF 06/05/2025 Progress Notes * Jenna LUNAOB:2000 (25 yo F)Acc No.[id number]:06/05/2025 UNLOCKED PROGRESS NOTE Progress Note Patient: Rios JULES Provider: Raman Case ([facility])MD :2000 A ge:25 Y S ex:Female Date:06/05/2025 Address:[facility] [id number] Check In:11:03 AM ESTCheck O ut:11:35 AM EST Subjective: * Chief Complaints: * 1 . Requesting Blood Work. * HPI: G eneral: Seeign BUSINESS SUPPORT ASSISTANT - pushign fluids but also urinating more fdeels like has frequent uti. * ROS: E ENT: hearing changes d enies. v isual changes d enies.?non-healing mouth sores d enies. s wollen glands or neck lumps d enies. h oarseness d enies. s ore throat d enies. d ifficulty swallowing d enies. n ose bleeds d enies. n germania congestion d enies. e ar ache d enies. e ar discharge?denies. r inging in ears d enies. l ight sensitivity d enies. e ye pain d enies. b lurring d enies. e ye irritation d enies. d ouble vision d enies.?vision loss d enies. G eneral/Constitutional: Sweats: D enies. F atigue d enies. S leep problems d enies. A norexia d enies. M alaise d enies. W eight loss d enies.?Fatigue or Weakness d enies. F ever or Chills d enies. C ardiovascular: Shortness of Breath w/lying flat d enies. L ightheadedness/dizziness d enies. C hest tightness/ heavy pressure d enies. S welling of legs, ankles, or feet d enies. W aking up with shortness of breath d enies. C hest pain denies. P alpitations d enies. W eight gain d enies. R espiratory: Chronic or frequent cough d enies. C oughing up blood?denies. D ifficulty breathing d enies. P roductive cough d enies. S noring?denies. S hortness of breath that awakens from sleep (PND) d enies. C hest pain d enies. S putum production d enies. W heezing d enies. M usculoskeletal: Joint pain d enies. J oint Fluid d enies. B ack pain d enies. K nee pain d enies. N neel pain d enies. J oint Stiffness d enies. M uscle cramps d enies. W eakness of muscles d enies. A rthritis d enies. M uscle aches d enies. P ain in shoulder(s) d enies. S wollen joints d enies. * Medical History: S inus tachycardia, Syncope and collapse, Dysfunctional uterine bleeding, Ovarian cyst, right, Suicidal ideation, Mood disorder, Myopericarditis, Dyshidrotic eczema. * Surgical History: T UBE REMOVAL , Endometriosis clean out , Hysterectomy 11/20/2024. * Hospitalization/Major Diagno stic Procedure: G allstones , High heartrate 11/2019. * Family History: F ather: alive 44 yrs, alcoholism. M other: alive 43 yrs, diagnosed with Unspecified polyarthropathy or polyarthritis, pelvic region and thigh. S ister(s): alive, POTS. S on(s): alive. D fadi(s): alive. 2 sister(s) . 1 son(s) , 2 daughter(s) . . Anxiety and depression runs on both sides of the family mothers and fathers. * Social History: T obacco Use: T obacco Use/Smoking P atient is a n onsmoker D rug/Alcohol: A CHUY-C (Standard) D id you have a drink containing alcohol in the past year? N o P oints 0 I nterpretation N egative * Medications: T aking Adipex-P(Phentermine HCl) 37.5 MG Tablet 1 tablet before breakfast Orally Once a day , Discontinued Cefdinir 300 MG Capsule 2 capsule Orally once a day , Medication List reviewed and reconciled with the patient * Allergies: a bilify: bad side effects, trazadone: ineffective, risperdol: ineffective, lamictal: ineffective, celexa: ineffective, Penicillin: unknown - Allergy, Amoxicillin: hives - Allergy, Flagyl: rash/hives - Allergy. Objective: * Vitals: W t:135.0lbs, Ht: 63 in, BMI:23.91Index, Ht-cm: 160.02 cm, Wt-k.24 kg. * Examination: P hysical Exam: GENERAL: w ell developed, well nourished, in no acute distress. HEAD: n ormocephalic/atraumatic. EYES: p upils equal, round and reactive to light, conjunctivae and sclerae normal. EARS: n o deformity or lesion of external ear, canals and TM appear normal bilaterally, TM's intact, not inflamed with normal light reflex, hearing grossly normal to conversational speech. NOSE: n o deformity, discharge, inflammation, or lesions.? MOUTH: m ucous membranes moist, normal oropharynx and posterior pharynx without lesions or exudates, tongue normal, dentition normal. NECK: n neel supple, no masses or palpable cervical nodes, trachea midline, thyroid without nodules, masses, tenderness, or enlargement. CHEST: n o chest wall deformity, no chest wall tenderness.? LUNGS: n ormal respiratory effort and clear to auscultation, no wheezes, rales, or rhonchi, good air exchange. CARDIO: r egular rate and rhythm, normal S1 and S2, nor murmur, rub, or gallop. PULSES: n ormal capillary refill. ABDOMEN: s oft, non-distended, non-tender, no masses. MUSCULOSKELETAL: n o deformity or scoliosis noted, normal range of motion, joints normal, no erythema, edema, effusion, or ecchymosis. EXTREMITY: n o clubbing, cyanosis, edema, or deformity with normal ROM in both upper and lower bilateral extremities. NEUROLOGIC: g rossly normal. SKIN: n o rashes, ulcerations, or suspicious lesions. LYMPH NODES: n o cervical adenopathy, nodes normal. MENTAL STATUS: a lert and oriented x3, normal mood and affect. Assessment: * Assessment: 1. 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 but also urinating more fdeels like has frequent uti Examination Category Sub-Category Detail Notes Category Not es Physical Exam GENERAL: well developed, well nourished, in no acute distress HEAD: normocephalic/atraum atic EYES: pupils equal, round and reactive to light, conjunctivae and sclerae normal EARS: no deformity or lesi on of external ear, canals and TM appear normal bilaterally, TM's intact, not inflamed with normal light reflex, hearing grossly normal to conversational speech NOSE: no deformity, discha rge, inflammation, or lesions MOUTH: mucous membranes tamar st, normal oropharynx and posterior pharynx without lesions or exudates, tongue normal, dentition normal NECK: neck supple, no mass es or palpable cervical nodes, trachea midline, thyroid without nodules, masses, tenderness, or enlargement CHEST: no chest wall deform ity, no chest wall tenderness LUNGS: normal respiratory e ffort and clear to auscultation, no wheezes, rales, or rhonchi, good air exchange CARDIO: regular rate and rhy thm, normal S1 and S2, nor murmur, rub, or gallop PULSES: normal capillary ref ill ABDOMEN: soft, non-distended, non-tender, no masses RECTAL: MUSCULOSKELETAL: no deformity or scol iosis noted, normal range of motion, joints normal, no erythema, edema, effusion, or ecchymosis EXTREMITY: no clubbing, cyanosi s, edema, or deformity with normal ROM in both upper and lower bilateral extremities NEUROLOGIC: grossly normal SKIN: no rashes, ulceratio ns, or suspicious lesions LYMPH NODES: no cervical adenopat hy, nodes normal MENTAL STATUS: alert and oriented x 3, normal mood and affect
--- OUTSIDE RECORDS SUMMARY | 2025-06-05 11:38 | XMS_ITS | Clinical Summary ---
Author Organization [facility] Address [address], [address] [place] [address] Care Team Providers Care Overedge Sewer Name Role Phone Francisco J Case MD Primary Care Provider [phone] Allergies Active Allergy Reactions Criticality Noted Date Comments Amoxicillin Hives,Other (See Comments) High 01/11/20 20 As a child Metronidazole Hives Medium 07/03/2020 Penicillin G High 06/16/2020 Medications VYVANSE 40 MG CAPS 07/10/2024 Active Multiple Vitamins-Mineral s (THERAPEUTIC MULTIVITAMIN-MIN ERALS) tablet Take 1 tablet by mouth daily Active Active Problems Problem Noted Date Diagnosed Date Dysmenorrhea, unspecified 11/21/2024 Unspecified dyspareunia 11/21/2024 Pelvic pain syndrome 09/18/2024 History of endometriosis 09/18/2024 Normal delivery 06/23/2022 COVID-19 06/12/2022 Major depressive disorder 07/31/2020 Intentional self-harm by uns pecified sharp object, initial encounter 07/31/2020 Fall at home, initial encounter 06/16/2020 Resolved Problems Problem Noted Date Diagnosed Date Resolved Date Term 06/22/2022 06/23/2022 Encounter for induction of labor 09/20/2020 06/23/2022 39 weeks gestation of 06/23/2022 Immunizations Immunization Administration Dates Next Due DTaP vaccine 06/14/2002, 2,2001,07/20 DTaP, DAPTACEL, (age 6w-6y), IM, 0.5mL 6 HPV Quadrivalent (Gardasil) 09/29/2013, 3 Hep B/Hib (Comvax) 06/14/2002,2001, 001 Hib vaccine 2001 MMR, PRIORIX, M-M-R II, (age 12m+), SC, 0.5mL 11/19/2005,05/05/2002 Meningococcal ACWY, MENACTRA (MenACWY-D), (age 9m-55y), IM, 0.5mL 09/29/2013 Meningococcal ACWY, MENVEO (MenACWY-CRM), (age 2m-55y), IM, 0.5mL 06/21/2018 Poliovirus, IPOL, (age 6w+), SC/IM, 0.5mL 11/19/2005,2001,2001,07/20 TDaP, ADACEL (age 10y-64y), BOOSTRIX (age 10y+), IM, 0.5mL 2022,07/31/2020,06/23/2013 Varicella, VARIVAX, (age 12m +), SC, 0.5mL 07/14/2006 Family History Medical History Relation Name Comments Depression Father Hypertension Father Hypertension Maternal Grandfather Deep Vein Thrombosis Mother Depression Mother Osteoarthritis Mother Diabetes Paternal Grandfather No Known Problems Paternal Grandmother Asthma Sister 1 No Known Problems Sister 2 Relation Name Status Comments Father Alive Maternal Grandfather Alive Maternal Grandmother Alive Mother Alive Paternal Grandfather Alive Paternal Grandmother Alive Sister 1 Alive Sister 2 Alive Social History Tobacco Use Types Packs/Day Years Used Date Smoking Tobacco: Never Smokeless Tobacco: Never Tobacco Cessation:Counseling Given: Not Answered Alcohol Use Standard Drinks/Week Comments Not Currently 0 (1 standard drink = 0.6 oz pur e alcohol) [facility] Utilities Answer Date Recorded In the past 12 months has [employer], [employer], oil, or water [employer] threatened to shut off services in your home? No 11/21/2024 AUDIT-C Answer Date Recorded Q1: How often do you have a drink containing alcohol? Never 11/25/2024 Q2: How many drinks containi ng alcohol do you have on a typical day when you are drinking? Patient does not drink Q3: How often do you have si x or more drinks on one occasion? Never 11/25/2024 Overall Financial Resource Strain (CARDIA) Answe r Date Recorded How hard is it for you to pa y for the very basics like food, housing, medical care, and heating? Not hard at all 09/07/2024 Hunger Vital Sign Answer Date Recorded Within the past 12 months, y ou worried that your food would run out before you got the money to buy more. Never true 11/21/19 25 Within the past 12 months, t he food you bought just didn't last and you didn't have money to get more. Never true 11/21/2024 PRAPARE - Transportation Answer Date Re corded In the past 12 months, has l ack of transportation kept you from medical appointments or from getting medications? No 11/08 In the past 12 months, has l ack of transportation kept you from meetings, work, or from getting things needed for daily living? No 11/21/2024 [place] Depression Scale Answer Date Recorded Last EPDS Total Score Not on file 06/23/2022 The thought of harming myself has occurred to me . Never 06/23/2022 Housing Stability Vital Sign Answer Yasmani e Recorded In the last 12 months, was t here a time when you were not able to pay the mortgage or rent on time? No 11/21/2024 In the past 12 months, how m any times have you moved where you were living? 0 11/21/2024 At any time in the past 12 m [facility], were you homeless or living in a skilled nursing (including now)? No 11/21/2024 Food Insecurity Answer Date Recorded Within the past 12 months, y ou worried that your food would run out before you got the money to buy more. 1 11/21/2024 Within the past 12 months, t he food you bought just didn't last and you didn't have money to get more. 1 11/21/2024 Interpersonal Safety Domain Source: IP Abuse Scr eening Answer Date Recorded Physical abuse Denies 11/25/2024 Verbal abuse Denies 11/25/2024 Emotional abuse Denies 11/25/2024 Financial abuse Denies 11/25/2024 Sexual abuse Denies 11/25/2024 Comments No Sex and Gender Information Value Date Recorded Sex Assigned at Not on file Legal Sex Female 9:38 PM EST Gender Identity Not on file Sexual Orientation Not on file Last Filed Vital Signs Vital Sign Reading Time Taken Comments Blood Pressure 110/66 12/27/2024 10:38 AM EST Pulse 110 11/25/2024 3:55 PM EST Temperature 36.8 C (98.3 F) 11/25/2024 3:55 PM EST Respiratory Rate 16 11/25/2024 3:55 PM EST Oxygen Saturation 99% 11/25/2024 7:13 PM EST Inhaled Oxygen Concentration - - Weight 80.3 kg (177 lb) 12/27/2024 10:38 AM EST Height 160 cm (5' 3 ) 12/27/2024 10:38 AM EST Body Mass Index 31.35 12/27/2024 10:38 AM EST Plan of Treatment Upcoming Encounters Date Type Department Care Team (Late st Contact Info) Description 09/10/2025 10:30 AM EST Office Visit [facility] Obstetrics & Gynecology [address], [address] [place] [address] Georgia Smith, ROCK WOOL INSULATOR - CN [address] [place] [address] Annual Health Maintenance Due Date Last Done Comments Varicella vaccine (2 of 2 - 2-dose childhood series) 10/06/2006 07/14/2006 Depression Monitoring 2013 HPV vaccine (3 - 2-dose series) 12/24/2013 09/29/2013, 06/23/2013 COVID-19 Vaccine ( season) 2024 Flu vaccine (#1) 06/08/2025 Chlamydia/GC screen 09/07/2025 09/07/2024, 12/15/2021, 02/26/2021, Additional history exists DTaP/Tdap/Td vaccine (9 - Td or Tdap) 2032 2022, 07/31/2020, 06/23/2013, Additional history exists Hepatitis B vaccine Completed 06/14/2002, 2001, 2001 Hib vaccine Completed 06/14/2002, 03/2002, 2001, Additional history exists Polio vaccine Completed 11/19/2005, 03/2002, 2001, Additional history exists Meningococcal (ACWY) vaccine Completed 06/21/2018, 09/29/2013 HIV screen Completed 12/15/2021, 03/15/2020 Hepatitis C screen Completed 12/15/2021, 03/15/2020 Pap smear Discontinued 09/07/2024 Hepatitis A vaccine Aged Out No longe r eligible based on patient's age to complete this topic Meningococcal B vaccine Aged Out No l onger eligible based on patient's age to complete this topic Pneumococcal 0-49 years Vaccine Aged Out No longer eligible based on patient's age to complete this topic Procedures Procedure Name Priority Date/Time Associated Diagnosis Comments C.TRACHOMATIS N.GONORRHOEAE DNA, THIN PREP Routine 09/07/2024 9:21 PM EDT Pelvic pain GROUP SALES REPRESENTATIVE CYTOLOGY Routine 09/07/2024 12:00 AM EDT HIV SCREEN Routine 12/15/2021 11:09 AM EST Encounter for supervision of other normal in first trimester HEPATITIS C ANTIBODY Routine 12/15/2021 11:09 AM EST Encounter for supervision of other normal in first trimester from Last 3 Months or Most Recently Relevant to Health Maintenance Results * Chlamydia/GC DNA, Thin Prep (09/07/2024 9:21 PM EDT) Specimen Description .CERVIX 09/07/2024 9:21 PM EDT [employer] Chlamydia By Thin Prep NEGATIVE NEGATIVE 09/07/2024 9:21 PM EDT [facility] Comment: CHLAMYDIA TRACHOMATIS DNA not detected by nucleic acid [...] results by an alternative nucleic acid target. N. gonorrhoeae DNA, Thin Prep NEGATIVE NEGATIVE 09/07/2024 9:21 PM EDT [employer] Comment: NEISSERIA GONORRHOEAE DNA not detected by nucleic acid [...] results by an alternative nucleic acid target. CERVICAL SWAB / Unknown 09/07/2024 9:21 PM EDT 09/07/2024 9:21 PM EDT Georgia Smith ROCK WOOL INSULATOR - CNM MICROBIOLOGY - GENE RAL ORDERABLES Final Result [employer] [phone] * GROUP SALES REPRESENTATIVE Cytology (09/07/2024 12:00 AM EDT) Cytology Report Path Number: [id number] DIAGNOSIS Imaged ThinPrep Pap - Cervical (1 monolayer slide): Specimen Adequacy: Satisfactory for evaluation. - Endocervical/trans formation zone component present. Descriptive Diagnosis: Negative for intraepithelial lesion or malignancy. Cytotech Screener: EY Electronically Signed Out Elkin BERNAL(ASCP) /09/18/2024 Source of Specimen: A: Imaged ThinPrep Pap - Cervical (1 monolayer slide) HPV Reflex?........... ...........HPV if ASCUS Clinical History Z12.4 Encounter for screening for malignant neoplasm of cervix Processing Lab: [address] [address] Interpretation performed at [address] [address] This Pap Test has been evaluated with [...] GYNECOLOGIC CYTOLOGY REPORT Patient Name: ZAID LUNA [facility] Rec: [id number] [employer] [facility] ANATOMIC PATHOLOGY [address] [place] [address]. [place], [place] [address] [facility] [employer] CERVICAL MATERIAL 09/07/2024 024 7:41 AM EST Georgia Smith ROCK WOOL INSULATOR - CNM PATHOLOGY/CYTOLOGY ORDERABLES Final Result Performing Organization Address [facility] Co de Phone Number [employer] [address] [place] [address] [facility] [employer] * Hepatitis C Antibody (12/15/2021 11:09 AM EST) Hepatitis C Ab NONREACTIVE NONREACTIVE 12/15/19 11:09 AM EST [employer] Comment: The hepatitis C procedure used in our [...] recommended by ordering HCV RNA by PCR. BLOOD SPECIMEN / Unknown 12/15/2021 11:09 AM EST 12/15/2021 11:10 AM EST Raul Pinto ROCK WOOL INSULATOR - ENROLLMENT SPECIALIST IMMUNOLOGY ORDERABLES Fi nal Result Performing Organization Address City/[facility]/ZIP Co de Phone Number [employer] [address] [place] [address], [facility] [phone] * HIV Screen (12/15/2021 11:09 AM EST) HIV Ag/Ab NONREACTIVE NONREACTIVE 12/15/2021 11:09 AM EST [employer] Comment: No laboratory evidence of HIV infection. If acute HIV infection is suspected, consider testing for HIV-1 RNA. BLOOD SPECIMEN / Unknown 12/15/2021 11:09 AM EST 12/15/2021 11:10 AM EST Raul Pinto ROCK WOOL INSULATOR - ENROLLMENT SPECIALIST IMMUNOLOGY ORDERABLES Fi nal Result [facility] [address] [id number] [phone] from Last 3 Months or Most Recently Relevant to Health Maintenance Insurance [facility] MEDICAID AETNA Advance Directives * Full Code (Latest Code Status on File) Date Activated Date Inactivated Comments 11/20/2024 10:38 AM 11/20/2024 6:25 PM * Full Code Date Activated Date Inactivated Comments 11/20/2022 7:21 AM 11/20/2022 1:16 PM * Full Code Date Activated Date Inactivated Comments 06/22/2022 6:06 AM 06/22/2022 7:10 PM * Full Code Date Activated Date Inactivated Comments 09/20/2020 7:07 PM 09/21/2020 8:45 PM * Full Code Date Activated Date Inactivated Comments 09/20/2020 6:02 AM 09/20/2020 7:07 PM Care Teams Overedge Sewer Relationship Specialty Start Date End Date Francisco J Case MD [address] [place] [address] PCP - General Family Medicine 04/09/21
--- OUTSIDE RECORDS SUMMARY | 2025-06-05 11:38 | XMS_ITS | Clinical Summary ---
Author Organization [facility] Address [id number] [address] [place] [address] Care Team Providers Care Electrologist Name Role Phone Francisco J Case MD Primary Care Provider [phone] Allergies Active Allergy Reactions Criticality Noted Date Comments Amoxicillin Hives High 01/12/2020 As a child Metronidazole Hives Medium 06/27/2020 Penicillins 11/15/2021 Medications white petrolatum-mineral oiL (ARTIFICIAL TEARS, RYAN/MIN,) 83-15 % ointment 0.25 inches every 6 (six) hours. Active ondansetron ODT (ZOFRAN-ODT) 4 mg disintegrating tablet Dissolve 1 tablet (4 mg total) on tongue every 8 (eight) hours as needed for nausea for up to 10 doses. 10 tablet 1 Active famotidine (PEPCID) 20 mg tablet Take 1 tablet (20 mg total) by mouth in the morning and 1 tablet (20 mg total) before bedtime. 20 tablet 2 Active lisdexamfetamine (VYVANSE) 40 mg capsule Take 1 capsule (40 mg total) by mouth every morning. Max Daily Amount: 40 mg 4 Active Active Problems Problem Noted Date Diagnosed Date Syncope 01/12/2020 Family History Medical History Relation Name Comments No Known Problems Father Hypertension Maternal Grandmother Deep vein thrombosis Mother Pulmonary embolism Mother Hypotension Sister Relation Name Status Comments Father Alive Maternal Grandmother Mother Alive Sister Alive Social History Tobacco Use Types Packs/Day Years Used Date Smoking Tobacco: Never Smokeless Tobacco: Never Alcohol Use Standard Drinks/Week Comments Yes 0 (1 standard drink = 0.6 oz pur e alcohol) socially AUDIT-C Answer Date Recorded Frequency of Alcohol Consumption Never 11/08/2018 Average Number of Drinks Not on file 019 Frequency of Binge Drinking Not on file 11/2018 Childcare Answer Date Recorded Childcare Unknown 04/19/2019 Employment Answer Date Recorded Employment Unknown 04/19/2019 Hunger Screening Answer Date Recorded Within the past 12 months we worried whether our food would run out before we got money to buy more. Never True 09/12/2024 Within the past 12 months th e food we bought just didn't last and we didn't have money to get more. Never True 09/12/2024 Purpose - Life Answer Date Recorded Purpose and direction in life Unknown Comments No Sex and Gender Information Value Date Recorded Sex Assigned at Not on file Legal Sex Female 6:42 AM EST Gender Identity Not on file Sexual Orientation Not on file Last Filed Vital Signs Vital Sign Reading Time Taken Comments Blood Pressure 109/78 09/12/2024 2:15 AM EST Pulse 100 09/12/2024 2:15 AM EST Temperature 36.9 C (98.5 F) 09/12/2024 12:06 AM EST Respiratory Rate 18 09/12/2024 2:15 AM EST Oxygen Saturation 91% 09/12/2024 2:30 AM EST Inhaled Oxygen Concentration - - Weight 72.6 kg (160 lb) 04/18/2023 8:43 AM EDT Height 160 cm (5' 3 ) 04/18/2023 8:43 AM EDT Body Mass Index 28.34 04/18/2023 8:43 AM EDT Plan of Treatment Health Maintenance Due Date Last Done Comments Depression Screening 2013 Pap Smear 2022 Adult BMI Screening 04/18/2024 04/18/2023 Influenza Vaccine 07/09/2025 Chlamydia Screening 09/07/2025 09/07/2024, 6 Tobacco Screening 09/12/2025 09/12/2024 DTaP,Tdap and Td Vaccines (9 - Td or Tdap) 2032 2022, 07/31/2020, 06/23/2013, Additional history exists Medical Devices Not on file Procedures Procedure Name Priority Date/Time Associated Diagnosis Comments CHLAMYDIA/GC BY PCR ELIZABETH SWAB Routine 01/03/2016 4:26 PM EST from Last 3 Months or Most Recently Relevant to Health Maintenance Results * Chlamydia/GC by PCR Elizabeth Swab (01/03/2016 4:26 PM EST) Specimen source ENDOCERVICAL 016 4:26 PM EST [facility] Chlamydia DNA PCR Negative Negative 01/06/2016 1:47 PM EST [facility] Comment: Chlamydia trachomatis not detected by nucleic acid amplification. This does not exclude the possibility of infection because results are dependent on adequate specimen collection. Gonorrhea DNA PCR Negative Negative 01/06/2016 1:47 PM EST [facility] Comment: Neisseria gonorrhoeae not detected by nucleic acid amplification. This does not exclude the possibility of infection because results are dependent on adequate specimen collection. 01/03/2016 4:26 PM EST 01/03/2016 4:26 PM EST us Susan Mishra MD MICROBIOLOGY - GENERAL ORDERAB LES Final Result [facility] [address] [place] [address], from Last 3 Months or Most Recently Relevant to Health Maintenance Insurance [employer] MEDICAID AETNA Advance Directives * Full Code (Latest Code Status on File) Date Activated Date Inactivated Comments 01/12/2020 4:23 PM 01/15/2020 1:33 PM Care Teams Electrologist Relationship Specialty Start Date End Date Francisco J Case MD PCP - General 06/21/18
--- OUTSIDE RECORDS SUMMARY | 2025-06-05 11:38 | XMS_ITS | Encounter Summary ---
Author Organization [facility] Address [address], [address] [place] [address] Care Team Providers Care Training Specialist Name Role Phone Francisco J Case MD Primary Care Provider [phone] Encounter Details Date Type Department Care Team (Late st Contact Info) Description 09/27/2020 [facility] [address] [place], [place] [id number] Sandra Patterson IBCLC OB Unit at [place] [id number] Social History Tobacco Use Types Packs/Day Years Used Date Smoking Tobacco: Never Smokeless Tobacco: Never Alcohol Use Standard Drinks/Week Comments Not Currently 0 (1 standard drink = 0.6 oz pur e alcohol) AUDIT-C Answer Date Recorded Q1: How often do you have a drink containing alc ohol? Never 06/16/2020 Average Number of Drinks Not on file 020 Frequency of Binge Drinking Not on file 07/2020 Comments No Sex and Gender Information Value Date Recorded Sex Assigned at Not on file Legal Sex Female 9:38 PM EST Gender Identity Not on file Sexual Orientation Not on file documented as of this encounter Progress Notes * Sandra Patterson IBCLC - 09/27/2020 1:40 PM EST Discharge Phone Call Log Patient Name: Rios Luna OB Care Provider: No admitting provider for patient encounter. Most Recent Discharge Date: 09/21/20 Disposition of baby: (home) Call made 09/27/2020 1:40 PM [x] Spoke with patient. Mom and baby are doing well: denies needs. [x] Understood discharge instruction and had appropriate follow up care. [x] Had a good hospital experience. [x] Gave compliments - Zulma documented in this encounter Plan of Treatment Upcoming Encounters Date Type Department Care Team (Late st Contact Info) Description 09/10/2025 10:30 AM EST Office Visit [facility] Obstetrics & Gynecology [address], [address] [place] [address] Georgia Smith, AUTOMAT CAR ATTENDANT - CN [address] [place] [address] Annual documented as of this encounter Visit Diagnoses Not on filedocumented in this encounter Additional Health Concerns Infection Onset Date Last Indicated Resolved Time COVID-19 (Rule Out) 06/11/2022 06/11/2022 06/11/20 22 6:49 PM EDT COVID-19 06/11/2022 06/11/2022 06/25/2022 9:26 PM EDT documented as of this encounter Care Teams Training Specialist Relationship Specialty Start Date End Date Francisco J Case MD [address] [place] [address] PCP - General Family Medicine 04/09/21 documented as of this encounter
--- OUTSIDE RECORDS SUMMARY | 2025-06-05 11:38 | XMS_ITS | Clinical Summary ---
Author Organization [facility] Address [address] [place] [address] Care Team Providers Care Vice President Global Digital Marketing Name Role Phone Unavailable Primary Care Provider Unavailabl e Allergies Active Allergy Reactions Criticality Noted Date Comments Amoxicillin Unknown Medium 01/11/2020 Medications No known medications Active Problems No known active problems Social History Tobacco Use Types Packs/Day Years Used Date Smoking Tobacco: Never Assessed Comments Unknown Sex and Gender Information Value Date Recorded Sex Assigned at Not on file Legal Sex Female 4:46 PM EST Gender Identity Not on file Sexual Orientation Not on file Last Filed Vital Signs Vital Sign Reading Time Taken Comments Blood Pressure 103/65 01/12/2020 1:09 PM EST Pulse 128 01/12/2020 1:09 PM EST Temperature 38.4 C (101.2 F) 01/12/2020 1:09 PM EST Respiratory Rate 18 01/12/2020 1:09 PM EST Oxygen Saturation 97% 01/12/2020 1:09 PM EST Inhaled Oxygen Concentration - - Weight 68 kg (150 lb) 01/11/2020 9:33 PM EST Height - - Body Mass Index - - Plan of Treatment Not on file Insurance [employer] PPO
--- OUTSIDE RECORDS SUMMARY | 2025-06-05 11:38 | XMS_ITS | Patient Health Record ---
Author Organization [facility] in [place] Address [address] [place] [address] Care Team Providers Care Stone Hand Name Role Phone Brenden Falk Primary Care Provider [phone] Allergies Allergen (clinical drug ingredient) Drug/Non Drug [...] Act kayy Penicillin unknown Drug Allergy Active Results Component Value Reference Range Notes CRP Reviewed date:07/18/2024 10:19:42 PM Interpretation: Performing Lab: Notes/Report: [facility] , C Reactive Protein <0.50 <=0.50 mg/dL Performing Lab: see note ML - [facility] LB URIC ACID SERUM Reviewed date:07/18/2024 10:19:42 PM Interpretation: Performing Lab: Notes/Report: [facility] , Uric Acid 4.7 2.6-6.0 mg/dL Performing Lab: see note ML - [facility] LB Erythrocyte Sedimentation Ra te Reviewed date:07/18/2024 10:19:42 PM Interpretation: Performing Lab: Notes/Report: [facility] , Erythrocyte Sedimentation Rate 4 <=20 mm/hr Performing Lab: see note ML - [facility] LB TOBY by IFA Reviewed date:09/04/2024 08:41:40 PM Interpretation: Performing Lab: Notes/Report: [facility] , Antinuclear Antibodies, IFA Negative . Negative <1:80 Borderline 1:80 Positive >1:80 ICAP nomenclature: AC-0 For more information about Hep-2 cell patterns use ANApatterns.org, the official website for the International Consensus on Antinuclear Antibody (TOBY) Patterns (ICAP). Performed at: [address] [id number] Circular Gang Saw Operator: Martin Barrett PhD, Phone: [phone] Performing Lab: see note [facility] LB CRP Reviewed date:09/01/2024 11:57:38 AM Interpretation: Performing Lab: Notes/Report: [facility] , C Reactive Protein <0.50 <=0.50 mg/dL Performing Lab: see note - [facility] FREE T3 Reviewed date:09/01/2024 11:57:38 AM Interpretation: Performing Lab: Notes/Report: [facility] , Free T3 3.30 2.18-3.98 pg/mL Performing Lab: see note - [facility] INSULIN Reviewed date:09/03/2024 09:11:36 PM Interpretation: Performing Lab: Notes/Report: [facility] , Insulin 10.8 2.6-24.9 uIU/mL Performed at: [address] [id number] Circular Gang Saw Operator: Martin Barrett PhD, Phone: [phone] Performing Lab: see note [facility] PROF 14(COMP METB) Reviewed date:09/01/2024 11:57:38 AM Interpretation: Performing Lab: Notes/Report: [facility] , Sodium 140 136-145 mmol/L Potassium 4.1 3.5-5.1 mmol/L Chloride 105 98-107 mmol/L Carbon Dioxide 27.3 21.0-32.0 mmol/L Anion Gap 11.8 Glucose 85 74-106 mg/dL Blood Urea Nitrogen 16.0 7.0-18.0 mg/dL Creatinine 0.79 0.55-1.02 mg/dL Estimated GFR ( Alyse >60 >=60 mL/min/1.73m 2 Estimated GFR (Non- Lor >60 >=60 mL/min/1.73m 2 BUN Creatinine Ratio 20.3 Calcium 9.7 8.5-10.1 mg/dL Bilirubin Total 0.7 0.2-1.0 mg/dL Aspartate Amino Transferase 13 15-37 U/L Alanine Aminotransferase 13 14-59 U/L Alkaline Phosphatase 60 46-116 U/L Total Protein 7.7 6.4-8.2 g/dL Albumin Level 4.2 3.4-5.0 g/dL Globulin 3.5 Albumin Globulin Ratio 1.2 Performing Lab: see note - [facility] RHEUMATOID FACTOR Reviewed date:09/04/2024 08:43:05 PM Interpretation: Performing Lab: Notes/Report: [facility] , Rheumatoid Factor (RF) <10.0 <14.0 IU/mL Performing Lab: see note LC - [facility] LB T4 Reviewed date:09/01/2024 11:57:38 AM Interpretation: Performing Lab: Notes/Report: [facility] , T4 Thyroxine 7.30 4.80-13.90 ug/dL Performing Lab: see note - [facility] TSH Reviewed date:09/01/2024 11:57:38 AM Interpretation: Performing Lab: Notes/Report: [facility] , Thyroid Stimulating Hormone 1.521 0.358-3.740 uIU/mL Performing Lab: see note - [facility] URIC ACID SERUM Reviewed date:09/01/2024 11:57:38 AM Interpretation: Performing Lab: Notes/Report: [facility] , Uric Acid 5.0 2.6-6.0 mg/dL Performing Lab: see note - [facility] Erythrocyte Sedimentation Ra te Reviewed date:09/01/2024 11:57:38 AM Interpretation: Performing Lab: Notes/Report: [facility] , Erythrocyte Sedimentation Rate 12 <=20 mm/hr Performing Lab: see note - [facility] Lyme Disease Serology w/Refl ex Reviewed date:09/04/2024 08:41:20 PM Interpretation: Performing Lab: Notes/Report: [facility] , Lyme Total Antibody TAMIKA Negative Negative Lyme antibodies not detected. Reflex testing is not indicated. No laboratory evidence of infection with B. burgdorferi (Lyme disease). Negative results may occur in patients recently infected (less than or equal to 14 days) with B. burgdorferi. If recent infection is suspected, repeat testing on a new sample collected in 7 to 14 days is recommended. Performed at: [address] [id number] Circular Gang Saw Operator: Martin Barrett PhD, Phone: [phone] Performing Lab: see note [facility] Antistreptolysin O Ab Reviewed date:09/04/2024 08:44:26 PM Interpretation: Performing Lab: Notes/Report: [facility] , Antistreptolysin O Ab 229.9 0.0-200.0 IU/mL Performed at: [address] [id number] Circular Gang Saw Operator: Martin Barrett PhD, Phone: [phone] Performing Lab: see note [facility] Celiac Disease Comprehensive Reviewed date:09/04/2024 08:40:59 PM Interpretation: Performing Lab: Notes/Report: [facility] , Deamidated Gliadin Abs, IgA 3 0-19 units Negative 0 - 19 Weak Positive 20 - 30 Moderate to Strong Positive >30 Deamidated Gliadin Abs, IgG 2 0-19 units Negative 0 - 19 Weak Positive 20 - 30 Moderate to Strong Positive >30 t-Transglutaminase (tTG) IgA <2 0-3 U/mL Negative 0 - 3 Weak Positive 4 - 10 Positive >10 Tissue Transglutaminase (tTG) has been identified as the endomysial antigen. Studies have demonstr- ated that endomysial IgA antibodies have over 99% specificity for gluten sensitive enteropathy. t-Transglutaminase (tTG) IgG <2 0-5 U/mL Negative 0 - 5 Weak Positive 6 - 9 Positive >9 Endomysial Antibody IgA Negative Negative Immunoglobulin A, Qn, Serum 174 87-352 mg/dL Performed at: [address] [id number] Circular Gang Saw Operator: Martin Barrett PhD, Phone: [phone] Performing Lab: see note [facility] US right upper quadrant Reviewed date:03/22/2025 08:47:05 PM Interpretation: Performing Lab: Notes/Report: Source Facility: [place] [address] [address] Ultrasound Report Signed Patient: ZAID LUNA MR#: [id number] : 2000 Acct:[id number] Age/Sex: 24 / F ADM Date: 03/22/25 Loc: US Attending Dr: Arabella Falk M.D. Ordering Physician: Arabella Falk M.D. Date of Service: 03/22/25 Procedure(s): US right upper quadrant Accession Number(s): [id number] cc: Arabella Falk M.D. [place] [id number] Patient Name: ZAID LUNA MRN: [id number] date: 2000 Sex: F Assigned Patient Location: US Current Patient Location: US Accession/Order Number: [id number] Exam Date: 03/22/2025 11:54 Report Date: 03/22/2025 11:59 At the request of: ARABELLA FALK MD Procedure: US right upper quadrant LIMITED RIGHT UPPER QUADRANT ABDOMINAL ULTRASOUND CLINICAL HISTORY: Back and right shoulder pain for the past 2 weeks COMPARISON: CT 09/09/2021 The gallbladder is physiologically distended without shadowing calculi, wall thickening or pericholecystic fluid. No intra- or extrahepatic biliary dilatation is evident. The common duct measures 2 - 3 mm. The liver is normal in echogenicity. No intrahepatic masses are seen. There is appropriate hepatopetal flow within the main portal vein. The pancreas shows no significant sonographic abnormality. Cursory evaluation of the right kidney reveals no hydronephrosis or fluid within Ceja's pouch. US/US right upper quadrant IMPRESSION: NEGATIVE ULTRASOUND OF THE RIGHT UPPER QUADRANT. Impression dictated by: Radha Morrissey M.D. 03/22/2025 11:59 AM Dictation Location: [place] [address] Electronically authenticated by: [id number] Y Date: 03/22/2025 11:59 Dictated By: Radha Morrissey M.D. Signed By: 03/22/25 1201 DD/ 1159 TD/TT: Cheesemaking Laborer: The [address] [address] Ultrasound Report Signed Patient: CARLOTA LUNA MR#: [id number] : 2000 Acct:[id number] Age/Sex: 24 / F ADM Date: 03/22/25 Loc: US Attending Dr: Francisco Javier Falk M.D. Ordering Physician: Arabella Falk M.D. Date of Service: 03/22/25 Procedure(s): US rig ht upper quadrant Accession Number(s): [id number] cc: Arabella Falk M.D. [place] [address] Patient Name: ZAID LUNA MRN: [id number] date: 2000 Sex: F Assigned Patient Location: US Current Patient Location: Accession/Order Number: [id number] Exam Date: 03/22/2025 11:54 Report Date: 03/22/2025 11:59 At the request of: ARABELLA FALK MD Procedure: US right upper quadrant LIMITED RIGHT UPPER QUADRANT ABDOMINAL ULTRASOUND CLINICAL HISTORY: Ba ck and right shoulder pain for the past 2 weeks COMPARISON: CT 09/09/2021 The gallbladder is physiologically distended without shadowing calculi, wall thickening or pericholecystic fluid. No intra- or extrahepatic biliary dilatation is eviden t. The common duct measures 2 - 3 mm. The liver is normal in echogenicity. No intrahepatic masses are seen. There is appropriate hepatopetal flow within the main portal vein. The pancreas shows no significant sonographic abnormality. Cursory evaluation of the right kidney reveals no hydronephrosis or fluid within Ceja's pouch. US/US right upper quadrant IMPRESSION: NEGATIVE ULTRASOUND OF THE RIGHT UPPER QUADRANT. Impression dictated by: Radha Morrissey M.D. 03/22/2025 11:59 AM Dictation Location: [place] [address] Electronically authenticated by: [id number] Y Date: 03/22/2025 11:59 Dictated By: Radha Morrissey M.D. Signed By: 03/22/25 1207 DD/ 1159 TD/TT: Cheesemaking Laborer: GLYCOHEMOGLOBIN A1C Reviewed date:09/01/2024 11:57:38 AM Interpretation: Performing Lab: Notes/Report: [facility] , Glycohemoglobin A1C 5.1 4.5-6.2 % ADA RECOMMENDED LIMIT 4.0 - 6.0 ADA THERAPEUTIC TARGET < 7.0 ACTION SUGGESTED > 7.0 Estimated Average Glucose 100 Performing Lab: see note ML - [facility] LB CBC AUTO DIFF Reviewed date:09/01/2024 11:57:38 AM Interpretation: Performing Lab: Notes/Report: [facility] , White Blood Count 6.0 4.0-11.0 10 3/uL Red Blood Count 4.85 4.20-5.40 10 6/uL Hemoglobin 14.8 12.0-16.0 g/dL Hematocrit 43.4 36.0-48.0 % Mean Corpuscular Volume 89.5 81.0-99.0 fL Mean Corpuscular Hemoglobin 30.5 26.7-34.0 pg Mean Corpuscular HGB Conc 34.1 29.9-35.2 g/dL Red Cell Distribution Width 11.5 11.0-15.0 % Platelet Count 268 150-450 10 3/uL Mean Platelet Volume 10.1 9.5-13.5 fL Neutrophils Percent Auto 59.0 43.0-75.0 % Lymphocytes Percent Auto 32.8 20.5-60.0 % Monocytes Percent Auto 5.1 1.7-12.0 % Eosinophils Percent Auto 2.3 0.9-7.0 % Basophils Percent Auto 0.8 0.2-2.0 % Immature Granulocytes Pct Auto 0.0 0.0-0.5 % Neutrophils Absolute Auto 3.6 1.4-6.5 10 3/uL Lymphocytes Absolute Auto 2.0 1.2-3.8 10 3/uL Monocytes Absolute Auto 0.3 0.3-0.8 10 3/uL Eosinophils Absolute Auto 0.1 0.0-0.7 10 3/uL Basophils Absolute Auto 0.1 0.0-0.1 10 3/uL Immature Granulocytes Abs Auto 0.00 0.00-0.03 10 3/uL Performing Lab: see note ML - [facility] LB Antistreptolysin O Ab Reviewed date:07/20/2024 09:27:48 PM Interpretation: Performing Lab: Notes/Report: [facility] , Antistreptolysin O Ab 213.6 0.0-200.0 IU/mL Performed at: [address] [id number] Circular Gang Saw Operator: Martin Barrett PhD, Phone: [phone] Performing Lab: see note - [facility] LB RHEUMATOID FACTOR Reviewed date:07/20/2024 09:27:48 PM Interpretation: Performing Lab: Notes/Report: [facility] , Rheumatoid Factor (RF) <10.0 <14.0 IU/mL Performing Lab: see note - [facility] LB TOBY by IFA Reviewed date:07/20/2024 09:27:48 PM Interpretation: Performing Lab: Notes/Report: [facility] , Antinuclear Antibodies, IFA Negative . Negative <1:80 Borderline 1:80 Positive >1:80 ICAP nomenclature: AC-0 For more information about Hep-2 cell patterns use ANApatterns.org, the official website for the International Consensus on Antinuclear Antibody (TOBY) Patterns (ICAP). Performed at: [address] [id number] Circular Gang Saw Operator: Martin Barrett PhD, Phone: [phone] Performing Lab: see note - [facility] LB XR FOOT RT 2V Reviewed date:07/19/2024 09:32:22 PM Interpretation: Performing Lab: Notes/Report: Source Facility: [place] [address] [place] [address] XRay Report Signed Patient: ZAID LUNA MR#: [id number] : 2000 Acct:[id number] Age/Sex: 24 / F ADM Date: 07/18/24 Loc: LAB Attending Dr: Arabella Falk M.D. Ordering Physician: Arabella Falk M.D. Date of Service: 07/18/24 Procedure(s): XR foot RT 2V Accession Number(s): [id number] cc: Arabella Falk M.D. [place] [address] Patient Name: ZAID LUNA MRN: [id number] date: 2000 Sex: F Assigned Patient Location: LAB Current Patient Location: Accession/Order Number: [id number] Exam Date: 07/18/2024 12:15 Report Date: 07/19/2024 10:23 At the request of: ARABELLA FALK Procedure: XR foot RT 2V PROCEDURE: XR foot RT 2V HISTORY: Right Foot Pain M79.671 COMPARISON: None. FINDINGS: BONES:No fracture, acute abnormality, or significant arthropathy. SOFT TISSUES:No visible soft tissue swelling. EFFUSION:None visible. OTHER: Negative. XR/XR foot RT 2V IMPRESSION: 1. No acute bone abnormality, or suspicious lesion, or significant degenerative joint disease. Electronically authenticated by: BHANU SILVA Date: 07/19/2024 10:23 Dictated By: Bhanu Silva M.D. Signed By: 07/19/24 1026 DD/ 1023 TD/TT: Cheesemaking Laborer: [place] [address] XRay Report Signed Patient: CARLOTA LUNA MR#: [id number] : 2000 Acct:[id number] Age/Sex: 24 / F ADM Date: 07/18/24 Loc: LAB Attending Dr: Francisco Javier Falk M.D. Ordering Physician: Arabella Falk M.D. Date of Service: 07/18/24 Procedure(s): XR anupam t RT 2V Accession Number(s): [id number] cc: Arabella Falk M.D. [place] [address] Patient Name: ZAID LUNA MRN: [id number] date: 2000 Sex: F Assigned Patient Location: LAB Current Patient Location: Accession/Order Number: [id number] Exam Date: 07/18/2024 12:15 Report Date: 07/19/2024 10:23 At the request of: ARABELLA FALK Procedure: XR foot R T 2V PROCEDURE: XR foot R T 2V HISTORY: Right Foot Pain M79.671 COMPARISON: None. FINDINGS: BONES:No fracture, acute abnormality, or significant arthropathy. SOFT TISSUES:No visible soft tissue swelling. EFFUSION:None visible. OTHER: Negative. XR/XR foot RT 2V IMPRESSION: 1. No acute bone abnormality, or suspicious lesion, or significant degenerative joint disease. Electronically authenticated by: BHANU SILVA Date: 07/19/2024 10:23 Dictated By: Bhanu Silva M.D. Signed By: 07/19/24 1026 DD/ 1023 TD/TT: Cheesemaking Laborer: IRON Reviewed date:09/01/2024 12:05:12 PM Interpretation: Performing Lab: Notes/Report: [facility] , Iron 105.0 50.0-170.0 ug/dL Performing Lab: see note ML - [facility] VITAMIN D 25 [place] Reviewed date:09/01/2024 12:38:33 PM Interpretation: Performing Lab: Notes/Report: [facility] , Vitamin D 14.8 <20 ng/mL Vit D deficient 20-<30 ng/mL Vit D insufficient 30-100 ng/mL Vit D sufficient >100 ng/mL Potential Toxicity Performing Lab: see note ML - [facility] LB Surgical Pathology ([facility]) Reviewed date:03/22/2025 08:47:05 PM Interpretation: Performing Lab: Notes/Report: Path Number: [id number] -- Diagnosis -- UTERUS, HYSTERECTOMY: -UNREMARKABLE EXOCERVIX -MILD CHRONIC ENDOCERVICITIS -WEAKLY PROLIFERATIVE/INACTIVE ENDOMETRIUM -UNREMARKABLE MYOMETRIUM Ralph Bernstein D.O. Electronically Signed [facility]/11/22/2024 Clinical Information Pre-Op Diagnosis: PELVIC PAIN SYNDROME; [...] cloudy mucoid material. No lesions are identified. Blood Bank Business Manager sections are submitted in 4c as follows: 1 anterior cervix 2 posterior cervix 3 anterior endomyometrium 4 posterior endomyometrium. tm Lluvia Soto/se:11/21/2024 Microscopic Description Microscopic examination performed. Processing Lab: [address] [address] Interpretation Performed at [address] [address] SURGICAL PATHOLOGY CONSULTATION Patient Name: ZAID LUNARupert [facility] Rec: [id number] [facility] ANATOMIC PATHOLOGY [address] [place] [address]. [place], [place] [address] Reason For Referral Diagnosis 1 Right foot pain (M79 .671) Referring Provider First Name Brenden Referring Provider Last Name Manpreet [facility]erred Organization [facility] (PODIATRY) Referred Provider Vitaliy Mercado Referred Address [address] [place] [address] [address] [place],[place], [place],[address], Referred Provider Specialty Podiatry General Notes Sandy Rivas 08/01 09:23:00 AM >called patient to schedule and she never called back. Referral Priority Routine Diagnosis 1 Right foot pain (M79 .671) Referral Organization [facility] Referring Provider First Name Brenden Referring Provider Last Name Manpreet Referring Provider [facility] Referred Provider Vitaliy Mercado Referred Provider Specialty Podiatry Referral Priority Routine Diagnosis 1 Diarrhea (R19.7) Referral Organization [facility] Referring Provider First Name Brenden Referring Provider Last Name Manpreet Referring Provider [facility] Referred Provider Salvatore Lee Referred Provider Specialty General Surg timothy Referral Priority Routine Diagnosis 1 Diarrhea (R19.7) Referral Organization [facility] Referring Provider First Name Brenden Referring Provider Last Name Manpreet Referring Provider Speciality [facility] alonzone Referred Provider Specialty Gastroentero logy Referral Priority Routine Medications Medication SIG (Take, Route, Fr equency, Duration) Notes Start Date End Date Status Adipex-P 37.5 MG 1 tablet before dustin kfast Orally Once a day 05/22/2025 Active Social History Tobacco Use: Social History Observation Description Date Details (start date - stop date) Never Smoker NA - NA Tobacco Use/Smoking Question Answer Notes Patient is a nonsmoker Alcohol Screen (Audit-C) Question Answer Notes Did you have a drink contain ing alcohol in the past year? Yes How often did you have 6 or more drinks on one occasion in the past year? Never (0 point) How many drinks did you have on a typical day when you were drinking in the past year? 1 or 2 drinks (0 point) How often did you have a dri nk containing alcohol in the past year? Less than monthly (1 point) Points 1 Interpretation Negative AUDIT-C (Standard) Question Answer Notes Did you have a drink containing alcohol in the p ast year? 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 She is single and has no children Problems Problem Type SNOMED Code ICD Code Onset Dates Problem Status W/U Status Risk Notes Problem 29885970 Dyspareunia (625.0) Active confirmed Problem 19877352 Major depressive disorder, recurrent severe without psychotic features (F33.2) Active confirmed Problem 087845867 Psychophysiologi c insomnia (F51.04) Active confirmed Problem Abdominal pain (75307805) Abdominal pain (R10.9) Active confirmed Problem Fatigue (58470965) Fatigue (R53.83) Active confirmed Problem Dysmenorrhea (244112968) Dysmenorrhea (N94.6) Active confirmed Problem Diarrhea (66227701) Diarrhea (R19.7) Active confirmed Problem Well adult (557682291) Well adult (Z00.00) Active confirmed Problem 448564755 Anxiety disorder , unspecified type (F41.9) Active confirmed Problem Pain in female genitalia on intercourse (09955610) Dyspareunia due to medical condition in female (N94.19) Active confirmed Problem Myalgia (67405794) Myalgia (M79.10) Active confirmed Vital Signs Heart Rate 118 /min 10/09/2024 Temperature 99.2 degrees Fahrenheit 10/09/2024 Oximetry 98 % 10/09/2024 Blood pressure diastolic 72 mm Hg 03/21/2025 Height 63 in 06/05/2025 Blood pressure systolic 108 mm Hg 03/21/2025 Weight 135.0 lbs 06/05/2025 BMI 23.91 kg/m2 06/05/2025 Encounters Encounter Location Date Provider Diagnosis [facility] [address] [place] [address] 07/18/2024 Brenden Hoy Right foot pain M79. 671 and Seborrhea capitis L21.0 [facility] [address] [place] [address] 09/01/2024 Brenden Hoy Myalgia M79.10 ; Fatigue R53.83 and Diarrhea R19.7 [place] [address] [place] [address] 10/09/2024 Brenden Hoy Acute bronchitis, unspecified organism J20.9 [place] [address] [place] [address] 01/19/2025 Brenden Hoy Fatigue R53.83 [place] [address] [place] [address] 02/22/2025 Brenden Hoy BMI 29.0-29.9,adult Z68.29 [facility] [address] [place] [address] 03/21/2025 Brenden Hoy Abdominal pain R10.9 [facility] [address] [place] [address] 04/03/2025 Brenden Hoy [facility] [address] [place] [address] 05/22/2025 Brenden Hoy [facility] [address] [place] [address] 06/05/2025 Brenden Hoy Well adult Z00.00 [facility] [address] [place] [address] 07/19/2024 Brenden Hoy [facility] [address] [place] [place] [address] 07/20/2024 Brenden Falk [facility] [address] [place] [address] 09/01/2024 Brenden Falk [facility] [address] [place] [address] 09/01/2024 Brenden Falk [facility] [address] [place] [address] 09/01/2024 Brenden Jaimeaide Diarrhea R19.7 [facility] [address] [place] [address] 09/04/2024 Brenden Falk Abnormal blood chemistry R79.9 [facility] [address] [place] [address] 02/21/2025 Brenden Falk [facility] [address] [place] [address] 02/22/2025 Brenden Hoy Fatigue R53.83 [facility] [address] [place] [address] 03/22/2025 Brenden Falk [facility] [address] [place] [address] 03/22/2025 Brenden Falk [facility] [address] [place] [address] 04/03/2025 Brenden Hoy Fatigue R53.83 [facility] [address] [place] [address] 05/22/2025 Brenden Hoy Fatigue R53.83 Assessments Encounter Date Diagnosis (ICD Code) Assessment Notes Treatment Notes Treatment Clinical Notes Section Notes 09/01/2024 Myalgia (ICD-10 - M79.10) 10/09/2024 Acute bronchitis, unspecified organism (ICD-10 - J20.9) Rest and drink more liquids, especially water. You may use a humidifier or vaporizer to help keep the drainage moist. Jrfm-ujy-eccyecc Nasal Saline may help the stuffy and runny nose. Use Ibuprofen and or Tylenol as needed for fever, chills, body aches or pain. Children 5 years old should not be given xysa-xfq-bjrioxa cough and cold medications such as guaifenesin and dextromethorphan. If you're over age 5, you may try edll-bdt-jljtxga cold medications such as guaifenesin and dextromethorphan, or multi-symptom cold reliever such as Dayquil to help reduce the symptoms. Antibiotics have been prescribed. You should take these until completed and follow the directions. Antibiotics can sometimes cause upset stomach, and in rare cases, serious allergic reactions or serious gastrointestinal problems. If you start having severe abdominal pain, severe vomiting, or bloody diarrhea, you should be reevaluated by your physician or urgent care immediately. Follow up with your Primary Care Provider or return to clinic if symptoms do not improve within 3-5 days. If you develop severe symptoms such as shortness of breath, repeated vomiting, coughing up blood, or chest pain you should go to the emergency room or call 911 01/19/2025 Fatigue (ICD-10 - R53.83) 02/22/2025 BMI 29.0-29.9,adult (ICD-10 - Z68.29) 03/21/2025 Abdominal pain (ICD-10 - R10.9) 06/05/2025 Well adult (ICD-10 - Z00.00) 09/01/2024 Diarrhea (ICD-10 - R19.7) 09/04/2024 Abnormal blood chemistry (ICD-10 - R79.9) 02/22/2025 Fatigue (ICD-10 - R53.83) 04/03/2025 Fatigue (ICD-10 - R53.83) 05/22/2025 Fatigue (ICD-10 - R53.83) 07/18/2024 Seborrhea capitis (ICD-10 - L21.0) 07/18/2024 Right foot pain (ICD-10 - M79.671) 09/01/2024 Fatigue (ICD-10 - R53.83) 09/01/2024 Diarrhea (ICD-10 - R19.7) Plan Of Treatment Pending Test Test Name Order Date CMP (COMPLETE METABOLIC PANEL) SED RATE (ESR) 09/04/2024 HEMOGLOBIN A1C (GLYCO) 06/05/2025 HEMOGLOBIN A1C (GLYCO) 09/01/2024 IRON, TOTAL 09/01/2024 IRON, TOTAL 06/05/2025 LIPID PANEL (CHOL/TRIG/HDL/LDL) 06/05/20 CBC WITH DIFF 09/01/2024 VITAMIN D, 25 LEVEL (TOTAL) 09/01/2024 XR Leg Lower RT (2 views) * (160) 2023 Urinalysis Microscopic 06/05/2025 RHEUMATOID PANEL 07/18/2024 RHEUMATOID PANEL 09/01/2024 RHEUMATOID PANEL 06/05/2025 Insulin Level 09/01/2024 Insulin Level 06/05/2025 STOOL OCCULT BLOOD 09/01/2024 CELIAC ANTIBODIES PROFILE 09/01/2024 CPK 09/04/2024 CRP 09/04/2024 CULTURE URINE 06/05/2025 LYME DISEASE, WESTERN BLOT 09/01/2024 MYOGLOBIN 09/04/2024 SED RATE WESTERGREN 09/01/2024 SED RATE WESTERGREN 06/05/2025 SED RATE WESTERGREN 07/18/2024 US ABD 03/21/2025 THYROID PANEL (T4/TSH/FREE T3) THYROID PANEL (T4/TSH/FREE T3) CMP (COMP MET ARAUJO) w/eGFR CKD-EPI 2024 CBC WITH DIFF 06/05/2025 Insurance Providers Payer Name Payer Address Payer Phone Subscriber Number Group Number Insured Name Patient Relationship to Insured Coverage Start Date Coverage End Date [employer] [place] [address] [address] [place] [phone] [id number] Berkley Cartwright Child - Insured does not have Financial Responsibility (includes legally adopted child) 4 [facility] MEDICA[employer] [address] [address] [place] [phone] [id number] Zaid Luna Self - patient is the insured 3 Medical (General) History Medical History History ICD Code Sinus tachycardia R00.0 Syncope and collapse R55 Dysfunctional uterine bleeding N93.8 Ovarian cyst, right N83.201 Suicidal ideation R45.851 Mood disorder F39 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
[2025-06-05 12:05] LABS: Hematocrit 41.5 % (36.0-48.0); Hemoglobin 14.3 g/dL (12.0-16.0); Immature Granulocytes Abs Auto 0.01 10^3/uL (0.00-0.03); Immature Granulocytes Pct Auto 0.2 % (0.0-0.5); Lymphocytes Absolute Auto 1.7 10^3/uL (1.2-3.8); Mean Corpuscular HGB Conc 34.5 g/dL (29.9-35.2); Mean Corpuscular Hemoglobin 31.2 pg (26.7-34.0); Mean Corpuscular Volume 90.6 fL (81.0-99.0); Platelet Count 250 10^3/uL (150-450); Red Blood Count 4.58 10^6/uL (4.20-5.40); White Blood Count 4.5 10^3/uL (4.0-11.0)
[2025-06-05 12:18] LABS: Glucose Urine UA NEGATIVE (NEGATIVE)
[2025-06-05 12:23] LABS: Iron 73.0 ug/dL (50.0-170.0)
[2025-06-05 12:31] LABS: Alanine Aminotransferase 30 U/L (14-59); Albumin Globulin Ratio 1.3; Albumin Level 4.4 g/dL (3.4-5.0); Alkaline Phosphatase 52 U/L (46-116); Anion Gap 13.3; Aspartate Amino Transferase 13 U/L (15-37); Blood Urea Nitrogen 16.0 mg/dL (7.0-18.0); Calcium 9.2 mg/dL (8.5-10.1); Carbon Dioxide 27.8 mmol/L (21.0-32.0); Chloride 105 mmol/L (98-107); Cholesterol 134 mg/dL (<=200); Estimated GFR (African America >60 (>=60 mL/min/1.73m^2); Estimated GFR (Non-African Ame >60 (>=60 mL/min/1.73m^2); Free T3 2.65 pg/mL (2.18-3.98); Globulin 3.3 g/dL; Glucose 92 mg/dL (74-106); HDL Cholesterol 50 mg/dL (40-60); Potassium 4.1 mmol/L (3.5-5.1); Sodium 142 mmol/L (136-145); Thyroid Stimulating Hormone 1.828 uIU/mL (0.358-3.740); Total Protein 7.7 g/dL (6.4-8.2); Triglycerides 23 mg/dL (<=150); Uric Acid 4.6 mg/dL (2.6-6.0); VLDL CHOLESTEROL 4.6 mg/dL
[2025-06-05 12:46] LABS: Cast Seen? NONE SEEN #/LPF (NONE SEEN); Crystals Seen? None Seen #/HPF (None Seen); Urine Culture Indicated ALREADY ORDERED
[2025-06-07 12:08] LABS: Antinuclear Antibodies, IFA Negative (.)
== END 2025-06-05 11:35 | disposition home or self-care (01) ==
PROVIDERS: PCP Family Medicine; Visit Provider Family Medicine
DX: Z00.00 Encounter for general adult medical examination without abnormal findings (principal)
CPT/HCPCS: 36415; 80053; 80061; 81001; 83036; 83525; 83540; 84436; 84443; 84481; 84550; 85025; 85652; 86038; 86060; 86140; 86431; 87086